=== PATIENT | female | born 1945 | race Caucasian/White ===

== ENCOUNTER 2019-11-12 13:28 | Inpatient (IN) | payer MEDICARE, SELFPAY ==
[2019-11-12] VITALS (9 sets, daily range): BP systolic 96–136; BP diastolic 58–82; PULSE 59–69; RESP 15–20; TEMP 35.9–36.9; O2SAT 98–100; BMI 34.9
--- NOTE | ~2019-11-12 | CT_ITS ---
EXAMINATION: CT brain wo con DATE: 11/12/2019 14:42 INDICATION: Dizziness. Syncope. Hypotension. TECHNIQUE: Computed tomography (CT) of the head was performed without intravenous contrast. The dose- length product was 605.33 mGy-cm. The mA was adjusted according to patient size. Iterative reconstruc tion technique was employed. COMPARISON: CT dated 01/31/2018 FINDINGS: There is a chronic left occipital craniotomy defect with underlying cerebellar encephalomal acia, likely postoperative. Correlate clinically. No acute intracranial hemorrhage, infarction, mass or mass effect. There are scattered mild periventricular and subcortical white matter changes, most l ikely related to small vessel ischemic disease (microangiopathy). Mild mucosal thickening left maxill kathie sinus. Mastoids are pneumatized. No depressed skull fractures. IMPRESSION: 1. No acute intracranial abnormality. No significant change. Reviewed, dictated and finalized at location A.
--- NOTE | ~2019-11-12 | XR_ITS ---
EXAMINATION: XR shoulder RT min 2V DATE: 11/13/2019 10:16 INDICATION: Right shoulder pain post fall TECHNIQUE: AP internally and externally rotated, AP oblique externally rotated and transscapular Y vi ews of the right shoulder were obtained. COMPARISON: None FINDINGS: Normal alignment. No fracture. Glenohumeral joint is normal. Negligible acromioclavicular osteoarthr itis. Soft tissues are unremarkable. A couple tiny calcified nodules at the right upper lung zone con sistent with old granulomatous disease. 3. Partially visualized cardiac pacemaker/defibrillator leads extending along the superior vena cava. At least moderate cervical thoracic spondylosis which is not diagnostically evaluated. IMPRESSION: Negligible right acromioclavicular osteoarthritis. Otherwise unremarkable right shoulder with no acut e osseous abnormality. Reviewed, dictated and finalized at location B. IMPRESSION: Negligible right acromioclavicular osteoarthritis. Otherwise unremarkable right shoulder with no acute osseous abnormality.
--- NOTE | ~2019-11-12 | CT_ITS ---
EXAMINATION: CTA chest PE protocol DATE: 11/12/2019 14:45 CDT INDICATION: Dizziness and weakness. Shortness of breath. TECHNIQUE: Computed tomographic angiography (CTA) of the chest was performed with 100 mL Omnipaque-35 0 intravenous contrast. The dose-length product was 958.38 mGy-cm. Maximum intensity projection 3D-re constructions of the aorta and other arteries were constructed by the technologist on a separate work station. Automated exposure control and iterative reconstruction technique were employed. COMPARISON: CT dated 05/03/2016 FINDINGS: Study is technically adequate without evidence for pulmonary embolism. Stable fusiform asce nding thoracic aortic aneurysm measuring 4.8 cm. There is atherosclerosis of the coronary arteries an d aorta. No significant pleural or pericardial effusion. No thoracic lymphadenopathy. Status post cho lecystectomy with pneumobilia. No endobronchial lesions. Mild emphysema. Dependent atelectasis. No ev idence for focal pneumonia, pneumothorax. No suspicious pulmonary nodules or masses. IMPRESSION: 1. No evidence for pulmonary embolism. No acute cardiopulmonary disease. 2: Stable fusiform ascending thoracic aortic aneurysm measuring 4.8 cm. Reviewed, dictated and finalized at location A.
--- NOTE | 2019-11-12 13:25 | ED.DIZZY ---
HPI - Dizziness General Chief Complaint: Dizziness Stated Complaint: fall/ dizzy Source: patient and EMS Mode of arrival: EMS Limitations: no limitations History of Present Illness HPI Narrative: Patient is a 74-year-old female with a history of hypertension, pacemaker/defibrillator who presents for evaluation of a syncopal event. Patient states that she was in her living room when she stood up to check on her , walked into the bedroom began to feel lightheaded and dizzy and then passed out. Patient is unsure if she hit her head. She is reporting chest pain that is worse with movement. She is denying any shortness of breath. Patient states she takes a daily aspirin, otherwise no other anticoagulation. Patient did not feel her defibrillator fire. Patient states that she has a history of low blood pressure secondary to some of the medications that she takes. She states this is her third syncope and fall this week. Patient reports chronic dehydration, states that she does not take in much food or water due to decreased appetite in general. Dr. Still is her loss control representative. Related Data Home Medications Medication Instructions Recorded Confirmed albuterol sulfate 2.5 mg INHALATION Q4-6H 01/20/19 08/09/19 aspirin 81 mg tablet,delayed 81 mg PO DAILY 02/01/19 08/09/19 release cholecalciferol (vitamin D3) 50 2,000 unit PO DAILY 02/01/19 08/09/19 mcg (2,000 unit) tablet sacubitril 24 mg-valsartan 26 mg 0.5 tablet PO BID tablet 08/09/19 08/09/19 tablet Allergies Allergy/AdvReac Type Severity Reaction Status Date / Time adhesive Allergy Mild Rash Verified 11/12/19 13:40 codeine Allergy Unknown HIVES AND Verified 11/12/19 13:40 ITCHING Sulfa (Sulfonamide Allergy Unknown HIVES Verified 11/12/19 13:40 Antibiotics) sulfanilamide Allergy Unknown Hives Verified 11/12/19 13:40 Review of Systems Review of Systems: Narrative: CONSTITUTIONAL: Denies fever, chills, or sweats. EYES: Denies visual changes ENT: Denies rhinorrhea, congestion, sore throat, or otalgia. CARDIOVASCULAR: Reports chest wall pain, denies palpitations or edema RESPIRATORY: Denies cough or dyspnea. GASTROINTESTINAL: Denies abdominal pain, nausea, vomiting, or diarrhea. GENITOURINARY: Denies dysuria or hematuria. SKIN: Denies rash or itching. MUSCULOSKELETAL: Denies back pain, reports right shoulder pain, or myalgia. NEUROLOGIC: Denies headache, numbness, or weakness. [facility] Past Medical History Medical History Anxiety Cardiac pacemaker Cardiac pacemaker in situ Cholecystectomy planned COPD (chronic obstructive pulmonary disease) Dilated cardiomyopathy Encounter for blood transfusion Essential hypertension GERD (gastroesophageal reflux disease) Hyperlipidemia Overactive bladder Vitamin D deficiency Surgical History Surgical History H/O colonoscopy History of appendectomy Hx of tonsillectomy Family History Family History Father Family history of lymphoma Sibling Family history of malignant neoplasm of breast in first degree relative Mother Family history of malignant neoplasm Other Family history of malignant neoplasm of thyroid Social History Social History (System 06/01/19 @ 15:55 by Yanely Sunshine) Smoking status: Never smoker Smoking end date: 03/15/10 Alcohol intake: never Substance use: never Gender identity (if verbalized by the patient): Female Exam Narrative: Exam Narrative: Nursing note and vitals reviewed. CONSTITUTIONAL: The patient appears well-developed and well-nourished. No distress. HEAD: Normocephalic and atraumatic. EYES: PERRL, EOMI, normal conjunctiva, anicteric EARS: External ears clear bilaterally, no hemotympanum MOUTH: OP clear, no erythema, exudates NECK: midline trachea, supple, FROM. No midline cervical spinal tender
[2019-11-12] MEDS: ACETAMINOPHEN 500 MG TABLET 1000 MG PO (13:53)
[2019-11-12] MEDS: SODIUM CHLORIDE 0.9% IV 500 ML 999 ML IV CONT (13:53)
[2019-11-12 13:55] LABS: Basophils Percent Auto 0.3 % (0.2-1.2); Eosinophils Absolute Auto 0.2 K/mm3 (0-0.3); Eosinophils Percent Auto 1.7 % (0-4.4); Hematocrit 39.4 % (37.0-47.0); Hemoglobin 12.8 g/dL (12.0-15.0); Immature Granulocyte Absolute 0.05 K/mm3 (0.00-0.031); Immature Granulocyte Percent A 0.5 % (0-0.5); Lymphocytes Absolute Auto 1.71 K/mm3 (0.9-3.2); Lymphocytes Percent Auto 17.9 % (18.3-44.2); Mean Corpuscular HGB Conc 32.5 g/dl (32-36); Mean Corpuscular Hemoglobin 28.1 pg (26-34); Mean Corpuscular Volume 86.4 fl (80-100); Mean Platelet Volume 10.2 fl (7.4-10.4); Monocytes Absolute Auto 0.7 K/mm3 (0.1-0.6); Monocytes Percent Auto 7.8 % (2.6-8.5); Neutrophils Absolute Auto 6.8 K/mm3 (1.3-6.7); Neutrophils Percent Auto 71.8 % (45.5-73.1); Platelet Count Result 217 k/mm3 (150-375); Red Blood Count 4.56 M/mm3 (4.2-5.4); Red Cell Distribution Width 13.6 % (11.5-14.5); White Blood Count 9.5 K/mm3 (4.5-10.0)
[2019-11-12 14:04] LABS: INR 1.1; Prothrombin Time 13.7 Seconds (11.1-14.7)
[2019-11-12 14:05] LABS: Partial Thromboplastin Time 27.1 SECONDS (22.3-36.8)
[2019-11-12 14:10] LABS: Anion Gap 9 mmol/L (8-16); Blood Urea Nitrogen 25 mg/dL (7-17); CRP < 0.5 mg/dL (<1.0); Calcium 8.9 mg/dL (8.4-10.2); Carbon Dioxide 22 mmol/L (22-30); Chloride 107 mmol/L (98-107); Estimated CRCL calculation 39 ml/min; Estimated Glomerular Filt Rate 31; Glucose 173 mg/dL (65-105); Potassium 4.1 mmol/L (3.4-5.0); Sodium 138 mmol/L (137-145)
[2019-11-12 14:16] LABS: NT Pro B Type Natriuretic Pept 118 PG/ML (5-100)
[2019-11-12 14:19] LABS: Troponin I < 0.012 ng/mL (0.000-0.034)
[2019-11-12 15:50] LABS: Add Urine Microscopic? YES; Appearance Urine Clear (Clear); Bilirubin Urine Negative (Negative); Blood Urine 1+ (Negative); Color Urine Yellow (Yellow); Glucose Urine UA Negative (Negative); Hyaline Casts Urine 15-19 /lpf; Ketones Urine Negative (Negative); Leukocyte Esterase Ur Negative LEU/UL (Negative); Mucus Urine Rare /lpf; Nitrate Urine Negative (Negative); Protein Urine Negative (Negative); Specific Grav Ur 1.025 (1.001-1.035); Squamous Epithelial Cell Urine Rare /hpf (Few); Urobilinogen Urine Negative mg/dL (<2.0); WBC Urine 0-3 /hpf
--- NOTE | 2019-11-12 17:20 | ADMGEN ---
This patient, Shahida Mitchell, was admitted to Medical Room 243-. Patient/family oriented to hospital policies and general routines including ID bracelet, bed and alarms, visiting hours, pain management, procedures, bathroom and other care routines, personal items, smoking policy, room service/diet, and visiting hours. Valuables list has been completed. Information on how to activate the Rapid Response Team has been discussed. Patient/Family are encouraged to report perceived risks to care and to ask questions if they do not understand what they are told or what they should do.
[2019-11-12] MEDS: SODIUM CHLORIDE 0.9% IV 1,000 ML 100 ML IV CONT (17:49)
[2019-11-12] MEDS: ALPRAZolam 0.5 MG TABLET PO (20:12)
[2019-11-12] MEDS: ALBUTEROL SULFATE NEB 2.5 MG/0.5 ML INH INHALATION (20:23)
--- NOTE | 2019-11-12 20:29 | PCRCNOTE ---
Patient requested not to be woken up for the 02:00 albuterol treatment overnight. Indicated that she will call if she feels she needs a treatment overnight.
[2019-11-13] VITALS (13 sets, daily range): BP systolic 103–139; BP diastolic 69–84; PULSE 60–77; RESP 16–21; TEMP 36–36.2; O2SAT 99–100
[2019-11-13] MEDS: SODIUM CHLORIDE 0.9% IV 1,000 ML 100 ML IV CONT (04:14)
--- NOTE | 2019-11-13 08:21 | PM.CNCAR ---
Assessment and Plan Additional Plan this is a 74-year-old woman who has a history of a nonischemic cardiomyopathy which according to the history in our office records resolved with medical therapy. Her ejection fraction has normalized. She has a dual-chamber pacemaker/ICD in place which has never delivered a shock and she is taking furosemide and Entresto as her only medical therapy. She now presents with problematic orthostasis. She has received about 3-4 L of crystalloid since admission and her blood pressure supine seems to be normal. At this point I would recommend discontinuing her furosemide and for the time being discontinuing her Entresto and observing her blood pressure. Since her ejection fraction has normalized she may not lay any longer require these medications. I would discontinue her IV fluid when she her current bag is completed since after 3-4 L of saline she should be well rehydrated. her other complaint which is chronic positional back pain is not cardiac and I do not believe has to be worked up any further while she is in the hospital Sam Painting MD [facility] History of Present Illness History of Present Illness Consult date/time: Date of service:11/13/19 08:21 Reason For Visit: Suncope, Orthostatic hypotension Narrative: This is a 74-year-old woman I am seeing at the request of the hospitalist because of symptomatic orthostatic hypotension. The patient is unknown to me prior to this encounter apparently she follows with my partner Dr. Still and has a established diagnosis of a nonischemic cardiomyopathy. According to the chart the patient was living in [place] several years ago and presented to the hospital with congestive heart failure and was found to have left ventricular systolic dysfunction and was treated medically. She had a prior to that and that device was subsequently upgraded to a Bi V ICD. At the time of this diagnosis apparently an angiogram was done that showed no evidence of significant coronary disease. She follows with Dr. Lafleur of our practice as I mentioned above and was last seen in the office for a telemedicine visit 3 months ago. In follow-up the patient's left ventricular systolic function has normalized according to the last office note. Regarding her heart failure she remains on a low-dose of Entresto and furosemide. The charts indicate she was clinically intolerant of beta-blockers although specifically what the problem was is not detailed. She states that she has been having problems for at least several weeks with lightheadedness upon arising. She also wanted to talk for a long time about some chronic thoracic back pain that she has upon arising as well but she states this is been going on for over a year. She checks her blood pressure at home and has been recording systolic blood pressures in the 60s when she feels poorly upon arising. Eventually her called an ambulance and she was taken to the emergency room last evening when this occurred at home and she apparently briefly lost consciousness and fell. In the emergency department according to their physical exam she was also found to be orthostatic and she was admitted to the hospital. At this time she is not receiving either her furosemide or her Entresto. She is laying in bed and appears to be relatively comfortable and offers no other complaints. She has received about 3-4 L of saline since admission last evening. Review of Systems Constitutional: Constitutional: Reports fatigue Eyes: Eyes: Reports no additional eye complaints ENT: Reports system reviewed and no additional complaints, except as documented Cardiovascular: Cardiovascular: Reports no additional cardiovascular complaints Respiratory: Respiratory: Reports no additional respiratory complaints Gastrointestinal: Gastrointestinal: Reports no additional gastrointestinal complaints Musculoskeletal: Musculoskeletal: Reports as per HPI Comments: Thoracic back pain
[2019-11-13] MEDS: ALBUTEROL SULFATE NEB 2.5 MG/0.5 ML INH INHALATION ×3 (08:54→19:16)
--- NOTE | 2019-11-13 08:57 | PM.IMHP ---
H&P: HPI History of Present Illness Date/Time: 11/13/19 08:57 Chief complaint: Suncope, Orthostatic hypotension Narrative: Shahida Mitchell is a 74 year old female with PMH significant for nonischemic cardiomyopathy, dual-chamber pacemaker/ICD, COPD, hypertension, and hyperlipidemia who presented to the emergency department for the evaluation of orthostatic hypotension with syncope. She reports that she stood up to check on her and felt very lightheaded. She notes that her systolic blood pressure has been in the 60s with standing and her symptoms were consistent with her prior episodes of hypotension. She had a brief loss of consciousness and fell backwards. She does not believe she hit her head. She reports that her right shoulder is very sore from the fall. She has chronic back pain which us unchanged. She denies chest pain, dyspnea, and palpitations prior to or after the episode. She denies headache, lateralizing weakness, speech change, and vision change. She has never had a shock from her defibrillator. Review of Systems Review of Systems: Narrative: Constitutional: Denies fever, chills, and fatigue. Denies appetite change. Denies weight change. Eyes: Denies vision change including no amaurosis fugax or blurred vision. No additional eye complaints. ENT: Denies change in hearing, nasal congestion, dysphagia, odynophagia, and sore throat. Cardiovascular: Denies palpitations and chest pain. Denies PND and orthopnea. Denies dyspnea on exertion. Denies lower extremity edema. Respiratory: Denies cough and shortness of breath. Gastrointestinal: Denies abdominal pain, nausea, and vomiting. Denies melena and hematochezia. Denies constipation and diarrhea. Genitourinary: Denies dysuria, frequency, urgency, and hesitancy. Musculoskeletal: Reports right shoulder pain after her fall. No other joint complaints. Skin: Denies lesions and wounds. Neurologic: Denies focal weakness, paresthesias, confusion, and speech change. Denies headaches. Psychiatric: Denies mood change. Hematologic: Denies easy bruising and bleeding. All systems reviewed & are unremarkable except as noted in HPI and below [facility] Past Medical History Medical History (Updated 11/13/19 @ 09:38 by Whitley Paez PA-C) Anxiety Cardiac pacemaker Cardiac pacemaker in situ Cholecystectomy planned COPD (chronic obstructive pulmonary disease) Dilated cardiomyopathy Encounter for blood transfusion Essential hypertension GERD (gastroesophageal reflux disease) Hyperlipidemia Overactive bladder Vitamin D deficiency Surgical History Surgical History H/O colonoscopy H/O hysterectomy with oophorectomy History of appendectomy Hx of brain surgery Meningioma removal in 2014 Hx of tonsillectomy S/P cholecystectomy Family History Family History (Updated 11/13/19 @ 09:16 by Whitley Paez PA-C) Father Family history of lymphoma Sibling Family history of malignant neoplasm of breast in first degree relative Carcinoma of colon Breast cancer Mother Aplastic anemia Son Thyroid cancer Other Family history of malignant neoplasm of thyroid Social History Social History Social History: Mrs. Mitchell lives at home with her in [place], [place]. She has 5 sons. 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 She is a former 1 PPD smoker for at least 50 years. She denies illicit substance and alcohol use. She wishes for her code status to be DNR and she has designated her son, Jan Moran, as her designated surrogate decision maker. Smoking packs per day: 1 Smoking cigarettes per day: 20.0 Years smoked: 50 Smoking pack-years: 50.00 Smoking status: Former smoker Smoking end date: 03/15/10 Alcohol intake: never Substance use: never Living arrangements: with family Occupation/Education: retired Gender identity (if verbalized by the patient):
[2019-11-13] MEDS: FAMOTIDINE 20 MG TABLET PO ×2 (09:24→17:56)
[2019-11-13] MEDS: CHOLECALCIFEROL 1,000 UNITS TABLET 2000 UNITS PO (09:25)
[2019-11-13] MEDS: ASPIRIN 81 MG ENTERIC TABLET PO (09:25)
[2019-11-13] MEDS: OXYBUTYNIN CHLORIDE 5 MG TABLET PO (09:36)
[2019-11-13] MEDS: ALPRAZolam 0.5 MG TABLET PO ×2 (09:36→19:43)
[2019-11-13] MEDS: ACETAMINOPHEN 325 MG TABLET 650 MG PO (09:36)
[2019-11-13 10:21] LABS: Anion Gap 7 mmol/L (8-16); Blood Urea Nitrogen 23 mg/dL (7-17); Calcium 8.6 mg/dL (8.4-10.2); Carbon Dioxide 25 mmol/L (22-30); Chloride 107 mmol/L (98-107); Estimated CRCL calculation 56 ml/min; Estimated Glomerular Filt Rate 48; Glucose 120 mg/dL (65-105); Magnesium 2.2 mg/dL (1.6-2.3); Sodium 139 mmol/L (137-145)
[2019-11-13 10:52] LABS: Thyroid Stimulating Hormone 0.841 uIU/mL (0.465-4.680)
[2019-11-13] MEDS: ATORVASTATIN 40 MG TABLET PO (19:43)
[2019-11-14] VITALS (17 sets, daily range): BP systolic 98–145; BP diastolic 57–85; PULSE 64–95; RESP 16–20; TEMP 36.1–36.3; O2SAT 95–97
[2019-11-14] MEDS: ALBUTEROL SULFATE NEB 2.5 MG/0.5 ML INH INHALATION ×4 (01:23→20:53)
[2019-11-14 06:21] LABS: Anion Gap 8 mmol/L (8-16); Blood Urea Nitrogen 21 mg/dL (7-17); Calcium 8.5 mg/dL (8.4-10.2); Carbon Dioxide 23 mmol/L (22-30); Chloride 107 mmol/L (98-107); Estimated CRCL calculation 56 ml/min; Estimated Glomerular Filt Rate 48; Glucose 102 mg/dL (65-105); Potassium 3.9 mmol/L (3.4-5.0); Sodium 138 mmol/L (137-145)
[2019-11-14] MEDS: CHOLECALCIFEROL 1,000 UNITS TABLET 2000 UNITS PO (08:26)
[2019-11-14] MEDS: FAMOTIDINE 20 MG TABLET PO ×2 (08:26→16:32)
[2019-11-14] MEDS: ALPRAZolam 0.5 MG TABLET PO ×2 (08:26→20:48)
[2019-11-14] MEDS: OXYBUTYNIN CHLORIDE 5 MG TABLET PO (08:26)
[2019-11-14] MEDS: ASPIRIN 81 MG ENTERIC TABLET PO (08:26)
--- NOTE | 2019-11-14 16:03 | PM.PNCARD ---
Progress Note: A&P Assessment and Plan (1) Syncope and collapse: Code(s): R55 - Syncope and collapse Status: Acute Assessment and Plan: Likely related to orthostatic hypotension. (2) Orthostatic hypotension: Code(s): I95.1 - Orthostatic hypotension Status: Acute Assessment and Plan: History of a nonischemic cardiomyopathy which according to the history in our office records resolved with medical therapy. Her ejection fraction has normalized. She has a dual-chamber pacemaker/ICD in place which has never delivered a shock and she is taking furosemide and Entresto as her only medical therapy. She presented with problematic orthostasis. She received about 3-4 L of crystalloid and her blood pressure supine is now normal. Her orthostatics blood pressure readings this morning improved. She did not feel as if she was going to faint. She did not have greater than 20 mm drop today. Continue to hold Entresto. Additional Plan Will have physical therapy evaluate her for safety for tomorrow. Plan is to have home health follow her at discharge. Plan discussed with Dr. Chandler [id number] 2019 Time Spent With Patient Time with patient: less than 15 minutes Subjective Date/time seen: 11/14/19 16:03 Interval history: Follow-up for: Syncope, orthostatic hypotension, history of cardiomyopathy with normalization of ejection fraction, ICD. Date of service: 11/14/2019 Subjective: Back pain with any movement. Denied chest discomfort, shortness of breath, lightheadedness or palpitations. Off balance when walking to the bathroom this afternoon. Review of Systems Constitutional: Constitutional: Denies fatigue Eyes: Eyes: Denies blurry vision ENT: Reports Normal hearing present Cardiovascular: Cardiovascular: Denies chest pain, Denies pedal edema, Denies lightheadedness and Denies dyspnea Respiratory: Respiratory: Denies cough, Denies dyspnea and Denies wheezing Gastrointestinal: Gastrointestinal: Denies abdominal pain, Denies nausea and Denies vomiting Genitourinary: Genitourinary: Denies hematuria Musculoskeletal: Musculoskeletal: Reports back pain Neurologic: Reports Normal hearing present, Denies vertigo, Denies dizziness and Reports frequent falls ( Three falls within the last few weeks.) Psychiatric: Psychiatric: Denies anxiety and Denies depression Endocrine: Endocrine: Reports fatigue Hematologic/Lymphatic: Hematologic/Lymphatic: Denies easy bleeding and Denies easy bruising Allergic/Immunologic: Allergic/Immunologic: Denies throat swelling and Denies wheezing Exam Const: General: comfortable and no acute distress Other: Pleasant, cooperative female with back pain with any movement. No distress. HENMT: Mouth: Yes moist mucous membranes Eyes: Sclera: sclerae normal Pupils: Equal, round and reactive pupils present Neck: Neck: supple and no JVD Chest: Chest palpation & inspection: other ( ICD left subclavian. Incision well-healed.) Breast/axilla palpation: other ( Bruise noted left breast) Resp: Effort & Inspection: normal respiratory effort Auscultation: clear to auscultation bilaterally Cardio: Rate: regular rate Rhythm: regular rhythm Other: paradoxically split S2, no murmur GI: GI Palp: Yes Soft to palpation Auscultation: normal bowel sounds Skin: General skin exam: normal color Neuro: Cranial nerves: Yes Equal, round and reactive pupils present Cognition (Neuro): normal cognition Extrem: General: normal to inspection Other: normal distal perfusion, no edema Psych: Appearance: grossly normal Mental Status: mental status grossly normal Speech and movement: Normal speech and movement present Affect: normal affect Attitude: cooperative Thought process: Normal thought process present Thought content: Yes Normal thought content present Insight: Good insight present (Psych) Judgement: Good judgement present (Psych)
--- NOTE | 2019-11-14 16:28 | PM.IMPN ---
Progress Note: A&P Assessment and Plan (1) Orthostatic hypotension: Code(s): I95.1 - Orthostatic hypotension Status: Acute Assessment and Plan: She received 3-4 L IV fluid rehydration. Entresto and lasix are on hold. BP has normalized supine and orthostatic readings have improved today. Appreciate cardiology input. Monitor orthostatics each shift (2) Syncope and collapse: Code(s): R55 - Syncope and collapse Status: Acute Assessment and Plan: Likely secondary to orthostasis as above. She had a carotid doppler US which revealed <50% stenosis bilaterally. She had an echo 02/01/18 which showed normal LV systolic function with mild concentric LV hypertrophy, EF 55-60% with grade I diastolic dysfunction, mild left atrial enlargement, mild mitral regurgitation, mild tricuspid regurgitation. Cardiology is on board and input is appreciated. Plan as above. Continue telemetry. TSH is within normal limits. Electrolytes are stable. (3) COTY (acute kidney injury): Code(s): N17.9 - Acute kidney failure, unspecified Status: Acute Assessment and Plan: Cr 1.6 and BUN 25 at presentation. Likely secondary to poor renal perfusion from hypotension/hypovolemia from diuretic therapy. Baseline Cr appears to be 1.2-1.3. Hold furosemide and entresto. Continue to monitor. Avoid nephrotoxins and renally dose medications. Renal function improved today with IV fluid rehydration. (4) Left shoulder pain: Qualifiers: Chronicity: acute Qualified Code(s): M25.512 - Pain in left shoulder Code(s): M25.512 - Pain in left shoulder Status: Acute Assessment and Plan: shoulder x-ray demonstrates negligible OA and no acute osseous abnormalities. Suspect muscle strain/sprain. Rest, ice/heat, and analgesics PRN. (5) Benign essential hypertension: Code(s): I10 - Essential (primary) hypertension Status: Chronic Assessment and Plan: Hold sacubitril-valsartan and furosemide given orthostatic hypotension as noted above. Continue to monitor BP. (6) COPD (chronic obstructive pulmonary disease): Qualifiers: COPD type: unspecified COPD Qualified Code(s): J44.9 - Chronic obstructive pulmonary disease, unspecified Code(s): J44.9 - Chronic obstructive pulmonary disease, unspecified Status: Chronic Assessment and Plan: Chronic. Continue scheduled and PRN albuterol. (7) Hyperlipidemia: Qualifiers: Hyperlipidemia type: unspecified Qualified Code(s): E78.5 - Hyperlipidemia, unspecified Code(s): E78.5 - Hyperlipidemia, unspecified Status: Chronic Assessment and Plan: Continue atorvastatin. Will check LFTs while continuing atorvastatin (8) Dilated cardiomyopathy: Code(s): I42.0 - Dilated cardiomyopathy Status: Chronic Assessment and Plan: Nonischemic cardiomyopathy. Clinically compensated and resolved with medical therapy per reports. Dual chamber pacemaker/ICD is in place with no shocks delivered. Echo performed 02/01/18 showed normal LV systolic function with mild concentric LV hypertrophy, EF 55-60% with grade I diastolic dysfunction, mild left atrial enlargement, mild mitral regurgitation, mild tricuspid regurgitation. She follows with Dr. Jack for primary cardiology. Appreciate cardiology input. Hold entresto and lasix due to hypotension. Monitor daily weights, strict I&O. (9) GERD (gastroesophageal reflux disease): Code(s): K21.9 - Gastro-esophageal reflux disease without esophagitis Status: Chronic Assessment and Plan: Continue famotidine. (10) Overactive bladder: Code(s): N32.81 - Overactive bladder Status: Chronic Assessment and Plan: Chronic with no acute issues. Continue oxybutynin. (11) Chronic back pain: Code(s): M54.9 - Dorsalgia, unspecified; G89.29 - Other chronic pain Status: Acute A
[2019-11-14] MEDS: ATORVASTATIN 40 MG TABLET PO (20:46)
[2019-11-15] VITALS (10 sets, daily range): BP systolic 89–126; BP diastolic 49–71; PULSE 72–88; RESP 14–21; TEMP 36.2–37.1; O2SAT 95–99
[2019-11-15] MEDS: ALBUTEROL SULFATE NEB 2.5 MG/0.5 ML INH INHALATION ×3 (02:20→13:51)
[2019-11-15 05:44] LABS: Hematocrit 34.3 % (37.0-47.0); Hemoglobin 11.1 g/dL (12.0-15.0); Mean Corpuscular HGB Conc 32.4 g/dl (32-36); Mean Corpuscular Volume 86.4 fl (80-100); Mean Platelet Volume 10.1 fl (7.4-10.4); Platelet Count Result 185 k/mm3 (150-375); Red Blood Count 3.97 M/mm3 (4.2-5.4); White Blood Count 7.5 K/mm3 (4.5-10.0)
[2019-11-15 06:05] LABS: Alanine Aminotransferase 29 U/L (4-35); Albumin Level 3.7 g/dL (3.5-5.1); Alkaline Phosphatase 120 U/L (38-126); Anion Gap 7 mmol/L (8-16); Aspartate Amino Transferase 34 U/L (14-36); Bilirubin,Total 0.5 mg/dL (0.2-1.3); Blood Urea Nitrogen 19 mg/dL (7-17); Calcium 8.7 mg/dL (8.4-10.2); Carbon Dioxide 24 mmol/L (22-30); Chloride 106 mmol/L (98-107); Estimated CRCL calculation 58 ml/min; Estimated Glomerular Filt Rate 48; Glucose 109 mg/dL (65-105); Potassium 3.9 mmol/L (3.4-5.0); Sodium 137 mmol/L (137-145)
[2019-11-15] MEDS: OXYBUTYNIN CHLORIDE 5 MG TABLET PO (09:43)
[2019-11-15] MEDS: FAMOTIDINE 20 MG TABLET PO (09:43)
[2019-11-15] MEDS: CHOLECALCIFEROL 1,000 UNITS TABLET 2000 UNITS PO (09:43)
[2019-11-15] MEDS: ASPIRIN 81 MG ENTERIC TABLET PO (09:44)
[2019-11-15] MEDS: ALPRAZolam 0.5 MG TABLET PO (14:58)
--- NOTE | 2019-11-15 15:09 | PM.PNCARD ---
Progress Note: A&P Assessment and Plan (1) Syncope and collapse: Code(s): R55 - Syncope and collapse Status: Acute Assessment and Plan: Likely related to orthostatic hypotension. (2) Orthostatic hypotension: Code(s): I95.1 - Orthostatic hypotension Status: Acute Assessment and Plan: She presented with problematic orthostasis. She received about 3-4 L of crystalloid . Readings yesterday morning had improved however the last 2 sets again with drop in systolic blood pressure of more than 20 mm Hg. She did feel weak but not faint this morning. TSH is within normal limits. Random cortisol all also within normal limits. Discussed with her corn picker Dr Still , will stop Entresto and furosemide for now. Additional Plan Was seen by physical therapy and occupational therapy this morning. They recommend some physical therapy for balance and strengthening. Plan is also to have home health follow her at discharge. No further cardiac recommendations. Will have her follow-up in the office with Dr Still on November 29, [address] Chandler 1525 11/15/2019 This document was completed by using M*Modal Fluency Direct speech recognition software, therefore, dress draper variances may occur. Subjective Date/time seen: 11/15/19 15:09 Interval history: Follow-up for: Syncope, orthostatic hypotension, history of cardiomyopathy with normalization of ejection fraction, ICD. Date of service: 11/15/2019 Subjective: Weakness last evening and today. Denied chest discomfort or shortness of breath. Pain in the right side. No faint feelings. Review of Systems Constitutional: Constitutional: Reports fatigue and Reports frequent falls ( Three falls within the last few weeks.) Eyes: Eyes: Denies blurry vision ENT: Reports Normal hearing present, Denies vertigo, Denies dizziness and Denies throat swelling Cardiovascular: Cardiovascular: Denies chest pain, Denies pedal edema, Denies lightheadedness and Denies dyspnea Respiratory: Respiratory: Denies cough, Denies dyspnea and Denies wheezing Gastrointestinal: Gastrointestinal: Denies abdominal pain, Denies nausea and Denies vomiting Genitourinary: Genitourinary: Denies hematuria Musculoskeletal: Musculoskeletal: Reports back pain Neurologic: Reports Normal hearing present, Denies vertigo, Denies dizziness and Reports frequent falls ( Three falls within the last few weeks.) Psychiatric: Psychiatric: Denies anxiety and Denies depression Endocrine: Endocrine: Reports fatigue Hematologic/Lymphatic: Hematologic/Lymphatic: Denies easy bleeding and Denies easy bruising Allergic/Immunologic: Allergic/Immunologic: Denies throat swelling and Denies wheezing Exam Const: General: comfortable and no acute distress Other: Pleasant, cooperative female with back pain with any movement. No distress. HENMT: Mouth: Yes moist mucous membranes Eyes: Sclera: sclerae normal Pupils: Equal, round and reactive pupils present Neck: Neck: supple and no JVD Chest: Chest palpation & inspection: other ( ICD left subclavian. Incision well-healed.) Breast/axilla palpation: other ( Bruise noted left breast) Resp: Effort & Inspection: normal respiratory effort Auscultation: clear to auscultation bilaterally Cardio: Rate: regular rate Rhythm: regular rhythm Other: paradoxically split S2, no murmur GI: Auscultation: normal bowel sounds Skin: General skin exam: normal color Neuro: Cranial nerves: Yes Equal, round and reactive pupils present and Yes Normal hearing present Cognition (Neuro): normal cognition Extrem: General: normal to inspection Other: normal distal perfusion, no edema Psych: Appearance: grossly normal Mental Status: mental status grossly normal Speech and movement: Normal speech and movement present Affect: normal affect Attitude:
--- NOTE | 2019-11-15 17:22 | PM.DS ---
DS: Admitting Diagnosis Admitting Diagnosis Admitting Diagnosis: Syncope, Orthostatic Hypotension DS: Discharge Diagnosis Discharge Diagnosis (1) Orthostatic hypotension: Code(s): I95.1 - Orthostatic hypotension Status: Acute Assessment and Plan: She received 3-4 L IV fluid rehydration. Entresto and lasix were discontinued. BP when supine was stable. Orthostatic readings improved upon adequate rehydration and discontinuation of medications. She was seen in consultation by cardiology and will follow-up with her primary general road supervisor in 2 weeks. She was instructed to monitor her blood pressure at home and bring a log to this appointment. I spent extensive time with her discussing the importance of fall precautions and adequate hydration. (2) Syncope and collapse: Code(s): R55 - Syncope and collapse Status: Acute Assessment and Plan: Likely secondary to orthostasis as above. Head CT showed no acute abnormalities. She had a carotid doppler US which revealed <50% stenosis bilaterally. She had an echo 02/01/18 which showed normal LV systolic function with mild concentric LV hypertrophy, EF 55-60% with grade I diastolic dysfunction, mild left atrial enlargement, mild mitral regurgitation, mild tricuspid regurgitation. TSH was within normal limits and electrolytes were stable. She was evaluated by Cardiology as above and will follow-up with her general road supervisor. (3) COTY (acute kidney injury): Code(s): N17.9 - Acute kidney failure, unspecified Status: Acute Assessment and Plan: Cr 1.6 and BUN 25 at presentation. Likely secondary to poor renal perfusion from hypotension/hypovolemia from diuretic therapy. Baseline Cr appears to be 1.2-1.3. Renal function improved with IV hydration and holding of furosemide. Cr was 1.1 at discharge. (4) Left shoulder pain: Qualifiers: Chronicity: acute Qualified Code(s): M25.512 - Pain in left shoulder Code(s): M25.512 - Pain in left shoulder Status: Acute Assessment and Plan: Patient is unclear on the mechanics of her follow-up believes she reached out her left arm to try to catch herself , and likely injured her shoulder at that time. Shoulder x-ray demonstrated negligible OA and no acute osseous abnormalities. Suspect muscle strain/sprain. We discussed rest, ice and heat. Acetaminophen as needed for pain. (5) Benign essential hypertension: Code(s): I10 - Essential (primary) hypertension Status: Chronic Assessment and Plan: Supine blood pressures were well controlled. Patient had orthostatic hypotension as noted above. Furosemide and Entresto have been discontinued. Patient is to monitor blood pressures at home. (6) COPD (chronic obstructive pulmonary disease): Qualifiers: COPD type: unspecified COPD Qualified Code(s): J44.9 - Chronic obstructive pulmonary disease, unspecified Code(s): J44.9 - Chronic obstructive pulmonary disease, unspecified Status: Chronic Assessment and Plan: Chronic. She maintained adequate oxygenation on room air. Continue scheduled and PRN albuterol (7) Hyperlipidemia: Qualifiers: Hyperlipidemia type: unspecified Qualified Code(s): E78.5 - Hyperlipidemia, unspecified Code(s): E78.5 - Hyperlipidemia, unspecified Status: Chronic Assessment and Plan: LFTs within normal limits. Continue atorvastatin. (8) Dilated cardiomyopathy: Code(s): I42.0 - Dilated cardiomyopathy Status: Chronic Assessment and Plan: Nonischemic cardiomyopathy. Clinically compensated and improved with medical therapy per reports. Dual chamber pacemaker/ICD is in place and no shocks have ever been delivered. Echo performed 02/01/18 showed normal LV systolic function with mild concentric LV hypertrophy, EF 55-60% with grade I diastolic dysfunction, mild left atrial enlargement, mild mitral regurgita
== END 2019-11-15 18:44 | disposition home health service (06) | DRG 312 ==
LOC: ANHED 14:04 → ANH2MED 16:11
PROVIDERS: Nurse Practitioner Adult Health; Physician Assistant; Admitting Provider Family Medicine; Emergency Provider Emergency Medicine; PCP Internal Medicine; Visit Provider Family Medicine
DX: I95.1 Orthostatic hypotension (principal); N17.9 Acute kidney failure, unspecified; I42.0 Dilated cardiomyopathy; I71.2 Thoracic aortic aneurysm, without rupture; M25.512 Pain in left shoulder; W18.30XA Fall on same level, unspecified, initial encounter; R29.6 Repeated falls; I10 Essential (primary) hypertension; J44.9 Chronic obstructive pulmonary disease, unspecified; E78.5 Hyperlipidemia, unspecified; K21.9 Gastro-esophageal reflux disease without esophagitis; N32.81 Overactive bladder; M54.9 Dorsalgia, unspecified; G89.29 Other chronic pain; Z66 Do not resuscitate; Z79.82 Long term (current) use of aspirin; Z79.899 Other long term (current) drug therapy; Z87.891 Personal history of nicotine dependence; Z95.810 Presence of automatic (implantable) cardiac defibrillator
CPT/HCPCS: 36415; 51701; 70450; 71275; 73030; 80048; 80053; 81001; 82533; 83735; 83880; 84443; 84484; 85025; 85027; 85610; 85730; 86140; 94640; 96360; 97161; 97165; 99285; A9270; J7030; J7040; Q9967

== ENCOUNTER 2019-11-29 10:49 | Outpatient (CLI) | payer MEDICARE, SELFPAY ==
--- NOTE | ~2019-11-29 | XR_ITS ---
EXAMINATION: XR chest 2V 11/29/2019 11:23 INDICATION: Biventricular automatic implant defibrillator placement PROCEDURE: PA and lateral views of the chest COMPARISON: Comparison to multiple prior studies sequentially, with oldest reviewed study dated 01/13. FINDINGS: The lungs are clear. The cardiomediastinal silhouette is enlarged. Pacemaker/defibrillator leads are stable. There are no pleural effusions. There is no pneumothorax suspected. The lungs ar e hyperinflated which is consistent with, but not diagnostic of chronic obstructive pulmonary disease . IMPRESSION: 1: NO ACUTE CARDIOPULMONARY DISEASE. Reviewed, dictated and finalized at location B.
== END 2019-11-29 10:50 | disposition home or self-care (01) ==
PROVIDERS: PCP Internal Medicine; Visit Provider Internal Medicine Cardiovascular Disease
DX: Z95.810 Presence of automatic (implantable) cardiac defibrillator (principal)
CPT/HCPCS: 71046

== ENCOUNTER 2020-02-21 08:46 | Outpatient (CLI) | payer MEDICARE, SELFPAY ==
[2020-02-21 09:27] LABS: Alanine Aminotransferase 26 U/L (4-35); Albumin Level 4.2 g/dL (3.5-5.1); Alkaline Phosphatase 164 U/L (38-126); Anion Gap 11 mmol/L (8-16); Aspartate Amino Transferase 37 U/L (14-36); Bilirubin,Total 0.7 mg/dL (0.2-1.3); Blood Urea Nitrogen 19 mg/dL (7-17); Calcium 9.5 mg/dL (8.4-10.2); Carbon Dioxide 26 mmol/L (22-30); Chloride 105 mmol/L (98-107); Cholesterol 116 mg/dL (0-200); Estimated Glomerular Filt Rate 37; Glucose 123 mg/dL (65-105); HDL Direct 35 mg/dL; Sodium 142 mmol/L (137-145); Triglycerides 102 mg/dL (<150)
[2020-02-21 09:38] LABS: LDL Cholesterol Direct 56 mg/dL
[2020-02-21 10:14] LABS: Vitamin D 25 Hydroxy 59.2 ng/mL
== END 2020-02-21 08:47 | disposition home or self-care (01) ==
PROVIDERS: PCP Internal Medicine; Visit Provider Nurse Practitioner
DX: E78.2 Mixed hyperlipidemia (principal); E55.9 Vitamin D deficiency, unspecified
CPT/HCPCS: 36415; 80053; 80061; 82306

== ENCOUNTER 2020-07-22 09:25 | Emergency (ER) | payer MEDICARE, SELFPAY ==
[2020-07-22 09:31] VITALS: BP 112/71; PULSE 84; RESP 20; TEMP 36.3; O2SAT 98
--- NOTE | 2020-07-22 10:35 | ED.SKABFB ---
HPI - Skin/Abscess/Foreign Bdy General Chief complaint: Skin/Abscess/Foreign Body Stated complaint: shingles Time Seen by Provider: 07/22/20 09:42 History of Present Illness HPI narrative: Patient is a 75-year-old female who presents ER with rash beneath her breast bilaterally. Ongoing for 2 weeks. Initially diagnosed with shingles and started on acyclovir. At her follow-up appointment she was diagnosed with a yeast infection. She was prescribed an antibiotic as well as topical nystatin. Patient has been unable to fill in the statin due to awaiting a prior authorization. She reports that she has been applying calamine lotion but she continues to have itching and burning. No fevers or chills or sweats. No pustules. Related Data Home Medications Medication Instructions Recorded Confirmed albuterol sulfate 2.5 mg INHALATION Q4-6H 01/20/19 07/18/20 aspirin 81 mg tablet,delayed 81 mg PO DAILY 02/01/19 07/18/20 release cholecalciferol (vitamin D3) 50 2,000 unit PO DAILY 02/01/19 07/18/20 mcg (2,000 unit) tablet famotidine 20 mg PO BID 11/12/19 07/18/20 sacubitril 24 mg-valsartan 26 mg 1 tablet PO BID 05/28/20 07/18/20 tablet Allergies Allergy/AdvReac Type Severity Reaction Status Date / Time adhesive Allergy Mild Rash Verified 07/18/20 13:31 codeine Allergy Mild HIVES AND Verified 07/18/20 13:31 ITCHING Sulfa (Sulfonamide Allergy Mild HIVES Verified 07/18/20 13:31 Antibiotics) sulfanilamide Allergy Mild Hives Verified 07/18/20 13:31 Review of Systems Review of Systems: All systems reviewed & are unremarkable except as noted in HPI and below Constitutional: Constitutional: Denies chills, Denies fever(s) and Denies weakness Respiratory: Respiratory: Denies cough and Denies dyspnea Integumentary/Breasts: Skin/Breast: Denies breast pain, Reports pruritus, Reports erythema and Reports rash PMFSH Past Medical History Medical History (Updated 07/22/20 @ 10:42 by Cipriano Haines MD) Anxiety Cardiac pacemaker Cardiac pacemaker in situ Cholecystectomy planned COPD (chronic obstructive pulmonary disease) Dilated cardiomyopathy Encounter for blood transfusion Essential hypertension GERD (gastroesophageal reflux disease) Hyperlipidemia Overactive bladder Vitamin D deficiency Surgical History Surgical History H/O colonoscopy H/O hysterectomy with oophorectomy History of appendectomy Hx of brain surgery Meningioma removal in 2015 Hx of tonsillectomy S/P cholecystectomy Family History Family History Father Family history of lymphoma Sibling Family history of malignant neoplasm of breast in first degree relative Carcinoma of colon Breast cancer Mother Aplastic anemia Son Thyroid cancer Other Family history of malignant neoplasm of thyroid Social History Social History Social History: Mrs. Mitchell lives at home with her in [place], [place]. She has 5 sons. 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 She is a former 1 PPD smoker for at least 50 years. She denies illicit substance and alcohol use. She wishes for her code status to be DNR and she has designated her son, Jan Moran, as her designated surrogate decision maker. Smoking packs per day: 1 Smoking cigarettes per day: 20.0 Years smoked: 50 Smoking pack-years: 50.00 Smoking status: Former smoker Smoking end date: 03/15/10 Alcohol intake: never Substance use: never Gender identity (if verbalized by the patient): Female Exam Narrative: Exam Narrative: GENERAL: Well-appearing, well-nourished, and in no acute distress. HEAD: Normocephalic, atraumatic. CHEST: Clear to auscultation. No respiratory distress. HEART: Regular rate and rhythm. Normal peripheral pulses. EXTREMITIES: Normal range of motion. No edema. SKIN: Warm, dry. Candidal rash beneath th
[2020-07-22 10:50] VITALS: BP 122/83; PULSE 62; RESP 16; O2SAT 98
== END 2020-07-22 10:51 | disposition home or self-care (01) ==
PROVIDERS: Emergency Provider Emergency Medicine; PCP Internal Medicine
DX: B37.2 Candidiasis of skin and nail (principal); J44.9 Chronic obstructive pulmonary disease, unspecified; I10 Essential (primary) hypertension; K21.9 Gastro-esophageal reflux disease without esophagitis; E78.5 Hyperlipidemia, unspecified; N32.81 Overactive bladder; E55.9 Vitamin D deficiency, unspecified; Z95.0 Presence of cardiac pacemaker; Z79.82 Long term (current) use of aspirin; Z87.891 Personal history of nicotine dependence; Z66 Do not resuscitate
CPT/HCPCS: 99281

== ENCOUNTER 2020-09-04 11:11 | Outpatient (CLI) | payer MEDICARE, SELFPAY ==
[2020-09-04 12:00] LABS: Hemoglobin A1C 5.7 % (<5.7)
[2020-09-04 12:04] LABS: Alanine Aminotransferase 24 U/L (4-35); Albumin Level 4.3 g/dL (3.5-5.1); Alkaline Phosphatase 141 U/L (38-126); Anion Gap 11 mmol/L (8-16); Aspartate Amino Transferase 37 U/L (14-36); Bilirubin,Total 0.6 mg/dL (0.2-1.3); Blood Urea Nitrogen 15 mg/dL (7-17); Calcium 9.7 mg/dL (8.4-10.2); Carbon Dioxide 25 mmol/L (22-30); Chloride 105 mmol/L (98-107); Cholesterol 99 mg/dL (0-200); Estimated Glomerular Filt Rate 40; Glucose 101 mg/dL (65-105); HDL Direct 39 mg/dL; Potassium 4.6 mmol/L (3.4-5.0); Sodium 141 mmol/L (137-145); Triglycerides 96 mg/dL (<150)
[2020-09-04 12:14] LABS: LDL Cholesterol Direct 38 mg/dL
[2020-09-04 12:32] LABS: Vitamin D 25 Hydroxy 58.2 ng/mL
== END 2020-09-04 11:12 | disposition home or self-care (01) ==
LOC: ANHLAB 11:15
PROVIDERS: PCP Internal Medicine; Visit Provider Internal Medicine
DX: E78.5 Hyperlipidemia, unspecified (principal); I10 Essential (primary) hypertension; Z79.899 Other long term (current) drug therapy; R73.01 Impaired fasting glucose; E55.9 Vitamin D deficiency, unspecified
CPT/HCPCS: 36415; 80053; 80061; 82306; 83036

== ENCOUNTER 2020-10-17 09:33 | Outpatient (CLI) | payer MEDICARE, SELFPAY ==
--- NOTE | ~2020-10-17 | US_ITS ---
EXAMINATION: US renal BI DATE: 10/17/2020 10:00 INDICATION: Unspecified abdominal pain TECHNIQUE: Multiple grayscale and Doppler ultrasound images of the kidneys were obtained. COMPARISON: CT, 07/19/2018 FINDINGS: The right kidney measures 7.1 x 3.9 x 4.1 cm. The left kidney measures 9.6 x 4.5 x 4.4 cm a nd contains an 8 mm cyst. The kidneys demonstrate normal parenchymal echogenicity. There is no hydron ephrosis. The bladder is normal. IMPRESSION: 1. Normal kidneys without hydronephrosis. Reviewed, dictated and finalized at location A.
== END 2020-10-17 09:34 | disposition home or self-care (01) ==
PROVIDERS: PCP Internal Medicine; Visit Provider Nurse Practitioner
DX: R10.9 Unspecified abdominal pain (principal)
CPT/HCPCS: 76775

== ENCOUNTER 2020-11-13 20:47 | Emergency (ER) | payer MEDICARE, SELFPAY ==
--- NOTE | 2020-11-13 20:49 | PC.NURSE ---
son to advertising intern i dont want her waiting out here for hours. guest service agent informed son that she would be pulled back to be triaged and vitals taken next (there was currently a pt getting v/s done), and that we have to prioritize based on that assessment. Pt ripped arm band off and stated I am just going to go to [place]. I cant wait hours. RN reiterated that she would be the next to be triaged, vital signs taken, and labs drawn, and son stated we are not waiting as he wheeled her in a wheel chair to the door.
== END 2020-11-13 21:00 | disposition left against medical advice (07) ==
LOC: ANHED 20:56
DX: Z53.21 Procedure and treatment not carried out due to patient leaving prior to being seen by health care provider (principal)
CPT/HCPCS: 99199

== ENCOUNTER → 2021-01-22 03:33 | Outpatient (CLI) | payer MEDICARE, SELFPAY ==
[2021-01-22 18:11] LABS: SARS-CoV-2 RNA PCR Negative
== END ==
PROVIDERS: PCP Internal Medicine; Visit Provider Nurse Practitioner
DX: R68.89 Other general symptoms and signs (principal); Z20.822 Contact with and (suspected) exposure to COVID-19
CPT/HCPCS: C9803; U0003; U0005

== ENCOUNTER 2021-02-11 13:48 | Outpatient (CLI) | payer MEDICARE, SELFPAY ==
--- NOTE | ~2021-02-11 | XR_ITS ---
EXAMINATION: XR abdomen obstructive series DATE: 02/11/2021 14:17 INDICATION: Unspecified abdominal pain. Constipation. TECHNIQUE: Upright and supine views of the abdomen were obtained. COMPARISON: CT abdomen and pelvis 07/19/2018 FINDINGS: There are no dilated loops of bowel. There is a small volume of stool in the colon. Surgica l clips in the right upper quadrant are likely from cholecystectomy. Again seen is pneumobilia, likel y secondary to sphincterotomy. No free intraperitoneal gas. Calcifications in the pelvis are likely p hleboliths. IMPRESSION: 1. Normal bowel gas pattern. Reviewed, dictated and finalized at location A. 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
== END 2021-02-11 13:49 | disposition home or self-care (01) ==
LOC: ANHIMG 13:53
PROVIDERS: PCP Internal Medicine; Visit Provider Nurse Practitioner
DX: R10.9 Unspecified abdominal pain (principal)
CPT/HCPCS: 74019

== ENCOUNTER 2021-07-05 08:02 | Outpatient (CLI) | payer MEDICARE, SELFPAY ==
--- NOTE | ~2021-07-05 | XR_ITS ---
EXAMINATION: XR chest 2V Exam Date/Time: 07/05/2021 8:11 CDT CLINICAL HISTORY: dilated cardiomyopathy, AAA without rupture, SOB Comparison: 11/29/2019. RESULT: Lines, tubes, and devices: Left chest pacer/fibrillator with intact leads. Cholecystectomy clips. Lungs and pleura: Clear. Cardiomediastinal silhouette: Stable cardiomediastinal silhouette. Other: No acute osseous or upper abdominal finding. IMPRESSION: No acute cardiopulmonary process Reviewed, dictated and finalized at location K.
== END 2021-07-05 08:03 | disposition home or self-care (01) ==
LOC: ANHIMG 08:04
PROVIDERS: PCP Internal Medicine; Visit Provider Internal Medicine Cardiovascular Disease
DX: I42.0 Dilated cardiomyopathy (principal); I71.4 Abdominal aortic aneurysm, without rupture
CPT/HCPCS: 71046

== ENCOUNTER 2021-07-09 13:58 | Outpatient (CLI) | payer MEDICARE, SELFPAY ==
--- NOTE | ~2021-07-09 | CT_ITS ---
EXAMINATION: CTA chest DATE: 07/09/2021 14:39 INDICATION: Thoracic aortic aneurysm TECHNIQUE: Computed tomography (CT) of the chest was performed with 100 CC Omnipaque 350 intravenous contrast. Automated exposure control and iterative reconstruction technique were employed. Exam dose: 1057.10 mGy-cm total exam DLP. COMPARISON: 07/05/2021 2 view chest 11/12/2019 CTA chest PE protocol FINDINGS: The ascending aorta measures up to 4.5 cm diameter. The mid aortic arch measures [address] The descending thoracic aorta measures approximately 3.2 cm diameter. No thoracic aortic dissection. Borderline diameter of the suprarenal abdominal aorta. There is aortic and great vessel and extensive coronary artery calcification. Cardiomegaly. Triple lead left-sided transvenous pacemaker device with leads in right atrium, right ventricle and c oronary sinus. No hilar or mediastinal mass lesion or lymphadenopathy. Mild discoid atelectasis or scarring in the posterior lung bases the left and right lower lobes. No p ulmonary consolidation or suspicious pulmonary mass lesion is detected. Pneumobilia, likely secondary to cholecystectomy. Diffuse hepatic steatosis. Approximately 1.4 cm hemangioma of the posterior aspect of the right hepatic lobe. Normal morphology of the adrenal glands. Small sliding hiatal hernia. Degenerative change of the thoracic spine. No suspicious osteolytic or osteoblastic lesions. IMPRESSION: Thoracic aortic aneurysm, ascending aorta measuring up to 4.5 cm diameter, not significa ntly changed since 11/12/2019 Cardiomegaly Triple lead left-sided pacemaker device Pneumobilia secondary to cholecystectomy Hepatic steatosis 1.4 cm right hepatic hemangioma Small sliding hiatal hernia . Reviewed, dictated and finalized at Location A. Reviewed, dictated and finalized at location A. IMPRESSION: Thoracic aortic aneurysm, ascending aorta measuring up to 4.5 cm d iameter, not significantly changed since 11/12/2019 Cardiomegaly Triple lead left-sided pacemaker device Pneumobilia secondary to cholecystectomy Hepatic steatosis 1.4 cm right hepatic hemangioma Small sliding hiatal hernia .
[2021-07-09 14:27] LABS: Estimated Glomerular Filt Rate 36
== END 2021-07-09 13:59 | disposition home or self-care (01) ==
LOC: ANHIMG 14:02
PROVIDERS: PCP Internal Medicine; Visit Provider Internal Medicine Cardiovascular Disease
DX: I71.4 Abdominal aortic aneurysm, without rupture (principal); K76.0 Fatty (change of) liver, not elsewhere classified; I51.7 Cardiomegaly; K44.9 Diaphragmatic hernia without obstruction or gangrene
CPT/HCPCS: 71275; Q9967

== ENCOUNTER 2021-07-14 16:12 | Outpatient (CLI) | payer MEDICARE, SELFPAY ==
[2021-07-14 16:56] LABS: Basophils Percent Auto 0.4 % (0.2-1.2); Eosinophils Absolute Auto 0.2 K/mm3 (0-0.3); Eosinophils Percent Auto 2.3 % (0-4.4); Hematocrit 41.5 % (37.0-47.0); Immature Granulocyte Absolute 0.03 K/mm3 (0.00-0.031); Immature Granulocyte Percent A 0.3 % (0-0.5); Lymphocytes Absolute Auto 1.82 K/mm3 (0.9-3.2); Mean Corpuscular HGB Conc 31.3 g/dl (32-36); Mean Corpuscular Volume 89.2 fl (80-100); Monocytes Absolute Auto 0.8 K/mm3 (0.1-0.6); Monocytes Percent Auto 8.6 % (2.6-8.5); Neutrophils Absolute Auto 6.2 K/mm3 (1.3-6.7); Neutrophils Percent Auto 68.4 % (45.5-73.1); Platelet Count Result 229 k/mm3 (150-375); Red Blood Count 4.65 M/mm3 (4.2-5.4); Red Cell Distribution Width 13.8 % (11.5-14.5); White Blood Count 9.1 K/mm3 (4.5-10.0)
[2021-07-14 17:05] LABS: Alanine Aminotransferase 26 U/L (4-35); Albumin Level 4.6 g/dL (3.5-5.1); Alkaline Phosphatase 118 U/L (38-126); Anion Gap 12 mmol/L (8-16); Aspartate Amino Transferase 39 U/L (14-36); Bilirubin,Total 0.6 mg/dL (0.2-1.3); Blood Urea Nitrogen 27 mg/dL (7-17); Calcium 9.4 mg/dL (8.4-10.2); Carbon Dioxide 23 mmol/L (22-30); Chloride 105 mmol/L (98-107); Estimated Glomerular Filt Rate 40; Glucose 90 mg/dL (65-110); Potassium 4.2 mmol/L (3.4-5.0); Sodium 140 mmol/L (137-145)
[2021-07-14 17:17] LABS: Iron 62 ug/dL (37-170)
[2021-07-14 17:26] LABS: Percent Iron Saturation 16 % (20-50)
== END 2021-07-14 16:13 | disposition home or self-care (01) ==
PROVIDERS: PCP Internal Medicine; Visit Provider Internal Medicine
DX: R53.83 Other fatigue (principal)
CPT/HCPCS: 36415; 80053; 83540; 83550; 84443; 85025

== ENCOUNTER 2021-07-17 10:59 | Inpatient (IN) | payer MEDICARE, SELFPAY ==
[2021-07-17] VITALS (35 sets, daily range): BP systolic 115–147; BP diastolic 66–133; PULSE 57–80; RESP 10–28; TEMP 35.5–36.8; O2SAT 93–100
--- NOTE | ~2021-07-17 | XR_ITS ---
EXAMINATION: XR chest 2V DATE: 07/17/2021 11:24 INDICATION: Shortness of breath and indigestion TECHNIQUE: PA and lateral views of the chest were obtained. COMPARISON: Chest radiograph dated 07/05/[address] dated 07/09/2021 and 05/03/2016 FINDINGS: Small calcified nodule at the right apex consistent with old granulomatous disease. Unchanged mild at electasis/scarring at the lingula. No other airspace opacities, pulmonary edema, pleural effusion or pneumothorax. Mild cardiomegaly. Three lead pacemaker/AICD seen with leads projecting over the expect ed locations of the right atrial appendage, apex of the right ventricle and overlying the left ventri shankar likely having traversed the coronary sinus. Cholecystectomy clips in the right upper quadrant. Mo derate thoracic spondylosis. IMPRESSION: 1. Chronic mild lingular atelectasis/scarring. No other acute cardiopulmonary disease. Reviewed, dictated and finalized at location A. IMPRESSION: 1. Chronic mild lingular atelectasis/scarring. No other acute cardiopulmonary d isease.
--- NOTE | ~2021-07-17 | CT_ITS ---
EXAMINATION: CT brain wo con INDICATION: Headache COMPARISON: 11/12/2019 TECHNIQUE: Standard unenhanced head CT. The dose-length product (DLP) was 605.33 mGy-cm. The mA was a djusted according to patient size. Iterative reconstruction technique was employed. FINDINGS: There is an old left occipital craniotomy defect with chronic encephalomalacia in the left cerebellum. There is no acute intraparenchymal hemorrhage. No evidence of mass lesion. No evidence of acute infarction. There is mild periventricular and subcortical hypodensity probably related to smal l vessel ischemic disease. There is mild prominence of the sulci and ventricles related to cerebral a trophy. Intracranial calcified cerebral atherosclerosis is noted. There are no extra-axial collection s. There is no mass effect or midline shift. Changes in the globes are likely from ocular lens surger y. The visualized sinuses and mastoid air cells are well aerated. IMPRESSION: 1. No acute intracranial abnormality. 2. Age related findings. 3. Left occipital craniotomy with chronic encephalomalacia in the left cerebellum. Reviewed, dictated and finalized at location B. IMPRESSION: 1. No acute intracranial abnormality. 2. Age related findings. 3. Left occipital craniotomy with chronic encephalomalacia in the left cerebell um.
--- NOTE | ~2021-07-17 | XR_ITS ---
EXAMINATION: XR chest 1V portable INDICATION: Shortness of breath TECHNIQUE: Portable AP chest at 1031 hours COMPARISON: 07/17/2021 FINDINGS: The lungs are free of acute opacities. There is no pleural effusion or pneumothorax. The he art size is normal for technique. A poorly cardiac pacemaker of the left chest wall ends with leads i n expected locations. IMPRESSION: 1. No acute cardiopulmonary abnormality. Reviewed, dictated and finalized at location A.
--- NOTE | 2021-07-17 11:01 | ECG_ITS ---
Measurements Intervals [place] Rate: 83 P: -58 HI: 87 QRS: 257 QRSD: 74 T: 5 QT: 346 QTc: 407 Interpretive Statements ELECTRONIC ATRIAL PACEMAKER ELECTRONIC VENTRICULAR PACEMAKER BASELINE ARTIFACT- I, II, III, AVR, AVL, AVF, V1 NO FURTHER INTERPRETATION IS POSSIBLE ATYPICAL ECG Electronically Signed On 07-17-2021 12:31:27 CDT by Austin Bronson D.O.
[2021-07-17 11:29] LABS: Basophils Percent Auto 0.2 % (0.2-1.2); Eosinophils Absolute Auto 0.1 K/mm3 (0-0.3); Hemoglobin 13.2 g/dL (12.0-15.0); Immature Granulocyte Absolute 0.03 K/mm3 (0.00-0.031); Immature Granulocyte Percent A 0.3 % (0-0.5); Lymphocytes Absolute Auto 1.57 K/mm3 (0.9-3.2); Lymphocytes Percent Auto 17.9 % (18.3-44.2); Mean Corpuscular Hemoglobin 28.2 pg (26-34); Mean Corpuscular Volume 85.5 fl (80-100); Mean Platelet Volume 9.7 fl (7.4-10.4); Monocytes Absolute Auto 0.6 K/mm3 (0.1-0.6); Monocytes Percent Auto 6.7 % (2.6-8.5); Neutrophils Absolute Auto 6.5 K/mm3 (1.3-6.7); Neutrophils Percent Auto 73.9 % (45.5-73.1); Platelet Count Result 221 k/mm3 (150-375); Red Blood Count 4.68 M/mm3 (4.2-5.4); Red Cell Distribution Width 13.4 % (11.5-14.5); White Blood Count 8.8 K/mm3 (4.5-10.0)
[2021-07-17 11:40] LABS: INR 1.1; Partial Thromboplastin Time 28.5 SECONDS (22.3-36.8); Prothrombin Time 14.1 Seconds (11.1-14.7)
[2021-07-17 11:45] LABS: Alanine Aminotransferase 26 U/L (4-35); Albumin Level 4.7 g/dL (3.5-5.1); Alkaline Phosphatase 129 U/L (38-126); Anion Gap 12 mmol/L (8-16); Aspartate Amino Transferase 36 U/L (14-36); Bilirubin,Total 0.7 mg/dL (0.2-1.3); Blood Urea Nitrogen 22 mg/dL (7-17); Calcium 9.3 mg/dL (8.4-10.2); Carbon Dioxide 19 mmol/L (22-30); Chloride 107 mmol/L (98-107); Estimated CRCL calculation 45 ml/min; Estimated Glomerular Filt Rate 40; Glucose 133 mg/dL (65-110); Lipase 120 U/L (23-300); Sodium 138 mmol/L (137-145)
[2021-07-17 11:54] LABS: Troponin I < 0.012 ng/mL (0.000-0.034)
--- NOTE | 2021-07-17 12:53 | ED.CHESTPAIN ---
HPI - Chest Pain General Chief Complaint: Chest Pain Stated Complaint: sob Time Seen by Provider: 07/17/21 11:52 Source: patient Limitations: no limitations History of Present Illness HPI narrative: Pt presents to the ED with numerous complaints. Pt has had chest heaviness for the last ten days that is constant but waxes and wanes in severity. Pt also has a headache behind her left eye and has a history of a meningioma which she had an operation but they didn't get it all . Pt aslo has been having numerous near syncopal episodes when walking. Pt has not completely passed out but feels like she is going to and feels unsteady. Pt is concerned that pacemaker isn't working. MD complaint: chest pain Pertinent past history: coronary artery disease Timing of current episode: constant Onset: during rest Pain location: substernal Pain radiation: none Severity: moderate Quality: heaviness Relieving factors: nothing Exacerbating factors: nothing Treatment prior to arrival: none Related Data Home Medications Medication Instructions Recorded Confirmed aspirin 81 mg tablet,delayed 81 mg PO DAILY 02/01/19 07/14/21 release cholecalciferol (vitamin D3) 50 2,000 unit PO DAILY 02/01/19 07/14/21 mcg (2,000 unit) tablet sacubitril 24 mg-valsartan 26 mg 0.5 tablet PO BID tablet 09/10/20 07/14/21 tablet ascorbic acid (vitamin C) 500 mg 500 mg PO DAILY 04/28/21 07/14/21 tablet Allergies Allergy/AdvReac Type Severity Reaction Status Date / Time adhesive Allergy Mild Rash Verified 07/14/21 15:24 codeine Allergy Mild HIVES AND Verified 07/14/21 15:24 ITCHING Sulfa (Sulfonamide Allergy Mild HIVES Verified 07/14/21 15:24 Antibiotics) sulfanilamide Allergy Mild Hives Verified 07/14/21 15:24 Review of Systems Review of Systems: All systems reviewed & are unremarkable except as noted in HPI and below PMFSH Past Medical History Medical History (Updated 07/17/21 @ 15:20 by Rebeca Dsouza III, DO) Anxiety Cardiac pacemaker Cardiac pacemaker in situ Cholecystectomy planned COPD (chronic obstructive pulmonary disease) Dilated cardiomyopathy Encounter for blood transfusion Essential hypertension GERD (gastroesophageal reflux disease) Hyperlipidemia Overactive bladder Vitamin D deficiency Surgical History Surgical History H/O colonoscopy H/O hysterectomy with oophorectomy History of appendectomy Hx of brain surgery Meningioma removal in 2015 Hx of tonsillectomy S/P cholecystectomy Family History Family History Father Family history of lymphoma Sibling Family history of malignant neoplasm of breast in first degree relative Carcinoma of colon Breast cancer Mother Aplastic anemia Son Thyroid cancer Other Family history of malignant neoplasm of thyroid Social History Social History Social History: Mrs. Mitchell lives at home with her in [place], [place]. She has 5 sons. 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 She is a former 1 PPD smoker for at least 50 years. She denies illicit substance and alcohol use. She wishes for her code status to be DNR and she has designated her son, Jan Moran, as her designated surrogate decision maker. Smoking packs per day: 1 Smoking cigarettes per day: 20.0 Years smoked: 50 Smoking pack-years: 50.00 Smoking status: Former smoker Tobacco type: cigarettes Second hand tobacco smoke exposure: Yes Smoking end date: 03/15/10 Alcohol intake: former Substance use: never Substance use type: does not use Gender identity (if verbalized by the patient): Female Exam Const: General: cooperative, comfortable, no acute distress and well developed HENMT: Head: normal to inspection and atraumatic Eyes: General: appearance normal, both eyes and all related structures Conjunctivae: conjun
[2021-07-17 14:04] LABS: SARS-CoV-2 RNA PCR Negative
[2021-07-17 14:41] LABS: Troponin I < 0.012 ng/mL (0.000-0.034)
--- NOTE | 2021-07-17 17:44 | ADMGEN ---
This patient, Shahida Mitchell, was admitted to [facility] Surg Room 325-01. Patient/family oriented to hospital policies and general routines including ID bracelet, bed and alarms, visiting hours, pain management, procedures, bathroom and other care routines, personal items, smoking policy, room service/diet, and visiting hours. Information on how to activate the Rapid Response Team has been discussed. Patient/Family are encouraged to report perceived risks to care and to ask questions if they do not understand what they are told or what they should do.
[2021-07-17 18:40] LABS: Troponin I < 0.012 ng/mL (0.000-0.034)
--- NOTE | 2021-07-17 20:26 | PM.IMHP ---
H&P: HPI History of Present Illness Date/Time: 07/17/21 20:26 Chief Complaint: Dizziness. Narrative: This 76-year-old female with past medical history significant for severe nonischemic cardiomyopathy with ejection fraction of 25% prior or pacemaker placement with upgrade to biventricular ICD device, nonobstructive coronary artery disease, sick sinus syndrome bradyarrhythmia, patient has had significant dizziness throughout her treatment for these conditions at various stages she has had medication changes to mitigate these. According to medical records patient has had improvement of her ejection fraction. Patient presents today to the emergency room due to dizziness, unsteady gait, shortness of breath. However patient denies any syncope, near syncope, shortness of breath, leg swelling, palpitations, nausea, vomiting, abdominal pain. Preliminary workup has been essentially nonrevealing patient was orthostatic according to emergency room blood pressure readings. Patient is been admitted for further evaluation management and treatment. Review of Systems Review of Systems: Dizziness come unsteady gait. Constitutional: Constitutional: Denies chills, Denies fatigue, Denies fever(s), Denies frequent falls, Denies malaise, Denies night sweats, Denies poor appetite and Denies weakness Eyes: Eyes: Denies change in vision ENT: Denies dysphagia, Denies vertigo, Reports dizziness, Denies nasal congestion, Denies nasal discharge, Denies nasal obstruction and Denies odynophagia Cardiovascular: Cardiovascular: Denies pedal edema, Denies edema, Denies claudication, Denies leg edema, Reports lightheadedness, Denies radiating jaw, neck or arm pain, Denies palpitations, Denies dyspnea on exertion and Denies orthopnea Respiratory: Respiratory: Denies cough Gastrointestinal: Gastrointestinal: Denies abdominal pain, Denies dyspepsia, Denies heartburn, Denies diarrhea, Denies nausea and Denies vomiting Genitourinary: Genitourinary: Denies dysuria Musculoskeletal: Musculoskeletal: Denies arthralgias, Denies joint swelling and Denies muscle weakness Integumentary/Breasts: Skin/Breast: Denies rash Neurologic: Denies focal weakness and Denies Sensory deficit (Neuro) Psychiatric: Psychiatric: Reports no additional psychiatric complaints and Reports as per HPI Endocrine: Endocrine: Denies cold intolerance, Denies fatigue, Denies flushing, Denies heat intolerance, Denies polyphagia, Denies polydipsia and Denies palpitations Hematologic/Lymphatic: Hematologic/Lymphatic: Reports no additional hematologic/lymphatic complaints and Reports as per HPI Allergic/Immunologic: Allergic/Immunologic: Reports no additional allergic/immunologic complaints and Reports as per HPI PMFSH Past Medical History Medical History (Updated 07/17/21 @ 15:20 by Rebeca Dsouza III, DO) Anxiety Cardiac pacemaker Cardiac pacemaker in situ Cholecystectomy planned COPD (chronic obstructive pulmonary disease) Dilated cardiomyopathy Encounter for blood transfusion Essential hypertension GERD (gastroesophageal reflux disease) Hyperlipidemia Overactive bladder Vitamin D deficiency Surgical History Surgical History (Updated 07/18/21 @ 03:21 by Eva Michel MD) H/O colonoscopy H/O hysterectomy with oophorectomy History of appendectomy Hx of brain surgery Meningioma removal in 2014 Hx of tonsillectomy S/P cholecystectomy Family History Family History Father Family history of lymphoma Sibling Family history of malignant neoplasm of breast in first degree relative Carcinoma of colon Breast cancer Mother Aplastic anemia Son Thyroid cancer Other Family history of malignant neoplasm of thyroid Social History Social History Social History: Mrs. Mitchell lives at home with her in [place], [place]. She has 5 sons. 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 She is a former
--- NOTE | 2021-07-17 21:47 | PC.NURSE ---
07/17/21 2147 conor on floor to see pt.
[2021-07-18] VITALS (16 sets, daily range): BP systolic 99–154; BP diastolic 66–84; PULSE 53–80; RESP 16–20; TEMP 35.8–36.6; O2SAT 96–100
--- NOTE | 2021-07-18 | ECHO_ITS ---
Patient Info Name: Shahida Mitchell Age: 76 years : 1945 Gender: Female Ht: 70 in Wt: 255 lbs BSA: 2.43 m2 HR: 72 bpm BP: 112 / 66 mmHg Heart Rhythm: Sinus Rhythm Technical Quality: Poor Exam Date: 07/18/2021 9:42 AM Exam Location: [facility] Pulmonary Patient Status: Outpatient Admit Date: 07/17/2021 Staff Ordering Physician: Eva Mcihel MD Track Laying Machine Operator: Barbara Pisano RDCS Attending Provider: Ronaldo Perez MD Referring Physician: Anand PATTERSON; Exam Type: CA echo dop color flow w con Study Info Indications - DECREASED STAMINA Complete two-dimensional, color flow and Doppler transthoracic echocardiogram is performed with contrast to opacify the left ventricle and to improve the deliniation of the left ventricle endocardial borders. Contrast/Agitated Saline Contrast/Ag. Saline: Definity Amount: 3.00 ml Administered By: Barbara Pisano RDCS Existing IV Access: Yes IV Access Condition: patent with no signs of infiltration Reason for Poor Study: poor echocardiographic windows Summary 1. Left ventricular chamber dimension is normal. 2. Left ventricular systolic function is mildly reduced, estimated at 45-50%. 3. There is moderately increased left ventricular wall thickness. 4. The left ventricular diastolic function is grade I diastolic dysfunction. 5. Left atrial chamber dimension is mildly enlarged. 6. There is mild aortic valve regurgitation. 7. There is mild mitral valve regurgitation. 8. There is mild tricuspid valve regurgitation. 9. There is small pericardial effusion. Left Ventricle Left ventricular chamber dimension is normal. Left ventricular systolic function is mildly reduced, estimated at 45-50%. There is moderately increased left ventricular wall thickness. The left ventricular diastolic function is grade I diastolic dysfunction. Right Ventricle Right ventricular chamber dimension is normal. Right ventricular systolic function is normal. Linear artifact in right ventricle suggestive of catheter(s), pacemaker lead(s), or ICD lead(s). Left Atria Left atrial chamber dimension is mildly enlarged. Right Atria Right atrial chamber dimension is normal. Atrial Septum Intact interatrial septum visualized by color flow imaging. Aortic Valve The aortic valve is trileaflet. There is mild aortic valve sclerosis. There is no aortic valve stenosis. There is mild aortic valve regurgitation. Pulmonic Valve The pulmonic valve is normal. There is no pulmonic valve stenosis. There is trace pulmonic regurgitation. Mitral Valve The mitral valve has normal leaflets. There is no mitral valve stenosis. There is mild mitral valve regurgitation. Tricuspid Valve The tricuspid valve leaflets are normal. There is no significant tricuspid valve stenosis. There is mild tricuspid valve regurgitation. No pulmonary hypertension, estimated pulmonary arterial systolic pressure is 32 mmHg. Pericardium/Pleural The pericardium appears normal. There is small pericardial effusion. Inferior Vena Cava Normal inferior vena cava with >50% collapse upon inspiration consistent with normal right atrial pressure, 10 mmHg. Aorta The aortic root size at the sinus of Valsalva is normal. The prox ascending aorta size is mildly dilated. Left Ventricular Outflow Tract Name
[2021-07-18 00:20] LABS: NT Pro B Type Natriuretic Pept 107 pg/mL (5-100)
[2021-07-18] MEDS: ACETAMINOPHEN 500 MG TABLET 1000 MG PO ×3 (00:21→20:44)
[2021-07-18] MEDS: ATORVASTATIN 40 MG TABLET PO ×2 (01:12→20:38)
[2021-07-18] MEDS: SODIUM CHLORIDE 0.9% IV 500 ML IV CONT (06:48)
[2021-07-18] MEDS: ALBUTEROL SULFATE NEB 2.5 MG/3 ML INH INHALATION ×3 (08:07→20:20)
[2021-07-18] MEDS: CHOLECALCIFEROL 1,000 UNITS TABLET 2000 UNITS PO (08:43)
[2021-07-18] MEDS: OXYBUTYNIN CHLORIDE 5 MG TABLET PO (08:43)
[2021-07-18] MEDS: SACUBITRIL/VALSARTAN 12-13 MG TABLET 1 TAB PO ×2 (08:43→20:38)
[2021-07-18] MEDS: ASPIRIN 81 MG ENTERIC TABLET PO (08:43)
[2021-07-18] MEDS: ASCORBIC ACID 500 MG TABLET PO (08:43)
[2021-07-18] MEDS: VITAMIN E 400 UNIT CAPSULE PO (08:43)
--- NOTE | 2021-07-18 09:11 | PM.IMPN ---
Progress Note: A&P Assessment and Plan (1) Orthostatic hypotension: Code(s): I95.1 - Orthostatic hypotension Status: Acute Assessment and Plan: Give IV fluid most likely multifactorial secondary to dehydration complicated by Entresto Continue to monitor Check orthostatic Discussed with the nurse Follow echo results (2) Generalized weakness: Code(s): R53.1 - Weakness Status: Acute Assessment and Plan: Likely secondary to chronic illness dehydration CHF PT OT consult (3) Atypical chest pain: Code(s): R07.89 - Other chest pain Status: Acute Assessment and Plan: Troponins x3 are negative EKG with no acute changes Cardiology consult (4) Dilated cardiomyopathy: Code(s): I42.0 - Dilated cardiomyopathy Status: Acute Assessment and Plan: Patient has had normalization of ejection fraction pending repeat echo Will repeat echocardiogram Continue Entresto (5) COPD (chronic obstructive pulmonary disease): Qualifiers: COPD type: unspecified COPD Qualified Code(s): J44.9 - Chronic obstructive pulmonary disease, unspecified Code(s): J44.9 - Chronic obstructive pulmonary disease, unspecified Status: Chronic Assessment and Plan: Stable Continue inhaler treatment Not actively wheezing Continue to monitor (6) CHRISTINE (obstructive sleep apnea): Code(s): G47.33 - Obstructive sleep apnea (adult) (pediatric) Status: Acute Assessment and Plan: CPAP at nighttime (7) CKD (chronic kidney disease), stage III: Code(s): N18.30 - Chronic kidney disease, stage 3 unspecified Status: Acute Assessment and Plan: BUN and creatinine at patient's baseline avoid nephrotoxic medication (8) GERD (gastroesophageal reflux disease): Code(s): K21.9 - Gastro-esophageal reflux disease without esophagitis Status: Chronic Assessment and Plan: PPI as needed (9) AICD (automatic cardioverter/defibrillator) present: Code(s): Z95.810 - Presence of automatic (implantable) cardiac defibrillator Status: Acute Assessment and Plan: Pending device interrogation Subjective Date/time seen: 07/18/21 09:11 Interval history: 6-year-old female with past medical history significant for severe nonischemic cardiomyopathy with ejection fraction of 25% prior or pacemaker placement with upgrade to biventricular ICD device, nonobstructive coronary artery disease, sick sinus syndrome bradyarrhythmia, patient has had significant dizziness throughout her treatment for these conditions at various stages she has had medication changes to mitigate these. Also patient was complaining of chest pressure for the past 10 days and she is concerned about her AICD/pacemaker is not working, at the ER patient was found to have orthostatic hypotension dehydration admitted to the hospital for further evaluation and treatment Patient feels dizziness has improved shortness of breath has improved denies chest pain Patient denies fever headache chest pain s I am seeing the patient for dizziness Exam Narrative: Alert Chest no wheeze crackles Abdomen nontender nondistended CVS S1 + S2 Negative Lower extremity edema Objective Data Vital Signs Vital Signs: Vital Signs - 24 hr 07/17/21 11:06 07/17/21 11:41 07/17/21 11:44 Temperature 95.9 F L 97.3 F L Pulse Rate 69 72 68 Respiratory Rate 20 18 Blood Pressure 115/71 132/83 Pulse Oximetry 97 100 07/17/21 11:45 07/17/21 11:46 07/17/21 12:00 Temperature Pulse Rate 72 72 64 Respiratory Rate 13 13 12 Blood Pressure 132/83 Pulse Oximetry 94 93 93 07/17/21 12:02 07/17/21 12:15 07/17/21 12:17 Temperature Pulse Rate 69 57 L Respiratory Rate 10 L 11 L Blood Pressure 139/98 H 143/109 H Pulse Oximetry 97 95 07/17/21 12:30 07/17/21 13:30 07/17/21 14:38 Temperature 97.6 F Pulse Rate 69 63 61 Respiratory Rate 15 18 13 Blood Pressure
--- NOTE | 2021-07-18 09:39 | PCPTNOTE ---
Attempted therapy, but receiving an US test.
[2021-07-18] MEDS: PERFLUTREN LIPID MICROSPHERES 1.5 ML VIAL DILUTED TO 10 ML TOTAL VOLUME IV PUSH (10:00)
--- NOTE | 2021-07-18 12:11 | PC.NURSE ---
[employer] called for pacemaker interrogation. they are sending a page to the food products sales representative and will have them call back.
--- NOTE | 2021-07-18 14:13 | PM.CNCAR ---
Assessment and Plan Assessment and plan (1) Orthostatic hypotension: Code(s): I95.1 - Orthostatic hypotension Status: Acute Assessment and Plan: Some of her orthostasis may be related to dehydration. She certainly has orthostatic hypotension though. Will give her a L of IV fluids. Consider midodrine depending how she response IV fluids. And (2) Dizziness: Code(s): R42 - Dizziness and giddiness Status: Acute Assessment and Plan: Related orthostasis (3) AICD (automatic cardioverter/defibrillator) present: Code(s): Z95.810 - Presence of automatic (implantable) cardiac defibrillator Status: Acute (4) Dilated cardiomyopathy: Code(s): I42.0 - Dilated cardiomyopathy Status: Chronic Assessment and Plan: Previous EF of 25%. (5) COTY (acute kidney injury): Code(s): N17.9 - Acute kidney failure, unspecified Status: Acute Assessment and Plan: Looks prerenal History of Present Illness History of Present Illness Consult date/time: 07/18/21 14:13 Requesting physician: Eva Michel MD Consult reason: Other (Dizziness) Reason For Visit: Generalized Weakness/Gait Instability/Atypical CP Narrative: Reason for consultation: Dizziness Date of service: 07/18/2021 Requesting provider: Dr. Michel History patient is a 76-year-old patient Dr. Still who has a history of nonischemic cardiomyopathy status post biventricular ICD, nonobstructive coronary disease sick sinus syndrome who has had worsening weakness and dizziness. She has passed out in the past. Last time she passed out was about a year ago. Over the past month or so she has had significant issues with dizziness and lightheadedness especially when standing up. She will then developed back pain shoulder pain and her ears will start her ring. Her symptoms worsened to the point that if she does not sit down she will pass out. She will become dizzy. She a denies any syncopal episodes recently though. She has no anterior chest pain. No edema, paroxysmal nocturnal dyspnea or orthopnea. She came to hospital for further evaluation. She admits that she does not eat or drink as much as what she should. Dr. Still added metoprolol recently which she states made things worse. She only took 1 dose of metoprolol Review of Systems Review of Systems: All systems reviewed & are unremarkable except as noted in HPI and below Constitutional: Constitutional: Reports fatigue and Reports weakness Eyes: Eyes: Denies blurry vision ENT: Denies Normal hearing present Cardiovascular: Cardiovascular: Denies chest pain Respiratory: Respiratory: Denies dyspnea Gastrointestinal: Gastrointestinal: Denies abdominal pain Genitourinary: Genitourinary: Denies hematuria and Denies flank pain Musculoskeletal: Musculoskeletal: Denies back pain and Denies neck pain Integumentary/Breasts: Skin/Breast: Denies dry skin Neurologic: Denies headache(s) Psychiatric: Psychiatric: Denies anxiety Endocrine: Endocrine: Denies fatigue and Denies flushing Hematologic/Lymphatic: Hematologic/Lymphatic: Denies easy bleeding and Denies easy bruising Allergic/Immunologic: Allergic/Immunologic: Denies GI upset with certain foods PMFSH Past Medical History Medical History (Updated 07/18/21 @ 14:19 by Randy Chandler MD) Anxiety Cardiac pacemaker Cardiac pacemaker in situ Cholecystectomy planned COPD (chronic obstructive pulmonary disease) Dilated cardiomyopathy Encounter for blood transfusion Essential hypertension GERD (gastroesophageal reflux disease) Hyperlipidemia Overactive bladder Vitamin D deficiency Surgical History Surgical History H/O colonoscopy H/O hysterectomy with oophorectomy History of appendectomy Hx of brain surgery Meningioma removal in 2014 Hx of tonsillectomy S/P cholecystectomy Family History Family History (Reviewed 07/18
--- NOTE | 2021-07-18 14:52 | PCCCNOTE ---
On 07/18/21, the student, [Charlotte León], provided care and completed [facility] documentation on this patient. I have reviewed the student's documentation and agree with the findings.
[2021-07-18] MEDS: SODIUM CHLORIDE 0.9% IV 1,000 ML 100 ML IV CONT (14:55)
[2021-07-18] MEDS: ALPRAZolam (*CRX) 0.5 MG TABLET PO (20:44)
[2021-07-19] VITALS (23 sets, daily range): BP systolic 91–181; BP diastolic 42–85; PULSE 59–79; RESP 16–18; TEMP 36.1–36.6; O2SAT 90–99; BMI 49.2
[2021-07-19] MEDS: SODIUM CHLORIDE 0.9% IV 1,000 ML 100 ML IV CONT ×2 (00:41→10:41)
[2021-07-19] MEDS: CHOLECALCIFEROL 1,000 UNITS TABLET 2000 UNITS PO (08:10)
[2021-07-19] MEDS: ASPIRIN 81 MG ENTERIC TABLET PO (08:10)
[2021-07-19] MEDS: VITAMIN E 400 UNIT CAPSULE PO (08:10)
[2021-07-19] MEDS: SACUBITRIL/VALSARTAN 12-13 MG TABLET 1 TAB PO ×2 (08:10→20:03)
[2021-07-19] MEDS: ASCORBIC ACID 500 MG TABLET PO (08:10)
[2021-07-19] MEDS: OXYBUTYNIN CHLORIDE 5 MG TABLET PO (08:10)
[2021-07-19] MEDS: ALBUTEROL SULFATE NEB 2.5 MG/3 ML INH INHALATION ×3 (08:52→20:33)
--- NOTE | 2021-07-19 09:40 | PM.IMPN ---
Progress Note: A&P Assessment and Plan (1) Orthostatic hypotension: Code(s): I95.1 - Orthostatic hypotension Status: Acute Assessment and Plan: Give IV fluid most likely multifactorial secondary to dehydration complicated by Entresto Continue to monitor Positive orthostatic Will start midodrine Follow echo results (2) Generalized weakness: Code(s): R53.1 - Weakness Status: Acute Assessment and Plan: Likely secondary to chronic illness dehydration CHF PT OT consult (3) Atypical chest pain: Code(s): R07.89 - Other chest pain Status: Acute Assessment and Plan: Troponins x3 are negative EKG with no acute changes Cardiology consult Will get repeat chest x-ray today probable atelectasis (4) Dilated cardiomyopathy: Code(s): I42.0 - Dilated cardiomyopathy Status: Acute Assessment and Plan: Patient has had normalization of ejection fraction pending repeat echo echocardiogram Continue Entresto (5) COPD (chronic obstructive pulmonary disease): Qualifiers: COPD type: unspecified COPD Qualified Code(s): J44.9 - Chronic obstructive pulmonary disease, unspecified Code(s): J44.9 - Chronic obstructive pulmonary disease, unspecified Status: Chronic Assessment and Plan: Stable Continue inhaler treatment Not actively wheezing Continue to monitor (6) CHRISTINE (obstructive sleep apnea): Code(s): G47.33 - Obstructive sleep apnea (adult) (pediatric) Status: Acute Assessment and Plan: CPAP at nighttime (7) CKD (chronic kidney disease), stage III: Code(s): N18.30 - Chronic kidney disease, stage 3 unspecified Status: Acute Assessment and Plan: BUN and creatinine at patient's baseline avoid nephrotoxic medication (8) GERD (gastroesophageal reflux disease): Code(s): K21.9 - Gastro-esophageal reflux disease without esophagitis Status: Chronic Assessment and Plan: PPI as needed (9) AICD (automatic cardioverter/defibrillator) present: Code(s): Z95.810 - Presence of automatic (implantable) cardiac defibrillator Status: Acute Assessment and Plan: Pending device interrogation Subjective Date/time seen: 07/19/21 09:40 Interval history: 6-year-old female with past medical history significant for severe nonischemic cardiomyopathy with ejection fraction of 25% prior or pacemaker placement with upgrade to biventricular ICD device, nonobstructive coronary artery disease, sick sinus syndrome bradyarrhythmia, patient has had significant dizziness throughout her treatment for these conditions at various stages she has had medication changes to mitigate these. Also patient was complaining of chest pressure for the past 10 days and she is concerned about her AICD/pacemaker is not working, at the ER patient was found to have orthostatic hypotension dehydration admitted to the hospital for further evaluation and treatment Patient feels dizziness has improved shortness of breath has improved Patient complain of back pain in the lower chest with breathing Patient denies fever headache chills I am seeing the patient for dizziness Exam Narrative: Alert Chest decreased air entry lower lobe on the right side Abdomen nontender nondistended CVS S1 + S2 Negative Lower extremity edema Objective Data Vital Signs Vital Signs: Vital Signs - 24 hr 07/18/21 11:09 07/18/21 11:10 07/18/21 12:00 Temperature 96.5 F L 96.5 F L Pulse Rate 53 L 67 60 Respiratory Rate 16 16 Blood Pressure 123/82 99/83 L Pulse Oximetry 99 100 07/18/21 13:30 07/18/21 13:37 07/18/21 14:00 Temperature 97.5 F L Pulse Rate 62 63 62 Respiratory Rate 18 18 18 Blood Pressure 116/68 Pulse Oximetry 97 07/18/21 16:00 07/18/21 20:20 07/18/21 20:27 Temperature Pulse Rate 70 67 68 Respiratory Rate 18 18 Blood Pressure Pulse Oximetry 07/18/21 20:35 07/18/21 22:00 05/0
[2021-07-19] MEDS: ACETAMINOPHEN 500 MG TABLET 1000 MG PO (10:14)
[2021-07-19 10:37] LABS: Basophils Percent Auto 0.5 % (0.2-1.2); Eosinophils Absolute Auto 0.1 K/mm3 (0-0.3); Eosinophils Percent Auto 1.3 % (0-4.4); Hematocrit 37.2 % (37.0-47.0); Immature Granulocyte Absolute 0.02 K/mm3 (0.00-0.031); Immature Granulocyte Percent A 0.3 % (0-0.5); Lymphocytes Absolute Auto 1.71 K/mm3 (0.9-3.2); Lymphocytes Percent Auto 21.9 % (18.3-44.2); Mean Corpuscular HGB Conc 32.3 g/dl (32-36); Mean Corpuscular Hemoglobin 28.2 pg (26-34); Mean Corpuscular Volume 87.5 fl (80-100); Monocytes Absolute Auto 0.5 K/mm3 (0.1-0.6); Monocytes Percent Auto 6.1 % (2.6-8.5); Neutrophils Absolute Auto 5.5 K/mm3 (1.3-6.7); Neutrophils Percent Auto 69.9 % (45.5-73.1); Platelet Count Result 196 k/mm3 (150-375); Red Blood Count 4.25 M/mm3 (4.2-5.4); Red Cell Distribution Width 13.6 % (11.5-14.5); White Blood Count 7.8 K/mm3 (4.5-10.0)
[2021-07-19 10:45] LABS: Alanine Aminotransferase 24 U/L (4-35); Albumin Level 4.3 g/dL (3.5-5.1); Alkaline Phosphatase 98 U/L (38-126); Anion Gap 9 mmol/L (8-16); Aspartate Amino Transferase 38 U/L (14-36); Bilirubin,Total 0.4 mg/dL (0.2-1.3); Blood Urea Nitrogen 24 mg/dL (7-17); Calcium 8.8 mg/dL (8.4-10.2); Carbon Dioxide 23 mmol/L (22-30); Chloride 108 mmol/L (98-107); Estimated CRCL calculation 48 ml/min; Estimated Glomerular Filt Rate 44; Glucose 147 mg/dL (65-110); Potassium 3.9 mmol/L (3.4-5.0); Sodium 140 mmol/L (137-145)
[2021-07-19] MEDS: ALPRAZolam (*CRX) 0.5 MG TABLET PO ×2 (11:32→22:33)
[2021-07-19] MEDS: MIDODRINE HCL 2.5 MG TABLET PO ×2 (12:47→16:13)
[2021-07-19] MEDS: ATORVASTATIN 40 MG TABLET PO (20:03)
[2021-07-20] VITALS (16 sets, daily range): BP systolic 116–186; BP diastolic 60–98; PULSE 59–80; RESP 14–18; TEMP 36.4–37.1; O2SAT 95–99
[2021-07-20] MEDS: ACETAMINOPHEN 500 MG TABLET 1000 MG PO ×3 (01:19→21:39)
[2021-07-20] MEDS: VITAMIN E 400 UNIT CAPSULE PO (08:09)
[2021-07-20] MEDS: SACUBITRIL/VALSARTAN 12-13 MG TABLET 1 TAB PO ×2 (08:09→21:35)
[2021-07-20] MEDS: OXYBUTYNIN CHLORIDE 5 MG TABLET PO (08:09)
[2021-07-20] MEDS: ASCORBIC ACID 500 MG TABLET PO (08:09)
[2021-07-20] MEDS: CHOLECALCIFEROL 1,000 UNITS TABLET 2000 UNITS PO (08:10)
[2021-07-20] MEDS: ASPIRIN 81 MG ENTERIC TABLET PO (08:10)
[2021-07-20] MEDS: ALBUTEROL SULFATE NEB 2.5 MG/3 ML INH INHALATION ×3 (08:19→21:19)
[2021-07-20 08:23] LABS: Alanine Aminotransferase 22 U/L (6-35); Albumin Level 4.3 g/dL (3.5-5.1); Alkaline Phosphatase 103 U/L (38-126); Anion Gap 6 mmol/L (8-16); Aspartate Amino Transferase 38 U/L (14-36); Basophils Percent Auto 0.6 % (0.2-1.2); Bilirubin,Total 0.5 mg/dL (0.2-1.3); Blood Urea Nitrogen 17 mg/dL (7-17); Calcium 9.2 mg/dL (8.4-10.2); Carbon Dioxide 26 mmol/L (22-30); Chloride 108 mmol/L (98-107); Eosinophils Absolute Auto 0.2 K/mm3 (0-0.3); Eosinophils Percent Auto 2.5 % (0-4.4); Estimated CRCL calculation 47 ml/min; Estimated Glomerular Filt Rate 48; Glucose 106 mg/dL (65-110); Hematocrit 38.3 % (37.0-47.0); Hemoglobin 12.1 g/dL (12.0-15.0); Immature Granulocyte Absolute 0.02 K/mm3 (0.00-0.031); Immature Granulocyte Percent A 0.3 % (0-0.5); Lymphocytes Absolute Auto 1.44 K/mm3 (0.9-3.2); Lymphocytes Percent Auto 21.3 % (18.3-44.2); Mean Corpuscular HGB Conc 31.6 g/dl (32-36); Mean Corpuscular Hemoglobin 27.8 pg (26-34); Mean Corpuscular Volume 87.8 fl (80-100); Mean Platelet Volume 9.7 fl (7.4-10.4); Monocytes Absolute Auto 0.6 K/mm3 (0.1-0.6); Monocytes Percent Auto 8.9 % (2.6-8.5); Neutrophils Absolute Auto 4.5 K/mm3 (1.3-6.7); Neutrophils Percent Auto 66.4 % (45.5-73.1); Platelet Count Result 197 k/mm3 (150-375); Potassium 4.2 mmol/L (3.4-5.0); Red Blood Count 4.36 M/mm3 (4.2-5.4); Red Cell Distribution Width 13.9 % (11.5-14.5); Sodium 140 mmol/L (137-145); White Blood Count 6.8 K/mm3 (4.5-10.0)
--- NOTE | 2021-07-20 09:59 | PM.IMPN ---
Progress Note: A&P Assessment and Plan (1) Orthostatic hypotension: Code(s): I95.1 - Orthostatic hypotension Status: Acute Assessment and Plan: most likely multifactorial secondary to dehydration complicated by Entresto Continue to monitor Positive orthostatic resolved DC midodrine DC IV (2) Generalized weakness: Code(s): R53.1 - Weakness Status: Acute Assessment and Plan: Likely secondary to chronic illness dehydration CHF PT OT consult (3) Atypical chest pain: Code(s): R07.89 - Other chest pain Status: Acute Assessment and Plan: Troponins x3 are negative EKG with no acute changes Cardiology consult Chest x-ray shows atelectasis Most likely chest pain related to atelectasis improved wound incentive inspirometric (4) Dilated cardiomyopathy: Code(s): I42.0 - Dilated cardiomyopathy Status: Acute Assessment and Plan: Patient has had normalization of ejection fraction echocardiogram Continue Entresto (5) COPD (chronic obstructive pulmonary disease): Qualifiers: COPD type: unspecified COPD Qualified Code(s): J44.9 - Chronic obstructive pulmonary disease, unspecified Code(s): J44.9 - Chronic obstructive pulmonary disease, unspecified Status: Chronic Assessment and Plan: Stable Continue inhaler treatment Not actively wheezing Continue to monitor Most likely shortness of breath related to advanced COPD patient need to follow-up with pulmonology as outpatient (6) CHRISTINE (obstructive sleep apnea): Code(s): G47.33 - Obstructive sleep apnea (adult) (pediatric) Status: Acute Assessment and Plan: CPAP at nighttime (7) CKD (chronic kidney disease), stage III: Code(s): N18.30 - Chronic kidney disease, stage 3 unspecified Status: Acute Assessment and Plan: BUN and creatinine at patient's baseline avoid nephrotoxic medication (8) GERD (gastroesophageal reflux disease): Code(s): K21.9 - Gastro-esophageal reflux disease without esophagitis Status: Chronic Assessment and Plan: PPI as needed (9) AICD (automatic cardioverter/defibrillator) present: Code(s): Z95.810 - Presence of automatic (implantable) cardiac defibrillator Status: Acute Assessment and Plan: device interrogation per Cardiology Subjective Date/time seen: 07/20/21 09:59 Interval history: 6-year-old female with past medical history significant for severe nonischemic cardiomyopathy with ejection fraction of 25% prior or pacemaker placement with upgrade to biventricular ICD device, nonobstructive coronary artery disease, sick sinus syndrome bradyarrhythmia, patient has had significant dizziness throughout her treatment for these conditions at various stages she has had medication changes to mitigate these. Also patient was complaining of chest pressure for the past 10 days and she is concerned about her AICD/pacemaker is not working, at the ER patient was found to have orthostatic hypotension dehydration admitted to the hospital for further evaluation and treatment Patient has uncontrolled hypertension Dizziness has significantly improved chest pain and shortness of breath has improved with incentive in spirometry Patient denies fever headache chills I am seeing the patient for dizziness Exam Narrative: Alert Chest decreased air entry lower lobe on the right side Abdomen nontender nondistended CVS S1 + S2 Negative Lower extremity edema Objective Data Vital Signs Vital Signs: Vital Signs - 24 hr 07/19/21 12:00 07/19/21 14:00 07/19/21 14:20 Temperature 97.8 F Pulse Rate 62 61 79 Respiratory Rate 16 16 Blood Pressure 118/77 Pulse Oximetry 99 07/19/21 14:30 07/19/21 14:45 07/19/21 14:50 Temperature Pulse Rate 73 Respiratory Rate 16 Blood Pressure 130/58 L 128/61 Pulse Oximetry 07/19/21 14:55 07/19/21 16:00 07/19/21 20:00 Temperature P
[2021-07-20] MEDS: ALPRAZolam (*CRX) 0.5 MG TABLET PO ×2 (11:37→21:40)
[2021-07-20] MEDS: ATORVASTATIN 40 MG TABLET PO (21:35)
[2021-07-21] VITALS (14 sets, daily range): BP systolic 107–147; BP diastolic 61–85; PULSE 60–80; RESP 14–18; TEMP 36.6–36.7; O2SAT 95–97
[2021-07-21 06:35] LABS: Basophils Percent Auto 0.4 % (0.2-1.2); Eosinophils Absolute Auto 0.2 K/mm3 (0-0.3); Eosinophils Percent Auto 3.4 % (0-4.4); Hematocrit 37.3 % (37.0-47.0); Hemoglobin 11.6 g/dL (12.0-15.0); Immature Granulocyte Absolute 0.02 K/mm3 (0.00-0.031); Immature Granulocyte Percent A 0.3 % (0-0.5); Lymphocytes Absolute Auto 1.64 K/mm3 (0.9-3.2); Lymphocytes Percent Auto 24.6 % (18.3-44.2); Mean Corpuscular HGB Conc 31.1 g/dl (32-36); Mean Corpuscular Hemoglobin 27.6 pg (26-34); Mean Corpuscular Volume 88.6 fl (80-100); Mean Platelet Volume 9.7 fl (7.4-10.4); Monocytes Absolute Auto 0.6 K/mm3 (0.1-0.6); Monocytes Percent Auto 9.3 % (2.6-8.5); Neutrophils Absolute Auto 4.1 K/mm3 (1.3-6.7); Platelet Count Result 180 k/mm3 (150-375); Red Blood Count 4.21 M/mm3 (4.2-5.4); Red Cell Distribution Width 13.9 % (11.5-14.5); White Blood Count 6.7 K/mm3 (4.5-10.0)
[2021-07-21 06:50] LABS: Alanine Aminotransferase 20 U/L (6-35); Albumin Level 3.8 g/dL (3.5-5.1); Alkaline Phosphatase 91 U/L (38-126); Anion Gap 9 mmol/L (8-16); Aspartate Amino Transferase 31 U/L (14-36); Bilirubin,Total 0.3 mg/dL (0.2-1.3); Blood Urea Nitrogen 16 mg/dL (7-17); Calcium 8.9 mg/dL (8.4-10.2); Carbon Dioxide 23 mmol/L (22-30); Chloride 109 mmol/L (98-107); Estimated CRCL calculation 47 ml/min; Estimated Glomerular Filt Rate 48; Glucose 103 mg/dL (65-110); Potassium 3.9 mmol/L (3.4-5.0); Sodium 141 mmol/L (137-145)
[2021-07-21] MEDS: ALBUTEROL SULFATE NEB 2.5 MG/3 ML INH INHALATION (08:39)
[2021-07-21] MEDS: SACUBITRIL/VALSARTAN 12-13 MG TABLET 1 TAB PO (09:13)
[2021-07-21] MEDS: OXYBUTYNIN CHLORIDE 5 MG TABLET PO (09:13)
[2021-07-21] MEDS: VITAMIN E 400 UNIT CAPSULE PO (09:13)
[2021-07-21] MEDS: ASCORBIC ACID 500 MG TABLET PO (09:13)
[2021-07-21] MEDS: CHOLECALCIFEROL 1,000 UNITS TABLET 2000 UNITS PO (09:13)
[2021-07-21] MEDS: ASPIRIN 81 MG ENTERIC TABLET PO (09:13)
[2021-07-21] MEDS: ACETAMINOPHEN 500 MG TABLET 1000 MG PO (09:15)
[2021-07-21] MEDS: ALPRAZolam (*CRX) 0.5 MG TABLET PO (09:15)
--- NOTE | 2021-07-21 09:49 | PM.DS ---
DS: Admitting Diagnosis Discharge Date 07/22/2019 Admitting Diagnosis Dizziness DS: Discharge Diagnosis Discharge Diagnosis (1) Orthostatic hypotension: Code(s): I95.1 - Orthostatic hypotension Status: Acute Assessment and Plan: most likely multifactorial secondary to dehydration complicated by Entresto Continue to monitor Positive orthostatic improved Started midodrine daily DC IV If no improvement consider DC Entresto as outpatient (2) Generalized weakness: Code(s): R53.1 - Weakness Status: Acute Assessment and Plan: Likely secondary to chronic illness dehydration CHF PT OT consult (3) Atypical chest pain: Code(s): R07.89 - Other chest pain Status: Acute Assessment and Plan: Troponins x3 are negative EKG with no acute changes Cardiology consult Chest x-ray shows atelectasis Most likely chest pain related to atelectasis resolved with incentive inspirometric (4) Dilated cardiomyopathy: Code(s): I42.0 - Dilated cardiomyopathy Status: Acute Assessment and Plan: Patient has had normalization of ejection fraction echocardiogram Continue Entresto (5) COPD (chronic obstructive pulmonary disease): Qualifiers: COPD type: unspecified COPD Qualified Code(s): J44.9 - Chronic obstructive pulmonary disease, unspecified Code(s): J44.9 - Chronic obstructive pulmonary disease, unspecified Status: Chronic Assessment and Plan: Stable Continue inhaler treatment Not actively wheezing Continue to monitor Most likely shortness of breath related to advanced COPD and probable pulmonary hypertension patient need to follow-up with pulmonology as outpatient (6) CHRISTINE (obstructive sleep apnea): Code(s): G47.33 - Obstructive sleep apnea (adult) (pediatric) Status: Acute Assessment and Plan: CPAP at nighttime (7) CKD (chronic kidney disease), stage III: Code(s): N18.30 - Chronic kidney disease, stage 3 unspecified Status: Acute Assessment and Plan: BUN and creatinine at patient's baseline avoid nephrotoxic medication (8) GERD (gastroesophageal reflux disease): Code(s): K21.9 - Gastro-esophageal reflux disease without esophagitis Status: Chronic Assessment and Plan: PPI as needed (9) AICD (automatic cardioverter/defibrillator) present: Code(s): Z95.810 - Presence of automatic (implantable) cardiac defibrillator Status: Acute Assessment and Plan: device interrogation per Cardiology follow-up with cardiology as outpatient DS: Summary Hospital Course Hospital Course: 76-year-old female with past medical history significant for severe nonischemic cardiomyopathy prior pacemaker placement with upgrade to biventricular ICD device, nonobstructive coronary artery disease, sick sinus syndrome bradyarrhythmia, Presented to the hospital with dizziness was found to have orthostatic hypotension secondary to dehydration and Entresto patient was treated with IV fluid and midodrine her condition improved patient to follow-up with PCP and Cardiology as outpatient Time Spent with Patient Time attestation: Total time spent providing and/or coordinating discharge services: Exam Narrative: Alert Chest decreased air entry lower lobe on the right side Abdomen nontender nondistended CVS S1 + S2 Negative Lower extremity edema DS: Data Data Completed and Pending Labs on day of discharge: Labs from last 24 hours 07/21/21 07/21/21 05:53 05:53 WBC 6.7 RBC 4.21 Hgb 11.6 L Hct 37.3 MCV 88.6 MCH 27.6 MCHC 31.1 L RDW 13.9 Plt Count 180 MPV 9.7 Immature Gran % (Auto) 0.3 Neut % (Auto) 62.0 Lymph % (Auto) 24.6 [place] % (Auto) 9.3 H Eos % (Auto) 3.4 Baso % (Auto) 0.4 Lymph # (Auto) 1.64 [place] # (Auto) 0.6 Eos # (Auto) 0.2 Baso # (Auto) 0.0 Abs Immat Gran (auto) 0.02 Absolute Neuts (auto) 4.1 Absolute Nucleated
--- NOTE | 2021-07-21 11:38 | HOMEO2EVAL ---
Evaluation was performed at [facility] Home Oxygen Evaluation RC: Home Oxygen (O2) Evaluation Start: 07/21/21 10:13 Freq: ONCE Status: Active Protocol: RPE Activity Type Activity Date Activity User E-Sign Co-Sign Detail Recorded Client Recorded Date Recorded By Document 07/21/21 11:30 KRM [id number] 07/21/21 11:38 KRM Document 07/21/21 11:38 KRM [id number] 07/21/21 11:38 KRM 07/21/21 07/21/21 11:30 11:38 Home O2 Evaluation Test Phase Resting Exercise Oxygen Delivery Room Air Room Air Pulse Oximetry (90-100 %) 97 96 Pulse Rate (60-100 beats/min) 69 80 Activity Tolerance Good Ambulation Distance (feet) 300 Ambulation Distance (meters) 91.43 Treatment Charges O2 Evaluation - Inpatient
== END 2021-07-21 14:08 | disposition home or self-care (01) | DRG 312 ==
LOC: ANHED 12:14 → ANH3MEDSUR 17:08
PROVIDERS: Internal Medicine; Admitting Provider Internal Medicine; Emergency Provider Emergency Medicine; PCP Internal Medicine; Visit Provider Internal Medicine
DX: I95.1 Orthostatic hypotension (principal); I42.0 Dilated cardiomyopathy; J98.11 Atelectasis; N17.9 Acute kidney failure, unspecified; E86.0 Dehydration; T46.5X5A Adverse effect of other antihypertensive drugs, initial encounter; R07.89 Other chest pain; Z20.822 Contact with and (suspected) exposure to COVID-19; J44.9 Chronic obstructive pulmonary disease, unspecified; G47.33 Obstructive sleep apnea (adult) (pediatric); I12.9 Hypertensive chronic kidney disease with stage 1 through stage 4 chronic kidney disease, or unspecified chronic kidney disease; N18.30 Chronic kidney disease, stage 3 unspecified; K21.9 Gastro-esophageal reflux disease without esophagitis; I25.10 Atherosclerotic heart disease of native coronary artery without angina pectoris; F41.9 Anxiety disorder, unspecified; E78.5 Hyperlipidemia, unspecified; E55.9 Vitamin D deficiency, unspecified; N32.81 Overactive bladder; Z66 Do not resuscitate; Z95.810 Presence of automatic (implantable) cardiac defibrillator; Z90.49 Acquired absence of other specified parts of digestive tract; Z90.710 Acquired absence of both cervix and uterus; Z90.722 Acquired absence of ovaries, bilateral; Z87.891 Personal history of nicotine dependence
CPT/HCPCS: 36415; 70450; 71045; 71046; 80053; 83690; 83880; 84484; 85025; 85610; 85730; 93005; 94618; 94640; 96361; 96374; 97110; 97112; 97116; 97161; 97165; 97535; 99285; A9270; C8929; C9803; G0378; J7030; J7040; Q9957; U0003; U0005

== ENCOUNTER 2021-10-08 09:29 | Outpatient (CLI) | payer MEDICARE, SELFPAY ==
[2021-10-09 07:25] LABS: Rapid Plasma Reagin Non-Reactive (NonReactive)
== END 2021-10-08 09:30 | disposition home or self-care (01) ==
LOC: ANHLAB 09:30
PROVIDERS: PCP Internal Medicine; Visit Provider Internal Medicine
DX: Z20.2 Contact with and (suspected) exposure to infections with a predominantly sexual mode of transmission (principal)
CPT/HCPCS: 36415; 86592

== ENCOUNTER 2021-11-05 10:32 | Outpatient (CLI) | payer MEDICARE, SELFPAY ==
--- NOTE | ~2021-11-05 | XR_ITS ---
EXAMINATION: XR thoracic spine 3V DATE: 11/05/2021 11:01 INDICATION: Chronic back pain TECHNIQUE: AP, lateral and lateral swimmer's views of the thoracic spine were obtained. COMPARISON: 10/01/2007 FINDINGS: Bone alignment is normal. There is no fracture. There is moderate loss of intervertebral di sc space height throughout the thoracic spine. The vertebral body heights are maintained. Small degen erative osteophytes project from the anterior endplates of multiple vertebral bodies. There has been interval insertion of a cardiac pacemaker. IMPRESSION: 1. Moderate thoracic spondylosis without acute findings. Reviewed, dictated and finalized at location B.
== END 2021-11-05 10:33 | disposition home or self-care (01) ==
LOC: ANHIMG 10:36
PROVIDERS: PCP Internal Medicine; Visit Provider Internal Medicine
DX: M47.894 Other spondylosis, thoracic region (principal)
CPT/HCPCS: 72072

== ENCOUNTER 2021-12-05 05:52 | Inpatient (IN) | payer MEDICARE, SELFPAY ==
[2021-12-05] VITALS (44 sets, daily range): BP systolic 108–198; BP diastolic 53–122; PULSE 58–81; RESP 10–22; TEMP 36.4–36.9; O2SAT 93–100; BMI 37.0
--- NOTE | ~2021-12-05 | CT_ITS ---
EXAMINATION: CTA chest abdomen pelvis DATE: 12/05/2021 09:02 INDICATION: Right arm weakness. TECHNIQUE: Computed tomographic angiography (CTA) of the chest, abdomen, and pelvis was performed wit h 150 mL Omnipaque-350 intravenous contrast. Automated exposure control and iterative reconstruction technique were employed. The dose-length product was 1763.67 mGy-cm. Maximum intensity projection 3D- reconstructions of the aorta and other arteries were constructed by the technologist on a separate wo rkstation. COMPARISON: Chest CTA 07/09/2021, CT abdomen and pelvis 07/19/2018 FINDINGS: CHEST CTA: There is mild emphysema. There is mild scarring in paraspinal right lower lobe. There is mild atelect asis bilaterally. Calcified right lung nodules and are consistent with old granulomatous disease. No pleural effusion. There are subcentimeter nodules in the thyroid, likely not clinically significant. Cardiomegaly is noted. There are coronary artery calcifications. No pericardial effusion. There is a left chest pacer with leads in right atrium, right ventricle, and coronary sinus. There is ectasia of ascending aorta measuring 4.8 cm. Aortic atherosclerosis is noted. There is no pulmonary embolus. Th ere is severe thoracic spondylosis. 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 Pneumobilia is noted, likely secondary to sphincterotomy. There are palomares ges of cholecystectomy. The spleen, pancreas, and adrenal glands are normal. There is cortical thinni ng of the kidneys. There is a 10 mm cyst in left kidney. There is diverticulosis of the colon without evidence of diverticulitis. There are changes of ventral hernia repair. There are no dilated loops o f bowel. The appendix is not visualized. There are no pathologically enlarged lymph nodes. There is n o free intraperitoneal fluid. Abdominal aorta is normal in caliber. Aortic atherosclerosis is noted. There is no significant stenosis of celiac axis, superior mesenteric artery, the renal arteries, or i nferior mesenteric artery. There is chronic sclerosis throughout left innominate bone, consistent wit h Paget disease. There is severe lumbar spondylosis. IMPRESSION: 1. Ectasia of ascending aorta measuring 4.8 cm. Reviewed, dictated and finalized at location A.
--- NOTE | ~2021-12-05 | US_ITS ---
EXAMINATION: US carotid duplex BI DATE: 12/05/2021 17:09 INDICATION: TIA TECHNIQUE: Grayscale, color Doppler, and pulsed Doppler images of the cervical carotid arteries were obtained. The degree of vessel stenosis is placed in one of the following categories: normal, <50%, 5 0-69%, >=70% but less than near-occlusion, near-occlusion, or total occlusion. Note that percent sten osis relative to normal distal artery lumen diameter is indirectly measured from velocity measurement s as described by He, et al. Radiology 2003; 229:340-346. Notes: Normal: Peak systolic velocity <125 centimeters/sec and no plaque <50%. Peak systolic velocity <125 ( EDV <40; ICA/CCA PSV ratio <2.0; used these factors only a tandem lesions or low cardiac output or co ntralateral disease) 50-69 %: PSV 125-230 (EDV 40-100; ratio 2-4) >= 70% but less than near occlusion: PSV greater than 230 (EDV > 100; ratio> 4.0) Near Occlusion: PSV that is variable; markedly narrowed lumen Occlusion: Absent flow on color/spectral Doppler and no lumen on wolff scale. COMPARISON: Ultrasound dated 02/01/2018. FINDINGS: RIGHT: The right common carotid artery (CCA) peak systolic velocity (PSV) is 44 cm/s. The right internal car otid artery (ICA) PSV is 54 cm/s. The right ICA end-diastolic velocity (EDV) is 16 cm/s. The right IC A/CCA PSV ratio is 1.2. The external carotid artery (ECA) PSV is 57 cm/s. There is antegrade flow in the right vertebral artery. LEFT: The left CCA PSV is 40 cm/s. The left ICA PSV is 44 cm/s. The left ICA EDV is 11 cm/s. The left ICA/C CA PSV ratio is 1.1. The ECA PSV is 58 cm/s. There is antegrade flow in the left vertebral artery. IMPRESSION: 1. Less than 50% stenosis in the right internal carotid artery by sonographic criteria. 2. Less than 50% stenosis in the left internal carotid artery by sonographic criteria. Reviewed, dictated and finalized at location A. IMPRESSION: 1. Less than 50% stenosis in the right internal carotid artery by sonographic c kyleeria. 2. Less than 50% stenosis in the left internal carotid artery by sonographic cr josué.
--- NOTE | ~2021-12-05 | XR_ITS ---
EXAMINATION: XR chest 1V portable DATE: 12/05/2021 06:25 INDICATION: Generalized weakness. TECHNIQUE: A single frontal view of the chest was obtained. COMPARISON: Chest single view 07/19/2021, chest CT 07/09/2021 FINDINGS: There is no pneumonia, pleural effusion, or pneumothorax. Cardiomegaly is noted. There is a left chest pacer/defibrillator with leads in right atrium, right ventricle, and coronary sinus. Surg ical clips in the right upper quadrant are likely from cholecystectomy. IMPRESSION: 1. Cardiomegaly. Reviewed, dictated and finalized at location A. IMPRESSION: 1. Cardiomegaly.
--- NOTE | ~2021-12-05 | CT_ITS ---
EXAMINATION: CTA brain carotid DATE: 12/05/2021 09:02 INDICATION: Right arm weakness. Ataxia. TECHNIQUE: Computed tomographic angiography (CTA) of the head was performed without and with 100 mL O mnipaque-350 intravenous contrast. CTA of the neck was performed with intravenous contrast. Automated exposure control and iterative reconstruction technique were employed. The dose-length product was 1 892.35 mGy-cm. Maximum intensity projection and volume rendered 3D-reconstructions were created by e technologist on a separate workstation. COMPARISON: Head CT 07/17/2021 FINDINGS: HEAD CTA: There are changes of left posterior craniotomy. There is chronic encephalomalacia in left c erebellum. There is chronic encephalomalacia in right frontal lobe deep to an old lawrence hole, likely f rom a ventriculostomy catheter. There are scattered areas of low attenuation in the cerebral white ma tter. There is no intracranial hemorrhage, acute infarction, or abnormal intracranial mass lesion. Th e ventricles are normal in size. The paranasal sinuses are clear. The mastoid air cells are normal. T here are likely changes of ocular lens replacement surgeries. Right vertebral artery is dominant. The re is no significant stenosis of basilar artery or the posterior cerebral arteries. The posterior com municating arteries are normal. There is no significant stenosis of the intracranial internal carotid arteries. Left A1 anterior cerebral artery segment is absent, a normal variant. There is no signific ant stenosis of the middle cerebral arteries. Anterior communicating artery is normal. There is no an eurysm. NECK CTA: There are nodules in the thyroid measuring up to 8 mm, likely not clinically significant. T here are no pathologically enlarged lymph nodes. There is no significant stenosis of the vertebral ar teries. There is plaque in the proximal internal carotid arteries. There is 0% stenosis of the proxim al right internal carotid artery relative to normal distal artery lumen diameter (NASCET criteria). T here is 0% stenosis of the proximal left internal carotid artery relative to normal distal artery lum en diameter. There is moderate cervical spondylosis. IMPRESSION: 1. 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 2. Moderate nonspecific cerebral white matter disease, which likely represents chronic small vessel i schemic disease. 3. No aneurysm or significant intracranial arterial stenosis. 4. 0% stenosis of the proximal internal carotid arteries relative to normal distal artery lumen diame ters (NASCET criteria). Reviewed, dictated and finalized at location A. IMPRESSION: 1. 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 2. Moderate nonspecific cerebral white matter disease, which likely represents chronic small vessel ischemic disease. 3. No aneurysm or significant intracranial arterial stenosis. 4. 0% stenosis of the proximal internal carotid arteries relative to normal dis rod artery lumen diameters (NASCET criteria).
--- NOTE | ~2021-12-05 | XR_ITS ---
XR abdomen/kub 1V 12/07/2021 09:39 Indication: Nausea and vomiting Procedure: KUB Comparison: Comparison to multiple prior studies sequentially, with oldest reviewed study dated 02/12. Findings: Nonobstructive bowel gas pattern. There are cholecystectomy clips. There is atherosclerosis . There are pelvic phleboliths. Elevated right diaphragm partially visualized. Left basilar infiltrat es, atelectasis versus pneumonia. Impression: 1: Nonobstructive bowel gas pattern. 2: Left basilar infiltrate, atelectasis versus pneumonia. Reviewed, dictated and finalized at location A. Impression: 1: Nonobstructive bowel gas pattern. 2: Left basilar infiltrate, atelectasis versus pneumonia.
--- NOTE | 2021-12-05 05:58 | ECG_ITS ---
Measurements Intervals [place] Rate: 61 P: -38 NH: 83 QRS: 195 QRSD: 82 T: -28 QT: 409 QTc: 412 Interpretive Statements ELECTRONIC ATRIAL PACEMAKER ELECTRONIC VENTRICULAR PACEMAKER BASELINE ARTIFACT- I, II, III, AVR, AVL, AVF, V1-V6 NO FURTHER INTERPRETATION IS POSSIBLE ATYPICAL ECG COMPARED TO ECG 07/17/2021 11:03:50 NO SIGNIFICANT CHANGES Electronically Signed On 12-05-2021 6:36:37 CDT by Austin Bronson D.O.
--- NOTE | 2021-12-05 06:08 | PC.NURSE ---
Notified Dr Santos of pt's continued c/o right arm weakness. Pt is able to move arm
[2021-12-05 06:12] LABS: Basophils Percent Auto 0.6 % (0.2-1.2); Eosinophils Absolute Auto 0.2 K/mm3 (0-0.3); Eosinophils Percent Auto 2.7 % (0-4.4); Hemoglobin 12.3 g/dL (12.0-15.0); Immature Granulocyte Absolute 0.02 K/mm3 (0.00-0.031); Immature Granulocyte Percent A 0.3 % (0-0.5); Lymphocytes Absolute Auto 1.61 K/mm3 (0.9-3.2); Lymphocytes Percent Auto 22.6 % (18.3-44.2); Mean Corpuscular HGB Conc 31.5 g/dl (32-36); Mean Corpuscular Hemoglobin 27.8 pg (26-34); Mean Corpuscular Volume 88.2 fl (80-100); Mean Platelet Volume 9.8 fl (7.4-10.4); Monocytes Absolute Auto 0.8 K/mm3 (0.1-0.6); Monocytes Percent Auto 10.7 % (2.6-8.5); Neutrophils Absolute Auto 4.5 K/mm3 (1.3-6.7); Neutrophils Percent Auto 63.1 % (45.5-73.1); Platelet Count Result 194 k/mm3 (150-375); Red Blood Count 4.42 M/mm3 (4.2-5.4); Red Cell Distribution Width 14.1 % (11.5-14.5); White Blood Count 7.1 K/mm3 (4.5-10.0)
--- NOTE | 2021-12-05 06:23 | ED.WEAKNESS ---
HPI - Weakness General Chief complaint: Weakness Stated complaint: GEN WEAKNESS Time Seen by Provider: 12/05/21 05:57 History of Present Illness HPI Narrative: 76-year-old female presenting with right arm weakness when she woke up, last known well was midnight when she went to sleep. She states it feels like her right arm is not really listening to her, she denies any new focal numbness or weakness, chest pain, headache. She does have a history of a brain tumor status post resection. Related Data Home Medications Medication Instructions Recorded Confirmed aspirin 81 mg tablet,delayed 81 mg PO DAILY 02/01/19 12/05/21 release (Aspir-Low) cholecalciferol (vitamin D3) 50 2,000 unit PO DAILY 02/01/19 12/05/21 mcg (2,000 unit) tablet sacubitril 24 mg-valsartan 26 mg 0.5 tablet PO BID 09/10/20 12/05/21 tablet (Entresto) ascorbic acid (vitamin C) 500 mg 500 mg PO DAILY 04/28/21 10/13/21 tablet acetaminophen 500 mg capsule 1,000 mg PO TID PRN pain 07/17/21 12/05/21 vitamin E 400 unit tablet 400 unit PO DAILY 07/17/21 10/13/21 Allergies Allergy/AdvReac Type Severity Reaction Status Date / Time adhesive Allergy Mild Rash Verified 10/13/21 11:41 cat dander Allergy Mild Sneezing Verified 10/13/21 11:41 codeine Allergy Mild HIVES AND Verified 10/13/21 11:41 ITCHING Sulfa (Sulfonamide Allergy Mild HIVES Verified 10/13/21 11:41 Antibiotics) sulfanilamide Allergy Mild Hives Verified 10/13/21 11:41 tramadol AdvReac Hallucinati Verified 10/13/21 11:41 ng Review of Systems Review of Systems: CONST: No fever. HEENT: No sore throat C/V: No chest pain RESP: Chronic dyspnea GI: No abdominal pain : No dysuria. M/S: Right arm weakness. SKIN: No rash. NEURO: Right arm weakness PSYCH: [No depression] [facility] Past Medical History Medical History (Updated 12/05/21 @ 20:52 by Jenae Santos MD) Anxiety Cardiac pacemaker Cardiac pacemaker in situ CHF (congestive heart failure), NYHA class II Cholecystectomy planned COPD (chronic obstructive pulmonary disease) COVID-19 Dilated cardiomyopathy Encounter for blood transfusion Essential hypertension GERD (gastroesophageal reflux disease) History of atrial fibrillation Hyperlipidemia Overactive bladder Syncope and collapse Vitamin D deficiency Surgical History Surgical History (Updated 12/05/21 @ 16:04 by Keara Cervantes NP) H/O cataract extraction H/O colonoscopy H/O dilation and curettage H/O hysterectomy with oophorectomy H/O rectal polypectomy History of appendectomy History of pancreatic surgery History of removal of pigmented skin lesion Hx of brain surgery Meningioma removal in 2014 Hx of cholecystectomy Hx of tonsillectomy Presence of biventricular AICD S/P cholecystectomy Family History Family History Father Family history of lymphoma Diabetes mellitus Sibling Family history of malignant neoplasm of breast in first degree relative Carcinoma of colon Breast cancer Mother Aplastic anemia Son Thyroid cancer Other Family history of malignant neoplasm of thyroid Social History Social History (Updated 12/05/21 @ 16:10 by Keara Cervantes NP) Social History: Mrs. Schmidt a few weeks ago she states (10/13/21). She has 5 sons. 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 She is a former 1 PPD smoker for at least 50 years. She denies illicit substance and alcohol use. She wishes for her code status to be DNR and she has designated her sons, Jan Moran and Handy schmidt, as her designated surrogate decision maker. Her son duct lives with her and helps to take care of her. Code status DNR Smoking packs per day: 1 Smoking cigarettes per day: 20.0 Years smoked: 60 Smoking pack-years: 60.00 Smoking status: Former smoker Second hand tobacco smoke exposure: Yes Alcohol intake: former Substance use: never Substance use type: does not use Gender identity (if brisa
[2021-12-05 06:26] LABS: Alanine Aminotransferase 29 U/L (6-35); Albumin Level 4.4 g/dL (3.5-5.1); Alkaline Phosphatase 126 U/L (38-126); Anion Gap 11 mmol/L (8-16); Aspartate Amino Transferase 37 U/L (14-36); Bilirubin,Total 0.6 mg/dL (0.2-1.3); Blood Urea Nitrogen 20 mg/dL (7-17); Calcium 9.4 mg/dL (8.4-10.2); Carbon Dioxide 24 mmol/L (22-30); Chloride 107 mmol/L (98-107); Estimated CRCL calculation 52 ml/min; Estimated Glomerular Filt Rate 48; Glucose 147 mg/dL (65-110); Potassium 3.6 mmol/L (3.4-5.0); Sodium 142 mmol/L (137-145)
[2021-12-05 06:29] LABS: INR 1.1; Partial Thromboplastin Time 27.8 SECONDS (22.3-36.8); Prothrombin Time 14.2 Seconds (11.1-14.7)
[2021-12-05 06:35] LABS: Troponin I < 0.012 ng/mL (0.000-0.034)
[2021-12-05] MEDS: MIDAZOLAM HCL (*CRX) 2 MG/2 ML VIAL IV PUSH (07:06)
--- NOTE | 2021-12-05 07:08 | PC.NURSE ---
Received a call from CT. Pt anxious and brought back to room unable to complete the exam. MD notified and meds administered per orders.
--- NOTE | 2021-12-05 07:14 | PC.NURSE ---
Report given to Chloé THORNTON
--- NOTE | 2021-12-05 11:14 | PC.NURSE ---
Patient report received from HILLARY Luevano. All questions answered and care of patient assumed.
--- NOTE | 2021-12-05 13:07 | PC.NURSE ---
Dr. Haines back at bedside to update patient and family on plan of care. Waiting available inpatient bed. Call-light within reach. VSS. Will continue to address needs as they arise.
--- NOTE | 2021-12-05 13:10 | PM.IMHP ---
H&P: HPI History of Present Illness Date/Time: 12/05/21 13:10 Chief Complaint: Right arm weakness Narrative: This is a 76-year-old female patient who has had a past history of craniotomy to remove a meningioma with some residual left cerebellar hemispheric encephalomalacia lump in the left occipital craniotomy. The patient came to the emergency room today complaining of right arm weakness when she woke up. Last known normal was midnight when she went to sleep. She is able to move the lower extremity without difficulty. No lower leg weakness. Her speech is clear. She is very hard of hearing in the left ear from her brain surgery. Chest abdominal pelvis CTA was read as ectasia of ascending aorta measuring 4.8 cm. The patient is aware of these findings and this is chronic. Head neck CTA read as the following 1. 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 2. Moderate nonspecific cerebral white matter disease, which likely represents chronic small vessel ischemic disease. 3. No aneurysm or significant intracranial arterial stenosis. 4. 0% stenosis of the proximal internal carotid arteries relative to normal distal artery lumen diameters (NASCET criteria). The patient stated that she is unable to have an MRI due to her brain surgery. Chest x-ray was read as cardiomegaly. The patient was given Versed in the emergency room. Perhaps it was for the CT scan. The patient is being admitted to observation status on the date of service of 12/05/2021. Review of Systems Review of Systems: See HPI All systems reviewed & are unremarkable except as noted in HPI and below Constitutional: Constitutional: Reports as per HPI and Reports no additional constitutional complaints Eyes: Eyes: Reports as per HPI and Reports no additional eye complaints ENT: Reports system reviewed and no additional complaints, except as documented and Reports Normal hearing present Cardiovascular: Cardiovascular: Reports no additional cardiovascular complaints Respiratory: Respiratory: Reports no additional respiratory complaints and Reports no additional respiratory complaints Gastrointestinal: Gastrointestinal: Reports as per HPI and Reports no additional gastrointestinal complaints Musculoskeletal: Musculoskeletal: Reports no additional musculoskeletal complaints Integumentary/Breasts: Skin/Breast: Reports system reviewed and no additional complaints, except as docu and Reports as per HPI Neurologic: Reports system reviewed and no additional complaints, except as documented, Reports as per HPI and Reports Normal hearing present Psychiatric: Psychiatric: Reports no additional psychiatric complaints and Reports as per HPI Endocrine: Endocrine: Reports no additional endocrine complaints Hematologic/Lymphatic: Hematologic/Lymphatic: Reports no additional hematologic/lymphatic complaints Allergic/Immunologic: Allergic/Immunologic: Reports no additional allergic/immunologic complaints [facility] Past Medical History Medical History (Updated 12/05/21 @ 16:16 by Keara Cervantes NP) Anxiety Cardiac pacemaker Cardiac pacemaker in situ CHF (congestive heart failure), NYHA class II Cholecystectomy planned COPD (chronic obstructive pulmonary disease) COVID-19 Dilated cardiomyopathy Encounter for blood transfusion Essential hypertension GERD (gastroesophageal reflux disease) History of atrial fibrillation Hyperlipidemia Overactive bladder Syncope and collapse Vitamin D deficiency Surgical History Surgical History (Updated 12/05/21 @ 16:04 by Keara Cervantes NP) H/O cataract extraction H/O colonoscopy H/O dilation and curettage H/O hysterectomy with oophorectomy H/O rectal polypectomy History of appendectomy History of pancreatic surgery History of removal of pigmented skin lesion Hx of brain surgery Meningioma removal in 2014 Hx of cholecystectomy Hx of tonsillectomy Presence of biventricular AICD S/P cholecystectomy Family Hist
[2021-12-05 13:38] LABS: SARS-CoV-2 RNA PCR Negative
--- NOTE | 2021-12-05 14:10 | ADMGEN ---
This patient, Shahida Mitchell, was admitted to Medical Room 253-01. Patient/family oriented to hospital policies and general routines including ID bracelet, bed and alarms, visiting hours, pain management, procedures, bathroom and other care routines, personal items, smoking policy, room service/diet, and visiting hours. Information on how to activate the Rapid Response Team has been discussed. Patient/Family are encouraged to report perceived risks to care and to ask questions if they do not understand what they are told or what they should do.
--- NOTE | 2021-12-05 15:47 | WPDNEURCNPN ---
Assessment and Plan Assessment and plan (1) Dilated cardiomyopathy: Code(s): I42.0 - Dilated cardiomyopathy Status: Acute (2) Cardiac pacemaker in situ: Code(s): Z95.0 - Presence of cardiac pacemaker Status: Acute (3) AICD (automatic cardioverter/defibrillator) present: Code(s): Z95.810 - Presence of automatic (implantable) cardiac defibrillator Status: Acute (4) Paresthesia of right upper extremity: Code(s): R20.2 - Paresthesia of skin Status: Acute Plan TIA Consult date: 12/05/21 Time Seen: 15:15 HPI: Shahida Mitchell is a 76 year old female Admitted to the hospital for the complaints of right upper extremity weakness ,reportedly she went to sleep and woke up in the morning with this particular complaints, she gave no history of any other associated neurological symptomatology ,she does have a history of brain tumor for which she has undergone resection. Her outpatient medications included aspirin 81 mg daily. Is allergic to codeine ,sulfa and tramadol,in addition she has ongoing history of cardiac pacemaker, dilated cardiomyopathy, hypertension, and has undergone surgery for the removal of the meningioma in 2014. 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 initial examination in the emergency room revealed the drift of the right upper extremity with vital signs being normal normal CBC normal cmp except blood sugar 147 Review of Systems Review of Systems: All systems reviewed & are unremarkable except as noted in HPI and below PMFSH Past Medical History Medical History (Updated 12/05/21 @ 15:57 by Bradley Meyers MD) Anxiety Cardiac pacemaker Cardiac pacemaker in situ Cholecystectomy planned COPD (chronic obstructive pulmonary disease) Dilated cardiomyopathy Encounter for blood transfusion Essential hypertension GERD (gastroesophageal reflux disease) Hyperlipidemia Overactive bladder Vitamin D deficiency Surgical History Surgical History H/O colonoscopy H/O hysterectomy with oophorectomy History of appendectomy Hx of brain surgery Meningioma removal in 2014 Hx of tonsillectomy S/P cholecystectomy Family History Family History (Updated 12/05/21 @ 13:12 by Keara Cervantes NP) Father Family history of lymphoma Diabetes mellitus Sibling Family history of malignant neoplasm of breast in first degree relative Carcinoma of colon Breast cancer Mother Aplastic anemia Son Thyroid cancer Other Family history of malignant neoplasm of thyroid Social History Social History Social History: Mrs. Mitchell a few weeks ago she states (10/13/21). She has 5 sons. 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 She is a former 1 PPD smoker for at least 50 years. She denies illicit substance and alcohol use. She wishes for her code status to be DNR and she has designated her son, Jan Moran, as her designated surrogate decision maker. Smoking packs per day: 1 Smoking cigarettes per day: 20.0 Years smoked: 60 Smoking pack-years: 60.00 Smoking status: Former smoker Second hand tobacco smoke exposure: Yes Alcohol intake: former Substance use: never Substance use type: does not use Gender identity (if verbalized by the patient): Female Spiritual care concerns: No Meds Home Medications and Allergies Home Medications Medication Instructions Recorded Confirmed Type aspirin 81 mg tablet,delayed 81 mg PO DAILY 02/01/19 10/13/21 History release (Aspir-Low) cholecalciferol (vitamin D3) 50 2,000 unit PO DAILY 02/01/19 10/13/21 History mcg (2,000 unit) tablet sacubitril 24 mg-valsartan 26 mg 0.5 tablet PO BID 09/10/20 10/13/21 History tablet (Entresto) ascorbic acid (vitamin C) 500 mg 500 mg PO DAILY 04/28/21 10/13/21 History tablet acetaminophen 500 mg capsule 1,000 mg PO TID PRN pain
--- NOTE | 2021-12-05 16:26 | PC.NURSE ---
Patient to US per stretcher at 1626 12/05/21.
--- NOTE | 2021-12-05 17:32 | PCRCNOTE ---
Rt spoke with patient regarding CPAP order, patient states they do not have a CPAP at home and does not want one here. CPAP not in room
[2021-12-05] MEDS: PANTOPRAZOLE 40 MG TABLET PO (21:49)
[2021-12-05] MEDS: SACUBITRIL/VALSARTAN 12-13 MG TABLET 1 TAB PO (21:50)
[2021-12-05] MEDS: ATORVASTATIN 40 MG TABLET PO (21:51)
[2021-12-06] VITALS (10 sets, daily range): BP systolic 100–162; BP diastolic 58–88; PULSE 60–77; RESP 12–18; TEMP 36.2–37.1; O2SAT 94–97
[2021-12-06 06:16] LABS: Basophils Percent Auto 0.5 % (0.2-1.2); Eosinophils Absolute Auto 0.2 K/mm3 (0-0.3); Eosinophils Percent Auto 3.1 % (0-4.4); Hematocrit 37.4 % (37.0-47.0); Immature Granulocyte Absolute 0.02 K/mm3 (0.00-0.031); Immature Granulocyte Percent A 0.3 % (0-0.5); Lymphocytes Absolute Auto 1.51 K/mm3 (0.9-3.2); Lymphocytes Percent Auto 23.1 % (18.3-44.2); Mean Corpuscular HGB Conc 32.1 g/dl (32-36); Mean Corpuscular Hemoglobin 27.8 pg (26-34); Mean Corpuscular Volume 86.8 fl (80-100); Mean Platelet Volume 9.6 fl (7.4-10.4); Monocytes Absolute Auto 0.7 K/mm3 (0.1-0.6); Monocytes Percent Auto 9.9 % (2.6-8.5); Neutrophils Absolute Auto 4.1 K/mm3 (1.3-6.7); Neutrophils Percent Auto 63.1 % (45.5-73.1); Platelet Count Result 196 k/mm3 (150-375); Red Blood Count 4.31 M/mm3 (4.2-5.4); Red Cell Distribution Width 13.8 % (11.5-14.5); White Blood Count 6.6 K/mm3 (4.5-10.0)
[2021-12-06 06:20] LABS: Lactic Acid Reflex 0.9 mmol/L (0.7-2.0)
[2021-12-06 06:21] LABS: Alanine Aminotransferase 27 U/L (6-35); Albumin Level 4.1 g/dL (3.5-5.1); Alkaline Phosphatase 118 U/L (38-126); Anion Gap 10 mmol/L (8-16); Aspartate Amino Transferase 39 U/L (14-36); Bilirubin,Total 0.9 mg/dL (0.2-1.3); Blood Urea Nitrogen 18 mg/dL (7-17); Carbon Dioxide 24 mmol/L (22-30); Chloride 105 mmol/L (98-107); Estimated CRCL calculation 58 ml/min; Estimated Glomerular Filt Rate 54; Glucose 120 mg/dL (65-110); Lactate Dehydrogenase 192 U/L (120-246); Lipase 83 U/L (23-300); Phosphorus 3.9 mg/dL (2.5-4.5); Potassium 3.8 mmol/L (3.4-5.0); Sodium 139 mmol/L (137-145)
[2021-12-06] MEDS: OXYBUTYNIN CHLORIDE 5 MG TABLET PO (09:34)
[2021-12-06] MEDS: ASPIRIN 81 MG ENTERIC TABLET PO (09:34)
[2021-12-06] MEDS: PANTOPRAZOLE 40 MG TABLET PO ×2 (09:34→20:49)
[2021-12-06] MEDS: CHOLECALCIFEROL 1,000 UNITS TABLET 2000 UNITS PO (09:34)
[2021-12-06] MEDS: SACUBITRIL/VALSARTAN 12-13 MG TABLET 1 TAB PO ×2 (09:35→20:49)
--- NOTE | 2021-12-06 10:32 | PCPTNOTE ---
Attempted PT evaluation this date however pt's BP was low and she reported that she felt like she was going to faint while she was on the toilet earlier, RN notified. Will attempt at a later date/time.
[2021-12-06] MEDS: ACETAMINOPHEN 325 MG TABLET 650 MG PO (12:48)
--- NOTE | 2021-12-06 14:25 | PCPTNOTE ---
Attempted PT evaluation this date however pt declined due to being tired. Will attempt at a later date/time.
--- NOTE | 2021-12-06 14:41 | PM.DS ---
DS: Admitting Diagnosis Discharge Date 12/06/21 DS: Summary Time Spent with Patient Time attestation: Total time spent providing and/or coordinating discharge services: DS: Data Data Completed and Pending Labs on day of discharge: Labs from last 24 hours 12/06/21 12/06/21 12/06/21 05:54 05:54 05:54 WBC RBC Hgb Hct MCV MCH MCHC RDW Plt Count MPV Immature Gran % (Auto) Neut % (Auto) Lymph % (Auto) [place] % (Auto) Eos % (Auto) Baso % (Auto) Lymph # (Auto) [place] # (Auto) Eos # (Auto) Baso # (Auto) Abs Immat Gran (auto) Absolute Neuts (auto) Absolute Nucleated RBC Nucleated RBC % Sodium 139 Potassium 3.8 Chloride 105 Carbon Dioxide 24 Anion Gap 10 BUN 18 H Creatinine 1.00 Estim Creat Clear Calc 58 Estimated GFR 54 L Glucose 120 H Lactic Acid 0.9 Calcium 9.0 Phosphorus 3.9 Magnesium 2.0 Ferritin 67.60 Total Bilirubin 0.9 AST 39 H ALT 27 Alkaline Phosphatase 118 Lactate Dehydrogenase 192 Total Protein 7.0 Albumin 4.1 Lipase 83 TSH (Reflex) 1.040 12/06/21 05:54 WBC 6.6 RBC 4.31 Hgb 12.0 Hct 37.4 MCV 86.8 MCH 27.8 MCHC 32.1 RDW 13.8 Plt Count 196 MPV 9.6 Immature Gran % (Auto) 0.3 Neut % (Auto) 63.1 Lymph % (Auto) 23.1 [place] % (Auto) 9.9 H Eos % (Auto) 3.1 Baso % (Auto) 0.5 Lymph # (Auto) 1.51 [place] # (Auto) 0.7 H Eos # (Auto) 0.2 Baso # (Auto) 0.0 Abs Immat Gran (auto) 0.02 Absolute Neuts (auto) 4.1 Absolute Nucleated RBC 0.0 Nucleated RBC % 0.0 Sodium Potassium Chloride Carbon Dioxide Anion Gap BUN Creatinine Estim Creat Clear Calc Estimated GFR Glucose Lactic Acid Calcium Phosphorus Magnesium Ferritin Total Bilirubin AST ALT Alkaline Phosphatase Lactate Dehydrogenase Total Protein Albumin Lipase TSH (Reflex) Discharge Plan Discharge Consulting providers: Bradley Meyers Patient Instructions: Heart Failure (DC), Ischemic Stroke (DC) Follow-up/Referrals: Salome,Sherif L., DO [Primary Care Provider] - Discharge Medications: No Action aspirin [Aspir-Low] 81 mg tablet,delayed release (DR/EC) 81 mg PO DAILY cholecalciferol (vitamin D3) 2,000 unit tablet 2,000 unit PO DAILY Entresto 24-26 mg tablet 0.5 tablet PO BID ascorbic acid (vitamin C) 500 mg tablet 500 mg PO DAILY tiotropium bromide 2.5 mcg/actuation mist 1 inh inhalation .twice a day Qty: 4 3RF vitamin E 400 unit Tablet 400 unit PO DAILY acetaminophen 500 mg capsule 1,000 mg PO TID PRN (Reason: pain) atorvastatin 40 mg tablet 40 mg PO HS Qty: 90 1RF oxybutynin chloride 5 mg tablet 5 mg PO DAILY Qty: 90 1RF albuterol sulfate 2.5 mg /3 mL (0.083 %) solution for nebulization See Rx Instructions .ROUTE .COMPLEX Qty: 180 0RF Dose Instruction: USE PER NEBULIZER ONE VIAL EVERY 4 TO 6 HOURS Rx Instructions: USE PER NEBULIZER ONE VIAL EVERY 4 TO 6 HOURS alprazolam 0.5 mg tablet 0.5 mg PO TID PRN (Reason: Anxiety) Qty: 90 1RF Date of admission: 12/05/21 12:28 Primary Care Provider: Sherif Mcmahon Admitting Provider: Selwyn Greco Attending physician on admission: Selwyn Greco Condition: Serious
--- NOTE | 2021-12-06 15:30 | PM.IMPN ---
Progress Note: A&P Assessment and Plan (1) TIA (transient ischemic attack): Code(s): G45.9 - Transient cerebral ischemic attack, unspecified Status: Acute Assessment and Plan: -continue with aspirin -PT OT -patient has gotten most of her movement back. She only has mild weakness to the right upper extremity. -neurology has been consulted. -the patient is on able to have an MRI. She does have a history of a pacemaker. Check carotids CT of the brain shows 0% stenosis bilaterally in the carotid bulbs -the patient had an echo on 07/18/2021. It was read as the following1. Left ventricular chamber dimension is normal. ? 2. Left ventricular systolic function is mildly reduced, estimated at 45-50%. ? 3. There is moderately increased left ventricular wall thickness. ? 4. The left ventricular diastolic function is grade I diastolic dysfunction. ? 5. Left atrial chamber dimension is mildly enlarged. ? 6. There is mild aortic valve regurgitation. ? 7. There is mild mitral valve regurgitation. ? 8. There is mild tricuspid valve regurgitation. ? 9. There is small pericardial effusion. (2) CHF (congestive heart failure), NYHA class II: Code(s): I50.9 - Heart failure, unspecified Status: Acute Assessment and Plan: Last echo as mentioned above 1. Left ventricular chamber dimension is normal. ? 2. Left ventricular systolic function is mildly reduced, estimated at 45-50%. ? 3. There is moderately increased left ventricular wall thickness. ? 4. The left ventricular diastolic function is grade I diastolic dysfunction. ? 5. Left atrial chamber dimension is mildly enlarged. ? 6. There is mild aortic valve regurgitation. ? 7. There is mild mitral valve regurgitation. ? 8. There is mild tricuspid valve regurgitation. ? 9. There is small pericardial effusion. -continue with Entresto but monitor renal function as she has chronic renal failure stage 3. Renal function is at her baseline. (3) CKD (chronic kidney disease), stage III: Code(s): N18.30 - Chronic kidney disease, stage 3 unspecified Status: Acute Assessment and Plan: -renal functioning is at baseline. Continue to monitor. (4) CHRISTINE (obstructive sleep apnea): Code(s): G47.33 - Obstructive sleep apnea (adult) (pediatric) Status: Acute Assessment and Plan: -home setting for CPAP (5) Mixed hyperlipidemia: Code(s): E78.2 - Mixed hyperlipidemia Status: Acute Assessment and Plan: -continue with atorvastatin -monitor liver enzymes (6) Chronic obstructive pulmonary disease, unspecified: Code(s): J44.9 - Chronic obstructive pulmonary disease, unspecified Status: Acute Assessment and Plan: -continue with nebulizer treatments and Spiriva (7) Anxiety: Code(s): F41.9 - Anxiety disorder, unspecified Status: Acute Assessment and Plan: -continue with alprazolam (8) Benign essential hypertension: Code(s): I10 - Essential (primary) hypertension Status: Chronic Assessment and Plan: -the patient is currently on Entresto (9) GERD (gastroesophageal reflux disease): Code(s): K21.9 - Gastro-esophageal reflux disease without esophagitis Status: Chronic Assessment and Plan: -continue Protonix Time Spent With Patient Time with patient: Greater than 35 minutes Subjective Date/time seen: 12/06/21 15:30 Interval history: 12/06/21 1530 Patient stated that she is very tired today. She was also very concerned about some of her findings on her CT scans. I went over those findings with her with a fine tooth comb. Patient's symptoms have resolved at this time she is feeling pretty good. She denies any chest pain, shortness of breath, nausea, vomiting, diarrhea, constipation, weakness or fatigue. spent about 30 minutes with the patient and her CT results. 12/05/21? 13:10 This is a 76-year-old female patient who has had a past history of
[2021-12-06] MEDS: ATORVASTATIN 40 MG TABLET PO (20:49)
[2021-12-06] MEDS: ALPRAZolam (*CRX) 0.5 MG TABLET PO (23:44)
[2021-12-07] VITALS (17 sets, daily range): BP systolic 100–151; BP diastolic 40–85; PULSE 60–73; RESP 16–18; TEMP 36.1–37.1; O2SAT 91–98
[2021-12-07 06:12] LABS: Basophils Percent Auto 0.5 % (0.2-1.2); Eosinophils Absolute Auto 0.2 K/mm3 (0-0.3); Eosinophils Percent Auto 2.2 % (0-4.4); Hematocrit 38.4 % (37.0-47.0); Hemoglobin 12.3 g/dL (12.0-15.0); Immature Granulocyte Absolute 0.02 K/mm3 (0.00-0.031); Immature Granulocyte Percent A 0.2 % (0-0.5); Lymphocytes Absolute Auto 1.61 K/mm3 (0.9-3.2); Lymphocytes Percent Auto 18.9 % (18.3-44.2); Mean Corpuscular Hemoglobin 27.5 pg (26-34); Mean Corpuscular Volume 85.9 fl (80-100); Mean Platelet Volume 9.9 fl (7.4-10.4); Monocytes Absolute Auto 0.8 K/mm3 (0.1-0.6); Monocytes Percent Auto 8.9 % (2.6-8.5); Neutrophils Absolute Auto 5.9 K/mm3 (1.3-6.7); Neutrophils Percent Auto 69.3 % (45.5-73.1); Platelet Count Result 199 k/mm3 (150-375); Red Blood Count 4.47 M/mm3 (4.2-5.4); Red Cell Distribution Width 13.8 % (11.5-14.5); White Blood Count 8.5 K/mm3 (4.5-10.0)
[2021-12-07 06:44] LABS: Alanine Aminotransferase 27 U/L (6-35); Albumin Level 4.3 g/dL (3.5-5.1); Alkaline Phosphatase 125 U/L (38-126); Anion Gap 13 mmol/L (8-16); Aspartate Amino Transferase 37 U/L (14-36); Bilirubin,Total 0.7 mg/dL (0.2-1.3); Blood Urea Nitrogen 18 mg/dL (7-17); Calcium 8.9 mg/dL (8.4-10.2); Carbon Dioxide 22 mmol/L (22-30); Chloride 105 mmol/L (98-107); Estimated CRCL calculation 53 ml/min; Estimated Glomerular Filt Rate 48; Glucose 138 mg/dL (65-110); Magnesium 2.1 mg/dL (1.6-2.3); Potassium 3.8 mmol/L (3.4-5.0); Sodium 140 mmol/L (137-145)
--- NOTE | 2021-12-07 08:00 | PM.IMPN ---
Progress Note: A&P Assessment and Plan (1) TIA (transient ischemic attack): Code(s): G45.9 - Transient cerebral ischemic attack, unspecified Status: Acute Assessment and Plan: -continue with aspirin -PT OT -No functional deficits noted -neurology has been consulted. -Not able to get MRI with history of a pacemaker. -Check carotids <50% stenosis -CT of the brain shows 0% stenosis bilaterally in the carotid bulbs -Echo on 07/18/21, EF of 45-50%, grade 1 DD -Start Plavix (for 4 weeks) continue aspirin and statin (2) CHF (congestive heart failure), NYHA class II: Code(s): I50.9 - Heart failure, unspecified Status: Acute Assessment and Plan: Echo from July shows 45-50% EF with grade 1 DD Currently on Entresto Appear Euvolemic at this time Trend urine out put Not in acute exacerbation Appears to be a Chronic diastolic heart failure Daily weights (3) CKD (chronic kidney disease), stage III: Code(s): N18.30 - Chronic kidney disease, stage 3 unspecified Status: Acute Assessment and Plan: Current BUN/Cr 18/1.10 Baseline Cr appears to be around 1.0 Continue to trend labs Stable at this time Avoid nephrotoxic medications (4) CHRISTINE (obstructive sleep apnea): Code(s): G47.33 - Obstructive sleep apnea (adult) (pediatric) Status: Acute Assessment and Plan: Continue home Cpap with home settings (5) Mixed hyperlipidemia: Code(s): E78.2 - Mixed hyperlipidemia Status: Acute Assessment and Plan: Continue home statin LFTs ok (6) Chronic obstructive pulmonary disease, unspecified: Code(s): J44.9 - Chronic obstructive pulmonary disease, unspecified Status: Acute Assessment and Plan: Continue neb treatments Continue home Spiriva Trend respiratory status Does not appear to be in acute exacerbation, could be forming though Currently on room air (7) Anxiety: Code(s): F41.9 - Anxiety disorder, unspecified Status: Acute Assessment and Plan: Continue home alprazolam (8) Benign essential hypertension: Code(s): I10 - Essential (primary) hypertension Status: Chronic Assessment and Plan: Current BP is 145/68 Continue home medications, Entresto Trend blood pressure Not interested in medicine changes at this time Adjust therapy as indicated (9) GERD (gastroesophageal reflux disease): Code(s): K21.9 - Gastro-esophageal reflux disease without esophagitis Status: Chronic Assessment and Plan: Continue PPI (10) Nausea and vomiting: Code(s): R11.2 - Nausea with vomiting, unspecified Status: Acute Assessment and Plan: Not sure why she is having nausea and vomiting This is also accompanied by diarrhea Zofran ordered Abd xray ordered (11) Cardiac arrhythmia: Code(s): I49.9 - Cardiac arrhythmia, unspecified Status: Acute Assessment and Plan: Pacemaker in place Did have a few 5-6 beat runs of Vtach unsustained Asymptomatic Continue Telemonitor for now Get a troponin since she is having some nausea Time Spent With Patient Time with patient: Greater than 35 minutes Subjective Date/time seen: 12/07/21 08:00 Interval history: 12/07/21 0800 Patient stated that she is feeling really bad. She has been up all night with vomiting, and stated that at 0200 she started to have some severe diarrhea. She stated he stomach has a nagging ache. She does not currently have an appetite. CT of the abdomen does show some pneumobilia which could be contributing to the nausea and vomiting. Will get xray of the abdomen. She is also stating that she also has moments of shortness of breath that come on fast and resolve very quickly. Getting a troponin. 12/06/21 1530 Patient stated that she is very tired
--- NOTE | 2021-12-07 09:17 | PCPTNOTE ---
Attempted PT evaluation this date, pt declined due to feeling yucky. Will attempt at a later date/time.
[2021-12-07] MEDS: CHOLECALCIFEROL 1,000 UNITS TABLET 2000 UNITS PO (09:21)
[2021-12-07] MEDS: CLOPIDOGREL BISULFATE 75 MG TABLET PO (09:21)
[2021-12-07] MEDS: OXYBUTYNIN CHLORIDE 5 MG TABLET PO (09:21)
[2021-12-07] MEDS: ASPIRIN 81 MG ENTERIC TABLET PO (09:21)
[2021-12-07] MEDS: ONDANSETRON INJ 4 MG/2 ML VIAL IV PUSH (09:22)
[2021-12-07] MEDS: SACUBITRIL/VALSARTAN 12-13 MG TABLET 1 TAB PO ×2 (09:22→20:59)
[2021-12-07] MEDS: PANTOPRAZOLE 40 MG TABLET PO ×2 (09:22→20:59)
[2021-12-07 09:41] LABS: Troponin I < 0.012 ng/mL (0.000-0.034)
[2021-12-07] MEDS: UMECLIDINIUM BROMIDE 62.5 MCG ELLIPTA 1 PUFF INHALATION (11:30)
[2021-12-07] MEDS: ALBUTEROL SULFATE NEB 2.5 MG/3 ML INH INHALATION ×3 (11:59→20:06)
--- NOTE | 2021-12-07 13:29 | PCPTNOTE ---
Attempted PT evaluation this date, however pt was sleeping. Will attempt at a later date/time.
[2021-12-07] MEDS: ATORVASTATIN 40 MG TABLET PO (20:59)
[2021-12-07] MEDS: HYDROcodone/acetaminophen (*CRX) 5-325 MG TABLET 1 TAB PO (21:04)
[2021-12-08] VITALS (16 sets, daily range): BP systolic 104–106; BP diastolic 45–52; PULSE 60–76; RESP 16–20; TEMP 36.5–36.7; O2SAT 93–95
[2021-12-08] MEDS: ALBUTEROL SULFATE NEB 2.5 MG/3 ML INH INHALATION ×5 (04:20→15:39)
[2021-12-08 05:29] LABS: Basophils Percent Auto 0.4 % (0.2-1.2); Eosinophils Absolute Auto 0.2 K/mm3 (0-0.3); Eosinophils Percent Auto 1.7 % (0-4.4); Hematocrit 38.5 % (37.0-47.0); Hemoglobin 11.9 g/dL (12.0-15.0); Immature Granulocyte Absolute 0.03 K/mm3 (0.00-0.031); Immature Granulocyte Percent A 0.3 % (0-0.5); Lymphocytes Absolute Auto 2.59 K/mm3 (0.9-3.2); Lymphocytes Percent Auto 27.9 % (18.3-44.2); Mean Corpuscular HGB Conc 30.9 g/dl (32-36); Mean Corpuscular Hemoglobin 27.6 pg (26-34); Mean Corpuscular Volume 89.3 fl (80-100); Mean Platelet Volume 9.9 fl (7.4-10.4); Monocytes Absolute Auto 0.8 K/mm3 (0.1-0.6); Neutrophils Absolute Auto 5.6 K/mm3 (1.3-6.7); Neutrophils Percent Auto 60.7 % (45.5-73.1); Platelet Count Result 192 k/mm3 (150-375); Red Blood Count 4.31 M/mm3 (4.2-5.4); Red Cell Distribution Width 13.9 % (11.5-14.5); White Blood Count 9.3 K/mm3 (4.5-10.0)
[2021-12-08 05:40] LABS: Alanine Aminotransferase 25 U/L (6-35); Albumin Level 4.1 g/dL (3.5-5.1); Alkaline Phosphatase 104 U/L (38-126); Anion Gap 14 mmol/L (8-16); Aspartate Amino Transferase 33 U/L (14-36); Bilirubin,Total 0.6 mg/dL (0.2-1.3); Blood Urea Nitrogen 22 mg/dL (7-17); Calcium 8.7 mg/dL (8.4-10.2); Carbon Dioxide 24 mmol/L (22-30); Chloride 103 mmol/L (98-107); Estimated CRCL calculation 45 ml/min; Estimated Glomerular Filt Rate 40; Glucose 128 mg/dL (65-110); Magnesium 2.2 mg/dL (1.6-2.3); Potassium 3.7 mmol/L (3.4-5.0); Sodium 141 mmol/L (137-145)
[2021-12-08] MEDS: SODIUM CHLORIDE 0.9% IV 250 ML 100 ML IV CONT (08:33)
[2021-12-08] MEDS: PANTOPRAZOLE 40 MG TABLET PO (08:34)
[2021-12-08] MEDS: CHOLECALCIFEROL 1,000 UNITS TABLET 2000 UNITS PO (08:34)
[2021-12-08] MEDS: CLOPIDOGREL BISULFATE 75 MG TABLET PO (08:34)
[2021-12-08] MEDS: OXYBUTYNIN CHLORIDE 5 MG TABLET PO (08:34)
[2021-12-08] MEDS: ASPIRIN 81 MG ENTERIC TABLET PO (08:34)
[2021-12-08] MEDS: SACUBITRIL/VALSARTAN 12-13 MG TABLET 1 TAB PO (08:34)
[2021-12-08] MEDS: UMECLIDINIUM BROMIDE 62.5 MCG ELLIPTA 1 PUFF INHALATION (08:37)
--- NOTE | 2021-12-08 11:15 | P.DS_ITS ---
DS: Admitting Diagnosis Discharge Date 12/08/21 1115 Admitting Diagnosis TIA/PNA DS: Discharge Diagnosis Discharge Diagnosis (1) TIA (transient ischemic attack): Code(s): G45.9 - Transient cerebral ischemic attack, unspecified Status: Acute Assessment and Plan: -continue with aspirin -PT OT -No functional deficits noted -neurology has been consulted. -Not able to get MRI with history of a pacemaker. -Check carotids <50% stenosis -CT of the brain shows 0% stenosis bilaterally in the carotid bulbs -Echo on 07/18/21, EF of 45-50%, grade 1 DD -Start Plavix (for 4 weeks) continue aspirin and statin (2) CHF (congestive heart failure), NYHA class II: Code(s): I50.9 - Heart failure, unspecified Status: Acute Assessment and Plan: * Echo from July shows 45-50% EF with grade 1 DD * Currently on Entresto * Appear Euvolemic at this time * Trend urine out put * Not in acute exacerbation * Appears to be a Chronic diastolic heart failure * Daily weights (3) CKD (chronic kidney disease), stage III: Code(s): N18.30 - Chronic kidney disease, stage 3 unspecified Status: Acute Assessment and Plan: * Current BUN/Cr 18/1.10 * Baseline Cr appears to be around 1.0 * Continue to trend labs * Stable at this time * Avoid nephrotoxic medications (4) CHRISTINE (obstructive sleep apnea): Code(s): G47.33 - Obstructive sleep apnea (adult) (pediatric) Status: Acute Assessment and Plan: * Continue home Cpap with home settings (5) Mixed hyperlipidemia: Code(s): E78.2 - Mixed hyperlipidemia Status: Acute Assessment and Plan: * Continue home statin * LFTs ok (6) Chronic obstructive pulmonary disease, unspecified: Code(s): J44.9 - Chronic obstructive pulmonary disease, unspecified Status: Acute Assessment and Plan: * Continue neb treatments * Continue home Spiriva * Trend respiratory status * Does not appear to be in acute exacerbation, could be forming though * Currently on room air (7) Anxiety: Code(s): F41.9 - Anxiety disorder, unspecified Status: Acute Assessment and Plan: * Continue home alprazolam (8) Benign essential hypertension: Code(s): I10 - Essential (primary) hypertension Status: Chronic Assessment and Plan: * Current BP is 145/68 * Continue home medications, Entresto * Trend blood pressure * Not interested in medicine changes at this time * Adjust therapy as indicated (9) GERD (gastroesophageal reflux disease): Code(s): K21.9 - Gastro-esophageal reflux disease without esophagitis Status: Chronic Assessment and Plan: * Continue PPI (10) Nausea and vomiting: Code(s): R11.2 - Nausea with vomiting, unspecified Status: Acute Assessment and Plan: * Not sure why she is having nausea and vomiting * This is also accompanied by diarrhea * Zofran ordered * Abd xray ordered (11) Cardiac arrhythmia: Code(s): I49.9 - Cardiac arrhythmia, unspecified Status: Acute Assessment and Plan: * Pacemaker in place * Did have a few 5-6 beat runs of Vtach unsustained * Asymptomatic * Continue Telemonitor for now * Get a troponin since she is hav
--- NOTE | 2021-12-08 11:15 | PM.DS ---
DS: Admitting Diagnosis Discharge Date 12/08/21 1115 Admitting Diagnosis TIA/PNA DS: Discharge Diagnosis Discharge Diagnosis (1) TIA (transient ischemic attack): Code(s): G45.9 - Transient cerebral ischemic attack, unspecified Status: Acute Assessment and Plan: -continue with aspirin -PT OT -No functional deficits noted -neurology has been consulted. -Not able to get MRI with history of a pacemaker. -Check carotids <50% stenosis -CT of the brain shows 0% stenosis bilaterally in the carotid bulbs -Echo on 07/18/21, EF of 45-50%, grade 1 DD -Start Plavix (for 4 weeks) continue aspirin and statin (2) CHF (congestive heart failure), NYHA class II: Code(s): I50.9 - Heart failure, unspecified Status: Acute Assessment and Plan: Echo from July shows 45-50% EF with grade 1 DD Currently on Entresto Appear Euvolemic at this time Trend urine out put Not in acute exacerbation Appears to be a Chronic diastolic heart failure Daily weights (3) CKD (chronic kidney disease), stage III: Code(s): N18.30 - Chronic kidney disease, stage 3 unspecified Status: Acute Assessment and Plan: Current BUN/Cr 18/1.10 Baseline Cr appears to be around 1.0 Continue to trend labs Stable at this time Avoid nephrotoxic medications (4) CHRISTINE (obstructive sleep apnea): Code(s): G47.33 - Obstructive sleep apnea (adult) (pediatric) Status: Acute Assessment and Plan: Continue home Cpap with home settings (5) Mixed hyperlipidemia: Code(s): E78.2 - Mixed hyperlipidemia Status: Acute Assessment and Plan: Continue home statin LFTs ok (6) Chronic obstructive pulmonary disease, unspecified: Code(s): J44.9 - Chronic obstructive pulmonary disease, unspecified Status: Acute Assessment and Plan: Continue neb treatments Continue home Spiriva Trend respiratory status Does not appear to be in acute exacerbation, could be forming though Currently on room air (7) Anxiety: Code(s): F41.9 - Anxiety disorder, unspecified Status: Acute Assessment and Plan: Continue home alprazolam (8) Benign essential hypertension: Code(s): I10 - Essential (primary) hypertension Status: Chronic Assessment and Plan: Current BP is 145/68 Continue home medications, Entresto Trend blood pressure Not interested in medicine changes at this time Adjust therapy as indicated (9) GERD (gastroesophageal reflux disease): Code(s): K21.9 - Gastro-esophageal reflux disease without esophagitis Status: Chronic Assessment and Plan: Continue PPI (10) Nausea and vomiting: Code(s): R11.2 - Nausea with vomiting, unspecified Status: Acute Assessment and Plan: Not sure why she is having nausea and vomiting This is also accompanied by diarrhea Zofran ordered Abd xray ordered (11) Cardiac arrhythmia: Code(s): I49.9 - Cardiac arrhythmia, unspecified Status: Acute Assessment and Plan: Pacemaker in place Did have a few 5-6 beat runs of Vtach unsustained Asymptomatic Continue Telemonitor for now Get a troponin since she is having some nausea (12) Pneumonia: Code(s): J18.9 - Pneumonia, unspecified organism Status: Acute Assessment and Plan: Xray shows left basilar infiltrate atelectasis vs PNA Azithromycin and ceftriaxone started WBC 9.3 Neb treatments Trend labs DS: Summary Hospital Course Hospital Course: Patient is a 76-year-old female who had a past medical history of craniotomy for meningioma, hypertension, CHF who presented to the ED with complaints right arm weakness. Upon arrival patient was able to move her arm and her legs with no problems. CT of the head did show no carotid stenosis bilaterally w
[2021-12-08 14:34] LABS: Alanine Aminotransferase 23 U/L (6-35); Albumin Level 4.2 g/dL (3.5-5.1); Alkaline Phosphatase 91 U/L (38-126); Anion Gap 15 mmol/L (8-16); Aspartate Amino Transferase 40 U/L (14-36); Bilirubin,Total 0.4 mg/dL (0.2-1.3); Blood Urea Nitrogen 20 mg/dL (7-17); Calcium 8.6 mg/dL (8.4-10.2); Carbon Dioxide 26 mmol/L (22-30); Chloride 100 mmol/L (98-107); Estimated CRCL calculation 45 ml/min; Estimated Glomerular Filt Rate 40; Glucose 108 mg/dL (65-110); Potassium 3.4 mmol/L (3.4-5.0); Sodium 141 mmol/L (137-145)
== END 2021-12-08 17:35 | disposition home or self-care (01) | DRG 69 ==
LOC: ANHED 06:33 → ANH2MED 13:50
PROVIDERS: Emergency Medicine; Nurse Practitioner; Admitting Provider Internal Medicine; Emergency Provider Emergency Medicine; PCP Internal Medicine; Visit Provider Nurse Practitioner
DX: G45.9 Transient cerebral ischemic attack, unspecified (principal); J18.9 Pneumonia, unspecified organism; J44.0 Chronic obstructive pulmonary disease with (acute) lower respiratory infection; I42.0 Dilated cardiomyopathy; I48.20 Chronic atrial fibrillation, unspecified; I13.0 Hypertensive heart and chronic kidney disease with heart failure and stage 1 through stage 4 chronic kidney disease, or unspecified chronic kidney disease; I50.32 Chronic diastolic (congestive) heart failure; I47.2 Ventricular tachycardia; N18.30 Chronic kidney disease, stage 3 unspecified; E55.9 Vitamin D deficiency, unspecified; E78.2 Mixed hyperlipidemia; K21.9 Gastro-esophageal reflux disease without esophagitis; N32.81 Overactive bladder; R11.2 Nausea with vomiting, unspecified; R19.7 Diarrhea, unspecified; G47.33 Obstructive sleep apnea (adult) (pediatric); G93.89 Other specified disorders of brain; F41.9 Anxiety disorder, unspecified; Z66 Do not resuscitate; Z20.822 Contact with and (suspected) exposure to COVID-19; Z90.49 Acquired absence of other specified parts of digestive tract; Z90.710 Acquired absence of both cervix and uterus; Z86.011 Personal history of benign neoplasm of the brain; Z87.891 Personal history of nicotine dependence; Z79.82 Long term (current) use of aspirin; Z95.810 Presence of automatic (implantable) cardiac defibrillator
CPT/HCPCS: 36415; 70496; 70498; 71045; 71275; 74018; 74174; 80053; 82728; 83605; 83615; 83690; 83735; 84100; 84443; 84484; 85025; 85610; 85730; 93005; 93880; 94640; 96374; 97161; 97165; 99285; A9270; C9803; G0378; J0456; J0696; J2250; J2405; J7050; Q9967; U0003; U0005

== ENCOUNTER 2022-02-21 07:54 | Emergency (ER) | payer MEDICARE, SELFPAY ==
[2022-02-21] VITALS (22 sets, daily range): BP systolic 93–138; BP diastolic 76–100; PULSE 56–81; RESP 13–22; TEMP 36.3; O2SAT 95
--- NOTE | ~2022-02-21 | CT_ITS ---
EXAMINATION: CT abdomen pelvis w con DATE: 02/21/2022 10:17 INDICATION: Left lower quadrant abdominal pain and diarrhea TECHNIQUE: Computed tomography (CT) of the abdomen and pelvis was performed with 100 mL Omnipaque-350 intravenous contrast. Automated exposure control and iterative reconstruction technique were employe d. The dose-length product was 1483.37 mGy-cm. COMPARISON: 12/05/2021 FINDINGS: Mild left lower lobar atelectasis along side the tortuous descending thoracic aorta. Cardiomegaly. Sm all pericardial effusion. Three lead pacemaker/AICD seen with leads and tips at the right atrial appe ndage, apex of the right ventricle and in a coronary vein overlying the lateral left ventricle having traversed the coronary sinus. Small sliding-type hiatal hernia. Small amount of pneumobilia likely related to prior cholecystectomy and centrally with surgical clips the gallbladder fossa. 1.5 cm peripherally enhancing hemangioma at segment 6 of the liver. Spleen, p ancreas and bilateral adrenal glands are normal . No significant change in small cysts at the upper p ole of the right kidney and slightly larger measuring 1 cm at the lower pole of the left kidney. The appendix is again not visualized. No pericecal inflammatory change to suggest acute appendicitis. There is moderate colonic diverticulosis with a sigmoid predominance. There is no adjacent inflammat ory change to suggest diverticulitis. No bowel obstruction. Postoperative change of prior supraumbili lucina ventral hernia mesh repair underlying a midline surgical scar. Bladder is normal. The uterus is n ot identified and has likely been surgically resected. No free intraperitoneal gas or fluid. No patho logically enlarged abdominal or pelvic lymphadenopathy. There is calcified atherosclerosis of the aor ta and many of the other arteries. Severe lumbar spondylosis. IMPRESSION: 1. No acute intra-abdominal/pelvic process. 2. Diverticulosis without adjacent inflammatory stranding to suggest diverticulitis. 3. Small sliding-type hiatal hernia. 4. Postoperative change of prior cholecystectomy, hysterectomy, likely appendectomy and ventral herni a mesh repair. Reviewed, dictated and finalized at location A. 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 No acute intra-abdominal/pelvic process. 2. Diverticulosis without adjacent inflammatory stranding to suggest diverticul itis. 3. Small sliding-type hiatal hernia. 4. Postoperative change of prior cholecystectomy, hysterectomy, likely appendec abdias and ventral hernia mesh repair.
--- NOTE | 2022-02-21 08:33 | ED.GIBLEED ---
HPI - GI Bleed General Chief complaint: GI Bleed Stated complaint: GI bleed Time Seen by Provider: 02/21/22 07:56 Source: patient, family and RN notes reviewed Mode of arrival: ambulatory Limitations: no limitations History of Present Illness HPI Narrative: This is a 76 year old female who presents for evaluation of rectal bleeding. She states on she had a bowel movement and she saw small amount of blood in toilet. She reports passing formed stool at that time and they it was loose later. She had another episode this morning that she notice small amount of mucous with blood on the toilet. She reports the blood was bright red. She states she had form stool again. She denies any additional episodes of rectal bleeding. She has been having some rectal discomfort that she has been treating with heating pad. She has history of hemorrhoids. She also reports intermittent left left abdominal pain that is described as cramping with nausea. She does not have have pain currently. She does not take anticoagulation. Related Data Home Medications Medication Instructions Recorded Confirmed cholecalciferol (vitamin D3) 50 2,000 unit PO DAILY 02/01/19 01/27/22 mcg (2,000 unit) tablet sacubitril 24 mg-valsartan 26 mg 0.5 tablet PO BID 09/10/20 01/27/22 tablet (Entresto) acetaminophen 500 mg capsule 650 mg PO TID PRN pain 12/12/21 01/27/22 Allergies Allergy/AdvReac Type Severity Reaction Status Date / Time adhesive Allergy Mild Rash Verified 02/21/22 08:04 cat dander Allergy Mild Sneezing Verified 02/21/22 08:04 codeine Allergy Mild HIVES AND Verified 02/21/22 08:04 ITCHING Sulfa (Sulfonamide Allergy Mild HIVES Verified 02/21/22 08:04 Antibiotics) sulfanilamide Allergy Mild Hives Verified 02/21/22 08:04 tramadol AdvReac Hallucinati Verified 02/21/22 08:04 ng Review of Systems Review of Systems: All systems reviewed & are unremarkable except as noted in HPI and below Constitutional: Constitutional: Denies chills, Denies fatigue and Denies fever(s) Gastrointestinal: Gastrointestinal: Reports abdominal pain, Reports diarrhea, Reports nausea and Denies vomiting PMFSH Past Medical History Medical History Anxiety Cardiac pacemaker Cardiac pacemaker in situ CHF (congestive heart failure), NYHA class II Cholecystectomy planned COPD (chronic obstructive pulmonary disease) COVID-19 Dilated cardiomyopathy Encounter for blood transfusion Essential hypertension GERD (gastroesophageal reflux disease) History of atrial fibrillation Hyperlipidemia Overactive bladder Syncope and collapse Vitamin D deficiency Surgical History Surgical History H/O cataract extraction H/O colonoscopy H/O dilation and curettage H/O hysterectomy with oophorectomy H/O rectal polypectomy History of appendectomy History of pancreatic surgery History of removal of pigmented skin lesion Hx of brain surgery Meningioma removal in 2014 Hx of cholecystectomy Hx of tonsillectomy Presence of biventricular AICD S/P cholecystectomy Family History Family History Father Family history of lymphoma Diabetes mellitus Sibling Family history of malignant neoplasm of breast in first degree relative Carcinoma of colon Breast cancer Mother Aplastic anemia Son Thyroid cancer Other Family history of malignant neoplasm of thyroid Social History Social History Social History: Mrs. Schmidt a few weeks ago she states (10/13/21). She has 5 sons. 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 She is a former 1 PPD smoker for at least 50 years. She denies illicit substance and alcohol use. She wishes for her code status to be DNR and she has designated her sons, Jan Moran and Handy schmidt, as her designated surrogate decision make
[2022-02-21 08:43] LABS: Basophils Absolute Auto 0.1 K/mm3 (0.0-0.1); Basophils Percent Auto 0.6 % (0.2-1.2); Eosinophils Absolute Auto 0.2 K/mm3 (0-0.3); Eosinophils Percent Auto 2.3 % (0-4.4); Hematocrit 41.3 % (37.0-47.0); Hemoglobin 13.1 g/dL (12.0-15.0); Immature Granulocyte Absolute 0.03 K/mm3 (0.00-0.031); Immature Granulocyte Percent A 0.4 % (0-0.5); Lymphocytes Absolute Auto 1.98 K/mm3 (0.9-3.2); Lymphocytes Percent Auto 25.3 % (18.3-44.2); Mean Corpuscular HGB Conc 31.7 g/dl (32-36); Mean Corpuscular Hemoglobin 27.3 pg (26-34); Mean Platelet Volume 10.2 fl (7.4-10.4); Monocytes Absolute Auto 0.7 K/mm3 (0.1-0.6); Monocytes Percent Auto 9.2 % (2.6-8.5); Neutrophils Absolute Auto 4.9 K/mm3 (1.3-6.7); Neutrophils Percent Auto 62.2 % (45.5-73.1); Platelet Count Result 237 k/mm3 (150-375); Red Cell Distribution Width 13.4 % (11.5-14.5); White Blood Count 7.8 K/mm3 (4.5-10.0)
[2022-02-21 08:54] LABS: Lactic Acid Reflex 1.7 mmol/L (0.7-2.0)
[2022-02-21 08:58] LABS: Prothrombin Time 13.2 Seconds (11.1-14.7)
[2022-02-21 08:59] LABS: Partial Thromboplastin Time 26.1 SECONDS (22.3-36.8)
[2022-02-21 09:22] LABS: Alanine Aminotransferase 25 U/L (6-35); Albumin Level 4.3 g/dL (3.5-5.1); Alkaline Phosphatase 130 U/L (38-126); Anion Gap 9 mmol/L (8-16); Aspartate Amino Transferase 34 U/L (14-36); Bilirubin,Total 0.5 mg/dL (0.2-1.3); Blood Urea Nitrogen 18 mg/dL (7-17); Calcium 9.2 mg/dL (8.4-10.2); Carbon Dioxide 22 mmol/L (22-30); Chloride 105 mmol/L (98-107); Estimated CRCL calculation 42 ml/min; Estimated Glomerular Filt Rate 36; Glucose 126 mg/dL (65-110); Lipase 124 U/L (23-300); Potassium 4.1 mmol/L (3.4-5.0); Sodium 136 mmol/L (137-145)
[2022-02-21] MEDS: SODIUM CHLORIDE 0.9% IV 500 ML 999 ML IV CONT (09:49)
[2022-02-21] MEDS: ALPRAZolam (*CRX) 0.5 MG TABLET PO (09:49)
== END 2022-02-21 12:00 | disposition home or self-care (01) ==
PROVIDERS: Emergency Provider General Practice; PCP Internal Medicine
DX: K64.9 Unspecified hemorrhoids (principal); I11.0 Hypertensive heart disease with heart failure; I50.9 Heart failure, unspecified; I48.91 Unspecified atrial fibrillation; E78.5 Hyperlipidemia, unspecified; Z95.0 Presence of cardiac pacemaker; Z87.891 Personal history of nicotine dependence
CPT/HCPCS: 36415; 74177; 80053; 83605; 83690; 85025; 85610; 85730; 86850; 86870; 86880; 86900; 86901; 86902; 86905; 86922; 96360; 99284; A9270; J7040; Q9967

== ENCOUNTER 2022-03-21 09:55 | Outpatient (CLI) | payer MEDICARE, SELFPAY ==
[2022-03-21 10:26] LABS: Hematocrit 39.7 % (37.0-47.0); Hemoglobin 12.3 g/dL (12.0-15.0)
[2022-03-21 10:43] LABS: Alanine Aminotransferase 30 U/L (6-35); Albumin Level 4.5 g/dL (3.5-5.1); Alkaline Phosphatase 144 U/L (38-126); Anion Gap 7 mmol/L (8-16); Aspartate Amino Transferase 36 U/L (14-36); Bilirubin,Total 0.5 mg/dL (0.2-1.3); Blood Urea Nitrogen 15 mg/dL (7-17); Calcium 8.9 mg/dL (8.4-10.2); Carbon Dioxide 27 mmol/L (22-30); Chloride 104 mmol/L (98-107); Estimated Glomerular Filt Rate 48; Glucose 106 mg/dL (65-110); Potassium 4.1 mmol/L (3.4-5.0); Sodium 138 mmol/L (137-145)
== END 2022-03-21 09:56 | disposition home or self-care (01) ==
PROVIDERS: PCP Internal Medicine; Visit Provider Internal Medicine
DX: R53.1 Weakness (principal); N18.30 Chronic kidney disease, stage 3 unspecified
CPT/HCPCS: 36415; 80053; 85014; 85018

== ENCOUNTER 2022-05-25 17:28 | Emergency (ER) | payer MEDICARE, SELFPAY ==
--- NOTE | ~2022-05-25 | CT_ITS ---
Clinical Indication: Abdominal pain, dyspnea, aneurysm CT Scan of the Chest, Abdomen, and Pelvis with Contrast: Technique: Contiguous sections were acquired throughout the chest, abdomen, and pelvis prior to and f ollowing intravenous administration of 100 cc of Omnipaque 350. Dose reduction technique was used on this scan by utilizing automated exposure control and iterative reconstruction technique. The dose-l ength product (DLP) was 3718.01 mGy-cm. COMPARISON: 02/21/2022 and 12/05/2021 Findings: There is no evidence of any significant mediastinal, hilar or axillary lymphadenopathy. No aortic ane urysm or dissection evident. There are atherosclerotic calcifications of the aorta. Extensive coronar y artery calcifications are present. Pacemaker device in place. There is no evidence of pleural or pericardial effusion. Stable probable subtle groundglass opacity in the left upper lobe (series 4 image 31). No other signi ficant pulmonary abnormality seen. There is a stable 13 mm enhancing lesion in the posterior right hepatic lobe, possibly atypical heman gioma. Cholecystectomy clips and pneumobilia are present. The spleen, pancreas, adrenals and kidneys are within normal limits. No evidence of aortic aneurysm. There are atherosclerotic calcifications o f the aorta. No lymphadenopathy. No bowel obstruction or bowel wall thickening. There is no evidence to suggest acute appendicitis. Urinary bladder is unremarkable. Patient is post hysterectomy. No adnexal mass seen. No ascites. Impression: No acute abnormality seen. No aortic aneurysm identified. Stable subtle small groundglass nodule in the left upper lobe. Annual follow-up advised. Stable 13 mm enhancing hepatic lesion, possibly atypical hemangioma. Status post cholecystectomy with pneumobilia. Reviewed, dictated and finalized at location . Impression: No acute abnormality seen. No aortic aneurysm identified. Stable subtle small groundglass nodule in the left upper lobe. Annual follow-up advised. Stable 13 mm enhancing hepatic lesion, possibly atypical hemangioma. Status post cholecystectomy with pneumobilia.
--- NOTE | ~2022-05-25 | XR_ITS ---
EXAM: XR abdomen/kub 1V DATE: 05/25/2022 21:06 HISTORY: Constipation x 3 weeks . COMPARISON: CT abdomen and pelvis 02/21/2022, x-ray abdomen 12/07/2021, CTA CAP 12/05/2021. FINDINGS: Clear lung bases. Cholecystectomy clips. Normal bowel gas pattern. No organomegaly. Athero sclerotic calcifications. Pelvic phleboliths. Degenerative disc disease in the lumbar spine. Bilatera l hip osteoarthritis, worse on the left. Stable sclerosis of the left pelvis, possibly representing P aget's disease. IMPRESSION: No radiographic evidence of obstruction or ileus. Reviewed, dictated and finalized at location K.
[2022-05-25 17:40] VITALS: BP 112/58; PULSE 53; RESP 18; TEMP 36.4; O2SAT 98
--- NOTE | 2022-05-25 21:54 | PC.NURSE ---
pt states she hasn't had a good bowel movement in 3 weeks. states taken several stool softeners and laxatives without any relief. also states she used a suppository today and it helped with bloating. denies any blood in stool. also c/o nausea.
--- NOTE | 2022-05-25 22:35 | ECG_ITS ---
Measurements Intervals [place] Rate: 95 P: 41 SD: 178 QRS: 19 QRSD: 182 T: 125 QT: 437 QTc: 551 Interpretive Statements ATRIAL SENSE- ELECTRONIC VENTRICULAR PACEMAKER WITH INHIBITION VENTRICULAR TRIGEMINY LEFT BUNDLE BRANCH BLOCK BASELINE ARTIFACT- I, II, III, AVR, AVL, AVF ABNORMAL ECG COMPARED TO ECG 12/05/2021 06:06:08 VENTRICULAR TRIGEMINY NOW PRESENT Electronically Signed On 05-26-2022 0:48:37 CDT by Austin Bronson D.O.
--- NOTE | 2022-05-25 22:38 | ED.ABDPAIN ---
HPI - Abdominal Pain General Chief Complaint: Abdominal Pain Stated Complaint: abdominal pain Time Seen by Provider: 05/25/22 22:16 History of Present Illness HPI narrative: 77 y/o F with history of TIA, CHF, cholecystectomy, AICD in place, chronic constipation, CKD stage III, hyperlipidemia, dilated cardiomyopathy, COPD, GERD, TAA reports for upper abdominal pain and constipation x3 weeks. Patient reports she has not had a full bowel movement in 3 weeks, but has had 3-4 episodes of small volume stools within that time. Patient states she had a small volume stool yesterday the size of a pencil eraser with mucus. Reports taking multiple stool softeners, probiotic and suppository without relief. She is complaining of right upper quadrant and left upper quadrant abdominal pain. She has a history of multiple abdominal surgeries including cholecystectomy, hysterectomy, oophorectomy, exploratory laparotomy. She is denying obstipation, chest pain, dysuria, melena, hematochezia, vomiting, cough, headache, dizziness, vision changes. Reports nausea today. Denies fever, body aches, chills. She does report baseline dyspnea secondary to COPD which is unchanged today. She is also complaining of generalized back pain which she is reporting is her baseline and unchanged. Pt is reporting urinary frequency. Related Data Home Medications Medication Instructions Recorded Confirmed cholecalciferol (vitamin D3) 50 2,000 unit PO DAILY 02/01/19 01/27/22 mcg (2,000 unit) tablet sacubitril 24 mg-valsartan 26 mg 0.5 tablet PO BID 09/10/20 01/27/22 tablet (Entresto) acetaminophen 500 mg capsule 650 mg PO TID PRN pain 12/12/21 01/27/22 Allergies Allergy/AdvReac Type Severity Reaction Status Date / Time adhesive Allergy Mild Rash Verified 05/25/22 21:56 cat dander Allergy Mild Sneezing Verified 05/25/22 21:56 codeine Allergy Mild HIVES AND Verified 05/25/22 21:56 ITCHING Sulfa (Sulfonamide Allergy Mild HIVES Verified 05/25/22 21:56 Antibiotics) sulfanilamide Allergy Mild Hives Verified 05/25/22 21:56 tramadol AdvReac Hallucinati Verified 05/25/22 21:56 ng Review of Systems Review of Systems: CONSTITUTIONAL: Denies fever, chills EYES: Denies visual changes, redness, or discharge. ENT: Denies rhinorrhea, congestion, sore throat, or otalgia. CARDIOVASCULAR: Denies chest pain, palpitations, or edema. RESPIRATORY: Denies cough or dyspnea. GASTROINTESTINAL: See HPI GENITOURINARY: Denies dysuria or hematuria. SKIN: Denies rash or itching. MUSCULOSKELETAL: Denies joint pain, or myalgia. NEUROLOGIC: Denies headache, numbness, dizziness, or weakness. PSYCHIATRIC: Denies anxiety or depression. [facility] Past Medical History Medical History Anxiety Cardiac pacemaker Cardiac pacemaker in situ CHF (congestive heart failure), NYHA class II Cholecystectomy planned COPD (chronic obstructive pulmonary disease) COVID-19 Dilated cardiomyopathy Encounter for blood transfusion Essential hypertension GERD (gastroesophageal reflux disease) History of atrial fibrillation Hyperlipidemia Overactive bladder Syncope and collapse Vitamin D deficiency Surgical History Surgical History H/O cataract extraction H/O colonoscopy H/O dilation and curettage H/O hysterectomy with oophorectomy H/O rectal polypectomy History of appendectomy History of pancreatic surgery History of removal of pigmented skin lesion Hx of brain surgery Meningioma removal in 2014 Hx of cholecystectomy Hx of tonsillectomy Presence of biventricular AICD S/P cholecystectomy Family History Family History Father Family history of lymphoma Diabetes mellitus Sibling Family history of malignant neoplasm of breast in first degree relative Carcinoma of colon Breast cancer Mother Aplastic anemia Son T
[2022-05-25] MEDS: FAMOTIDINE 20 MG/2 ML VIAL IV PUSH (23:29)
[2022-05-25] MEDS: ONDANSETRON INJ 4 MG/2 ML VIAL IV PUSH (23:29)
[2022-05-25 23:33] LABS: Basophils Percent Auto 0.4 % (0.2-1.2); Eosinophils Absolute Auto 0.2 K/mm3 (0-0.3); Eosinophils Percent Auto 1.8 % (0-4.4); Hematocrit 40.5 % (37.0-47.0); Hemoglobin 12.9 g/dL (12.0-15.0); Immature Granulocyte Absolute 0.03 K/mm3 (0.00-0.031); Immature Granulocyte Percent A 0.3 % (0-0.5); Lymphocytes Absolute Auto 1.92 K/mm3 (0.9-3.2); Lymphocytes Percent Auto 19.6 % (18.3-44.2); Mean Corpuscular HGB Conc 31.9 g/dl (32-36); Mean Corpuscular Hemoglobin 27.9 pg (26-34); Mean Corpuscular Volume 87.5 fl (80-100); Mean Platelet Volume 10.2 fl (7.4-10.4); Monocytes Absolute Auto 0.8 K/mm3 (0.1-0.6); Monocytes Percent Auto 8.5 % (2.6-8.5); Neutrophils Absolute Auto 6.8 K/mm3 (1.3-6.7); Neutrophils Percent Auto 69.4 % (45.5-73.1); Platelet Count Result 196 k/mm3 (150-375); Red Blood Count 4.63 M/mm3 (4.2-5.4); Red Cell Distribution Width 13.4 % (11.5-14.5); White Blood Count 9.8 K/mm3 (4.5-10.0)
[2022-05-25 23:36] VITALS: BP 121/72; PULSE 50; RESP 16; O2SAT 96
[2022-05-25 23:48] LABS: Alanine Aminotransferase 25 U/L (6-35); Albumin Level 4.5 g/dL (3.5-5.1); Alkaline Phosphatase 152 U/L (38-126); Anion Gap 6 mmol/L (8-16); Aspartate Amino Transferase 33 U/L (14-36); Bilirubin,Total 0.7 mg/dL (0.2-1.3); Blood Urea Nitrogen 20 mg/dL (7-17); Calcium 9.6 mg/dL (8.4-10.2); Carbon Dioxide 26 mmol/L (22-30); Chloride 102 mmol/L (98-107); Estimated CRCL calculation 48 ml/min; Estimated Glomerular Filt Rate 43; Glucose 107 mg/dL (65-110); Lipase 96 U/L (23-300); Potassium 4.1 mmol/L (3.4-5.0); Sodium 134 mmol/L (137-145)
[2022-05-26 00:05] LABS: Appearance Urine Clear (Clear); Bacteria Urine 1+ /hpf; Bilirubin Urine Negative (Negative); Blood Urine Negative (Negative); Color Urine Yellow (Yellow); Glucose Urine UA Negative (Negative); Ketones Urine Negative (Negative); Leukocyte Esterase Ur Trace LEU/UL (Negative); Need Manual Microscopic Reviewed; Nitrate Urine Negative (Negative); Protein Urine Negative (Negative); Specific Grav Ur 1.018 (1.001-1.035); Squamous Epithelial Cell Urine Few /hpf (Few); Urobilinogen Urine 0.2 mg/dL (<2.0); pH Urine 5.5 (5.0-9.0)
[2022-05-26 00:07] LABS: Add Urine Microscopic? YES
[2022-05-26 00:59] LABS: Magnesium 1.9 mg/dL (1.6-2.3); Phosphorus 3.3 mg/dL (2.5-4.5)
[2022-05-26] MEDS: SODIUM CHLORIDE 0.9% IV 1,000 ML 500 ML IV CONT (02:09)
[2022-05-26 02:46] VITALS: BP 158/85; PULSE 65; RESP 16; O2SAT 100
[2022-05-26 03:08] VITALS: BP 150/74; PULSE 66; RESP 16; O2SAT 98
== END 2022-05-26 03:08 | disposition home or self-care (01) ==
PROVIDERS: Emergency Provider Physician Assistant; PCP Internal Medicine
DX: K59.09 Other constipation (principal); N39.0 Urinary tract infection, site not specified; I49.3 Ventricular premature depolarization; I13.0 Hypertensive heart and chronic kidney disease with heart failure and stage 1 through stage 4 chronic kidney disease, or unspecified chronic kidney disease; N18.30 Chronic kidney disease, stage 3 unspecified; I50.9 Heart failure, unspecified; E78.5 Hyperlipidemia, unspecified; I42.0 Dilated cardiomyopathy; I48.91 Unspecified atrial fibrillation; J44.9 Chronic obstructive pulmonary disease, unspecified; E55.9 Vitamin D deficiency, unspecified; N32.81 Overactive bladder; K21.9 Gastro-esophageal reflux disease without esophagitis; Z95.810 Presence of automatic (implantable) cardiac defibrillator; Z86.73 Personal history of transient ischemic attack (TIA), and cerebral infarction without residual deficits; Z86.16 Personal history of COVID-19; Z87.891 Personal history of nicotine dependence; Z98.49 Cataract extraction status, unspecified eye; Z90.710 Acquired absence of both cervix and uterus; Z66 Do not resuscitate; Z79.82 Long term (current) use of aspirin; I44.7 Left bundle-branch block, unspecified; R91.1 Solitary pulmonary nodule; K76.9 Liver disease, unspecified
CPT/HCPCS: 36415; 71275; 74018; 74174; 80048; 80076; 81001; 83605; 83690; 83735; 84100; 85025; 87086; 93005; 96374; 96375; 99284; J2405; J7030; Q9967

== ENCOUNTER 2022-05-28 00:42 | Emergency (ER) | payer MEDICARE, SELFPAY ==
[2022-05-28] VITALS (14 sets, daily range): BP systolic 98–127; BP diastolic 40–75; PULSE 61–89; RESP 8–22; TEMP 36.7; O2SAT 98–99
--- NOTE | ~2022-05-28 | XR_ITS ---
Portable chest x-ray Comparison: 12/05/2021 Clinical History: Weakness Findings: Lungs are clear, without focal consolidation or pleural effusion. Cardiomediastinal silho uette is stable, with pacemaker device. Bones and soft tissues are unremarkable. Impression: Clear lungs. Pacemaker is. Reviewed, dictated and finalized at location M. Impression: Clear lungs. Pacemaker is.
--- NOTE | ~2022-05-28 | CT_ITS ---
CT of the Abdomen and Pelvis: Indication: Abdominal pain Technique: 2.5 mm axial scans were obtained through the abdomen and pelvis following intravenous adm inistration of 100 cc of Omnipaque 350. Dose reduction technique was used on this scan by utilizing a utomated exposure control and iterative reconstruction technique. The dose-length product (DLP) was 1 294.11 mGy-cm. COMPARISON: 05/26/2022 Findings: Scans through the lung bases are unremarkable. Cholecystectomy clips and pneumobilia are present. There is a 1 cm partially enhancing mass at the in ferior, posterior right hepatic lobe, possibly small hemangioma. The spleen, pancreas, adrenals and k idneys are within normal limits. There are atherosclerotic calcifications of the aorta. No evidence o f aortic aneurysm. No lymphadenopathy. There is wall thickening and pericolonic inflammatory stranding at the proximal sigmoid colon, consis tent with acute, mild diverticulitis. No abscess or free air. No bowel obstruction. Images through the pelvis were performed. Urinary bladder unremarkable. No adnexal mass seen. No asci librado. There is a 2.5 cm cystic mass just left of midline in the perineum, unchanged (axial image 177). Impression: Mild acute diverticulitis of the proximal sigmoid colon. No abscess or free air. 2.5 cm cystic mass just right of midline in the perineum, as noted above. Bartholin's duct cyst is a likely consideration. 1 cm partially enhancing lesion in the liver, possibly small hemangioma. This is stable at least dati ng back to 12/05/2021. Reviewed, dictated and finalized at location . Impression: Mild acute diverticulitis of the proximal sigmoid colon. No abscess or free air . 2.5 cm cystic mass just right of midline in the perineum, as noted above. Clarence sara's duct cyst is a likely consideration. 1 cm partially enhancing lesion in the liver, possibly small hemangioma. This i s stable at least dating back to 12/05/2021.
--- NOTE | 2022-05-28 01:58 | ECG_ITS ---
Measurements Intervals [place] Rate: 60 P: 61 MD: 156 QRS: 164 QRSD: 187 T: 33 QT: 514 QTc: 514 Interpretive Statements ELECTRONIC ATRIAL PACEMAKER ELECTRONIC VENTRICULAR PACEMAKER VENTRICULAR PREMATURE COMPLEX BASELINE ARTIFACT- I, II, III, AVR, AVL, AVF NO FURTHER INTERPRETATION IS POSSIBLE ATYPICAL ECG COMPARED TO ECG 05/25/2022 23:21:05 VENTRICULAR TRIGEMINY RESOLVED Electronically Signed On 05-28-2022 6:34:20 CDT by Austin Bronson D.O.
--- NOTE | 2022-05-28 02:02 | ED.GENADULT ---
HPI - General Adult General Chief complaint: GI Bleed Stated complaint: gi bleed Time Seen by Provider: 05/28/22 01:48 History of Present Illness HPI narrative: this is a 77-year-old female presenting ED with chief complaint of a GI bleed. The patient was seen here several days ago when she thought she was obstructed. That time she got an extensive workup which was unremarkable. She was placed on MiraLax and Keflex for a UTI. Patient said that she finally had a bowel movement earlier today that was very watery. After that she started to pass bright red blood with passage of clots. She is also describing a crampy abdominal pain in the suprapubic and umbilical area that is 8 out 10 intensity and constant. She has never experienced pain like this before there are no exacerbating or alleviating factors. She does say that she feels very fatigued that she cannot lift up her arms. She denies nausea vomiting, chest pain, shortness of breath. Patient says she has needed transfusions in the past but she cannot tell me why. She denies use of blood thinners. Related Data Home Medications Medication Instructions Recorded Confirmed cholecalciferol (vitamin D3) 50 2,000 unit PO DAILY 02/01/19 01/27/22 mcg (2,000 unit) tablet sacubitril 24 mg-valsartan 26 mg 0.5 tablet PO BID 09/10/20 01/27/22 tablet (Entresto) acetaminophen 500 mg capsule 650 mg PO TID PRN pain 12/12/21 01/27/22 Allergies Allergy/AdvReac Type Severity Reaction Status Date / Time adhesive Allergy Mild Rash Verified 05/28/22 01:03 cat dander Allergy Mild Sneezing Verified 05/28/22 01:03 codeine Allergy Mild HIVES AND Verified 05/28/22 01:03 ITCHING Sulfa (Sulfonamide Allergy Mild HIVES Verified 05/28/22 01:03 Antibiotics) sulfanilamide Allergy Mild Hives Verified 05/28/22 01:03 tramadol AdvReac Hallucinati Verified 05/28/22 01:03 ng PMF Past Medical History Medical History Anxiety Cardiac pacemaker Cardiac pacemaker in situ CHF (congestive heart failure), NYHA class II Cholecystectomy planned COPD (chronic obstructive pulmonary disease) COVID-19 Dilated cardiomyopathy Encounter for blood transfusion Essential hypertension GERD (gastroesophageal reflux disease) History of atrial fibrillation Hyperlipidemia Overactive bladder Syncope and collapse Vitamin D deficiency Surgical History Surgical History H/O cataract extraction H/O colonoscopy H/O dilation and curettage H/O hysterectomy with oophorectomy H/O rectal polypectomy History of appendectomy History of pancreatic surgery History of removal of pigmented skin lesion Hx of brain surgery Meningioma removal in 2015 Hx of cholecystectomy Hx of tonsillectomy Presence of biventricular AICD S/P cholecystectomy Family History Family History Father Family history of lymphoma Diabetes mellitus Sibling Family history of malignant neoplasm of breast in first degree relative Carcinoma of colon Breast cancer Mother Aplastic anemia Son Thyroid cancer Other Family history of malignant neoplasm of thyroid Social History Social History Social History: Mrs. Schmidt a few weeks ago she states (10/13/21). She has 5 sons. 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 She denies illicit substance and alcohol use. She wishes for her code status to be DNR and she has designated her sons, Jan Moran and Handy schmidt, as her designated surrogate decision maker. Her son darian lives with her and helps to take care of her. Code status DNR Smoking packs per day: 1 Smoking cigarettes per day: 20.0 Years smoked: 60 Smoking pack-years: 60.00 Smoking status: Former smoker Second hand tobacco smoke exposure:
[2022-05-28] MEDS: FAMOTIDINE 20 MG/2 ML VIAL IV PUSH (02:06)
[2022-05-28] MEDS: PANTOPRAZOLE SODIUM IV 40 MG VIAL 80 MG IV PUSH (02:06)
[2022-05-28] MEDS: SODIUM CHLORIDE 0.9% IV 1,000 ML 999 ML IV CONT (02:07)
[2022-05-28 02:17] LABS: Basophils Absolute Auto 0.1 K/mm3 (0.0-0.1); Basophils Percent Auto 0.4 % (0.2-1.2); Eosinophils Absolute Auto 0.1 K/mm3 (0-0.3); Eosinophils Percent Auto 0.6 % (0-4.4); Hematocrit 41.3 % (37.0-47.0); Immature Granulocyte Absolute 0.04 K/mm3 (0.00-0.031); Immature Granulocyte Percent A 0.3 % (0-0.5); Lymphocytes Percent Auto 16.1 % (18.3-44.2); Mean Corpuscular HGB Conc 31.5 g/dl (32-36); Mean Corpuscular Volume 88.8 fl (80-100); Mean Platelet Volume 10.6 fl (7.4-10.4); Monocytes Percent Auto 6.9 % (2.6-8.5); Neutrophils Absolute Auto 10.8 K/mm3 (1.3-6.7); Neutrophils Percent Auto 75.7 % (45.5-73.1); Platelet Count Result 229 k/mm3 (150-375); Red Blood Count 4.65 M/mm3 (4.2-5.4); Red Cell Distribution Width 13.2 % (11.5-14.5); White Blood Count 14.3 K/mm3 (4.5-10.0)
[2022-05-28 02:27] LABS: INR 1.1; Prothrombin Time 14.1 Seconds (11.1-14.7)
[2022-05-28 02:28] LABS: Partial Thromboplastin Time 27.7 SECONDS (22.3-36.8)
[2022-05-28 02:30] LABS: Alanine Aminotransferase 27 U/L (6-35); Albumin Level 4.6 g/dL (3.5-5.1); Alkaline Phosphatase 149 U/L (38-126); Anion Gap 13 mmol/L (8-16); Aspartate Amino Transferase 37 U/L (14-36); Bilirubin,Total 0.8 mg/dL (0.2-1.3); Blood Urea Nitrogen 27 mg/dL (7-17); Calcium 9.1 mg/dL (8.4-10.2); Carbon Dioxide 23 mmol/L (22-30); Chloride 101 mmol/L (98-107); Estimated CRCL calculation 36 ml/min; Estimated Glomerular Filt Rate 31; Glucose 114 mg/dL (65-110); Lipase 122 U/L (23-300); Magnesium 2.3 mg/dL (1.6-2.3); Potassium 3.8 mmol/L (3.4-5.0); Sodium 137 mmol/L (137-145)
[2022-05-28 02:41] LABS: Lactic Acid Reflex 1.1 mmol/L (0.7-2.0)
[2022-05-28 02:44] LABS: Influenza A QL RT-PCR Negative (Negative); Influenza B QL RT-PCR Negative (Negative); RSV RNA, RT-PCR Negative (Negative); SARS-CoV-2 RNA PCR Negative
[2022-05-28 03:20] LABS: Appearance Urine Clear (Clear); Bilirubin Urine Negative (Negative); Blood Urine Negative (Negative); Color Urine Yellow (Yellow); Glucose Urine UA Negative (Negative); Ketones Urine Negative (Negative); Leukocyte Esterase Ur Negative LEU/UL (Negative); Nitrate Urine Negative (Negative); Protein Urine Negative (Negative)
[2022-05-28 03:28] LABS: Add Urine Microscopic? NO; Specific Grav Ur 1.036 (1.001-1.035)
== END 2022-05-28 04:16 | disposition home or self-care (01) ==
PROVIDERS: Emergency Provider Emergency Medicine; PCP Internal Medicine
DX: K57.32 Diverticulitis of large intestine without perforation or abscess without bleeding (principal); Z20.822 Contact with and (suspected) exposure to COVID-19; I50.9 Heart failure, unspecified; J44.9 Chronic obstructive pulmonary disease, unspecified; I42.0 Dilated cardiomyopathy; I11.0 Hypertensive heart disease with heart failure; I48.91 Unspecified atrial fibrillation; E55.9 Vitamin D deficiency, unspecified; N32.81 Overactive bladder; K21.9 Gastro-esophageal reflux disease without esophagitis; F41.9 Anxiety disorder, unspecified; Z66 Do not resuscitate; Z95.0 Presence of cardiac pacemaker; Z86.16 Personal history of COVID-19; Z87.891 Personal history of nicotine dependence; Z90.710 Acquired absence of both cervix and uterus; Z98.49 Cataract extraction status, unspecified eye; I49.3 Ventricular premature depolarization; K76.9 Liver disease, unspecified; K66.9 Disorder of peritoneum, unspecified
CPT/HCPCS: 36415; 71045; 74177; 80053; 81003; 83605; 83690; 83735; 85025; 85610; 85730; 86850; 86880; 86900; 86901; 86902; 87040; 87637; 93005; 96361; 96365; 96375; 99284; C9113; J0131; J7030; Q9967

== ENCOUNTER 2022-07-20 01:40 | Day surgery (SDC) | payer MEDICARE, SELFPAY ==
[2022-07-07 15:11] VITALS: BMI 35.9
[2022-07-20 08:25] VITALS: BP 144/84; PULSE 78; RESP 20; TEMP 36.7; O2SAT 99; BMI 35.9
[2022-07-20] MEDS: LACTATED RINGERS 1,000 ML 150 ML IV CONT (08:42)
--- NOTE | 2022-07-20 09:01 | PM.HPGS ---
History of Present Illness History of Present Illness Consent: Risks, benefits, and alternatives have been discussed and questions answered. Patient agrees to proceed with procedure. Chief complaint: change in bowel habits, diverticulitis Narrative: Shahida Schmidt is a 77 year old female Presents for colonoscopy. Patient has had recent difficulties with constipation. She only recently started MiraLax. She takes this intermittently and has been advised to take it as often as once daily if needed. She denies any blood in her stools. Family history is significant her brother had colon cancer. Additionally patient recently had CT scan which suggests she may have had diverticulitis. Currently improved she denies any abdominal. Patient presents today for colonoscopy. Review of Systems Review of Systems: Review of systems noncontributory. [facility] Past Medical History Medical History (Updated 06/10/22 @ 13:54 by Sophie Cardoso, OTILIO) Anxiety Cardiac pacemaker Cardiac pacemaker in situ Change in bowel habits CHF (congestive heart failure), NYHA class II Cholecystectomy planned COPD (chronic obstructive pulmonary disease) COVID-19 Dilated cardiomyopathy Diverticulitis of sigmoid colon Encounter for blood transfusion Essential hypertension Family hx of colon cancer GERD (gastroesophageal reflux disease) History of atrial fibrillation History of ischemic colitis Hyperlipidemia Overactive bladder Rectal bleeding Syncope and collapse Vitamin D deficiency Surgical History Surgical History H/O cataract extraction H/O colonoscopy H/O dilation and curettage H/O hysterectomy with oophorectomy H/O rectal polypectomy History of appendectomy History of pancreatic surgery History of removal of pigmented skin lesion Hx of brain surgery Meningioma removal in 2014 Hx of cholecystectomy Hx of tonsillectomy Presence of biventricular AICD S/P cholecystectomy Family History Family History Father Family history of lymphoma Diabetes mellitus Sibling Family history of malignant neoplasm of breast in first degree relative Carcinoma of colon Breast cancer Mother Aplastic anemia Son Thyroid cancer Other Family history of malignant neoplasm of thyroid Social History Social History Social History: Mrs. Schmidt a few weeks ago she states (10/13/21). She has 5 sons. 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 She is a former 1 PPD smoker for at least 50 years. She denies illicit substance and alcohol use. She wishes for her code status to be DNR and she has designated her sons, Jan Moran and Handy schmidt, as her designated surrogate decision maker. Her son duct lives with her and helps to take care of her. Code status DNR Smoking packs per day: 1 Smoking cigarettes per day: 20.0 Years smoked: 60 Smoking pack-years: 60.00 Smoking status: Former smoker Tobacco type: cigarettes Second hand tobacco smoke exposure: Yes Alcohol intake: former Substance use: never Substance use type: does not use Lack of Transportation: No Lack of Food: Sometimes True Current Housing: I Have Housing Concerned About Future Housing: No Difficulty Paying Gas/Electric Bills: No Difficulty Paying for Meds: YES Currently Unemployed: No Education: Associate Degree Difficulty w/ Childcare or Family Care: No Living arrangements: with family Occupation/Education: retired Gender identity (if verbalized by the patient): Female Spiritual care concerns: No Meds Home Medications and Allergies Home Medications Medication Instructions Recorded Confirmed Type cholecalciferol (vitamin D3) 50 2,000 unit PO DAILY 02/01/19 07/20/22 History mcg (2,000 unit) tablet sacubitril 24 mg-valsartan 26 mg 0.5 tablet PO BID 09/10/20
--- NOTE | 2022-07-20 09:03 | WPDANESEPPF ---
Anes - Initial Pre Proc Eval Procedure: Operation Date: 07/20/22 09:45 Proposed Procedures p Colonoscopy - Flaco Mathew MD Date/Time: 07/20/22 09:03 Surgeon: Flaco Mathew MD Pre Op Diagnosis: change in bowel habits, diverticulitis Patient Data Age: 77 Gender: F Height: 1.78 m Weight: 113.4 kg Last Vital Signs Temp 98.0 F 07/20/22 08:25 Pulse 78 07/20/22 08:25 Resp 20 07/20/22 08:25 BP 144/84 H 07/20/22 08:25 Pulse Ox 99 07/20/22 08:25 O2 Del Method Room Air 07/20/22 08:25 Allergies Allergy/AdvReac Type Severity Reaction Status Date / Time adhesive Allergy Mild Rash Verified 07/20/22 08:23 cat dander Allergy Mild Sneezing Verified 07/20/22 08:23 codeine Allergy Mild HIVES AND Verified 07/20/22 08:23 ITCHING Sulfa (Sulfonamide Allergy Mild HIVES Verified 07/20/22 08:23 Antibiotics) sulfanilamide Allergy Mild Hives Verified 07/20/22 08:23 tramadol AdvReac Hallucinati Verified 07/20/22 08:23 ng Home Medications Medication Instructions Recorded Confirmed Type cholecalciferol (vitamin D3) 50 2,000 unit PO DAILY 02/01/19 07/20/22 History mcg (2,000 unit) tablet sacubitril 24 mg-valsartan 26 mg 0.5 tablet PO BID 09/10/20 07/20/22 History tablet (Entresto) aspirin 81 mg tablet,delayed 81 mg PO QAM #30 tabs 12/08/21 07/20/22 Rx release albuterol sulfate 2.5 mg/3 mL See Rx Instructions .Route 01/23/22 07/20/22 Rx (0.083 %) solution for nebulization .COMPLEX #180 mL oxybutynin chloride 5 mg tablet 5 mg PO DAILY #90 tabs 02/23/22 07/20/22 Rx atorvastatin 40 mg tablet 40 mg PO HS #90 tabs 03/18/22 07/20/22 Rx alprazolam 0.5 mg tablet 0.5 mg PO TID PRN Anxiety #90 tabs 04/24/22 07/20/22 Rx albuterol sulfate 90 mcg/actuation 2 inh inhalation Q4H PRN Shortness 07/07/22 07/20/22 History aerosol inhaler Of Breath Patient hx anesthesia problems: none Family hx anesthesia problems: none Results Review: All pre-operative results and documents have been reviewed as part of the pre-operative evaluation. [facility] Past Medical History Medical History (Updated 06/10/22 @ 13:54 by Sophie Cardoso, OTILIO) Anxiety Cardiac pacemaker Cardiac pacemaker in situ Change in bowel habits CHF (congestive heart failure), NYHA class II Cholecystectomy planned COPD (chronic obstructive pulmonary disease) COVID-19 Dilated cardiomyopathy Diverticulitis of sigmoid colon Encounter for blood transfusion Essential hypertension Family hx of colon cancer GERD (gastroesophageal reflux disease) History of atrial fibrillation History of ischemic colitis Hyperlipidemia Overactive bladder Rectal bleeding Syncope and collapse Vitamin D deficiency Surgical History Surgical History H/O cataract extraction H/O colonoscopy H/O dilation and curettage H/O hysterectomy with oophorectomy H/O rectal polypectomy History of appendectomy History of pancreatic surgery History of removal of pigmented skin lesion Hx of brain surgery Meningioma removal in 2014 Hx of cholecystectomy Hx of tonsillectomy Presence of biventricular AICD S/P cholecystectomy Family History Family History Father Family history of lymphoma Diabetes mellitus Sibling Family history of malignant neoplasm of breast in first degree relative Carcinoma of colon Breast cancer Mother Aplastic anemia Son Thyroid cancer Other Family history of malignant neoplasm of thyroid Social History Social History Social History: Mrs. Schmidt a few weeks ago she states (10/13/21). She has 5 sons. 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 She is a former 1 PPD smoker for at least 50 years. She denies illicit substance and alcohol use. She wishes for her code status to be DNR and she has designated her sons, Jan Moran and Handy schmidt, as her designated
[2022-07-20 09:28] VITALS: BP 141/67; PULSE 68; RESP 20; O2SAT 98
[2022-07-20 09:38] VITALS: BP 137/67; PULSE 59; RESP 18; O2SAT 100
[2022-07-20 09:48] VITALS: BP 148/75; PULSE 59; RESP 18; O2SAT 100
== END 2022-07-20 10:00 | disposition home or self-care (01) ==
PROVIDERS: PCP Internal Medicine; Visit Provider Internal Medicine Gastroenterology
PROC: 0DJD8ZZ Inspection of Lower Intestinal Tract, Via Natural or Artificial Opening Endoscopic (ICD-10-PCS; CPT 45378; principal; 2022-07-20 09:45)
DX: K62.5 Hemorrhage of anus and rectum (principal); D12.2 Benign neoplasm of ascending colon; D12.3 Benign neoplasm of transverse colon; K57.30 Diverticulosis of large intestine without perforation or abscess without bleeding; K64.8 Other hemorrhoids; K59.00 Constipation, unspecified; Z80.0 Family history of malignant neoplasm of digestive organs; Z87.19 Personal history of other diseases of the digestive system; Z79.82 Long term (current) use of aspirin; Z79.51 Long term (current) use of inhaled steroids; I11.0 Hypertensive heart disease with heart failure; I50.9 Heart failure, unspecified; I42.0 Dilated cardiomyopathy; E78.5 Hyperlipidemia, unspecified; F41.9 Anxiety disorder, unspecified; J44.9 Chronic obstructive pulmonary disease, unspecified; K21.9 Gastro-esophageal reflux disease without esophagitis; E55.9 Vitamin D deficiency, unspecified; Z95.810 Presence of automatic (implantable) cardiac defibrillator; Z87.891 Personal history of nicotine dependence; E66.9 Obesity, unspecified; Z68.35 Body mass index [BMI] 35.0-35.9, adult
CPT/HCPCS: 45385; 88305; J2704; J7120

== ENCOUNTER 2022-08-15 09:10 | Outpatient (CLI) | payer MEDICARE, SELFPAY ==
[2022-08-15 10:07] LABS: Cholesterol 103 mg/dL (0-200); HDL Direct 37 mg/dL; Triglycerides 82 mg/dL (<150)
[2022-08-15 10:20] LABS: LDL Cholesterol Direct 50 mg/dL
[2022-08-15 10:42] LABS: Vitamin D 25 Hydroxy 49.7 ng/mL
== END 2022-08-15 09:11 | disposition home or self-care (01) ==
PROVIDERS: Internal Medicine; PCP Family Medicine; Visit Provider Family Medicine
DX: E78.5 Hyperlipidemia, unspecified (principal); E55.9 Vitamin D deficiency, unspecified
CPT/HCPCS: 36415; 80061; 82306

== ENCOUNTER 2022-08-26 16:00 | Outpatient (CLI) | payer MEDICARE, SELFPAY ==
[2022-08-27 11:31] LABS: Alanine Aminotransferase 23 U/L (6-35); Albumin Level 4.3 g/dL (3.5-5.1); Alkaline Phosphatase 140 U/L (38-126); Anion Gap 5 mmol/L (8-16); Aspartate Amino Transferase 35 U/L (14-36); Bilirubin,Total 0.7 mg/dL (0.2-1.3); Blood Urea Nitrogen 20 mg/dL (7-17); Calcium 9.3 mg/dL (8.4-10.2); Carbon Dioxide 29 mmol/L (22-30); Chloride 105 mmol/L (98-107); Estimated Glomerular Filt Rate 36; Glucose 83 mg/dL (65-110); NT Pro B Type Natriuretic Pept 427 pg/mL (19.9-100); Sodium 139 mmol/L (137-145)
[2022-08-27 11:32] LABS: Basophils Percent Auto 0.6 % (0.2-1.2); Eosinophils Absolute Auto 0.2 K/mm3 (0-0.3); Eosinophils Percent Auto 3.1 % (0-4.4); Hematocrit 38.8 % (37.0-47.0); Hemoglobin 12.4 g/dL (12.0-15.0); Immature Granulocyte Absolute 0.01 K/mm3 (0.00-0.031); Immature Granulocyte Percent A 0.2 % (0-0.5); Lymphocytes Absolute Auto 1.82 K/mm3 (0.9-3.2); Lymphocytes Percent Auto 29.4 % (18.3-44.2); Mean Corpuscular Hemoglobin 27.9 pg (26-34); Mean Corpuscular Volume 87.2 fl (80-100); Mean Platelet Volume 10.3 fl (7.4-10.4); Monocytes Absolute Auto 0.6 K/mm3 (0.1-0.6); Neutrophils Absolute Auto 3.6 K/mm3 (1.3-6.7); Neutrophils Percent Auto 57.7 % (45.5-73.1); Platelet Count Result 203 k/mm3 (150-375); Red Blood Count 4.45 M/mm3 (4.2-5.4); White Blood Count 6.2 K/mm3 (4.5-10.0)
== END 2022-08-26 16:01 | disposition home or self-care (01) ==
PROVIDERS: PCP Family Medicine; Visit Provider Surgery
DX: I50.43 Acute on chronic combined systolic (congestive) and diastolic (congestive) heart failure (principal)
CPT/HCPCS: 36415; 80053; 83880; 85025

== ENCOUNTER 2022-09-08 20:49 | Emergency (ER) | payer MEDICARE, SELFPAY ==
[2022-09-08 20:57] VITALS: BP 110/62; PULSE 78; RESP 18; TEMP 36.6; O2SAT 97
[2022-09-08 21:16] LABS: Basophils Percent Auto 0.3 % (0.2-1.2); Eosinophils Absolute Auto 0.1 K/mm3 (0-0.3); Eosinophils Percent Auto 0.8 % (0-4.4); Hematocrit 41.3 % (37.0-47.0); Hemoglobin 13.1 g/dL (12.0-15.0); Immature Granulocyte Absolute 0.03 K/mm3 (0.00-0.031); Immature Granulocyte Percent A 0.2 % (0-0.5); Lymphocytes Absolute Auto 1.92 K/mm3 (0.9-3.2); Lymphocytes Percent Auto 14.3 % (18.3-44.2); Mean Corpuscular HGB Conc 31.7 g/dl (32-36); Mean Corpuscular Hemoglobin 27.5 pg (26-34); Mean Corpuscular Volume 86.8 fl (80-100); Mean Platelet Volume 10.1 fl (7.4-10.4); Monocytes Absolute Auto 0.9 K/mm3 (0.1-0.6); Monocytes Percent Auto 6.4 % (2.6-8.5); Neutrophils Absolute Auto 10.4 K/mm3 (1.3-6.7); Platelet Count Result 202 k/mm3 (150-375); Red Blood Count 4.76 M/mm3 (4.2-5.4); Red Cell Distribution Width 14.1 % (11.5-14.5); White Blood Count 13.4 K/mm3 (4.5-10.0)
[2022-09-08 21:29] LABS: Alanine Aminotransferase 21 U/L (6-35); Albumin Level 4.4 g/dL (3.5-5.1); Alkaline Phosphatase 147 U/L (38-126); Anion Gap 10 mmol/L (8-16); Aspartate Amino Transferase 31 U/L (14-36); Bilirubin,Total 0.5 mg/dL (0.2-1.3); Blood Urea Nitrogen 27 mg/dL (7-17); Calcium 9.3 mg/dL (8.4-10.2); Carbon Dioxide 22 mmol/L (22-30); Chloride 106 mmol/L (98-107); Estimated CRCL calculation 44 ml/min; Estimated Glomerular Filt Rate 40; Glucose 115 mg/dL (65-110); Lipase 415 U/L (23-300); Potassium 4.2 mmol/L (3.4-5.0); Sodium 138 mmol/L (137-145)
--- NOTE | 2022-09-08 23:12 | PC.NURSE ---
Patient yells I am tired of waiting all night; Im going to see my doctor as she is wheeled out of the doors by her son. Not evaluated by a provider.
== END 2022-09-08 23:12 | disposition left against medical advice (07) ==
PROVIDERS: Emergency Provider Emergency Medicine; PCP Family Medicine
DX: R10.9 Unspecified abdominal pain (principal)
CPT/HCPCS: 36415; 80053; 83690; 85025; 99199

== ENCOUNTER 2023-02-14 10:47 | Outpatient (CLI) | payer MEDICARE, SELFPAY ==
--- NOTE | ~2023-02-14 | XR_ITS ---
XR knee LT 3V 02/14/2023 11:12 Indication: Left knee pain after fall Procedure: 3 views left knee Comparison: No prior studies for comparison. Findings: Mild osteoarthritis. Small joint effusion. There is atherosclerosis. Normal mineralization. No fracture or traumatic malalignment. Impression: 1: Mild osteoarthritis of the left knee. 2: Small joint effusion. Reviewed, dictated and finalized at location A. BUSTER HELPER Impression: 1: Mild osteoarthritis of the left knee. 2: Small joint effusion.
== END 2023-02-14 10:48 | disposition home or self-care (01) ==
PROVIDERS: PCP Nurse Practitioner; Visit Provider Nurse Practitioner
DX: M25.462 Effusion, left knee (principal); M17.12 Unilateral primary osteoarthritis, left knee
CPT/HCPCS: 73562

== ENCOUNTER 2023-06-03 09:09 | Outpatient (CLI) | payer MEDICARE, SELFPAY ==
--- NOTE | ~2023-06-03 | MMUS_ITS ---
EXAMINATION: MM diagnostic alcides BI w michele, US breast BI limited HISTORY: Bilateral breast pain TECHNIQUE: Additional 3-D tomosynthesis images of the breasts were performed and synthetic 2-D images were generated. CAD analysis was submitted and interpreted. High resolution limited bilateral breast ultrasound was performed. COMPARISON: None BREAST PARENCHYMAL COMPOSITION: Not dense: There are scattered areas of fibroglandular density. FINDINGS: MAMMOGRAPHIC FINDINGS: There is asymmetry of the subareolar location of the left breast compared to the right. No discrete m ass, suspicious calcifications or architectural distortion. ULTRASOUND: Limited bilateral periareolar breast ultrasound: Normal right periareolar ultrasound with mildly prom inent ducts. In the left periareolar location there is a serpiginous hypoechoic tubular structure wit hout internal vascularity or posterior features, likely a debris-filled duct. IMPRESSION: 1. Probable benign debris-filled left periareolar duct. No evidence for malignancy in the right breas t. 2. Recommend 6 month follow-up Limited left breast ultrasound. BI-RADS category 3, probably benign findings. Reviewed, dictated and finalized at location A. IMPRESSION: 1. Probable benign debris-filled left periareolar duct. No evidence for maligna ncy in the right breast. 2. Recommend 6 month follow-up Limited left breast ultrasound. BI-RADS category 3, probably benign findings.
== END 2023-06-03 09:10 ==
PROVIDERS: PCP Obstetrics & Gynecology; Visit Provider Obstetrics & Gynecology
DX: N64.4 Mastodynia (principal); R92.8 Other abnormal and inconclusive findings on diagnostic imaging of breast
CPT/HCPCS: 76642; 77062; 77066; G0279

== ENCOUNTER 2023-08-10 12:29 | Outpatient (CLI) | payer MEDICARE, SELFPAY ==
--- NOTE | 2023-08-10 12:30 | ECG_ITS ---
[facility] [address] Test Date: 2023-08-10 Pat Name: Shahida Mitchell Department: Room: Gender: F Java Lead Developer: : 1945 Requested By: Wilfrid Carpenter Order Number: [id number] Kalie MD: Austin Bronson D.O. Measurements Intervals [place] Rate: 61 P: 53 MO: 263 QRS: 263 QRSD: 66 T: 0 QT: 358 QTc: 361 Interpretive Statements ELECTRONIC ATRIAL PACEMAKER ELECTRONIC VENTRICULAR PACEMAKER BASELINE ARTIFACT- I, II, III, AVR, AVL, AVF, V1-V6 NO FURTHER INTERPRETATION IS POSSIBLE ATYPICAL ECG No previous ECG available for comparison Electronically Signed On 08-12-2023 08:49:03 CDT by Austin Bronson D.O.
[2023-08-10 13:40] LABS: Anion Gap 6 mmol/L (4-12); Blood Urea Nitrogen 27 mg/dL (7-17); Calcium 9.4 mg/dL (8.4-10.2); Carbon Dioxide 28 mmol/L (22-30); Chloride 104 mmol/L (98-107); Estimated Glomerular Filt Rate 36; Glucose 83 mg/dL (65-110); Potassium 4.3 mmol/L (3.4-5.0); Sodium 138 mmol/L (137-145)
[2023-08-10 13:45] LABS: INR 1.1; Prothrombin Time 14.3 Seconds (11.1-14.7)
[2023-08-10 13:46] LABS: Partial Thromboplastin Time 27.3 Seconds (22.3-36.8)
== END 2023-08-10 12:30 | disposition home or self-care (01) ==
LOC: ANHSURGERY 12:37
PROVIDERS: Anesthesiology; PCP Nurse Practitioner; Visit Provider Plastic Surgery
DX: Z01.818 Encounter for other preprocedural examination (principal); E78.2 Mixed hyperlipidemia; N18.30 Chronic kidney disease, stage 3 unspecified
CPT/HCPCS: 36415; 80048; 85610; 85730; 93005

== ENCOUNTER 2023-08-18 01:26 | Day surgery (SDC) | payer MEDICARE, SELFPAY ==
--- NOTE | 2023-08-05 13:03 | PC.NURSE ---
Report to the Outpatient Waiting Room, entrance under the green pavilion located off [facility], at time ___7:00 AM____ on date _08/18/23 . Planned Procedure Time: _9:00AM . Time changes happen often and if your time is changed the preop area will call you the afternoon before. - You and your visitor will be asked to self-screen and do not enter if you have any COVID symptoms. - A mask is optional within the hospital at this time. NOTHING TO EAT OR DRINK 8 HOURS PRIOR TO SURGERY PER DR BLAIR (1:00 AM) Take the following medications with a SIP of water the morning of surgery: __INHALER IF NEEDED,ALPRAZOLAM IF NEEDED DO NOT STOP ANY OF YOUR OTHER PRESCRIPTION MEDICATIONS PRIOR TO SURGERY ?EXCEPT THE FOLLOWING Medications to discontinue per physician HOLD ASPIRIN 5 DAYS PRE OP PER DR CHAPARRO LAST DOSE 08/12/23 Please no make-up, nail maori, hairspray, perfume, deodorant, or body powder the day of surgery. No jewelry (including any body piercings) or valuables the day of surgery, leave them at home. Please take a shower or bath the night before, or the morning of, surgery with an antibacterial soap. Wear comfortable, loose fitting clothing. Children are encouraged to wear pajamas. - Jewelry must be removed prior to entering the operating room. Rings and piercings that are not removed may be cut off. - The hospital will not accept responsibility for valuables. - Please leave all valuables, including medications, at home the day of surgery. If you are going home after surgery, a licensed explosives truck driver must drive you home. - NO public transportation without another adult if you receive anesthesia. - We recommend that an adult stay with you for 24 hours following discharge. - We also recommend that you do not drive, make important decision, drink alcoholic beverages, or take any drugs that were not prescribed by your health care provider for at least 24 hours after your discharge time. Follow any additional instructions given to you from your surgeon. If you or anyone in your household have experienced Covid symptoms in the past week, please notify your surgeon or the nurse liaison at the phone number below for possible testing. Telephone instructions given to ___PATIENT and asked if any additional questions and then verbalized understanding. Patient advised to call surgeon office or pre surgery nurse liaison [phone] if any additional questions.
[2023-08-05 13:23] VITALS: BMI 34.4
--- NOTE | 2023-08-18 07:09 | P.HPUP_ITS ---
History and Physical Update Update Date/Time: 08/18/23 07:09 Patient seen and examined in pre-operative holding area. No interval change in medical history or symptoms. Patient remembers previous discussion of benefits and alternatives to procedure. Continues to desire to proceed with bilateral breast reduction . I reviewed the risks including but not limited to bleeding ,infection, asymmetry, undesireable cosmetic appearance, partial/total skin/nipple loss, no change or worsening of symptoms, change in sensation. I discussed the possible use of assistants and their level of participation in the case. Patient stated understanding and signed the consent form wishing to pr oceed I and anesthesiologist had joint discussion with patient giving her medical cardiac and pulmonary issues and risks of surgery and anesthesia. We discussed her DNR status and patient agreed that everything can and should be done at this time while in surgery to sustain life. Patient stated she understands that any prolonged recovery or events after surgery would then be addressed by her or her family if, for some reason, she remained incapacaictated, intubated or unable to make decisions. patient stated understanding and also signed additional code status form noting full resuscitation.
--- NOTE | 2023-08-18 07:10 | P.OP_ITS ---
Procedure Note - Detailed Date of Procedure 08/18/23 Pre-op Diagnosis Hypertrophy of Breast Post-op Diagnosis Same Procedure Performed b/l breast reduction Surgeon Radha Gray MD Medical Art Therapist amandeep puga pa-c Anesthesia General Description of Procedure INFORMED CONSENT: The patient was seen and examined and marked in the pre-op area.? The patient signed the consent form. PROCEDURE IN DETAIL:The patient taken back to OR on the stretcher in supine position. Time out performed with anesthesia, surgeon and staff agreeing on patient's name site and surgery to be performed SCDs were placed on the lower extremities and inflated. Complications - none EBL- 0cc Disposition - home in stable conditions amandeep puga pa-c was essential for positioning, retraction, closure and dressing placement [facility] Billing Surgery - Charge Forward: Surgery Billing ([id number] same for amandeep adding modifier )
[2023-08-18 08:09] VITALS: BP 121/67; PULSE 82; RESP 16; TEMP 37.1; O2SAT 98; BMI 32.5
--- NOTE | 2023-08-18 08:30 | WPDANESEPPF ---
Anes - Initial Pre Proc Eval Procedure: Operation Date: 08/18/23 09:00 Proposed Procedures p Bilateral Breast Reduction - Radha Gray MD Date/Time: 08/18/23 08:30 Surgeon: Radha Gray MD Pre Op Diagnosis: Hypertrophy of Breast Patient Data Age: 78 Gender: F Height: 1.78 m Weight: 102.9 kg Last Vital Signs Temp 37.1 C 08/18/23 08:09 Pulse 82 08/18/23 08:09 Resp 16 08/18/23 08:09 BP 121/67 08/18/23 08:09 Pulse Ox 98 08/18/23 08:09 Allergies Allergy/AdvReac Type Severity Reaction Status Date / Time adhesive Allergy Mild Rash Verified 08/18/23 07:58 cat dander Allergy Mild Sneezing Verified 08/18/23 07:58 codeine Allergy Mild HIVES AND Verified 08/18/23 07:58 ITCHING Sulfa (Sulfonamide Allergy Mild HIVES Verified 08/18/23 07:58 Antibiotics) sulfanilamide Allergy Mild Hives Verified 08/18/23 07:58 tramadol AdvReac Hallucinati Verified 08/18/23 07:58 ng Home Medications Medication Instructions Recorded Confirmed Type sacubitril 24 mg-valsartan 26 mg 0.5 tablet PO BID 09/10/20 08/05/23 History tablet (Entresto) aspirin 81 mg tablet,delayed 81 mg PO QAM #30 tabs 12/08/21 08/18/23 Rx release albuterol sulfate 90 mcg/actuation 2 inh inhalation Q4H PRN Shortness 07/07/22 08/18/23 History aerosol inhaler Of Breath acetaminophen 500 mg tablet 500 mg PO Q6H PRN Pain 12/15/22 08/05/23 History (Tylenol Extra Strength) oxybutynin chloride 5 mg tablet 5 mg PO DAILY #90 tabs 03/01/23 08/05/23 Rx atorvastatin 40 mg tablet 40 mg PO HS #90 tabs 04/30/23 08/05/23 Rx albuterol sulfate 2.5 mg/3 mL See Rx Instructions .Route 06/01/23 08/05/23 Rx (0.083 %) solution for nebulization .COMPLEX #180 mL alprazolam 0.5 mg tablet 0.5 mg PO TID PRN Anxiety #90 tabs 08/17/23 08/18/23 Rx cephalexin 500 mg capsule 500 mg PO Q8H #21 caps 08/18/23 Rx hydrocodone 5 mg-acetaminophen 325 1 tablet PO Q6H PRN pain #12 tabs 08/18/23 Rx mg tablet Patient hx anesthesia problems: none Family hx anesthesia problems: none Results Review: All pre-operative results and documents have been reviewed as part of the pre-operative evaluation. [facility] Past Medical History Medical History Anxiety Cardiac pacemaker Cardiac pacemaker in situ Change in bowel habits CHF (congestive heart failure), NYHA class II Cholecystectomy planned COPD (chronic obstructive pulmonary disease) COVID-19 Dilated cardiomyopathy Diverticulitis of sigmoid colon Encounter for blood transfusion Essential hypertension Family hx of colon cancer GERD (gastroesophageal reflux disease) History of atrial fibrillation History of ischemic colitis Hyperlipidemia Overactive bladder Rectal bleeding Syncope and collapse Vitamin D deficiency Surgical History Surgical History H/O cataract extraction H/O colonoscopy H/O dilation and curettage H/O hysterectomy with oophorectomy H/O rectal polypectomy History of appendectomy History of pancreatic surgery History of removal of pigmented skin lesion Hx of brain surgery Meningioma removal in 2014 Hx of cholecystectomy Hx of tonsillectomy Presence of biventricular AICD S/P cholecystectomy Family History Family History Father Family history of lymphoma Diabetes mellitus Sibling Family history of malignant neoplasm of breast in first degree relative Carcinoma of colon Breast cancer Mother Aplastic anemia Son Thyroid cancer Other Family history of malignant neoplasm of thyroid Social History Social History Social History: Mrs. Mitchell's on 10/13/21. She has 5 sons. 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 She is a former 1 PPD smoker for at least 50 years. She denies illicit substance and alcohol use. She wishes for her code st
[2023-08-18] MEDS: LACTATED RINGERS 1,000 ML 30 ML IV CONT (08:32)
--- NOTE | 2023-08-18 09:44 | WPDPN ---
Subjective Date/time seen: 08/18/23 09:44 [employer] did not show for this case as scheduled and would not be able to arrive for over an hour which was unable to be accomodated due to staff and scheduling constraints. patient stated understanding and will be contacted for rescheduling in the future Objective Data Vital Signs Vital Signs: Vital Signs - 24 hr 08/18/23 08:09 Temperature 37.1 C Pulse Rate 82 Respiratory Rate 16 Blood Pressure 121/67 Pulse Oximetry 98 Meds/Results Medications: Active Medications Generic Name Dose Route Start Last Admin Trade Name Freq PRN Reason Stop Dose Admin Lactated Ringer's 1,000 mls @ 30 mls/hr 08/18/23 08:05 08/18/23 08:32 Lr - Lactated Ringers Iv IV CONT 30 mls/hr .Q24H VITALIY Administration
--- NOTE | 2023-08-18 10:00 | SUR.PREOP ---
The patient was scheduled to have a procedure at 0900, patient was delayed due to the [employer] company not being available to adjust her pacemanker settings. The company was aware of the patients time of procedure and it was confirmed on 08/11/23 at 1450 that time that someone would be available. Due to the large delays in time the provider talked with the patient and they decided to cancel the procedure.
== END 2023-08-18 09:59 | disposition home or self-care (01) ==
PROVIDERS: PCP Nurse Practitioner; Visit Provider Plastic Surgery
DX: N62 Hypertrophy of breast (principal); Z53.8 Procedure and treatment not carried out for other reasons
CPT/HCPCS: 36415; 80048; 85610; 85730; 93005; 99213; G0463; J0690; J3010; J7120

== ENCOUNTER 2023-09-17 13:45 | Emergency (ER) | payer MEDICARE, SELFPAY ==
[2023-09-17 14:10] VITALS: BP 125/81; PULSE 72; RESP 16; TEMP 36.4; O2SAT 98
--- NOTE | 2023-09-17 15:02 | ED.SKABFB ---
HPI - Skin/Abscess/Foreign Bdy General Chief complaint: Skin/Abscess/Foreign Body <Marcellus Linn APRN - Last Filed: 09/17/23 15:07> Stated complaint: bilateral leg redness <Marcellus Linn APRN - Last Filed: 09/17/23 15:07> Time Seen by Provider: 09/17/23 15:05 <Marcellus Linn APRN - Last Filed: 09/17/23 15:07> Focused HPI: Shahida is a 78-year-old female patient presenting to the emergency room today with complaints of a rash to bilateral anterior tibias. She denies any fever, chills, or body aches. She denies any chest pain or increased shortness of breath. Takes a baby aspirin daily. Denies taking any blood thinners other than the baby aspirin. Denies any known autoimmune disorders. General: Well-developed, well nourished, in no apparent distress Head: Normocephalic, atraumatic. Cardio: Regular rate and rhythm, s1 and s2 normal, no murmur appreciated. Resp: Clear to auscultation bilaterally, no rhonchi, rales, wheezing or rubs. Integumentary: [place], warm, and dry, petechial rash to the bilateral anterior tibia with no surrounding redness/swelling, no erythema or tenderness to palpation Patient screened in triage and initial orders placed. Additional care and disposition to be based upon diagnostic testing and treatment. <Marcellus Linn APRN - Last Filed: 09/17/23 15:07> Source: patient <Marcellus Linn APRN - Last Filed: 09/17/23 15:07> Mode of arrival: ambulatory <Marcellus Linn APRN - Last Filed: 09/17/23 15:07> Limitations: no limitations <Marcellus Linn APRN - Last Filed: 09/17/23 15:07> History of Present Illness HPI narrative: 78-year-old female with a history of TA, CHF, AICD in place, CKD stage 3, CHRISTINE, hyperlipidemia, dilated cardiomyopathy, hypertension, COPD and GERD presents to the emergency department for a rash that she noticed today. Patient states she took a shower this morning and did not know any rashes throughout her body, however later in the day her family member asked her what was on her legs. She noticed a patchy red rash to her lower shins and right ankle. She states that is not itchy, there is no pain. She denies changes in soap, detergent, lotions or creams, medications. Denies fever, cough or congestion, abdominal pain, nausea vomiting, diarrhea, dysuria or hematuria. She denies recent known tick or bug bites. she is not anticoagulated but does take a daily aspirin. <Christelle Arroyo PA-C - Last Filed: 09/17/23 19:04> Related Data Home medications: Home Medications Medication Instructions Recorded Confirmed sacubitril 24 mg-valsartan 26 mg 0.5 tablet PO BID 09/10/20 08/27/23 tablet (Entresto) acetaminophen 500 mg tablet 500 mg PO Q6H PRN Pain 12/15/22 08/27/23 (Tylenol Extra Strength) <Marcellus Linn APRN - Last Filed: 09/17/23 15:07> Allergies/Adverse reactions: Allergies Allergy/AdvReac Type Severity Reaction Status Date / Time adhesive Allergy Mild Rash Verified 09/17/23 15:22 cat dander Allergy Mild Sneezing Verified 09/17/23 15:22 codeine Allergy Mild HIVES AND Verified 09/17/23 15:22 ITCHING Sulfa (Sulfonamide Allergy Mild HIVES Verified 09/17/23 15:22 Antibiotics) sulfanilamide Allergy Mild Hives Verified 09/17/23 15:22 tramadol AdvReac Hallucinati Verified 09/17/23 15:22 ng <Marcellus Linn APRN - Last Filed: 09/17/23 15:07> Review of Systems Review of Systems: CONSTITUTIONAL: Denies fever, chills, or sweats. EYES: Denies visual changes, redness, or discharge. ENT: Denies rhinorrhea, congestion, sore throat, or otalgia. CARDIOVASCULAR: Denies chest pain, palpitations, or edema. RESPIRATORY: Denies cough or dyspnea. GASTROINTESTINAL: Denies abdominal pain, nausea, vomiting, or diarrhea. GENITOURINARY: Denies dysuria or hematuria. SKIN: See HPI MUSCULOSKELETAL: Denies back pain, joint pain, or myalgia. NEUROLOGIC: Denies headache, numbness, or w
[2023-09-17 15:28] LABS: Basophils Percent Auto 0.4 % (0.2-1.2); Eosinophils Absolute Auto 0.1 K/mm3 (0-0.3); Eosinophils Percent Auto 1.2 % (0-4.4); Hematocrit 37.3 % (37.0-47.0); Hemoglobin 12.2 g/dL (12.0-15.0); Immature Granulocyte Absolute 0.04 K/mm3 (0.00-0.031); Immature Granulocyte Percent A 0.5 % (0-0.5); Lymphocytes Absolute Auto 1.55 K/mm3 (0.9-3.2); Mean Corpuscular HGB Conc 32.7 g/dl (32-36); Mean Corpuscular Hemoglobin 28.3 pg (26-34); Mean Corpuscular Volume 86.5 fl (80-100); Mean Platelet Volume 9.9 fl (7.4-10.4); Monocytes Absolute Auto 0.7 K/mm3 (0.1-0.6); Monocytes Percent Auto 8.6 % (2.6-8.5); Neutrophils Absolute Auto 5.4 K/mm3 (1.3-6.7); Neutrophils Percent Auto 69.3 % (45.5-73.1); Platelet Count Result 181 k/mm3 (150-375); Red Blood Count 4.31 M/mm3 (4.2-5.4); Red Cell Distribution Width 13.7 % (11.5-14.5); White Blood Count 7.8 K/mm3 (4.5-10.0)
[2023-09-17 15:36] LABS: INR 1.1; Prothrombin Time 14.4 Seconds (11.1-14.7)
[2023-09-17 15:37] LABS: Partial Thromboplastin Time 27.4 Seconds (22.3-36.8)
[2023-09-17 15:53] LABS: Alanine Aminotransferase 37 U/L (6-35); Albumin Level 4.3 g/dL (3.5-5.1); Alkaline Phosphatase 147 U/L (38-126); Anion Gap 9 mmol/L (4-12); Aspartate Amino Transferase 46 U/L (14-36); Bilirubin,Total 0.6 mg/dL (0.2-1.3); Blood Urea Nitrogen 22 mg/dL (7-17); Calcium 9.4 mg/dL (8.4-10.2); Carbon Dioxide 22 mmol/L (22-30); Chloride 111 mmol/L (98-107); Estimated CRCL calculation 33 ml/min; Estimated Glomerular Filt Rate 29; Glucose 110 mg/dL (65-110); Sodium 142 mmol/L (137-145)
[2023-09-17 16:01] LABS: Influenza A QL RT-PCR Negative (Negative); Influenza B QL RT-PCR Negative (Negative); RSV RNA, RT-PCR Negative (Negative); SARS-CoV-2 RNA PCR Negative (Negative)
[2023-09-17] MEDS: SODIUM CHLORIDE 0.9% IV 1,000 ML 999 ML IV CONT (17:50)
[2023-09-17 18:22] LABS: Appearance Urine Cloudy (Clear); Bacteria Urine Rare /hpf; Bilirubin Urine Negative (Negative); Blood Urine Trace (Negative); Color Urine Yellow (Yellow); Glucose Urine UA Negative (Negative); Ketones Urine Trace mg/dL (Negative); Leukocyte Esterase Ur Trace LEU/UL (Negative); Nitrate Urine Negative (Negative); Non Pathogenic Casts 0-2; Protein Urine Negative (Negative); Specific Grav Ur 1.022 (1.001-1.035); Squamous Epithelial Cell Urine Few /hpf (Few); pH Urine 5.5 (5.0-9.0)
[2023-09-17 18:34] LABS: Add Urine Microscopic? YES
[2023-09-17] MEDS: predniSONE 20 MG TABLET 40 MG PO (19:13)
[2023-09-17] MEDS: DOXYCYCLINE HYCLATE 100 MG TABLET PO (19:14)
[2023-09-17 19:23] VITALS: BP 140/68; PULSE 63; RESP 20; O2SAT 99
== END 2023-09-17 19:24 | disposition home or self-care (01) ==
PROVIDERS: Nurse Practitioner Family; Emergency Provider Physician Assistant; PCP Nurse Practitioner
DX: R23.3 Spontaneous ecchymoses (principal); Z20.822 Contact with and (suspected) exposure to COVID-19; I13.0 Hypertensive heart and chronic kidney disease with heart failure and stage 1 through stage 4 chronic kidney disease, or unspecified chronic kidney disease; N18.30 Chronic kidney disease, stage 3 unspecified; I50.9 Heart failure, unspecified; I42.0 Dilated cardiomyopathy; E78.5 Hyperlipidemia, unspecified; E55.9 Vitamin D deficiency, unspecified; J44.9 Chronic obstructive pulmonary disease, unspecified; K21.9 Gastro-esophageal reflux disease without esophagitis; G47.33 Obstructive sleep apnea (adult) (pediatric); N32.81 Overactive bladder; K55.9 Vascular disorder of intestine, unspecified; Z66 Do not resuscitate; Z95.810 Presence of automatic (implantable) cardiac defibrillator; Z98.49 Cataract extraction status, unspecified eye; Z86.16 Personal history of COVID-19; Z87.19 Personal history of other diseases of the digestive system; Z87.891 Personal history of nicotine dependence; Z90.710 Acquired absence of both cervix and uterus; Z90.49 Acquired absence of other specified parts of digestive tract; Z79.82 Long term (current) use of aspirin; Z79.899 Other long term (current) drug therapy
CPT/HCPCS: 36415; 80053; 81001; 85025; 85610; 85730; 87086; 87637; 96360; 99283; A9270; J7030; J7512

== ENCOUNTER 2024-01-14 02:05 | Observation (INO) | payer MEDICARE, SELFPAY ==
[2024-01-14] VITALS (9 sets, daily range): BP systolic 103–145; BP diastolic 49–94; PULSE 60–74; RESP 15–18; TEMP 36–36.3; O2SAT 94–99; BMI 32.1; BMI 31.5
--- NOTE | ~2024-01-14 | CT_ITS ---
CT of the Abdomen and Pelvis: Indication: Lower GI bleed Technique: 2.5 mm axial scans were obtained through the abdomen and pelvis following intravenous adm inistration of 100 cc of Omnipaque 350. Dose reduction technique was used on this scan by utilizing a utomated exposure control and iterative reconstruction technique. The dose-length product (DLP) was 1 557.21 mGy-cm. COMPARISON: 05/28/2022 Findings: Scans through the lung bases demonstrate cardiomegaly, probable minimal pericardial fluid. Cholecystectomy clips and pneumobilia are present. There is probable diffuse hepatic steatosis. Stabl e focal enhancing lesion at the inferior right hepatic lobe, possibly focal hemangioma. The spleen, p ancreas, adrenals and kidneys are within normal limits. There are atherosclerotic calcifications of t he aorta. No lymphadenopathy. There is minimal pericolonic inflammatory change at the mid descending colon, with possible mild wall thickening. Images through the pelvis were performed. Urinary bladder unremarkable. No pelvic mass seen. No ascit es. Impression: Probable mild colitis at the mid descending colon. No CT angiographic evidence of active GI bleeding. Diffuse hepatic steatosis. Minimal pericardial fluid. Reviewed, dictated and finalized at location . Impression: Probable mild colitis at the mid descending colon. No CT angiographic evidence of active GI bleeding. Diffuse hepatic steatosis. Minimal pericardial fluid.
--- NOTE | 2024-01-14 02:10 | ECG_ITS ---
Test Date: 2024-01-14 02:16:32 Measurements Intervals [place] Rate: 44 P: 0 RI: 0 QRS: 28 QRSD: 74 T: 46 QT: 339 QTc: 290 Interpretive Statements SINUS RHYTHM WITH OCCASIONAL SUPRAVENTRICULAR PREMATURE COMPLEXES BASELINE ARTIFACT- I, II, III, AVR, AVL, AVF, V1-V6 BORDERLINE ECG Compared to ECG 08/10/2023 12:58:26 Atrial-paced complex(es) or rhythm no longer present Ventricular-paced complex(es) or rhythm no longer present Electronically Signed On 01-14-2024 06:49:58 CDT by Austin Bronson D.O.
[2024-01-14 02:21] LABS: Basophils Percent Auto 0.4 % (0.2-1.2); Eosinophils Absolute Auto 0.1 K/mm3 (0-0.3); Eosinophils Percent Auto 1.2 % (0-4.4); Hematocrit 38.3 % (37.0-47.0); Hemoglobin 12.7 g/dL (12.0-15.0); Immature Granulocyte Absolute 0.02 K/mm3 (0.00-0.031); Immature Granulocyte Percent A 0.2 % (0-0.5); Lymphocytes Absolute Auto 1.54 K/mm3 (0.9-3.2); Lymphocytes Percent Auto 14.7 % (18.3-44.2); Mean Corpuscular HGB Conc 33.2 g/dl (32-36); Mean Corpuscular Hemoglobin 28.9 pg (26-34); Mean Corpuscular Volume 87.2 fl (80-100); Mean Platelet Volume 9.7 fl (7.4-10.4); Monocytes Absolute Auto 0.9 K/mm3 (0.1-0.6); Monocytes Percent Auto 8.8 % (2.6-8.5); Neutrophils Absolute Auto 7.9 K/mm3 (1.3-6.7); Neutrophils Percent Auto 74.7 % (45.5-73.1); Platelet Count Result 177 k/mm3 (150-375); Red Blood Count 4.39 M/mm3 (4.2-5.4); Red Cell Distribution Width 13.8 % (11.5-14.5); White Blood Count 10.5 K/mm3 (4.5-10.0)
[2024-01-14 02:31] LABS: INR 1.1; Prothrombin Time 14.2 Seconds (11.1-14.7)
[2024-01-14 02:32] LABS: Partial Thromboplastin Time 24.5 Seconds (22.3-36.8)
[2024-01-14 02:42] LABS: Alanine Aminotransferase 30 U/L (6-35); Albumin Level 4.2 g/dL (3.5-5.1); Alkaline Phosphatase 148 U/L (38-126); Anion Gap 11 mmol/L (4-12); Aspartate Amino Transferase 44 U/L (14-36); Bilirubin,Total 0.9 mg/dL (0.2-1.3); Blood Urea Nitrogen 26 mg/dL (7-17); Calcium 9.3 mg/dL (8.4-10.2); Carbon Dioxide 22 mmol/L (22-30); Chloride 107 mmol/L (98-107); Estimated CRCL calculation 34 ml/min; Estimated Glomerular Filt Rate 29; Glucose 135 mg/dL (65-110); Sodium 140 mmol/L (137-145)
[2024-01-14] MEDS: ONDANSETRON INJ 4 MG/2 ML VIAL IV PUSH (03:42)
[2024-01-14] MEDS: LORazepam INJ (*CRX) 2 MG/ML VIAL 0.5 MG IV PUSH (03:42)
--- NOTE | 2024-01-14 03:50 | ED.GIBLEED ---
HPI - GI Bleed General Chief complaint: Weakness Stated complaint: Weakness and blood in stool since yesterday Time Seen by Provider: 01/14/24 02:42 History of Present Illness HPI Narrative: Patient started noticing blood in her stool yesterday, bright red blood in the toilet, with nausea, and abdominal discomfort. Has never had symptoms like this before. Does have history of an aneurysm which is being monitored. Related Data Home Medications Medication Instructions Recorded Confirmed sacubitril 24 mg-valsartan 26 mg 0.5 tablet PO BID 09/10/20 08/27/23 tablet (Entresto) acetaminophen 500 mg tablet 500 mg PO Q6H PRN Pain 12/15/22 08/27/23 (Tylenol Extra Strength) Allergies Allergy/AdvReac Type Severity Reaction Status Date / Time adhesive Allergy Mild Rash Verified 09/17/23 15:22 cat dander Allergy Mild Sneezing Verified 09/17/23 15:22 codeine Allergy Mild HIVES AND Verified 09/17/23 15:22 ITCHING Sulfa (Sulfonamide Allergy Mild HIVES Verified 09/17/23 15:22 Antibiotics) sulfanilamide Allergy Mild Hives Verified 09/17/23 15:22 tramadol AdvReac Hallucinati Verified 09/17/23 15:22 ng Review of Systems Review of Systems: All systems reviewed & are unremarkable except as noted in HPI and below PMFSH Past Medical History Medical History Anxiety Cardiac pacemaker Cardiac pacemaker in situ Change in bowel habits CHF (congestive heart failure), NYHA class II Cholecystectomy planned COPD (chronic obstructive pulmonary disease) COVID-19 Dilated cardiomyopathy Diverticulitis of sigmoid colon Encounter for blood transfusion Essential hypertension Family hx of colon cancer GERD (gastroesophageal reflux disease) History of atrial fibrillation History of ischemic colitis Hyperlipidemia Overactive bladder Rectal bleeding Syncope and collapse Vitamin D deficiency Surgical History Surgical History H/O cataract extraction H/O colonoscopy H/O dilation and curettage H/O hysterectomy with oophorectomy H/O rectal polypectomy History of appendectomy History of pancreatic surgery History of removal of pigmented skin lesion Hx of brain surgery Meningioma removal in 2014 Hx of cholecystectomy Hx of tonsillectomy Presence of biventricular AICD S/P cholecystectomy Family History Family History Father Family history of lymphoma Diabetes mellitus Sibling Family history of malignant neoplasm of breast in first degree relative Carcinoma of colon Breast cancer Mother Aplastic anemia Son Thyroid cancer Other Family history of malignant neoplasm of thyroid Social History Social History Social History: Mrs. Mitchell's on 10/13/21. She has 5 sons. 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 She is a former 1 PPD smoker for at least 50 years. She denies illicit substance and alcohol use. She wishes for her code status to be DNR and she has designated her sons, Jan Moran and Handy Mitchell, as her designated surrogate decision maker. Her son Handy lives with her and helps to take care of her. Code status DNR Smoking packs per day: 2 Smoking cigarettes per day: 40.0 Years smoked: 60 Smoking pack-years: 120.00 Smoking status: Former smoker Tobacco type: cigarettes Second hand tobacco smoke exposure: Yes Smoking end date: 03/15/14 Alcohol intake: former Substance use: never Substance use type: does not use Do You Feel Safe in your Home?: Yes Lack of Transportation: YES Lack of Food: Never True Current Housing: I Have Housing Concerned About Future Housing: No Difficulty Paying Gas/Electric Bills: YES Difficulty Paying for Meds: YES Currently Unemployed: No Education: Associate Degree Difficulty w/ Childcare or Family Care: No Living arrangements: with family Occupation/Education: retired Gender identity (if verbalized by the patient): Female Spiritual care concerns: No Exam Narrative: EXAMINATION OF ORGAN SYSTEMS/BODY AREAS: Constitutional: Vital signs per nursing GENERAL: Appears slightly uncomfortable HEAD: Normal with no signs of head trauma. EYES: EOMI, conjunctiva normal ENT: Hearing grossly intact LUNGS: Nonlabored breathing. HEART: [Regular rate and rhythm] ABD: [Soft], [nontender to palpation] RECTAL: Grossly brown stool which is hemoccult+ EXT: Normal range of motion SKIN: [No rashes or lesions.] NEURO: [Alert and oriented x 3. No gross focal sensory or strength deficits.] PSYCH: Normal affect Course Vital Signs Vital signs: Vital Signs Temperature 97.1 F L 11/01/24 02:05 Pulse Rate 74 01/14/24 02:05 Respiratory Rate 15 01/14/24 02:05 Blood Pressure 105/65 01/14/24 02:05 Pulse Oximetry 97 01/14/24 02:05 Oxygen Delivery Room Air 01/14/24 02:05 Temperature 97.1 F L 01/14/24 02:05 Pulse Rate 60 01/14/24 04:43 Respiratory Rate 15 01/14/24 04:43 Blood Pressure 140/94 H 01/14/24 04:43 Pulse Oximetry 97 01/14/24 04:44 Oxygen Delivery Nasal Cannula 01/14/24 04:44 Oxygen Flow Rate 2 01/14/24 04:44 MDM - GI Bleed MDM Narrative Medical decision making narrative: Patient presents with nausea, vomiting, abdominal pain, and blood in her stools, starting 2 days ago. She is overall well-appearing here, abdomen is soft without significant tenderness, on rectal exam there is brown stool with Hemoccult positive. She does also have in history of aneurysms I did obtain CT. Hemoglobin thankfully is stable. CT showing colitis. I discussed with patient and offered admission given her age internalize weakness, she would really like to be admitted, I feel this is quite reasonable, discussed with GI for agreeable to consulting on patient, and hospitalist agreeable to admission. Lab Data 01/14/24 02:16 01/14/24 02:16 Labs: Lab Results 01/14/24 01/14/24 Range/Units 02:16 07:13 WBC 10.5 H (4.5-10.0) K/mm3 RBC 4.39 (4.2-5.4) M/mm3 Hgb 12.7 (12.0-15.0) g/dL Hct 38.3 (37.0-47.0) % MCV 87.2 (80-100) fl MCH 28.9 (26-34) pg MCHC 33.2 (32-36) g/dl RDW 13.8 (11.5-14.5) % Plt Count 177 (150-375) k/mm3 MPV 9.7 (7.4-10.4) fl Immature Gran % (Auto) 0.2 (0-0.5) % Neut % (Auto) 74.7 H (45.5-73.1) % Lymph % (Auto) 14.7 L (18.3-44.2) % [place] % (Auto) 8.8 H (2.6-8.5) % Eos % (Auto) 1.2 (0-4.4) % Baso % (Auto) 0.4 (0.2-1.2) % Lymph # (Auto) 1.54 (0.9-3.2) K/mm3 [place] # (Auto) 0.9 H (0.1-0.6) K/mm3 Eos # (Auto) 0.1 (0-0.3) K/mm3 Baso # (Auto) 0.0 (0.0-0.1) K/mm3 Abs Immat Gran (auto) 0.02 (0.00-0.031) K/mm3 Absolute Neuts (auto) 7.9 H (1.3-6.7) K/mm3 Absolute Nucleated RBC 0.000 (0.0-0.012) K/mm3 Nucleated RBC % 0.0 (0.0-0.2) % PT 14.2 (11.1-14.7) Seconds INR 1.1 APTT 24.5 (22.3-36.8) Seconds Sodium 140 (137-145) mmol/L Potassium 4.0 (3.4-5.0) mmol/L Chloride 107 (98-107) mmol/L Carbon Dioxide 22 (22-30) mmol/L Anion Gap 11 (4-12) mmol/L BUN 26 H (7-17) mg/dL Creatinine 1.70 H (0.7-1.0) mg/dL Estim Creat Clear Calc 34 ml/min Estimated GFR 29 L (59 - ) Glucose 135 H (65-110) mg/dL Calcium 9.3 (8.4-10.2) mg/dL Total Bilirubin 0.9 (0.2-1.3) mg/dL AST 44 H (14-36) U/L ALT 30 (6-35) U/L Alkaline Phosphatase 148 H (38-126) U/L Total Protein 8.0 (6.3-8.2) g/dL Albumin 4.2 (3.5-5.1) g/dL Urine Color Pending Urine Appearance Pending Urine pH Pending Ur Specific [place] Pending Urine Protein Pending Urine Glucose (UA) Pending Urine Ketones Pending Ur Blood (Man) Pending Urine Nitrate Pending Urine Bilirubin Pending Urine Urobilinogen Pending Leukocyte Esterase Rfl Pending Blood Type A Positive Antibody Screen Positive Antibody Identification Anti-Mckeon A Antigen Identification Mckeon A Antigen - NEGATIVE BALTAZAR, IgG Interpret Neg BALTAZAR, Poly Interpret Not Performed BALTAZAR, Complement Interp Pending Discharge Plan Discharge Clinical Impression: Bright red rectal bleeding, Colitis, Generalized weakness Patient Disposition: Still a Patient Condition: Stable Prescriptions: No Action Entresto 24-26 mg tablet 0.5 tablet PO BID acetaminophen [Tylenol Extra Strength] 500 mg tablet 500 mg PO Q6H PRN (Reason: Pain) albuterol sulfate 90 mcg/actuation HFA aerosol inhaler 2 inh INHALATION Q4H PRN (Reason: Shortness Of Breath) Qty: 8.5 5RF oxybutynin chloride 5 mg tablet 5 mg PO DAILY Qty: 90 1RF atorvastatin 40 mg tablet 40 mg PO HS Qty: 90 1RF aspirin 81 mg Tablet,Delayed Release (Dr/Ec) 81 mg PO QAM Qty: 30 0RF doxycycline monohydrate 100 mg capsule 100 mg PO BID Qty: 14 0RF prednisone 10 mg tablet See Taper PO DAILY 15 Days Qty: 45 0RF Taper: Prednisone Taper from 50 mg;15 days 50 mg DAILY for 3 Days and 0 Hour 40 mg DAILY for 3 Days and 0 Hour 30 mg DAILY for 3 Days and 0 Hour 20 mg DAILY for 3 Days and 0 Hour 10 mg DAILY for 3 Days and 0 Hour albuterol sulfate 2.5 mg /3 mL (0.083 %) solution for nebulization See Rx Instructions .ROUTE .COMPLEX Qty: 180 3RF Dose Instruction: USE PER NEBULIZER ONE VIAL EVERY 4 TO 6 HOURS Rx Instructions: USE PER NEBULIZER ONE VIAL EVERY 4 TO 6 HOURS alprazolam 0.5 mg tablet 0.5 mg PO TID PRN (Reason: Anxiety) Qty: 90 1RF Follow-up/Referrals: Srinivas Chery APRN [Primary Care Provider] -
[2024-01-14 07:36] LABS: Add Urine Microscopic? YES; Appearance Urine Cloudy (Clear); Bacteria Urine 4+ /hpf; Bilirubin Urine Negative (Negative); Blood Urine Trace (Negative); Color Urine Yellow (Yellow); Glucose Urine UA Negative (Negative); Hyaline Casts Urine Present /lpf; Ketones Urine Trace mg/dL (Negative); Leukocyte Esterase Ur 2+ LEU/UL (Negative); Need Manual Microscopic Reviewed; Nitrate Urine Positive (Negative); Protein Urine 2+ mg/dL (Negative); Specific Grav Ur 1.014 (1.001-1.035); Squamous Epithelial Cell Urine Few /hpf (Few); Urobilinogen Urine 0.2 mg/dL (<2.0); WBC Clumps Urine Present /HPF; WBC Urine 51-100 /hpf (0-3); pH Urine 5.5 (5.0-9.0)
[2024-01-14] MEDS: PIPERACILLN/TAZ 3.375GM/NS50ML 3.375 GM/50 ML BAG IVPB (07:50)
--- NOTE | 2024-01-14 09:09 | PM.IMHP ---
H&P: HPI History of Present Illness Date/Time: 01/14/24 09:09 Chief Complaint: bright red blood in stool Narrative: Patient presented to the ER with blood in her stool since yesterday evening. She states that she has been nauseous for past few days and has not been eating well. She also reports some abdominal discomfort in periUmbilical area. She denies any fever chills. Review of Systems Review of Systems: - CONSTITUTIONAL: Denies weight loss, fever and chills. - HEENT: Denies changes in vision and hearing - RESPIRATORY: Denies SOB and cough. - CV: Denies palpitations and CP. - GI: Reports abdominal pain, nausea, vomiting and denies diarrhea. Reports blood in stool - : Denies dysuria and urinary frequency. - MSK: Denies myalgia and joint pain. - SKIN: Denies rash and pruritus. - NEUROLOGICAL: Denies headache and syncope. - PSYCHIATRIC: Denies recent changes in mood. Denies anxiety and depression. [facility] Past Medical History Medical History Anxiety Cardiac pacemaker Cardiac pacemaker in situ Change in bowel habits CHF (congestive heart failure), NYHA class II Cholecystectomy planned COPD (chronic obstructive pulmonary disease) COVID-19 Dilated cardiomyopathy Diverticulitis of sigmoid colon Encounter for blood transfusion Essential hypertension Family hx of colon cancer GERD (gastroesophageal reflux disease) History of atrial fibrillation History of ischemic colitis Hyperlipidemia Overactive bladder Rectal bleeding Syncope and collapse Vitamin D deficiency Surgical History Surgical History H/O cataract extraction H/O colonoscopy H/O dilation and curettage H/O hysterectomy with oophorectomy H/O rectal polypectomy History of appendectomy History of pancreatic surgery History of removal of pigmented skin lesion Hx of brain surgery Meningioma removal in 2014 Hx of cholecystectomy Hx of tonsillectomy Presence of biventricular AICD S/P cholecystectomy Family History Family History (Updated 01/14/24 @ 09:16 by Verena Umana RN) Father Diabetes mellitus Family history of lymphoma Sibling Breast cancer Family history of malignant neoplasm of breast in first degree relative Carcinoma of colon Diabetes mellitus Mother Aplastic anemia Son Thyroid cancer Other Family history of malignant neoplasm of thyroid Social History Social History Social History: Mrs. Mitchell's on 10/13/21. She has 5 sons. 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 She is a former 1 PPD smoker for at least 50 years. She denies illicit substance and alcohol use. She wishes for her code status to be DNR and she has designated her sons, Jan Moran and Handy Mitchell, as her designated surrogate decision maker. Her son Handy lives with her and helps to take care of her. Code status DNR Smoking packs per day: 2 Smoking cigarettes per day: 40.0 Years smoked: 60 Smoking pack-years: 120.00 Smoking status: Never smoker Tobacco type: cigarettes Second hand tobacco smoke exposure: No Smoking end date: 03/15/14 Alcohol intake: never Substance use: never Substance use type: does not use Do You Feel Safe in your Home?: Yes Lack of Transportation: No Lack of Food: Never True Current Housing: I Have Housing Concerned About Future Housing: No Difficulty Paying Gas/Electric Bills: No Difficulty Paying for Meds: No Currently Unemployed: No Education: Associate Degree Difficulty w/ Childcare or Family Care: No Living arrangements: with family Occupation/Education: retired Gender identity (if verbalized by the patient): Female Spiritual care concerns: No Meds Home Medications and Allergies Home Medications Medication Instructions Recorded Confirmed Type sacubitril 24 mg-valsartan 26 mg 0.5 tablet PO BID 09/10/20 01/14/24 History tablet (Entresto) aspirin 81 mg tablet,delayed 81 mg PO QAM #30 tabs 12/08/21 01/14/24 Rx release acetaminophen 500 mg tablet 500 mg PO Q6H PRN Pain 12/15/22 01/14/24 History (Tylenol Extra Strength) albuterol sulfate 2.5 mg/3 mL See Rx Instructions .Route 06/01/23 01/14/24 Rx (0.083 %) solution for nebulization .COMPLEX #180 mL alprazolam 0.5 mg tablet 0.5 mg PO TID PRN Anxiety #90 tabs 08/17/23 01/14/24 Rx albuterol sulfate 90 mcg/actuation 2 inh inhalation Q4H PRN Shortness 08/27/23 01/14/24 Rx aerosol inhaler Of Breath #8.5 grams atorvastatin 40 mg tablet 40 mg PO HS #90 tabs 08/27/23 01/14/24 Rx oxybutynin chloride 5 mg tablet 5 mg PO DAILY #90 tabs 08/27/23 01/14/24 Rx Allergies Allergy/AdvReac Type Severity Reaction Status Date / Time adhesive Allergy Mild Rash Verified 09/17/23 15:22 cat dander Allergy Mild Sneezing Verified 09/17/23 15:22 codeine Allergy Mild HIVES AND Verified 09/17/23 15:22 ITCHING Sulfa (Sulfonamide Allergy Mild HIVES Verified 09/17/23 15:22 Antibiotics) sulfanilamide Allergy Mild Hives Verified 09/17/23 15:22 tramadol AdvReac Hallucinati Verified 09/17/23 15:22 ng Vital Signs Vital Signs - 24 hr 01/14/24 02:05 01/14/24 04:43 01/14/24 04:44 Temperature 97.1 F L Pulse Rate 74 60 Respiratory Rate 15 15 Blood Pressure 105/65 140/94 H Pulse Oximetry 97 97 97 Oxygen Delivery Room Air Nasal Cannula Oxygen Flow Rate 2 01/14/24 08:25 01/14/24 07:00 01/14/24 07:45 Temperature Pulse Rate 60 60 60 Respiratory Rate 16 16 16 Blood Pressure 130/87 129/68 145/75 H Pulse Oximetry 99 97 99 Oxygen Delivery Oxygen Flow Rate Exam Narrative: GENERAL: The patient is well developed, not in acute distress HEENT: Nonicteric sclerae, PERRLA, EOMI. Oropharynx clear. Moist mucous membranes. Conjunctivae appear well perfused. CHEST: Chest wall is nontender. HEART: Regular rate and rhythm without murmur, rubs, or gallops LUNGS: Clear to auscultation bilaterally. no respiratory distress ABDOMEN: Soft, positive bowel sounds, mild tenderness in periumbilical area, no organomegaly. SKIN: No rash, no excessive bruising, petechiae, or purpura. NEUROLOGIC: Cranial nerves II-XII intact, alert and oriented x 3, no gross motor deficits EXTREMITIES: no edema, cyanosis or clubbing H&P: Results Labs Labs: Short CBC 01/14/24 Range/Units 02:16 WBC 10.5 H (4.5-10.0) K/mm3 Hgb 12.7 (12.0-15.0) g/dL Hct 38.3 (37.0-47.0) % Plt Count 177 (150-375) k/mm3 BMP 01/14/24 02:16 Sodium 140 Potassium 4.0 Chloride 107 Carbon Dioxide 22 BUN 26 H Creatinine 1.70 H Glucose 135 H Calcium 9.3 Liver Function 01/14/24 Range/Units 02:16 Total Bilirubin 0.9 (0.2-1.3) mg/dL AST 44 H (14-36) U/L ALT 30 (6-35) U/L Alkaline Phosphatase 148 H (38-126) U/L Albumin 4.2 (3.5-5.1) g/dL Urine 01/14/24 Range/Units 07:13 Urine Color Yellow (Yellow) Urine Appearance Cloudy H (Clear) Urine pH 5.5 (5.0-9.0) Ur Specific [place] 1.014 (1.001-1.035) Urine Protein 2+ H (Negative) mg/dL Urine Glucose (UA) Negative (Negative) mg/dL Assessment and Plan Assessment and plan (1) Bright red rectal bleeding: Code(s): K62.5 - Hemorrhage of anus and rectum Status: Acute (2) Colitis: Code(s): K52.9 - Noninfective gastroenteritis and colitis, unspecified Status: Acute (3) CHF (congestive heart failure), NYHA class II: Code(s): I50.9 - Heart failure, unspecified Status: Acute (4) Presence of biventricular AICD: Code(s): Z95.810 - Presence of automatic (implantable) cardiac defibrillator Status: Acute (5) CKD (chronic kidney disease), stage III: Code(s): N18.30 - Chronic kidney disease, stage 3 unspecified Status: Acute (6) Chronic back pain: Code(s): M54.9 - Dorsalgia, unspecified; G89.29 - Other chronic pain Status: Acute (7) CHRISTINE (obstructive sleep apnea): Code(s): G47.33 - Obstructive sleep apnea (adult) (pediatric) Status: Acute (8) Meningioma: Code(s): D32.9 - Benign neoplasm of meninges, unspecified Status: Acute (9) Dilated cardiomyopathy: Code(s): I42.0 - Dilated cardiomyopathy Status: Acute (10) Chronic obstructive pulmonary disease, unspecified: Code(s): J44.9 - Chronic obstructive pulmonary disease, unspecified Status: Acute (11) Benign essential hypertension: Code(s): I10 - Essential (primary) hypertension Status: Chronic (12) GERD (gastroesophageal reflux disease): Code(s): K21.9 - Gastro-esophageal reflux disease without esophagitis Status: Chronic (13) Hyperlipidemia: Qualifiers: Hyperlipidemia type: unspecified Qualified Code(s): E78.5 - Hyperlipidemia, unspecified Code(s): E78.5 - Hyperlipidemia, unspecified Status: Chronic (14) Anxiety: Code(s): F41.9 - Anxiety disorder, unspecified Status: Acute Plan This is a 78-year-old female who presented with nausea vomiting abdominal pain and blood in her stool started 2 days ago. On ED arrival her vitals were stable. Laboratory evaluation showed WBC 10.5 hemoglobin 12.7 came panel unremarkable except creatinine 1.7.Urinalysis suggestive of UTI. CTA abdomen pelvis was performed which showed probable mild colitis at the mid descending colon no CT angiographic evidence of active GI bleed. Diffuse hepatic steatosis and minimal pericardial fluid. Colitis: Zosyn started. GI has been consulted infectious versus ischemic. Patient received some IV fluid looks hydrated currently. Will continue to monitor. Does have history of congestive heart failure so will avoid further fluid resuscitation UTI: On IV Zosyn follow urine culture Lower GI bleed diverticular versus hemorrhoidal versus colitis related ischemic versus infectious. H&H stable monitor H&H. AICD in situ For significant bradyarrhythmia in 2014 Coronary artery disease mild nonobstructive Congestive heart failure chronic diastolic /systolic history of severe LV systolic dysfunction EF 25% 2017. Status post biventricular ICD placement in 2017 follow-up echo with normalization of LV systolic function. due to DNR status her tachycardia has been started off. Ascending aortic aneurysm 4.8 cm 2017 Hypertension Hyperlipidemia History of ischemic colitis GERD Overactive bladder Chronic kidney disease stage 3 At baseline creatinine hypertension DVT prophylaxis: SCD Code status Do not resuscitate Hospitalist MIPS Advance Care Plan I have confirmed that the patient's Advanced Care Plan is present, code status is documented, or surrogate decision maker is listed in patient medical record.: Yes Medication Reconciliation I have utilized all available resources to obtain, update and review the patients current medications (includes all prescriptions, OTC, herbals, cannabis, and nutritional supplements).: Yes
--- NOTE | 2024-01-14 10:27 | P.CONGI_ITS ---
I, Nathaniel Marques MD, have provided a substantive portion of the care of this patient and discussed the patient with my Nurse Practitioner. I have reviewed any new relevant radiographic and laboratory results including medications. I agree with her documentation as noted below.?I personally performed the medical decision making and much of the history and exam for this encounter. briefly, here with new onset of bloody loose stools x5 yesterday, llq pain with nausea. She came here, CT scan showed mild descending colitis. She had colonoscopy last year with polyp and diverticulosis. Possible infectious or even ischemic but normal BP and feeling better, will check lactic acid, wbc 10k, creat 1.7 but baseline. Iv abx, tolerating diet. will monitor. No need of c olonoscopy Assessment and Plan Assessment and plan (1) Bright red rectal bleeding: Code(s): K62.5 - Hemorrhage of anus and rectum Status: Acute (2) Colitis: Code(s): K52.9 - Noninfective gastroenteritis and colitis, unspecified Status: Acute (3) History of ischemic colitis: Code(s): Z87.19 - Personal history of other diseases of the digestive system Status: Acute (4) Change in bowel habits: Code(s): R19.4 - Change in bowel habit Status: Acute (5) Chronic constipation: Code(s): K59.09 - Other constipation Status: Acute (6) Lower abdominal pain: Code(s): R10.30 - Lower abdominal pain, unspecified Status: Acute Plan 1. Rectal bleeding/bilateral lower abdominal pain/colitis/chronic constipation: Last colonoscopy on 07/20/2022 showed diverticulosis, internal hemorrhoids with stigmata of recent bleeding, and tubular adenoma on pathology. Recent CTA showed probable mild colitis in the descending colon. She has a history of diverticulitis and ischemic colitis. She reports chronic constipation. Admits to crampy lower abdominal pain that is worse before bowel movements and improves afterwards, which has been occurring for a few months. Yesterday around 3:00 p.m. she started to experience a moderate amount of bright red blood per rectum and per patient she had 5-6 episodes of this prior to admission. Patient states that the stools were loose but not liquid She denies any bowel movement or rectal bleeding since admission. No signs of active GI bleeding. Patient was last seen in the GI office 06/10/2022 and was noted to have weak anal sphincter tone. Patient has tried Miralax and and stool softeners but nothing on a consistent basis and has never tried any prescription medications. DDX: Diverticular bleed vs hemorrhoidal bleed vs ischemic colitis vs acute infectious/inflammatory colitis. * Will check stool studies. If diarrhea increases will check C-diff but she is currently now having liquid stools * continue antibiotics * monitor for further rectal bleeding * continue to monitor H&H Thank you very much for allowing me to share in the care of this very nice patient. This report may have been done utilizing a voice recognition system. Attempts have been made to correct errors. However, there may be uncorrected grammatical, spelling, and recognition errors present. GI Consult Note Consult date/time: 01/14/24 10:27 Reason for consult: Lower GI bleed HPI: This is a pleasant 78 year old female with a past medical surgical history of a nxiety, pacemaker, CHF, COPD, dilated cardiomyopathy, history of diverticulitis, HTN, family history of colon cancer, GERD, AFib, history of ischemic colitis, HLD, hysterectomy, appendectomy, Hx of brain surgery, history of pancreatic surgery, and cholecystectomy she presented to the ER room 01/14/2024 with complaints of rectal bleeding, nausea, and abdominal discomfort. GI consulted for rectal bleeding, nausea, and abdominal discomfort. She reports having 5-6 loose bowel movements yesterday starting around 3 PM with a moderate amount of blood noted on wiping. She has been having crampy lower abdominal pain that comes and goes, worse before bowel movements and improved afterwards. This pain has been ongoing for a couple months and she describes a burning sensation in her abdomen that radiates to her back at times. She has had some nausea, worse yesterday to the point that she was unable to eat anything all day, but denies any vomiting. Her appetite has been poor lately. Admits to recent diet changes as she has been trying to lose weight. She reports chronic constipation, going up to 2 weeks without a bowel movement at times. She has tried Metamucil and stool softeners in the past without much relief. She has to strain significantly with bowel movements and feels incomplete evacuation. She denies any abdominal bloating, odynophagia, dysphagia, reflux, regurgitation, early satiety, or melena. She takes a daily baby aspirin but denies any other NSAIDs or blood thinners. She does not drink alcohol or smoke currently but has a history of smoking. She denies any family history of GI cancers. ENDOSCOPY HISTORY: EGD: More than 10 years ago COLONOSCOPY: 07/20/2022 (Dr. Mathew) rectal bleeding, family history of colon cancer, diverticulitis, and constipation Findings: There were two 2 mm sessile polyps observed in the ascending colon. There was no bleeding. The appearance seemed benign in nature. Multiple hot snare polypectomies were performed. The polyps were completely excised and retrieved. There was a single medium sessile polyp observed in the transverse colon. There was no bleeding. The appearance seemed benign in nature. A hot snare polypectomy was performed. The polyp was completely excised and retrieved. Multiple medium diverticula were present in the sigmoid colon. The diverticula were not actively bleeding. Multiple medium-sized uncomplicated internal hemorrhoids were seen in the rectum. There was stigmata of bleeding from the hemorrhoids 5 year repeat colonoscopy recommended a general health allows Bx results: Large intestine, ascending colon polyps, polypectomy (A): - Tubular adenoma Large intestine, transverse colon polyp, polypectomy (B): - Tubular adenoma COLONOSCOPY: 10/05/2016 (Dr. Mathew) Findings: Colitis Diverticulosis without perforation or abscess without bleeding Internal hemorrhoids Bx results: Descending colon, endoscopic biopsy: Acute colitis with benign acute ulcer consistent with ischemic colitis LABS AND STOOL STUDIES: Labs 01/14/2024 showed sodium 140, potassium 4.0, BUN 26, creatinine 1.70, GFR 29. WBCs 11, HGB 13, HCT 38, MCV 87, platelets 177, INR 1.1. Total bilirubin 0.9, AST 44, ALT 30, alkaline phosphatase 148, albumin 4.2, calcium 9.3 IMAGING: CTA abd/pelvis w/contrast 01/14/2024 Impression: Probable mild colitis at the mid descending colon. No CT angiographic evidence of active GI bleeding. Diffuse hepatic steatosis. Minimal pericardial fluid CT abd/pelvis 05/28/2022 Impression: Mild acute diverticulitis of the proximal sigmoid colon. No abscess or free air. 2.5 cm cystic mass just right of midline in the perineum, as noted above. Bartholin's duct cyst is a likely consideration. 1 cm partially enhancing lesion in the liver, possibly small hemangioma. This is stable at least dating back to 12/05/2021. Review of Systems Constitutional: Constitutional: Reports as per HPI and Reports weakness ENT: Reports as per HPI Cardiovascular: Cardiovascular: Reports as per HPI, Denies chest pain, Denies leg edema, Denies palpitations and Denies dyspnea Respiratory: Respiratory: Denies cough, Denies hemoptysis and Denies dyspnea Gastrointestinal: Gastrointestinal: Reports as per HPI Genitourinary: Genitourinary: Reports no additional female genitourinary complaints Musculoskeletal: Musculoskeletal: Reports as per HPI Integumentary/Breasts: Skin/Breast: Reports as per HPI Psychiatric: Psychiatric: Reports as per HPI Endocrine: Endocrine: Reports no additional endocrine complaints Hematologic/Lymphatic: Hematologic/Lymphatic: Reports no additional hematologic/lymphatic complaints [facility] Past Medical History Medical History Anxiety Cardiac pacemaker Cardiac pacemaker in situ Change in bowel habits CHF (congestive heart failure), NYHA class II Cholecystectomy planned COPD (chronic obstructive pulmonary disease) COVID-19 Dilated cardiomyopathy Diverticulitis of sigmoid colon Encounter for blood transfusion Essential hypertension Family hx of colon cancer GERD (gastroesophageal reflux disease) History of atrial fibrillation History of ischemic colitis Hyperlipidemia Overactive bladder Rectal bleeding Syncope and collapse Vitamin D deficiency Surgical History Surgical History H/O cataract extraction H/O colonoscopy H/O dilation and curettage H/O hysterectomy with oophorectomy H/O rectal polypectomy History of appendectomy History of pancreatic surgery History of removal of pigmented skin lesion Hx of brain surgery Meningioma removal in 2014 Hx of cholecystectomy Hx of tonsillectomy Presence of biventricular AICD S/P cholecystectomy Family History Family History (Updated 01/14/24 @ 09:16 by Verena Umana RN) Father Diabetes mellitus Family history of lymphoma Sibling Breast cancer Family history of malignant neoplasm of breast in first degree relative Carcinoma of colon Diabetes mellitus Mother Aplastic anemia Son Thyroid cancer Other Family history of malignant neoplasm of thyroid Social History Social History (Reviewed 09/17/23 @ 17:25 by GERRI Hernandez Social History: Mrs. Mitchell's on 10/13/21. She has 5 sons. 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 She is a former 1 PPD smoker for at least 50 years. She denies illicit substance and alcohol use. She wishes for her code status to be DNR and she has designated her sons, Jan Moran and Handy Mitchell, as her designated surrogate decision maker. Her son Handy lives with her and helps to take care of her. Code status DNR Smoking packs per day: 2 Smoking cigarettes per day: 40.0 Years smoked: 60 Smoking pack-years: 120.00 Smoking status: Never smoker Tobacco type: cigarettes Second hand tobacco smoke exposure: No Smoking end date: 03/15/14 Alcohol intake: never Substance use: never Substance use type: does not use Do You Feel Safe in your Home?: Yes Lack of Transportation: No Lack of Food: Never True Current Housing: I Have Housing Concerned About Future Housing: No Difficulty Paying Gas/Electric Bills: No Difficulty Paying for Meds: No Currently Unemployed: No Education: Associate Degree Difficulty w/ Childcare or Family Care: No Living arrangements: with family Occupation/Education: retired Gender identity (if verbalized by the patient): Female Spiritual care concerns: No Meds Home Medications and Allergies Home Medications Medication Instructions Recorded Confirmed Type sacubitril 24 mg-valsartan 26 mg 0.5 tablet PO BID 09/10/20 01/14/24 History tablet (Entresto) aspirin 81 mg tablet,delayed 81 mg PO QAM #30 tabs 12/08/21 01/14/24 Rx release acetaminophen 500 mg tablet 500 mg PO Q6H PRN Pain 12/15/22 01/14/24 History (Tylenol Extra Strength) albuterol sulfate 2.5 mg/3 mL See Rx Instructions .Route 06/01/23 01/14/24 Rx (0.083 %) solution for nebulization .COMPLEX #180 mL alprazolam 0.5 mg tablet 0.5 mg PO TID PRN Anxiety #90 tabs 08/17/23 01/14/24 Rx albuterol sulfate 90 mcg/actuation 2 inh inhalation Q4H PRN Shortness 08/27/23 01/14/24 Rx aerosol inhaler Of Breath #8.5 grams atorvastatin 40 mg tablet 40 mg PO HS #90 tabs 08/27/23 01/14/24 Rx oxybutynin chloride 5 mg tablet 5 mg PO DAILY #90 tabs 08/27/23 01/14/24 Rx Allergies Allergy/AdvReac Type Severity Reaction Status Date / Time adhesive Allergy Mild Rash Verified 09/17/23 15:22 cat dander Allergy Mild Sneezing Verified 09/17/23 15:22 codeine Allergy Mild HIVES AND Verified 09/17/23 15:22 ITCHING Sulfa (Sulfonamide Allergy Mild HIVES Verified 09/17/23 15:22 Antibiotics) sulfanilamide Allergy Mild Hives Verified 09/17/23 15:22 tramadol AdvReac Hallucinati Verified 09/17/23 15:22 ng Vital Signs Vital Signs - 24 hr 01/14/24 02:05 01/14/24 04:43 01/14/24 04:44 Temperature 97.1 F L Pulse Rate 74 60 Respiratory Rate 15 15 Blood Pressure 105/65 140/94 H Pulse Oximetry 97 97 97 Oxygen Delivery Room Air Nasal Cannula Oxygen Flow Rate 2 01/14/24 08:25 01/14/24 07:00 01/14/24 07:45 Temperature Pulse Rate 60 60 60 Respiratory Rate 16 16 16 Blood Pressure 130/87 129/68 145/75 H Pulse Oximetry 99 97 99 Oxygen Delivery Oxygen Flow Rate Exam Const: General: cooperative, healthy appearing, comfortable, no acute distress and well developed Orientation/consciousness: oriented to person, oriented to place, oriented to time and patient oriented x3 HENMT: Head: normal to inspection, normocephalic and atraumatic Mouth: Yes Normal oral and palatal mucosa present and Yes moist mucous membranes Eyes: General: appearance normal, both eyes and all related structures Conjunctivae: conjunctivae normal Sclera: sclerae normal Pupils: Equal, round and reactive pupils present Neck: Neck: normal visual inspection Chest: Chest palpation & inspection: normal inspection of the chest Resp: Effort & Inspection: normal respiratory effort and able to speak in com plete sentences Auscultation: clear to auscultation bilaterally Cardio: Jugular venous distension: no JVD Rate: regular rate Rhythm: regular rhythm Heart sounds: S1 normal heart sound present and S2 normal heart sound present GI: Inspection: normal to inspection GI Palp: Yes Soft to palpation, No Tenderness to palpation present (GI), No Guarding due to palpation present (GI) and Yes No hepatosplenomegaly present Auscultation: normal bowel sounds Rectal Exam: deferred Skin: General skin exam: normal color and no rashes or lesions noted Neuro: General: oriented to person, oriented to place, oriented to time and patient oriented x3 Cranial nerves: Yes Equal, round and reactive pupils present Speech: normal speech Extrem: General: normal to inspection and no clubbing, cyanosis or edema Psych: Appearance: grossly normal and well kempt Affect: normal affect Results Labs 01/14/24 02:16 01/14/24 02:16 Labs: Short CBC 01/14/24 Range/Units 02:16 WBC 10.5 H (4.5-10.0) K/mm3 Hgb 12.7 (12.0-15.0) g/dL Hct 38.3 (37.0-47.0) % Plt Count 177 (150-375) k/mm3 BMP 01/14/24 02:16 Sodium 140 Potassium 4.0 Chloride 107 Carbon Dioxide 22 BUN 26 H Creatinine 1.70 H Glucose 135 H Calcium 9.3 Liver Function 01/14/24 Range/Units 02:16 Total Bilirubin 0.9 (0.2-1.3) mg/dL AST 44 H (14-36) U/L ALT 30 (6-35) U/L Alkaline Phosphatase 148 H (38-126) U/L Albumin 4.2 (3.5-5.1) g/dL Urine 01/14/24 Range/Units 07:13 Urine Color Yellow (Yellow) Urine Appearance Cloudy H (Clear) Urine pH 5.5 (5.0-9.0) Ur Specific [place] 1.014 (1.001-1.035) Urine Protein 2+ H (Negative) mg/dL Urine Glucose (UA) Negative (Negative) mg/dL
[2024-01-14] MEDS: PIPERACILLIN/TAZ 2.25G/NS 50ML 2.25 GM/50 ML BAG IVPB ×3 (13:00→23:09)
--- NOTE | 2024-01-14 19:49 | ADMGEN ---
This patient, Shahida Mitchell, was admitted to [facility] S[facility] Room 331-01. Patient/family oriented to hospital policies and general routines including ID bracelet, bed and alarms, visiting hours, pain management, procedures, bathroom and other care routines, personal items, smoking policy, room service/diet, and visiting hours. Information on how to activate the Rapid Response Team has been discussed. Patient/Family are encouraged to report perceived risks to care and to ask questions if they do not understand what they are told or what they should do.
[2024-01-14] MEDS: ATORVASTATIN 40 MG TABLET PO (20:29)
[2024-01-14] MEDS: SACUBITRIL/VALSARTAN 12-13 MG TABLET 1 TAB PO (20:29)
[2024-01-14] MEDS: ALPRAZolam (*CRX) 0.5 MG TABLET PO (20:31)
[2024-01-15] MEDS: PIPERACILLIN/TAZ 2.25G/NS 50ML 2.25 GM/50 ML BAG IVPB ×3 (05:56→18:40)
[2024-01-15 06:00] VITALS: BP 148/82; PULSE 63; RESP 18; TEMP 36.2; O2SAT 95
[2024-01-15 07:34] LABS: Basophils Percent Auto 0.5 % (0.2-1.2); Eosinophils Absolute Auto 0.2 K/mm3 (0-0.3); Eosinophils Percent Auto 2.1 % (0-4.4); Hematocrit 36.9 % (37.0-47.0); Hemoglobin 11.5 g/dL (12.0-15.0); Immature Granulocyte Absolute 0.04 K/mm3 (0.00-0.031); Immature Granulocyte Percent A 0.5 % (0-0.5); Lymphocytes Absolute Auto 1.59 K/mm3 (0.9-3.2); Lymphocytes Percent Auto 21.1 % (18.3-44.2); Mean Corpuscular HGB Conc 31.2 g/dl (32-36); Mean Corpuscular Hemoglobin 28.3 pg (26-34); Mean Corpuscular Volume 90.7 fl (80-100); Mean Platelet Volume 9.7 fl (7.4-10.4); Monocytes Absolute Auto 0.7 K/mm3 (0.1-0.6); Monocytes Percent Auto 8.9 % (2.6-8.5); Neutrophils Percent Auto 66.9 % (45.5-73.1); Platelet Count Result 156 k/mm3 (150-375); Red Blood Count 4.07 M/mm3 (4.2-5.4); Red Cell Distribution Width 13.9 % (11.5-14.5); White Blood Count 7.5 K/mm3 (4.5-10.0)
[2024-01-15 07:41] LABS: Lactic Acid Reflex 0.8 mmol/L (0.7-2.0)
[2024-01-15 07:54] LABS: Alanine Aminotransferase 26 U/L (6-35); Alkaline Phosphatase 122 U/L (38-126); Anion Gap 9 mmol/L (4-12); Aspartate Amino Transferase 37 U/L (14-36); Bilirubin,Total 0.7 mg/dL (0.2-1.3); Blood Urea Nitrogen 24 mg/dL (7-17); Carbon Dioxide 26 mmol/L (22-30); Chloride 106 mmol/L (98-107); Estimated CRCL calculation 39 ml/min; Estimated Glomerular Filt Rate 36; Glucose 107 mg/dL (65-110); Magnesium 2.3 mg/dL (1.6-2.3); Potassium 4.7 mmol/L (3.4-5.0); Sodium 141 mmol/L (137-145)
[2024-01-15 07:56] VITALS: O2SAT 95
--- NOTE | 2024-01-15 09:45 | WPDGIPROGNO ---
Progress Note: A&P Assessment and Plan (1) Colitis: Code(s): K52.9 - Noninfective gastroenteritis and colitis, unspecified Status: Acute Assessment and Plan: clinically much better home soon with oral abx no need to repeat colonoscopy (2) Bright red rectal bleeding: Code(s): K62.5 - Hemorrhage of anus and rectum Status: Acute Assessment and Plan: almost resolved (3) Lower abdominal pain: Code(s): R10.30 - Lower abdominal pain, unspecified Status: Acute Assessment and Plan: better (4) CKD (chronic kidney disease), stage III: Code(s): N18.30 - Chronic kidney disease, stage 3 unspecified Status: Acute (5) Nausea and vomiting: Code(s): R11.2 - Nausea with vomiting, unspecified Status: Acute Subjective Date/time seen: 01/15/24 09:45 Interval history: pain has improved, tolerating diet, no more blood in stools Review of Systems Review of Systems: All systems reviewed & are unremarkable except as noted in HPI and below Exam Const: General: cooperative, healthy appearing, comfortable, no acute distress and well developed Orientation/consciousness: patient oriented x3 HENMT: Head: normal to inspection, normocephalic and atraumatic Eyes: General: appearance normal, both eyes and all related structures Neck: Neck: normal visual inspection Chest: Chest palpation & inspection: normal inspection of the chest Resp: Effort & Inspection: normal respiratory effort and able to speak in complete sentences Auscultation: clear to auscultation bilaterally Cardio: Rate: regular rate Rhythm: regular rhythm GI: Inspection: normal to inspection GI Palp: Yes Soft to palpation, No Tenderness to palpation present (GI) and No Guarding due to palpation present (GI) Auscultation: normal bowel sounds Skin: General skin exam: normal color and no rashes or lesions noted Neuro: General: patient oriented x3 Cranial nerves: Yes Equal, round and reactive pupils present Speech: normal speech Extrem: General: normal to inspection Psych: Appearance: grossly normal and well kempt Affect: normal affect Objective Data Vital Signs Vital Signs: Vital Signs - 24 hr 01/14/24 14:00 01/14/24 14:13 01/14/24 20:27 Temperature 96.8 F L 97.3 F L Pulse Rate 60 64 Respiratory Rate 18 16 Blood Pressure 104/49 L 103/54 L Pulse Oximetry 94 94 97 Oxygen Delivery Nasal Cannula Oxygen Flow Rate 2 Fraction of Inspired Oxygen 01/14/24 20:00 01/15/24 06:00 01/15/24 07:56 Temperature 97.1 F L Pulse Rate 63 Respiratory Rate 18 Blood Pressure 148/82 H Pulse Oximetry 95 95 Oxygen Delivery Room Air Room Air Oxygen Flow Rate Fraction of Inspired Oxygen 21 Intake/Output Intake/Output: Intake & Output 01/12/24 01/13/24 01/14/24 01/15/24 23:59 23:59 23:59 23:59 Intake Total 1480 550 Balance 1480 550 Meds/Results Medications: Active Medications Generic Name Dose Route Start Last Admin Trade Name Freq PRN Reason Stop Dose Admin Acetaminophen 500 mg 01/14/24 12:25 Acetaminophen 500 Mg Tablet PO Q6H PRN Pain Rated 1-3 Albuterol 2.5 mg 01/14/24 12:25 Albuterol Sulfate Neb 2.5 Mg/3 Ml Inh NEBULIZE Q4-6H PRN Shortness Of Breath Albuterol 2 puff 01/14/24 12:25 Albuterol Sulfate (*Sp) Aerosol 1 Puff INHALATION Q4H PRN Shortness Of Breath Alprazolam 0.5 mg 01/14/24 12:25 01/14/24 20:31 Alprazolam (*Crx) 0.5 Mg Tablet PO 0.5 mg TID PRN Administration Anxiety Aspirin 81 mg 01/15/24 09:00 Aspirin 81 Mg Enteric Tablet PO QAM VITALIY Atorvastatin Calcium 40 mg 01/14/24 21:00 01/14/24 20:29 Atorvastatin 40 Mg Tablet PO 40 mg HS VITALIY Administration Piperacillin Sod/Tazobactam Sod 2.25 gm in 50 mls @ 100 mls/hr 01/14/24 13:00 01/15/24 05:56 Zosyn 2.25 Gm/Ns 50 Ml IVPB 100 mls/hr Q6HR VITALIY Administration Miscellaneous Information 0 each 01/14/24 00:01 01/14/24 23:10 Albuterol - Nebs And Inhaler Ordered Prn For Shortness Of Breath - Are The Nebs Supposed T XX 02/13/24 00:00 Not Given CLARIFY VITALIY Oxybutynin Chloride 5 mg 01/15/24 09:00 Oxybutynin Chloride 5 Mg Tablet PO DAILY VITALIY Sacubitril/Valsartan 1 tab 01/14/24 21:00 01/14/24 20:29 Sacubitril/Valsartan 12-13 Mg Tablet PO 1 tab Q12HR VITALIY Administration Radiology Results: ITS Impressions Abdomen/Pelvis CTA 01/14/24 06:29 Impression: Probable mild colitis at the mid descending colon. No CT angiographic evidence of active GI bleeding. Diffuse hepatic steatosis. Minimal pericardial fluid. Labs Labs: Laboratory Results - last 24 hr 01/14/24 01/15/24 02:16 07:22 WBC 7.5 RBC 4.07 L Hgb 11.5 L Hct 36.9 L MCV 90.7 MCH 28.3 MCHC 31.2 L RDW 13.9 Plt Count 156 MPV 9.7 Immature Gran % (Auto) 0.5 Neut % (Auto) 66.9 Lymph % (Auto) 21.1 Gilliam % (Auto) 8.9 H Eos % (Auto) 2.1 Baso % (Auto) 0.5 Lymph # (Auto) 1.59 Gilliam # (Auto) 0.7 H Eos # (Auto) 0.2 Baso # (Auto) 0.0 Abs Immat Gran (auto) 0.04 H Absolute Neuts (auto) 5.0 Absolute Nucleated RBC 0.000 Nucleated RBC % 0.0 Sodium 141 Potassium 4.7 Chloride 106 Carbon Dioxide 26 Anion Gap 9 BUN 24 H Creatinine 1.40 H Estim Creat Clear Calc 39 Estimated GFR 36 L Glucose 107 Lactic Acid 0.8 Calcium 9.0 Magnesium 2.3 Total Bilirubin 0.7 AST 37 H ALT 26 Alkaline Phosphatase 122 Total Protein 7.0 Albumin 4.0 Blood Type A Positive Antibody Screen Positive Antibody Identification Anti-Mckeon A Antigen Identification Mckeon A Antigen - NEGATIVE BALTAZAR, IgG Interpret Neg BALTAZAR, Complement Interp Negative Enhanced Crossmatch See Detail
[2024-01-15] MEDS: SACUBITRIL/VALSARTAN 12-13 MG TABLET 1 TAB PO ×2 (09:59→20:27)
[2024-01-15] MEDS: oxyBUTYnin CHLORIDE 5 MG TABLET PO (09:59)
[2024-01-15] MEDS: ASPIRIN 81 MG ENTERIC TABLET PO (10:00)
--- NOTE | 2024-01-15 12:11 | PM.IMPN ---
Progress Note: A&P Assessment and Plan (1) Bright red rectal bleeding: Code(s): K62.5 - Hemorrhage of anus and rectum Status: Acute (2) Colitis: Code(s): K52.9 - Noninfective gastroenteritis and colitis, unspecified Status: Acute (3) CHF (congestive heart failure), NYHA class II: Code(s): I50.9 - Heart failure, unspecified Status: Acute (4) Presence of biventricular AICD: Code(s): Z95.810 - Presence of automatic (implantable) cardiac defibrillator Status: Acute (5) CKD (chronic kidney disease), stage III: Code(s): N18.30 - Chronic kidney disease, stage 3 unspecified Status: Acute (6) Chronic back pain: Code(s): M54.9 - Dorsalgia, unspecified; G89.29 - Other chronic pain Status: Acute (7) CHRISTINE (obstructive sleep apnea): Code(s): G47.33 - Obstructive sleep apnea (adult) (pediatric) Status: Acute (8) Meningioma: Code(s): D32.9 - Benign neoplasm of meninges, unspecified Status: Acute (9) Dilated cardiomyopathy: Code(s): I42.0 - Dilated cardiomyopathy Status: Acute (10) Chronic obstructive pulmonary disease, unspecified: Code(s): J44.9 - Chronic obstructive pulmonary disease, unspecified Status: Acute (11) Benign essential hypertension: Code(s): I10 - Essential (primary) hypertension Status: Chronic (12) GERD (gastroesophageal reflux disease): Code(s): K21.9 - Gastro-esophageal reflux disease without esophagitis Status: Chronic (13) Hyperlipidemia: Qualifiers: Hyperlipidemia type: unspecified Qualified Code(s): E78.5 - Hyperlipidemia, unspecified Code(s): E78.5 - Hyperlipidemia, unspecified Status: Chronic (14) Anxiety: Code(s): F41.9 - Anxiety disorder, unspecified Status: Acute Plan This is a 78-year-old female who presented with nausea vomiting abdominal pain and blood in her stool started 2 days ago. On ED arrival her vitals were stable. Laboratory evaluation showed WBC 10.5 hemoglobin 12.7 came panel unremarkable except creatinine 1.7.Urinalysis suggestive of UTI. CTA abdomen pelvis was performed which showed probable mild colitis at the mid descending colon no CT angiographic evidence of active GI bleed. Diffuse hepatic steatosis and minimal pericardial fluid. Colitis: Zosyn started. GI has been consulted infectious versus ischemic. Patient received some IV fluid looks hydrated currently. Will continue to monitor. Does have history of congestive heart failure so will avoid further fluid resuscitation UTI: On IV Zosyn follow urine culture which is pending Lower GI bleed diverticular versus hemorrhoidal versus colitis related ischemic versus infectious. H&H stable monitor H&H. Which remains stable AICD in situ For significant bradyarrhythmia in 2014 Coronary artery disease mild nonobstructive Congestive heart failure chronic diastolic /systolic history of severe LV systolic dysfunction EF 25% 2017. Status post biventricular ICD placement in 2017 follow-up echo with normalization of LV systolic function. due to DNR status her tachycardia has been started off. Ascending aortic aneurysm 4.8 cm 2017 Hypertension Hyperlipidemia History of ischemic colitis GERD Overactive bladder Chronic kidney disease stage 3 At baseline creatinine hypertension DVT prophylaxis: SCD Code status Do not resuscitate Subjective Date/time seen: 01/15/24 12:11 Interval history: No further stools since admission. Abdomen is slightly sore no nausea vomiting Review of Systems Review of Systems: All systems reviewed & are unremarkable except as noted in HPI and below Exam Narrative: GENERAL: The patient is well developed, not in acute distress HEENT: Nonicteric sclerae, PERRLA, EOMI. Oropharynx clear. Moist mucous membranes. Conjunctivae appear well perfused. CHEST: Chest wall is nontender. HEART: Regular rate and rhythm without murmur, rubs, or gallops LUNGS: Clear to auscultation bilaterally. no respiratory distress ABDOMEN: Soft, positive bowel sounds, mild tenderness in periumbilical area, no organomegaly. SKIN: No rash, no excessive bruising, petechiae, or purpura. NEUROLOGIC: Cranial nerves II-XII intact, alert and oriented x 3, no gross motor deficits EXTREMITIES: no edema, cyanosis or clubbing Objective Data Vital Signs Vital Signs: Vital Signs - 24 hr 01/14/24 14:00 01/14/24 14:13 01/14/24 20:27 Temperature 96.8 F L 97.3 F L Pulse Rate 60 64 Respiratory Rate 18 16 Blood Pressure 104/49 L 103/54 L Pulse Oximetry 94 94 97 Oxygen Delivery Nasal Cannula Oxygen Flow Rate 2 Fraction of Inspired Oxygen 01/14/24 20:00 01/15/24 06:00 01/15/24 07:56 Temperature 97.1 F L Pulse Rate 63 Respiratory Rate 18 Blood Pressure 148/82 H Pulse Oximetry 95 95 Oxygen Delivery Room Air Room Air Oxygen Flow Rate Fraction of Inspired Oxygen 21 01/15/24 11:14 01/15/24 10:00 Temperature Pulse Rate Respiratory Rate Blood Pressure Pulse Oximetry Oxygen Delivery Room Air Room Air Oxygen Flow Rate Fraction of Inspired Oxygen Intake/Output Intake/Output: Intake & Output 01/12/24 01/13/24 01/14/24 01/15/24 23:59 23:59 23:59 23:59 Intake Total 1480 790 Balance 1480 790 Meds/Results Medications: Active Medications Generic Name Dose Route Start Last Admin Trade Name Freq PRN Reason Stop Dose Admin Acetaminophen 500 mg 01/14/24 12:25 Acetaminophen 500 Mg Tablet PO Q6H PRN Pain Rated 1-3 Albuterol 2.5 mg 01/14/24 12:25 Albuterol Sulfate Neb 2.5 Mg/3 Ml Inh NEBULIZE Q4-6H PRN Shortness Of Breath Albuterol 2 puff 01/14/24 12:25 Albuterol Sulfate (*Sp) Aerosol 1 Puff INHALATION Q4H PRN Shortness Of Breath Alprazolam 0.5 mg 01/14/24 12:25 01/14/24 20:31 Alprazolam (*Crx) 0.5 Mg Tablet PO 0.5 mg TID PRN Administration Anxiety Aspirin 81 mg 01/15/24 09:00 01/15/24 10:00 Aspirin 81 Mg Enteric Tablet PO 81 mg QAM VITALIY Administration Atorvastatin Calcium 40 mg 01/14/24 21:00 01/14/24 20:29 Atorvastatin 40 Mg Tablet PO 40 mg HS VITALIY Administration Piperacillin Sod/Tazobactam Sod 2.25 gm in 50 mls @ 100 mls/hr 01/14/24 13:00 01/15/24 05:56 Zosyn 2.25 Gm/Ns 50 Ml IVPB 100 mls/hr Q6HR VITALIY Administration Miscellaneous Information 0 each 01/14/24 00:01 01/14/24 23:10 Albuterol - Nebs And Inhaler Ordered Prn For Shortness Of Breath - Are The Nebs Supposed T XX 02/13/24 00:00 Not Given CLARIFY VITALIY Oxybutynin Chloride 5 mg 01/15/24 09:00 01/15/24 09:59 Oxybutynin Chloride 5 Mg Tablet PO 5 mg DAILY VITALIY Administration Sacubitril/Valsartan 1 tab 01/14/24 21:00 01/15/24 09:59 Sacubitril/Valsartan 12-13 Mg Tablet PO 1 tab Q12HR VITALIY Administration Radiology Results: ITS Impressions Abdomen/Pelvis CTA 01/14/24 06:29 Impression: Probable mild colitis at the mid descending colon. No CT angiographic evidence of active GI bleeding. Diffuse hepatic steatosis. Minimal pericardial fluid. Labs Labs: Laboratory Results - last 24 hr 01/14/24 01/15/24 02:16 07:22 WBC 7.5 RBC 4.07 L Hgb 11.5 L Hct 36.9 L MCV 90.7 MCH 28.3 MCHC 31.2 L RDW 13.9 Plt Count 156 MPV 9.7 Immature Gran % (Auto) 0.5 Neut % (Auto) 66.9 Lymph % (Auto) 21.1 [place] % (Auto) 8.9 H Eos % (Auto) 2.1 Baso % (Auto) 0.5 Lymph # (Auto) 1.59 [place] # (Auto) 0.7 H Eos # (Auto) 0.2 Baso # (Auto) 0.0 Abs Immat Gran (auto) 0.04 H Absolute Neuts (auto) 5.0 Absolute Nucleated RBC 0.000 Nucleated RBC % 0.0 Sodium 141 Potassium 4.7 Chloride 106 Carbon Dioxide 26 Anion Gap 9 BUN 24 H Creatinine 1.40 H Estim Creat Clear Calc 39 Estimated GFR 36 L Glucose 107 Lactic Acid 0.8 Calcium 9.0 Magnesium 2.3 Total Bilirubin 0.7 AST 37 H ALT 26 Alkaline Phosphatase 122 Total Protein 7.0 Albumin 4.0 Blood Type A Positive Antibody Screen Positive Antibody Identification Anti-Mckeon A Antigen Identification Mckeon A Antigen - NEGATIVE BALTAZAR, IgG Interpret Neg BALTAZAR, Complement Interp Negative Enhanced Crossmatch See Detail
[2024-01-15 16:14] VITALS: BP 140/68; PULSE 62; RESP 12; TEMP 36.4; O2SAT 97
[2024-01-15] MEDS: ATORVASTATIN 40 MG TABLET PO (20:27)
[2024-01-15 21:33] VITALS: BP 171/88; PULSE 72; RESP 18; TEMP 36.1; O2SAT 95
[2024-01-16] MEDS: PIPERACILLIN/TAZ 2.25G/NS 50ML 2.25 GM/50 ML BAG IVPB ×2 (00:30→06:12)
--- NOTE | 2024-01-16 01:40 | PC.NURSE ---
Daylight Savings Time For Daylight Savings Time Ending in the Fall - Clocks are moved back. For Daylight Savings Time Beginning in the Spring - Clocks are moved ahead. For [facility], the time of change occurs at 0200 hrs. Time is taken from the machine slat basket maker. This entry on the patient's chart recognizes the change in time reflected during documentation. Example: 2 entries for vital signs may be charted for 0200 hrs.
[2024-01-16 05:17] VITALS: BP 132/60; PULSE 61; RESP 16; TEMP 36.1; O2SAT 98
[2024-01-16 08:10] LABS: Basophils Percent Auto 0.5 % (0.2-1.2); Eosinophils Absolute Auto 0.2 K/mm3 (0-0.3); Hematocrit 39.3 % (37.0-47.0); Hemoglobin 12.7 g/dL (12.0-15.0); Immature Granulocyte Absolute 0.02 K/mm3 (0.00-0.031); Immature Granulocyte Percent A 0.3 % (0-0.5); Lymphocytes Absolute Auto 1.48 K/mm3 (0.9-3.2); Lymphocytes Percent Auto 24.7 % (18.3-44.2); Mean Corpuscular HGB Conc 32.3 g/dl (32-36); Mean Corpuscular Hemoglobin 28.5 pg (26-34); Mean Corpuscular Volume 88.3 fl (80-100); Mean Platelet Volume 9.9 fl (7.4-10.4); Monocytes Absolute Auto 0.5 K/mm3 (0.1-0.6); Monocytes Percent Auto 8.3 % (2.6-8.5); Neutrophils Absolute Auto 3.8 K/mm3 (1.3-6.7); Neutrophils Percent Auto 63.2 % (45.5-73.1); Platelet Count Result 175 k/mm3 (150-375); Red Blood Count 4.45 M/mm3 (4.2-5.4); Red Cell Distribution Width 13.6 % (11.5-14.5)
[2024-01-16] MEDS: SACUBITRIL/VALSARTAN 12-13 MG TABLET 1 TAB PO ×2 (08:27→21:02)
[2024-01-16] MEDS: ASPIRIN 81 MG ENTERIC TABLET PO (08:27)
[2024-01-16] MEDS: oxyBUTYnin CHLORIDE 5 MG TABLET PO (08:27)
[2024-01-16 08:48] LABS: Alanine Aminotransferase 29 U/L (6-35); Albumin Level 4.3 g/dL (3.5-5.1); Alkaline Phosphatase 141 U/L (38-126); Anion Gap 11 mmol/L (4-12); Aspartate Amino Transferase 46 U/L (14-36); Bilirubin,Total 0.9 mg/dL (0.2-1.3); Blood Urea Nitrogen 21 mg/dL (7-17); Calcium 9.3 mg/dL (8.4-10.2); Carbon Dioxide 23 mmol/L (22-30); Chloride 106 mmol/L (98-107); Estimated CRCL calculation 39 ml/min; Estimated Glomerular Filt Rate 36; Glucose 102 mg/dL (65-110); Magnesium 2.3 mg/dL (1.6-2.3); Potassium 4.4 mmol/L (3.4-5.0); Sodium 140 mmol/L (137-145)
--- NOTE | 2024-01-16 11:20 | P.PNIM_ITS ---
Progress Note: A&P Assessment and Plan (1) Bright red rectal bleeding: Code(s): K62.5 - Hemorrhage of anus and rectum Status: Acute (2) Colitis: Code(s): K52.9 - Noninfective gastroenteritis and colitis, unspecified Status: Acute (3) CHF (congestive heart failure), NYHA class II: Code(s): I50.9 - Heart failure, unspecified Status: Acute (4) Presence of biventricular AICD: Code(s): Z95.810 - Presence of automatic (implantable) cardiac defibrillator Status: Acute (5) CKD (chronic kidney disease), stage III: Code(s): N18.30 - Chronic kidney disease, stage 3 unspecified Status: Acute (6) Chronic back pain: Code(s): M54.9 - Dorsalgia, unspecified; G89.29 - Other chronic pain Status: Acute (7) CHRISTINE (obstructive sleep apnea): Code(s): G47.33 - Obstructive sleep apnea (adult) (pediatric) Status: Acute (8) Meningioma: Code(s): D32.9 - Benign neoplasm of meninges, unspecified Status: Acute (9) Dilated cardiomyopathy: Code(s): I42.0 - Dilated cardiomyopathy Status: Acute (10) Chronic obstructive pulmonary disease, unspecified: Code(s): J44.9 - Chronic obstructive pulmonary disease, unspecified Status: Acute (11) Benign essential hypertension: Code(s): I10 - Essential (primary) hypertension Status: Chronic (12) GERD (gastroesophageal reflux disease): Code(s): K21.9 - Gastro-esophageal reflux disease without esophagitis Status: Chronic (13) Hyperlipidemia: Qualifiers: Hyperlipidemia type: unspecified Qualified Code(s): E78.5 - Hyperlipidemia, unspecified Code(s): E78.5 - Hyperlipidemia, unspecified Status: Chronic (14) Anxiety: Code(s): F41.9 - Anxiety disorder, unspecified Status: Acute Plan This is a 78-year-old female who presented with nausea vomiting abdominal pain and blood in her stool started 2 days ago. On ED arrival her vitals were stable. Laboratory evaluation showed WBC 10.5 hemoglobin 12.7 came panel unremarkable except creatinine 1.7.Urinalysis suggestive of UTI. CTA abdomen pelvis was performed which showed probable mild colitis at the mid descending colon no CT angiographic evidence of active GI bleed. Diffuse hepatic steatosis and minimal pericardial fluid. Colitis: Zosyn started. GI has been consulted infectious versus ischemic. Patient received some IV fluid looks hydrated currently. Will continue to monitor. Does have history of congestive heart failure so will avoid further fluid resuscitation UTI: On IV Zosyn follow urine culture With E coli. Sensitive to Augmentin was switched to that Lower GI bleed diverticular versus hemorrhoidal versus colitis related ischemic versus infectious. H&H stable monitor H&H. Which remains stable AICD in situ For significant bradyarrhythmia in 2014 Coronary artery disease mild nonobstructive Congestive heart failure chronic diastolic /systolic history of severe LV systolic dysfunction EF 25% 2017. Status post biventricular ICD placement in 2017 follow-up echo with normalization of LV systolic function. due to DNR status her tachycardia has been started off. Ascending aortic aneurysm 4.8 cm 2017 Hypertension Hyperlipidemia History of ischemic colitis GERD Overactive bladder Chronic kidney disease stage 3 At baseline creatinine hypertension DVT prophylaxis: SCD Code status Do not resuscitate Subjective Date/time seen: 01/16/24 11:20 Interval history: No further bowel movement. Feels a little bit dizzy. Abdominal soreness still persist. Urine is not burning anymore. Review of Systems Review of Systems: All systems reviewed & are unremarkable except as noted in HPI and below Exam Narrative: GENERAL: The patient is well developed, not in acute distress HEENT: Nonicteric sclerae, PERRLA, EOMI. Oropharynx clear. Moist mucous membranes. Conjunctivae appear well perfused. CHEST: Chest wall is nontender. HEART: Regular rate and rhythm without murmur, rubs, or gallops LUNGS: Clear to auscultation bilaterally. no respiratory distress ABDOMEN: Soft, positive bowel sounds, mild tenderness in periumbilical area, no organomegaly. SKIN: No rash, no excessive bruising, petechiae, or purpura. NEUROLOGIC: Cranial nerves II-XII intact, alert and oriented x 3, no gross motor deficits EXTREMITIES: no edema, cyanosis or clubbing Objective Data Vital Signs Vital Signs: Vital Signs - 24 hr 01/15/24 16:14 01/15/24 21:33 01/15/24 20:00 Temperature 97.5 F L 96.9 F L Pulse Rate 62 72 Respiratory Rate 12 18 Blood Pressure 140/68 171/88 H Pulse Oximetry 97 95 Oxygen Delivery Room Air 11/03/24 05:17 Temperature 96.9 F L Pulse Rate 61 Respiratory Rate 16 Blood Pressure 132/60 Pulse Oximetry 98 Oxygen Delivery Intake/Output Intake/Output: Intake & Output 01/13/24 01/14/24 01/15/24 01/16/24 23:59 23:59 23:59 22:59 Intake Total 1480 1420 600 Balance 1480 1420 600 Meds/Results Medications: Active Medications Generic Name Dose Route Start Last Admin Trade Name Freq PRN Reason Stop Dose Admin Acetaminophen 500 mg 01/14/24 12:25 Acetaminophen 500 Mg Tablet PO Q6H PRN Pain Rated 1-3 Albuterol 2.5 mg 01/14/24 12:25 Albuterol Sulfate Neb 2.5 Mg/3 Ml Inh NEBULIZE Q4-6H PRN Shortness Of Breath Albuterol 2 puff 01/14/24 12:25 Albuterol Sulfate (*Sp) Aerosol 1 Puff INHALATION Q4H PRN Shortness Of Breath Alprazolam 0.5 mg 01/14/24 12:25 01/14/24 20:31 Alprazolam (*Crx) 0.5 Mg Tablet PO 0.5 mg TID PRN Administration Anxiety Aspirin 81 mg 01/15/24 09:00 01/16/24 08:27 Aspirin 81 Mg Enteric Tablet PO 81 mg QAM VITALIY Administration Atorvastatin Calcium 40 mg 01/14/24 21:00 01/15/24 20:27 Atorvastatin 40 Mg Tablet PO 40 mg HS VITALIY Administration Piperacillin Sod/Tazobactam Sod 2.25 gm in 50 mls @ 100 mls/hr 01/14/24 13:00 01/16/24 06:12 Zosyn 2.25 Gm/Ns 50 Ml IVPB 100 mls/hr Q6HR VITALIY Administration Melatonin 5 mg 01/15/24 23:53 Melatonin 5 Mg Tablet PO HS PRN Sleep Miscellaneous Information 0 each 01/14/24 00:01 01/15/24 21:54 Albuterol - Nebs And Inhaler Ordered Prn For Shortness Of Breath - Are The Nebs Supposed T XX 02/13/24 00:00 Not Given CLARIFY VITALIY Oxybutynin Chloride 5 mg 01/15/24 09:00 01/16/24 08:27 Oxybutynin Chloride 5 Mg Tablet PO 5 mg DAILY VITALIY Administration Sacubitril/Valsartan 1 tab 01/14/24 21:00 01/16/24 08:27 Sacubitril/Valsartan 12-13 Mg Tablet PO 1 tab Q12HR VITALIY Administration Radiology Results: ITS Impressions Abdomen/Pelvis CTA 01/14/24 06:29 Impression: Probable mild colitis at the mid descending colon. No CT angiographic evidence of active GI bleeding. Diffuse hepatic steatosis. Minimal pericardial fluid. Labs Labs: Laboratory Results - last 24 hr 01/16/24 07:37 WBC 6.0 RBC 4.45 Hgb 12.7 Hct 39.3 MCV 88.3 MCH 28.5 MCHC 32.3 RDW 13.6 Plt Count 175 MPV 9.9 Immature Gran % (Auto) 0.3 Neut % (Auto) 63.2 Lymph % (Auto) 24.7 [place] % (Auto) 8.3 Eos % (Auto) 3.0 Baso % (Auto) 0.5 Lymph # (Auto) 1.48 [place] # (Auto) 0.5 Eos # (Auto) 0.2 Baso # (Auto) 0.0 Abs Immat Gran (auto) 0.02 Absolute Neuts (auto) 3.8 Absolute Nucleated RBC 0.000 Nucleated RBC % 0.0 Sodium 140 Potassium 4.4 Chloride 106 Carbon Dioxide 23 Anion Gap 11 BUN 21 H Creatinine 1.40 H Estim Creat Clear Calc 39 Estimated GFR 36 L Glucose 102 Calcium 9.3 Magnesium 2.3 Total Bilirubin 0.9 AST 46 H ALT 29 Alkaline Phosphatase 141 H Total Protein 8.0 Albumin 4.3
[2024-01-16 14:00] VITALS: BP 134/60; PULSE 58; RESP 20; TEMP 35.9; O2SAT 98
--- NOTE | 2024-01-16 14:35 | WPDGIPROGNO ---
Progress Note: A&P Assessment and Plan (1) Colitis: Code(s): K52.9 - Noninfective gastroenteritis and colitis, unspecified Status: Acute Assessment and Plan: clinically much better no more BM or blood in stools probably had mild ischemic colitis, normal lactic no need to repeat colonoscopy probably home tomorrow (2) Bright red rectal bleeding: Code(s): K62.5 - Hemorrhage of anus and rectum Status: Acute Assessment and Plan: resolved (3) Lower abdominal pain: Code(s): R10.30 - Lower abdominal pain, unspecified Status: Acute Assessment and Plan: better (4) Nausea and vomiting: Code(s): R11.2 - Nausea with vomiting, unspecified Status: Acute Subjective Date/time seen: 01/16/24 14:35 Interval history: no more BM, still some abdominal pain Review of Systems Review of Systems: All systems reviewed & are unremarkable except as noted in HPI and below Exam Const: General: cooperative, healthy appearing, comfortable, no acute distress and well developed Orientation/consciousness: patient oriented x3 HENMT: Head: normal to inspection and normocephalic Eyes: General: appearance normal, both eyes and all related structures Neck: Neck: normal visual inspection Chest: Chest palpation & inspection: normal inspection of the chest Resp: Effort & Inspection: normal respiratory effort and able to speak in complete sentences Auscultation: clear to auscultation bilaterally Cardio: Rate: regular rate Rhythm: regular rhythm GI: Inspection: normal to inspection GI Palp: Yes Soft to palpation, Yes Tenderness to palpation present (GI) (mild ttp in llq, no rebound) and No Guarding due to palpation present (GI) Auscultation: normal bowel sounds Skin: General skin exam: normal color and no rashes or lesions noted Neuro: General: patient oriented x3 Cranial nerves: Yes Equal, round and reactive pupils present Speech: normal speech Extrem: General: normal to inspection Psych: Appearance: grossly normal and well kempt Affect: normal affect Objective Data Vital Signs Vital Signs: Vital Signs - 24 hr 01/15/24 16:14 01/15/24 21:33 01/15/24 20:00 Temperature 97.5 F L 96.9 F L Pulse Rate 62 72 Respiratory Rate 12 18 Blood Pressure 140/68 171/88 H Pulse Oximetry 97 95 Oxygen Delivery Room Air 01/16/24 05:17 Temperature 96.9 F L Pulse Rate 61 Respiratory Rate 16 Blood Pressure 132/60 Pulse Oximetry 98 Oxygen Delivery Intake/Output Intake/Output: Intake & Output 01/13/24 01/14/24 01/15/24 01/16/24 23:59 23:59 23:59 22:59 Intake Total 1480 1420 1080 Balance 1480 1420 1080 Meds/Results Medications: Active Medications Generic Name Dose Route Start Last Admin Trade Name Freq PRN Reason Stop Dose Admin Acetaminophen 500 mg 01/14/24 12:25 Acetaminophen 500 Mg Tablet PO Q6H PRN Pain Rated 1-3 Albuterol 2.5 mg 01/14/24 12:25 Albuterol Sulfate Neb 2.5 Mg/3 Ml Inh NEBULIZE Q4-6H PRN Shortness Of Breath Albuterol 2 puff 01/14/24 12:25 Albuterol Sulfate (*Sp) Aerosol 1 Puff INHALATION Q4H PRN Shortness Of Breath Alprazolam 0.5 mg 01/14/24 12:25 01/14/24 20:31 Alprazolam (*Crx) 0.5 Mg Tablet PO 0.5 mg TID PRN Administration Anxiety Amoxicillin/Clavulanate Potassium 1 tablet 01/16/24 21:00 Amoxicillin/Clavulanate K 875-125 Mg Tab PO 01/21/24 20:59 Q12HR VITALIY Aspirin 81 mg 01/15/24 09:00 01/16/24 08:27 Aspirin 81 Mg Enteric Tablet PO 81 mg QAM VITALIY Administration Atorvastatin Calcium 40 mg 01/14/24 21:00 01/15/24 20:27 Atorvastatin 40 Mg Tablet PO 40 mg HS VITALIY Administration Melatonin 5 mg 01/15/24 23:53 Melatonin 5 Mg Tablet PO HS PRN Sleep Miscellaneous Information 0 each 01/14/24 00:01 01/15/24 21:54 Albuterol - Nebs And Inhaler Ordered Prn For Shortness Of Breath - Are The Nebs Supposed T XX 02/13/24 00:00 Not Given CLARIFY VITALIY Oxybutynin Chloride 5 mg 01/15/24 09:00 01/16/24 08:27 Oxybutynin Chloride 5 Mg Tablet PO 5 mg DAILY VITALIY Administration Sacubitril/Valsartan 1 tab 01/14/24 21:00 01/16/24 08:27 Sacubitril/Valsartan 12-13 Mg Tablet PO 1 tab Q12HR VITALIY Administration Radiology Results: ITS Impressions Abdomen/Pelvis CTA 01/14/24 06:29 Impression: Probable mild colitis at the mid descending colon. No CT angiographic evidence of active GI bleeding. Diffuse hepatic steatosis. Minimal pericardial fluid. Labs Labs: Laboratory Results - last 24 hr 01/16/24 07:37 WBC 6.0 RBC 4.45 Hgb 12.7 Hct 39.3 MCV 88.3 MCH 28.5 MCHC 32.3 RDW 13.6 Plt Count 175 MPV 9.9 Immature Gran % (Auto) 0.3 Neut % (Auto) 63.2 Lymph % (Auto) 24.7 [place] % (Auto) 8.3 Eos % (Auto) 3.0 Baso % (Auto) 0.5 Lymph # (Auto) 1.48 [place] # (Auto) 0.5 Eos # (Auto) 0.2 Baso # (Auto) 0.0 Abs Immat Gran (auto) 0.02 Absolute Neuts (auto) 3.8 Absolute Nucleated RBC 0.000 Nucleated RBC % 0.0 Sodium 140 Potassium 4.4 Chloride 106 Carbon Dioxide 23 Anion Gap 11 BUN 21 H Creatinine 1.40 H Estim Creat Clear Calc 39 Estimated GFR 36 L Glucose 102 Calcium 9.3 Magnesium 2.3 Total Bilirubin 0.9 AST 46 H ALT 29 Alkaline Phosphatase 141 H Total Protein 8.0 Albumin 4.3
[2024-01-16] MEDS: ATORVASTATIN 40 MG TABLET PO (21:02)
[2024-01-16] MEDS: AMOXICILLIN/CLAVULANATE K 875-125 MG TAB 1 TABLET PO (21:02)
[2024-01-16 21:15] VITALS: BP 135/62; PULSE 64; RESP 20; TEMP 36.4; O2SAT 96
[2024-01-17 05:30] VITALS: BP 137/41; PULSE 66; RESP 16; TEMP 36.6; O2SAT 100
[2024-01-17 06:25] LABS: Basophils Percent Auto 0.6 % (0.2-1.2); Eosinophils Absolute Auto 0.2 K/mm3 (0-0.3); Eosinophils Percent Auto 2.3 % (0-4.4); Hematocrit 37.3 % (37.0-47.0); Immature Granulocyte Absolute 0.03 K/mm3 (0.00-0.031); Immature Granulocyte Percent A 0.4 % (0-0.5); Lymphocytes Absolute Auto 1.34 K/mm3 (0.9-3.2); Lymphocytes Percent Auto 19.5 % (18.3-44.2); Mean Corpuscular HGB Conc 32.2 g/dl (32-36); Mean Corpuscular Hemoglobin 28.6 pg (26-34); Mean Corpuscular Volume 88.8 fl (80-100); Monocytes Absolute Auto 0.7 K/mm3 (0.1-0.6); Monocytes Percent Auto 9.6 % (2.6-8.5); Neutrophils Absolute Auto 4.7 K/mm3 (1.3-6.7); Neutrophils Percent Auto 67.6 % (45.5-73.1); Platelet Count Result 175 k/mm3 (150-375); Red Cell Distribution Width 13.7 % (11.5-14.5); White Blood Count 6.9 K/mm3 (4.5-10.0)
[2024-01-17 06:34] LABS: Alanine Aminotransferase 27 U/L (6-35); Alkaline Phosphatase 126 U/L (38-126); Anion Gap 9 mmol/L (4-12); Aspartate Amino Transferase 41 U/L (14-36); Bilirubin,Total 0.7 mg/dL (0.2-1.3); Blood Urea Nitrogen 22 mg/dL (7-17); Carbon Dioxide 24 mmol/L (22-30); Chloride 106 mmol/L (98-107); Estimated CRCL calculation 39 ml/min; Estimated Glomerular Filt Rate 36; Glucose 107 mg/dL (65-110); Magnesium 2.2 mg/dL (1.6-2.3); Sodium 139 mmol/L (137-145)
[2024-01-17] MEDS: ASPIRIN 81 MG ENTERIC TABLET PO (08:39)
[2024-01-17] MEDS: SACUBITRIL/VALSARTAN 12-13 MG TABLET 1 TAB PO (08:39)
[2024-01-17] MEDS: oxyBUTYnin CHLORIDE 5 MG TABLET PO (08:39)
[2024-01-17] MEDS: AMOXICILLIN/CLAVULANATE K 875-125 MG TAB 1 TABLET PO (08:39)
--- NOTE | 2024-01-17 12:18 | P.DS_ITS ---
DS: Admitting Diagnosis Discharge Date 01/17/2024 Admitting Diagnosis Abdominal pain blood in stool DS: Discharge Diagnosis Discharge Diagnosis (1) Bright red rectal bleeding: Code(s): K62.5 - Hemorrhage of anus and rectum Status: Acute (2) Colitis: Code(s): K52.9 - Noninfective gastroenteritis and colitis, unspecified Status: Acute (3) CHF (congestive heart failure), NYHA class II: Code(s): I50.9 - Heart failure, unspecified Status: Acute (4) Presence of biventricular AICD: Code(s): Z95.810 - Presence of automatic (implantable) cardiac defibrillator Status: Acute (5) CKD (chronic kidney disease), stage III: Code(s): N18.30 - Chronic kidney disease, stage 3 unspecified Status: Acute (6) Chronic back pain: Code(s): M54.9 - Dorsalgia, unspecified; G89.29 - Other chronic pain Status: Acute (7) CHRISTINE (obstructive sleep apnea): Code(s): G47.33 - Obstructive sleep apnea (adult) (pediatric) Status: Acute (8) Meningioma: Code(s): D32.9 - Benign neoplasm of meninges, unspecified Status: Acute (9) Dilated cardiomyopathy: Code(s): I42.0 - Dilated cardiomyopathy Status: Acute (10) Chronic obstructive pulmonary disease, unspecified: Code(s): J44.9 - Chronic obstructive pulmonary disease, unspecified Status: Acute (11) Benign essential hypertension: Code(s): I10 - Essential (primary) hypertension Status: Chronic (12) GERD (gastroesophageal reflux disease): Code(s): K21.9 - Gastro-esophageal reflux disease without esophagitis Status: Chronic (13) Hyperlipidemia: Qualifiers: Hyperlipidemia type: unspecified Qualified Code(s): E78.5 - Hyperlipidemia, unspecified Code(s): E78.5 - Hyperlipidemia, unspecified Status: Chronic (14) Anxiety: Code(s): F41.9 - Anxiety disorder, unspecified Status: Acute DS: Summary Hospital Course Hospital Course: This is a 78-year-old female who presented with nausea vomiting abdominal pain and blood in her stool started 2 days ago. On ED arrival her vitals were stable. Laboratory evaluation showed WBC 10.5 hemoglobin 12.7 came panel unremarkable except creatinine 1.7.Urinalysis suggestive of UTI. CTA abdomen pelvis was performed which showed probable mild colitis at the mid descending colon no CT angiographic evidence of active GI bleed. Diffuse hepatic steatosis and minimal pericardial fluid. Colitis: Zosyn started. GI has been consulted infectious versus ischemic. Patient received some IV fluid looks hydrated currently. Will continue to monitor. Does have history of congestive heart failure so avoided further fluid resuscitation UTI: On IV Zosyn follow urine culture With E coli. Sensitive to Augmentin was switched to that and will finish the course as an outpatient basis Lower GI bleed diverticular versus hemorrhoidal versus colitis related ischemic versus infectious. H&H stable monitor H&H. Which remains stable AICD in situ For significant bradyarrhythmia in 2014 Coronary artery disease mild nonobstructive Congestive heart failure chronic diastolic /systolic history of severe LV systolic dysfunction EF 25% 2017. Status post biventricular ICD placement in 2017 follow-up echo with normalization of LV systolic function. due to DNR status her tachycardia has been started off. Ascending aortic aneurysm 4.8 cm 2017 Hypertension Hyperlipidemia History of ischemic colitis GERD Overactive bladder Chronic kidney disease stage 3 At baseline creatinine hypertension DVT prophylaxis: SCD Code status Do not resuscitate Time Spent with Patient Time attestation: Total time spent providing and/or coordinating discharge services: 35 Exam Narrative: GENERAL: The patient is well developed, not in acute distress HEENT: Nonicteric sclerae, PERRLA, EOMI. Oropharynx clear. Moist mucous membranes. Conjunctivae appear well perfused. CHEST: Chest wall is nontender. HEART: Regular rate and rhythm without murmur, rubs, or gallops LUNGS: Clear to auscultation bilaterally. no respiratory distress ABDOMEN: Soft, positive bowel sounds, mild tenderness in periumbilical area, no organomegaly. SKIN: No rash, no excessive bruising, petechiae, or purpura. NEUROLOGIC: Cranial nerves II-XII intact, alert and oriented x 3, no gross motor deficits EXTREMITIES: no edema, cyanosis or clubbing DS: Data Data Completed and Pending Labs on day of discharge: Labs from last 24 hours 01/17/24 05:57 WBC 6.9 RBC 4.20 Hgb 12.0 Hct 37.3 MCV 88.8 MCH 28.6 MCHC 32.2 RDW 13.7 Plt Count 175 MPV 10.0 Immature Gran % (Auto) 0.4 Neut % (Auto) 67.6 Lymph % (Auto) 19.5 [place] % (Auto) 9.6 H Eos % (Auto) 2.3 Baso % (Auto) 0.6 Lymph # (Auto) 1.34 [place] # (Auto) 0.7 H Eos # (Auto) 0.2 Baso # (Auto) 0.0 Abs Immat Gran (auto) 0.03 Absolute Neuts (auto) 4.7 Absolute Nucleated RBC 0.000 Nucleated RBC % 0.0 Sodium 139 Potassium 4.0 Chloride 106 Carbon Dioxide 24 Anion Gap 9 BUN 22 H Creatinine 1.40 H Estim Creat Clear Calc 39 Estimated GFR 36 L Glucose 107 Calcium 9.0 Magnesium 2.2 Total Bilirubin 0.7 AST 41 H ALT 27 Alkaline Phosphatase 126 Total Protein 8.0 Albumin 4.0 Imaging Radiologist's impression: ITS Impressions Abdomen/Pelvis CTA 01/14/24 06:29 Impression: Probable mild colitis at the mid descending colon. No CT angiographic evidence of active GI bleeding. Diffuse hepatic steatosis. Minimal pericardial fluid. Discharge Plan Discharge Attending physician on discharge: Selwyn Greco Consulting providers: Ntahaniel Marques Discharging Clinician: Selwyn Greco Anticipated Discharge Date/Time: 01/17/24 12:15 Patient Disposition: Home, Self-Care Activity: as tolerated Diet: regular Patient Instructions: Antibiotic Form, Probiotic (By mouth), Heart Failure (GEN), Urinary Tract Infection in Women (DC), Urinary Tract Infection in Women (GEN) Stand Alone Forms: General Discharge Information Follow-up/Referrals: Srinivas Chery APRN [Primary Care Provider] - 1 Week Nathaniel Marques MD [Physician] - 4 Weeks Discharge Medications: New amoxicillin-pot clavulanate 875-125 mg tablet 1 tablet PO Q12H Qty: 8 0RF Continued Entresto 24-26 mg tablet 0.5 tablet PO BID acetaminophen [Tylenol Extra Strength] 500 mg tablet 500 mg PO Q6H PRN (Reason: Pain) albuterol sulfate 90 mcg/actuation HFA aerosol inhaler 2 inh INHALATION Q4H PRN (Reason: Shortness Of Breath) Qty: 8.5 5RF oxybutynin chloride 5 mg tablet 5 mg PO DAILY Qty: 90 1RF atorvastatin 40 mg tablet 40 mg PO HS Qty: 90 1RF aspirin 81 mg Tablet,Delayed Release (Dr/Ec) 81 mg PO QAM Qty: 30 0RF albuterol sulfate 2.5 mg /3 mL (0.083 %) solution for nebulization See Rx Instructions .ROUTE .COMPLEX Qty: 180 3RF Dose Instruction: USE PER NEBULIZER ONE VIAL EVERY 4 TO 6 HOURS Rx Instructions: USE PER NEBULIZER ONE VIAL EVERY 4 TO 6 HOURS alprazolam 0.5 mg tablet 0.5 mg PO TID PRN (Reason: Anxiety) Qty: 90 1RF Date of admission: 01/14/24 07:27 Primary Care Provider: Srinivas Chery Admitting Provider: Selwyn Greco Attending physician on admission: Selwyn Greco Condition: Stable Hospitalist MIPS Heart Failure (Exclusion) Patient has history of Heart Transplant or Left Ventricular Assistive Device?: No IF YES, STOP HERE Heart Failure (Qualifier) Patient has current or prior documentation of LVEF less than or equal to 40%, or mod/servere depressed LVSF?: No IF NO, STOP HERE
== END 2024-01-17 13:10 | disposition home or self-care (01) ==
LOC: ANHED 07:26 → ANH3MEDSUR 08:08
PROVIDERS: Internal Medicine Gastroenterology; Admitting Provider Internal Medicine; Emergency Provider Emergency Medicine; PCP Nurse Practitioner; Visit Provider Internal Medicine
DX: K62.5 Hemorrhage of anus and rectum (principal); K52.9 Noninfective gastroenteritis and colitis, unspecified; K21.9 Gastro-esophageal reflux disease without esophagitis; N39.0 Urinary tract infection, site not specified; B96.20 Unspecified Escherichia coli [E. coli] as the cause of diseases classified elsewhere; R53.1 Weakness; I13.0 Hypertensive heart and chronic kidney disease with heart failure and stage 1 through stage 4 chronic kidney disease, or unspecified chronic kidney disease; N18.30 Chronic kidney disease, stage 3 unspecified; I50.42 Chronic combined systolic (congestive) and diastolic (congestive) heart failure; I42.0 Dilated cardiomyopathy; E78.5 Hyperlipidemia, unspecified; J44.9 Chronic obstructive pulmonary disease, unspecified; M54.9 Dorsalgia, unspecified; G89.29 Other chronic pain; I25.10 Atherosclerotic heart disease of native coronary artery without angina pectoris; I71.21 Aneurysm of the ascending aorta, without rupture; G47.33 Obstructive sleep apnea (adult) (pediatric); D32.9 Benign neoplasm of meninges, unspecified; F41.9 Anxiety disorder, unspecified; N32.81 Overactive bladder; Z66 Do not resuscitate; Z79.82 Long term (current) use of aspirin; Z86.16 Personal history of COVID-19; Z79.51 Long term (current) use of inhaled steroids; Z79.899 Other long term (current) drug therapy; Z86.0100 Personal history of colon polyps, unspecified; Z80.0 Family history of malignant neoplasm of digestive organs; Z87.891 Personal history of nicotine dependence; Z90.710 Acquired absence of both cervix and uterus; Z98.49 Cataract extraction status, unspecified eye; Z95.810 Presence of automatic (implantable) cardiac defibrillator; Z90.49 Acquired absence of other specified parts of digestive tract
CPT/HCPCS: 36415; 74174; 80053; 81001; 83605; 83735; 85025; 85610; 85730; 86850; 86880; 86900; 86901; 86902; 86922; 87077; 87086; 87186; 93005; 96365; 96366; 96375; 97161; 97165; 99285; A9270; G0378; J2060; J2405; J2543; Q9967

== ENCOUNTER 2024-01-25 11:49 | Observation (INO) | payer MEDICARE, SELFPAY ==
[2024-01-25] VITALS (8 sets, daily range): BP systolic 95–183; BP diastolic 60–83; PULSE 60–71; RESP 16–18; TEMP 36.2; O2SAT 97–100; BMI 31.6
[2024-01-25] MEDS: SODIUM CHLORIDE 0.9% IV 1,000 ML 999 ML IV CONT (12:48)
[2024-01-25 12:52] LABS: Basophils Absolute Auto 0.1 K/mm3 (0.0-0.1); Basophils Percent Auto 0.6 % (0.2-1.2); Eosinophils Absolute Auto 0.3 K/mm3 (0-0.3); Eosinophils Percent Auto 3.5 % (0-4.4); Hematocrit 41.9 % (37.0-47.0); Hemoglobin 13.3 g/dL (12.0-15.0); Immature Granulocyte Absolute 0.03 K/mm3 (0.00-0.031); Immature Granulocyte Percent A 0.3 % (0-0.5); Lymphocytes Absolute Auto 2.32 K/mm3 (0.9-3.2); Lymphocytes Percent Auto 24.9 % (18.3-44.2); Mean Corpuscular HGB Conc 31.7 g/dl (32-36); Mean Corpuscular Hemoglobin 28.4 pg (26-34); Mean Corpuscular Volume 89.5 fl (80-100); Mean Platelet Volume 10.1 fl (7.4-10.4); Monocytes Absolute Auto 0.8 K/mm3 (0.1-0.6); Monocytes Percent Auto 8.9 % (2.6-8.5); Neutrophils Absolute Auto 5.8 K/mm3 (1.3-6.7); Neutrophils Percent Auto 61.8 % (45.5-73.1); Platelet Count Result 224 k/mm3 (150-375); Red Blood Count 4.68 M/mm3 (4.2-5.4); Red Cell Distribution Width 13.9 % (11.5-14.5); White Blood Count 9.3 K/mm3 (4.5-10.0)
[2024-01-25 12:58] LABS: Alanine Aminotransferase 23 U/L (6-35); Albumin Level 4.7 g/dL (3.5-5.1); Alkaline Phosphatase 141 U/L (38-126); Anion Gap 12 mmol/L (4-12); Aspartate Amino Transferase 43 U/L (14-36); Bilirubin,Total 0.9 mg/dL (0.2-1.3); Blood Urea Nitrogen 22 mg/dL (7-17); Calcium 9.8 mg/dL (8.4-10.2); Carbon Dioxide 24 mmol/L (22-30); Chloride 104 mmol/L (98-107); Estimated CRCL calculation 27 ml/min; Estimated Glomerular Filt Rate 24; Glucose 117 mg/dL (65-110); Lactic Acid Reflex 2.6 mmol/L (0.7-2.0); Potassium 3.7 mmol/L (3.4-5.0); Sodium 140 mmol/L (137-145)
--- NOTE | 2024-01-25 13:53 | ED_ITS ---
HPI - General Adult General Chief complaint: Recheck/Abnormal Lab/Rx Stated complaint: low blood pressure Time Seen by Provider: 01/25/24 12:24 History of Present Illness HPI narrative: patient is a 78-year-old female who presents ER with low blood pressure. She was at her PCPs office for follow-up appointment from a recent hospitalization for colitis. Patient reports no diarrhea at home. Mild abdominal fullness. Poor energy and poor oral intake. She gets lightheaded when she goes from sitting to standing. No recent falls. Related Data Home Medications Medication Instructions Recorded Confirmed sacubitril 24 mg-valsartan 26 mg 0.5 tablet PO BID 09/10/20 01/25/24 tablet (Entresto) acetaminophen 500 mg tablet 500 mg PO Q6H PRN Pain 12/15/22 01/25/24 (Tylenol Extra Strength) Allergies Allergy/AdvReac Type Severity Reaction Status Date / Time adhesive Allergy Mild Rash Verified 01/25/24 11:50 cat dander Allergy Mild Sneezing Verified 01/25/24 11:50 codeine Allergy Mild HIVES AND Verified 01/25/24 11:50 ITCHING Sulfa (Sulfonamide Allergy Mild HIVES Verified 01/25/24 11:50 Antibiotics) sulfanilamide Allergy Mild Hives Verified 01/25/24 11:50 tramadol AdvReac Hallucinati Verified 01/25/24 11:50 ng Review of Systems Review of Systems: All systems reviewed & are unremarkable except as noted in HPI and below Constitutional: Constitutional: Denies chills, Reports fatigue and Denies fever(s) ENT: Reports system reviewed and no additional complaints, except as document ed Cardiovascular: Cardiovascular: Reports no additional cardiovascular complaints Respiratory: Respiratory: Reports no additional respiratory complaints Gastrointestinal: Gastrointestinal: Reports no additional gastrointestinal complaints Neurologic: Reports system reviewed and no additional complaints, except as documented [facility] Past Medical History Medical History (Updated 01/25/24 @ 22:15 by Cipriano Haines MD) Anxiety BMI 33.0-33.9,adult Cardiac pacemaker Cardiac pacemaker in situ Change in bowel habits CHF (congestive heart failure), NYHA class II Cholecystectomy planned COPD (chronic obstructive pulmonary disease) COVID-19 Dilated cardiomyopathy Diverticulitis of sigmoid colon Encounter for blood transfusion Essential hypertension Family hx of colon cancer GERD (gastroesophageal reflux disease) History of atrial fibrillation History of ischemic colitis Hyperlipidemia Overactive bladder Rectal bleeding Syncope and collapse Vitamin D deficiency Surgical History Surgical History H/O cataract extraction H/O colonoscopy H/O dilation and curettage H/O hysterectomy with oophorectomy H/O rectal polypectomy History of appendectomy History of pancreatic surgery History of removal of pigmented skin lesion Hx of brain surgery Meningioma removal in 2015 Hx of cholecystectomy Hx of tonsillectomy Presence of biventricular AICD S/P cholecystectomy Family History Family History Father Diabetes mellitus Family history of lymphoma Sibling Breast cancer Family history of malignant neoplasm of breast in first degree relative Carcinoma of colon Diabetes mellitus Mother Aplastic anemia Son Thyroid cancer Sibling Carcinoma of colon Other Family history of malignant neoplasm of thyroid Social History Social History (Updated 01/25/24 @ 11:06 by TATIANA Sharpe) Social History: Mrs. Mitchell's on 10/13/21. She has 5 sons. 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 She is a former 1 PPD smoker for at least 50 years. She denies illicit substance and alcohol use. She wishes for her code status to be DNR and she has designated her sons, Jan Moran and Handy Mitchell, as her designated surrogate decision maker. Her son Handy lives with her and helps to take care of her. Code status DNR Smoking packs per day: 2 Smoking cigarettes per day: 40.0 Years smoked: 60 Smoking pack-years: 120.00 Smoking status: Former smoker Tobacco type: cigarettes Second hand tobacco smoke exposure: No Smoking end date: 03/15/14 Alcohol intake: never Substance use: never Substance use type: does not use Do You Feel Safe in your Home?: Yes Lack of Transportation: No Lack of Food: Never True Current Housing: I Have Housing Concerned About Future Housing: No Difficulty Paying Gas/Electric Bills: No Difficulty Paying for Meds: No Currently Unemployed: No Education: High School Diploma/GED Difficulty w/ Childcare or Family Care: No Living arrangements: with family Occupation/Education: retired 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 HEAD: Normocephalic, atraumatic. ENT: Mucous membranes moist. NECK: Supple. CHEST: Clear to auscultation. No respiratory distress. HEART: Regular rate and rhythm. Normal peripheral pulses. ABDOMEN: Soft, nontender, nondistended. EXTREMITIES: Normal range of motion. No edema. SKIN: Warm, dry, no rash. NEURO: Alert and oriented x3. PSYCH: Normal mood and affect. Course Course Emergency Course: patient resting comfortably. She is quite orthostatic. She has received IV fluid. She has an COTY. Admit for observation. Vital Signs Vital signs: Vital Signs Temperature 97.1 F L 01/25/24 12:09 Pulse Rate 71 01/25/24 12:09 Respiratory Rate 16 01/25/24 12:09 Blood Pressure 96/60 L 01/25/24 12:09 Pulse Oximetry 99 01/25/24 12:09 Oxygen Delivery Room Air 01/25/24 12:09 Temperature 97.2 F L 01/25/24 19:37 Pulse Rate 63 01/25/24 19:37 Respiratory Rate 16 01/25/24 19:37 Blood Pressure 162/82 H 01/25/24 19:37 Pulse Oximetry 99 01/25/24 19:37 Oxygen Delivery Room Air 01/25/24 16:26 Medical Decision Making Vital Signs Vital Signs: Vital Signs Temperature 97.1 F L 01/25/24 12:09 Pulse Rate 71 01/25/24 12:09 Respiratory Rate 16 01/25/24 12:09 Blood Pressure 96/60 L 01/25/24 12:09 Pulse Oximetry 99 01/25/24 12:09 Oxygen Delivery Room Air 01/25/24 12:09 Temperature 97.2 F L 01/25/24 19:37 Pulse Rate 63 01/25/24 19:37 Respiratory Rate 16 01/25/24 19:37 Blood Pressure 162/82 H 01/25/24 19:37 Pulse Oximetry 99 01/25/24 19:37 Oxygen Delivery Room Air 01/25/24 16:26 Lab Data 01/25/24 12:29 01/25/24 12:29 Labs: Lab Results 01/25/24 Range/Units 12:29 WBC 9.3 (4.5-10.0) K/mm3 RBC 4.68 (4.2-5.4) M/mm3 Hgb 13.3 (12.0-15.0) g/dL Hct 41.9 (37.0-47.0) % MCV 89.5 (80-100) fl MCH 28.4 (26-34) pg MCHC 31.7 L (32-36) g/dl RDW 13.9 (11.5-14.5) % Plt Count 224 (150-375) k/mm3 MPV 10.1 (7.4-10.4) fl Immature Gran % (Auto) 0.3 (0-0.5) % Neut % (Auto) 61.8 (45.5-73.1) % Lymph % (Auto) 24.9 (18.3-44.2) % [place] % (Auto) 8.9 H (2.6-8.5) % Eos % (Auto) 3.5 (0-4.4) % Baso % (Auto) 0.6 (0.2-1.2) % Lymph # (Auto) 2.32 (0.9-3.2) K/mm3 [place] # (Auto) 0.8 H (0.1-0.6) K/mm3 Eos # (Auto) 0.3 (0-0.3) K/mm3 Baso # (Auto) 0.1 (0.0-0.1) K/mm3 Abs Immat Gran (auto) 0.03 (0.00-0.031) K/mm3 Absolute Neuts (auto) 5.8 (1.3-6.7) K/mm3 Absolute Nucleated RBC 0.000 (0.0-0.012) K/mm3 Nucleated RBC % 0.0 (0.0-0.2) % Sodium 140 (137-145) mmol/L Potassium 3.7 (3.4-5.0) mmol/L Chloride 104 (98-107) mmol/L Carbon Dioxide 24 (22-30) mmol/L Anion Gap 12 (4-12) mmol/L BUN 22 H (7-17) mg/dL Creatinine 2.00 H (0.7-1.0) mg/dL Estim Creat Clear Calc 27 ml/min Estimated GFR 24 L (59 - ) Glucose 117 H (65-110) mg/dL Lactic Acid 2.6 H (0.7-2.0) mmol/L Calcium 9.8 (8.4-10.2) mg/dL Total Bilirubin 0.9 (0.2-1.3) mg/dL AST 43 H (14-36) U/L ALT 23 (6-35) U/L Alkaline Phosphatase 141 H (38-126) U/L Total Protein 9.0 H (6.3-8.2) g/dL Albumin 4.7 (3.5-5.1) g/dL Discharge Plan Discharge Clinical Impression: COTY (acute kidney injury) Patient Disposition: Still a Patient Condition: Stable
[2024-01-25 14:22] LABS: Add Urine Microscopic? NO; Appearance Urine Clear (Clear); Bilirubin Urine Negative (Negative); Blood Urine Negative (Negative); Color Urine Yellow (Yellow); Glucose Urine UA Negative (Negative); Ketones Urine Negative (Negative); Leukocyte Esterase Ur Negative LEU/UL (Negative); Nitrate Urine Negative (Negative); Protein Urine Negative (Negative); Specific Grav Ur 1.006 (1.001-1.035); Urobilinogen Urine 0.2 mg/dL (<2.0)
--- NOTE | 2024-01-25 14:52 | P.HP_ITS ---
H&P: HPI History of Present Illness Date/Time: 01/25/24 14:52 Chief Complaint: Hypotension Narrative: 78-year-old female history of colitis, CHF, COPD, and atrial fibrillation presents to the hospital with hypotension. Patient was at her primary care provider and was found to be hypotensive 90s/50s and was directed to go to the emergency room for her doctor. Patient went to her doctor today for a follow-up from a hospitalization for colitis with rectal bleeding she was discharged on 01/17/2024. Per the primary is notes the patient has stated the bloody stools had stopped however she did has some abdominal cramping. Patient states only after she has been taking her blood pressure medication the morning she has been feeling weak. She states that she took her Entresto this morning and then went to her doctor's office. She states that she thought about stopping by her search advertising strategist his office but she decided to come to the emergency room instead. Patient denies nausea vomiting or diarrhea. WBCs at 9.3, hemoglobin at 13.3, creatinine at 2.0 baseline appears to be about 1.4, lactic acid 2.6, AST ALT and alkaline phos appear to be around baseline, UA negative. Patient's echocardiogram was an 2021 with EF of 45-50%. In the emergency room the patient was given a 1L bolus for dehydration started on fluids at 125. Per the records the patient was taken off her Lasix and valsartan in October of 2019 due to orthostatic hypotension and syncope. Review of Systems Review of Systems: 12 systems were reviewed and are negativ e except for as per HPI. [facility] Past Medical History Medical History (Updated 01/25/24 @ 15:16 by Jennifer Ferreira, OTILIO) Anxiety BMI 33.0-33.9,adult Cardiac pacemaker Cardiac pacemaker in situ Change in bowel habits CHF (congestive heart failure), NYHA class II Cholecystectomy planned COPD (chronic obstructive pulmonary disease) COVID-19 Dilated cardiomyopathy Diverticulitis of sigmoid colon Encounter for blood transfusion Essential hypertension Family hx of colon cancer GERD (gastroesophageal reflux disease) History of atrial fibrillation History of ischemic colitis Hyperlipidemia Overactive bladder Rectal bleeding Syncope and collapse Vitamin D deficiency Surgical History Surgical History H/O cataract extraction H/O colonoscopy H/O dilation and curettage H/O hysterectomy with oophorectomy H/O rectal polypectomy History of appendectomy History of pancreatic surgery History of removal of pigmented skin lesion Hx of brain surgery Meningioma removal in 2015 Hx of cholecystectomy Hx of tonsillectomy Presence of biventricular AICD S/P cholecystectomy Family History Family History Father Diabetes mellitus Family history of lymphoma Sibling Breast cancer Family history of malignant neoplasm of breast in first degree relative Carcinoma of colon Diabetes mellitus Mother Aplastic anemia Son Thyroid cancer Sibling Carcinoma of colon Other Family history of malignant neoplasm of thyroid Social History Social History (Updated 01/25/24 @ 11:06 by TATIANA Sharpe) Social History: Mrs. Mitchell's on 10/13/21. She has 5 sons. 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 She is a former 1 PPD smoker for at least 50 years. She denies illicit substance and alcohol use. She wishes for her code status to be DNR and she has designated her sons, Jan Moran and Handy Mitchell, as her designated surrogate decision maker. Her son Handy lives with her and helps to take care of her. Code status DNR Smoking packs per day: 2 Smoking cigarettes per day: 40.0 Years smoked: 60 Smoking pack-years: 120.00 Smoking status: Former smoker Tobacco type: cigarettes Second hand tobacco smoke exposure: No Smoking end date: 03/15/14 Alcohol intake: never Substance use: never Substance use type: does not use Do You Feel Safe in your Home?: Yes Lack of Transportation: No Lack of Food: Never True Current Housing: I Have Housing Concerned About Future Housing: No Difficulty Paying Gas/Electric Bills: No Difficulty Paying for Meds: No Currently Unemployed: No Education: High School Diploma/GED Difficulty w/ Childcare or Family Care: No Living arrangements: with family Occupation/Education: retired 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 Gender identity (if verbalized by the patient): Female Spiritual care concerns: No Meds Home Medications and Allergies Home Medications Medication Instructions Recorded Confirmed Type sacubitril 24 mg-valsartan 26 mg 0.5 tablet PO BID 09/10/20 01/25/24 History tablet (Entresto) aspirin 81 mg tablet,delayed 81 mg PO QAM #30 tabs 09/26/22 11/12/24 Rx release acetaminophen 500 mg tablet 500 mg PO Q6H PRN Pain 12/15/22 01/25/24 History (Tylenol Extra Strength) albuterol sulfate 2.5 mg/3 mL See Rx Instructions .Route 06/01/23 01/25/24 Rx (0.083 %) solution for nebulization .COMPLEX #180 mL alprazolam 0.5 mg tablet 0.5 mg PO TID PRN Anxiety #90 tabs 08/17/23 01/25/24 Rx albuterol sulfate 90 mcg/actuation 2 inh inhalation Q4H PRN Shortness 08/27/23 01/25/24 Rx aerosol inhaler Of Breath #8.5 grams atorvastatin 40 mg tablet 40 mg PO HS #90 tabs 08/27/23 01/25/24 Rx oxybutynin chloride 5 mg tablet 5 mg PO DAILY #90 tabs 08/27/23 01/25/24 Rx Allergies Allergy/AdvReac Type Severity Reaction Status Date / Time adhesive Allergy Mild Rash Verified 01/25/24 11:50 cat dander Allergy Mild Sneezing Verified 01/25/24 11:50 codeine Allergy Mild HIVES AND Verified 01/25/24 11:50 ITCHING Sulfa (Sulfonamide Allergy Mild HIVES Verified 01/25/24 11:50 Antibiotics) sulfanilamide Allergy Mild Hives Verified 01/25/24 11:50 tramadol AdvReac Hallucinati Verified 01/25/24 11:50 ng Vital Signs Vital Signs - 24 hr 01/25/24 12:09 01/25/24 12:25 01/25/24 13:57 Temperature 97.1 F L Pulse Rate 71 62 60 Respiratory Rate 16 16 Blood Pressure 96/60 L 102/62 176/83 H Pulse Oximetry 99 97 Oxygen Delivery Room Air 01/25/24 14:00 01/25/24 14:02 Temperature Pulse Rate 63 71 Respiratory Rate Blood Pressure 133/83 95/61 L Pulse Oximetry Oxygen Delivery Exam Narrative: General: well appearing, appears stated age. HEENT: normocephalic, atraumatic. Mucous membranes moist. EOMI, PERRLA, bilateral sclera anicteric, no conjunctival injection. Neck supple without JVD, lymphadenopathy, or bruit. Respiratory: clear to ascultation bilaterally. No rales/rhonic/wheezes. Cardiovascular: Regular rate and rhythm, normal S1-S2 upon ascultation. No murmurs, rubs, or clicks. PMI is nondisplaced, capillary refill less than 3 second. Abdomen: Soft, round, no pulsatile masses, nondistended and nontender. No rebound, no guarding. No CVA tenderness, no hepatosplenomegaly. Bowel sounds present to all four quadrants. No high pitch or tinkling sounds, resonant to percussion. Extremities: No cyanosis, clubbing, or edema present. Pulses are palpable 2/2. Active ROM to all four extremities. Neuro: Alert and orientated x 4. PERRLA. Cranial nerves 2-12 intact without focal deficit. Skin: Warm, dry, and intact, without rash, erythema, or lesion. Psych: pleasant, cooperative, normal speech, normal affect, no hallucinations, no dysarthia H&P: Results Labs Labs: Short CBC 01/25/24 Range/Units 12:29 WBC 9.3 (4.5-10.0) K/mm3 Hgb 13.3 (12.0-15.0) g/dL Hct 41.9 (37.0-47.0) % Plt Count 224 (150-375) k/mm3 BMP 01/25/24 12:29 Sodium 140 Potassium 3.7 Chloride 104 Carbon Dioxide 24 BUN 22 H Creatinine 2.00 H Glucose 117 H Calcium 9.8 Liver Function 01/25/24 Range/Units 12:29 Total Bilirubin 0.9 (0.2-1.3) mg/dL AST 43 H (14-36) U/L ALT 23 (6-35) U/L Alkaline Phosphatase 141 H (38-126) U/L Albumin 4.7 (3.5-5.1) g/dL Urine 01/25/24 Range/Units 14:13 Urine Color Yellow (Yellow) Urine Appearance Clear (Clear) Urine pH 7.0 (5.0-9.0) Ur Specific Dawn 1.006 (1.001-1.035) Urine Protein Negative (Negative) mg/dL Urine Glucose (UA) Negative (Negative) mg/dL Assessment and Plan Assessment and plan (1) Hypotension: Code(s): I95.9 - Hypotension, unspecified Status: Acute Assessment and Plan: 90/50, 1 L bolus given in ED blood pressure on admission to the floor was 183/73 IVF for hydration Hold Entresto until patient is evaluated by Cardiology Cardiology consult could due to could be related to Entresto Orthostatic vital signs daily Telemetry monitoring (2) Dehydration: Code(s): E86.0 - Dehydration Status: Acute Assessment and Plan: See above, hemoconcentrated Fluid bolus in the emergency room IVF overnight Lactic acidosis resolved with fluid boluses (3) Dizziness: Code(s): R42 - Dizziness and giddiness Status: Acute Assessment and Plan: 08/26/2022 the patient started search advertising strategist for dizziness and was found to improve after starting metoprolol and decreasing the dose of Entresto Patient has complained of dizziness for the last year year and half. At the beginning of this month her dizziness was found to be related to a acute GI bleed. Which has since then resolved. Meclizine ordered (4) COTY (acute kidney injury): Code(s): N17.9 - Acute kidney failure, unspecified Status: Acute Assessment and Plan: On CKD stage III, baseline around 1.4 on admission 2.0 BMP in the morning IV fluids for hydration Hold nephrotoxic medication (5) CHF (congestive heart failure), NYHA class II: Code(s): I50.9 - Heart failure, unspecified Status: Acute Assessment and Plan: Off of Lasix and metoprolol due to orthostatic hypotension medication tolerance No signs of fluid overload, continue to monitor due to fluid boluses given in the emergency room Quality VTE Prophylaxis VTE prophylaxis: mechanical ordered and pharmacologic ordered Hospitalist MIPS Advance Care Plan I have confirmed that the patient's Advanced Care Plan is present, code status is documented, or surrogate decision maker is listed in patient medical record.: Yes Medication Reconciliation I have utilized all available resources to obtain, update and review the patients current medications (includes all prescriptions, OTC, herbals, cannabis, and nutritional supplements).: Yes
[2024-01-25] MEDS: SODIUM CHLORIDE 0.9% IV 1,000 ML 125 ML IV CONT ×2 (15:26→23:30)
--- NOTE | 2024-01-25 15:30 | ADMGEN ---
This patient, Shahida Mitchell, was admitted to Medical Room 241-. Patient/family oriented to hospital policies and general routines including ID bracelet, bed and alarms, visiting hours, pain management, procedures, bathroom and other care routines, personal items, smoking policy, room service/diet, and visiting hours. Information on how to activate the Rapid Response Team has been discussed. Patient/Family are encouraged to report perceived risks to care and to ask questions if they do not understand what they are told or what they should do.
[2024-01-25 15:49] LABS: Reflex Lactic Acid Yes or No Add Lactic
[2024-01-25] MEDS: ATORVASTATIN 40 MG TABLET PO (22:08)
[2024-01-26] VITALS (14 sets, daily range): BP systolic 98–157; BP diastolic 52–80; PULSE 60–86; RESP 16–20; TEMP 35.9–36.4; O2SAT 95–100
--- NOTE | 2024-01-26 | ECHO_ITS ---
Patient Info Name: Shahida Mitchell Age: 78 years : 1945 Gender: Female Ht: 71 in Wt: 227 lbs BSA: 2.30 m2 HR: 64 bpm BP: 140 / 80 mmHg Heart Rhythm: Sinus Rhythm Technical Quality: Poor Exam Date: 01/26/2024 9:33 AM Exam Location: Echo Lab Patient Status: Outpatient Admit Date: 01/25/2024 Staff Ordering Physician: Jennifer Ferreira APRN [employer] Wafer Breaker: Kimberly Laguerre RDCS Attending Provider: Ann Guerra PA-C Referring Physician: Hanna JARRELL; Exam Type: CA echo dop color flow w con Study Info Indications - chf Complete two-dimensional, color flow and Doppler transthoracic echocardiogram is performed with contrast to opacify the left ventricle and to improve the deliniation of the left ventricle endocardial borders. Reason for Poor Study: poor echocardiographic windows Summary 1. Left ventricular chamber dimension is normal. 2. Left ventricular systolic function is normal, estimated at 60-65%. 3. There is moderately increased left ventricular wall thickness. 4. The left ventricular diastolic function is grade I diastolic dysfunction. 5. Left atrial chamber dimension is mildly enlarged. 6. There is mild aortic valve stenosis with a peak velocity of 174.47 cm/s, mean gradient of 7 mmHg, and aortic valve area of 1.79 cm2. 7. There is mild to moderate aortic valve regurgitation. 8. There is moderate aortic valve calcification. 9. There is mild mitral valve regurgitation. 10. The mitral valve annulus is mildly calcified. 11. There is mild tricuspid valve regurgitation. 12. Mild pulmonary hypertension, estimated pulmonary arterial systolic pressure is 37 mmHg. 13. There is mild pulmonic regurgitation. 14. There is small pericardial effusion. 15. The prox ascending aorta size is mildly dilated. 16. Right atrial free wall invagination consistent with elevated pericardial pressure. Left Ventricle Left ventricular chamber dimension is normal. Left ventricular systolic function is normal, estimated at 60-65%. There is moderately increased left ventricular wall thickness. The left ventricular diastolic function is grade I diastolic dysfunction. Right Ventricle Right ventricular chamber dimension is normal. Right ventricular systolic function is normal. Linear artifact in right ventricle suggestive of catheter(s), pacemaker lead(s), or ICD lead(s). Left Atria Left atrial chamber dimension is mildly enlarged. Right Atria Right atrial chamber dimension is normal. Atrial Septum Intact interatrial septum visualized by color flow imaging. Aortic Valve The aortic valve is probable trileaflet. There is mild aortic valve stenosis with a peak velocity of 174.47 cm/s, mean gradient of 7 mmHg, and aortic valve area of 1.79 cm2. There is mild to moderate aortic valve regurgitation. There is moderate aortic valve calcification. Pulmonic Valve The pulmonic valve is normal. There is no pulmonic valve stenosis. There is mild pulmonic regurgitation. Mitral Valve The mitral valve has thickened leaflets. There is no mitral valve stenosis. There is mild mitral valve regurgitation. The mitral valve annulus is mildly calcified. Tricuspid Valve The tricuspid valve leaflets are normal. There is no significant tricuspid valve stenosis. There is mild tricuspid valve regurgitation. Mild pulmonary hypertension, estimated pulmonary arterial systolic pressure is 37 mmHg. Other Findings Right atrial free wall invagination consistent with elevated pericardial pressure. Pericardium/Pleural There is small pericardial effusion. Inferior Vena Cava Normal inferior vena cava with >50% collapse upon inspiration consistent with normal right atrial pressure, 10 mmHg. Aorta The aortic root size at the sinus of Valsalva is normal. The prox ascending aorta size is mildly dilated. Left Ventricular Outflow Tract Name Value Normal LVOT 2D LVOT Diameter 1.89 cm LVOT Doppler LVOT Peak Gradient 5 mmHg LVOT Mean Gradient 2 mmHg LVOT VTI 20.81 cm LVOT VTI/AV VTI Ratio 0.64 LVOT Stroke Volume 58.28 ml LVOT CO 3.41 l/min LVOT CI 1.48 L/min/m2 Mitral Valve Name Value Normal MV Doppler MV Decel Mcminn 173.64 cm/s2 MV PHT 0 s MV Area (PHT) 2.51 cm2 4.00-5.00 MV Diastolic Function MV E Peak Velocity 52.47 cm/s MV A Peak Velocity 92.30 cm/s MV E/A 0.57 MV Decel Time 0 s MV Annular TDI MV E/e' (Septal) 14.50 <=8.00 MV E/e' (Lateral) 11.19 <=8.00 MV E/e' (Average) 12.84 Tricuspid Valve Name Value Normal TV Regurgitation Doppler TR Peak Velocity 260.88 cm/s TR Peak Gradient 25 mmHg Estimated PAP/RSVP RA Pressure 10 mmHg <=5 PA Systolic Pressure 37 mmHg <36 RV Systolic Pressure 37 mmHg <36 Aortic Valve Name Value Normal AV Doppler AV Peak Velocity 174.47 cm/s AV Peak Gradient 12 mmHg AV Mean Gradient 7 mmHg AV VTI 32.56 cm AV Area (Cont Eq VTI) 1.79 cm2 >=3.00 AV Area (Cont Eq Gomez) 1.83 cm2 AV Regurgitation 2D LVOT Area 2.80 cm2 AV Regurgitation Doppler AR Decel Time 15 s AR Decel Mcminn 16.66 cm/s2 AR PHT 4 s Ventricles Name Value Normal LV Dimensions 2D/MM IVS Diastolic Thickness (2D) 1.27 cm 0.60-1.00 LVID Diastole (2D) 5.48 cm 3.80-5.20 LVIW Diastolic Thickness (2D) 1.27 cm 0.60-0.90 LVID Systole (2D) 3.40 cm 2.20-3.50 LVOT Diameter 1.89 cm LV Mass (2D Cubed) 293.07 g 67.00-162.00 LV Mass Index (2D Cubed) 0.01 g/cm2 0.00-0.01 Relative Wall Thickness (2D) 0.46 LV Fractional Shortening/Ejection Fraction 2D/MM LV Fractional Shortening (2D) 38 % 27-45 LV EF (2D Teicholz) 67 % 54-74 LV Diastolic Volume (4C MOD) 101.47 ml LV EF (4C MOD) 71 % LV Diastolic Volume (2C MOD) 119.13 ml LV EF (2C MOD) 58 % LV Diastolic Volume (BP MOD) 113.88 ml 46.00-106.00 LV Diastolic Volume Index (BP MOD) 0.05 l/m2 0.03-0.06 LV Systolic Volume (BP MOD) 40.31 ml 14.00-42.00 LV Systolic Volume Index (BP MOD) 0.02 l/m2 0.01-0.02 LV EF (BP MOD) 65 % 54-74 LV Diastolic Length (4C) 8.18 cm LV Systolic Length (4C) 6.53 cm LV Stroke Volume (4C MOD) 72.49 ml Atria Name Value Normal LA Dimensions LA Volume (4C A-L) 29.88 ml LA Volume (BP A-L) 40.51 ml RA Dimensions RA Area (4C) 11.77 cm2 <=18.00 Report Signatures
[2024-01-26] MEDS: ALPRAZolam (*CRX) 0.5 MG TABLET PO ×2 (04:55→23:04)
[2024-01-26] MEDS: ALBUTEROL SULFATE NEB 2.5 MG/3 ML INH INHALATION ×3 (07:40→20:11)
[2024-01-26 07:53] LABS: Basophils Percent Auto 0.6 % (0.2-1.2); Eosinophils Absolute Auto 0.2 K/mm3 (0-0.3); Eosinophils Percent Auto 2.9 % (0-4.4); Hematocrit 36.1 % (37.0-47.0); Hemoglobin 11.6 g/dL (12.0-15.0); Immature Granulocyte Absolute 0.04 K/mm3 (0.00-0.031); Immature Granulocyte Percent A 0.6 % (0-0.5); Lymphocytes Absolute Auto 1.65 K/mm3 (0.9-3.2); Lymphocytes Percent Auto 24.2 % (18.3-44.2); Mean Corpuscular HGB Conc 32.1 g/dl (32-36); Mean Corpuscular Hemoglobin 28.8 pg (26-34); Mean Corpuscular Volume 89.6 fl (80-100); Monocytes Absolute Auto 0.5 K/mm3 (0.1-0.6); Monocytes Percent Auto 7.3 % (2.6-8.5); Neutrophils Absolute Auto 4.4 K/mm3 (1.3-6.7); Neutrophils Percent Auto 64.4 % (45.5-73.1); Platelet Count Result 155 k/mm3 (150-375); Red Blood Count 4.03 M/mm3 (4.2-5.4); Red Cell Distribution Width 13.8 % (11.5-14.5); White Blood Count 6.8 K/mm3 (4.5-10.0)
[2024-01-26 08:04] LABS: Alanine Aminotransferase 19 U/L (6-35); Albumin Level 3.9 g/dL (3.5-5.1); Alkaline Phosphatase 118 U/L (38-126); Anion Gap 8 mmol/L (4-12); Aspartate Amino Transferase 35 U/L (14-36); Bilirubin,Total 0.8 mg/dL (0.2-1.3); Blood Urea Nitrogen 20 mg/dL (7-17); Calcium 8.7 mg/dL (8.4-10.2); Carbon Dioxide 23 mmol/L (22-30); Chloride 108 mmol/L (98-107); Estimated CRCL calculation 42 ml/min; Estimated Glomerular Filt Rate 40; Glucose 100 mg/dL (65-110); Potassium 4.2 mmol/L (3.4-5.0); Sodium 139 mmol/L (137-145)
[2024-01-26] MEDS: SODIUM CHLORIDE 0.9% IV 1,000 ML 125 ML IV CONT (08:08)
[2024-01-26] MEDS: ASPIRIN 81 MG ENTERIC TABLET PO (08:09)
[2024-01-26] MEDS: ENOXAPARIN 40 MG/0.4 ML SYRINGE SUB-Q (08:09)
[2024-01-26] MEDS: PERFLUTREN LIPID MICROSPHERES 1.5 ML VIAL DILUTED TO 10 ML TOTAL VOLUME IV PUSH (09:40)
--- NOTE | 2024-01-26 10:22 | PM.IMPN ---
Progress Note: A&P Assessment and Plan (1) Hypotension: Code(s): I95.9 - Hypotension, unspecified Status: Acute Assessment and Plan: 90/50, 1 L bolus given in ED blood pressure on admission to the floor was 183/73 - IVF for hydration - Hold Entresto until patient is evaluated by Cardiology - Orthostatic vital signs daily - Telemetry monitoring - Cardiology consult could due to could be related to Entresto (2) Dehydration: Code(s): E86.0 - Dehydration Status: Acute Assessment and Plan: See above, hemoconcentrated Fluid bolus in the emergency room IVF 75 ml/hr (3) COTY (acute kidney injury): Code(s): N17.9 - Acute kidney failure, unspecified Status: Acute Assessment and Plan: On CKD stage III, baseline around 1.4 on admission 2.0 - BUN/Cr 20/1.3 on am labs - IV fluids for hydration - Hold nephrotoxic medication - Renally dose medications - Monitor I/O and electrolytes (4) CHF (congestive heart failure), NYHA class II: Code(s): I50.9 - Heart failure, unspecified Status: Acute Assessment and Plan: No signs of fluid overload, continue to monitor due to fluid boluses given in the emergency room - Off of Lasix and metoprolol due to orthostatic hypotension medication tolerance. - Echo ordered - Monitor vital signs, I&Os, BUN/creatinine, daily weights, neuro status and patient is a fall risk - Monitor serum electrolytes, Keep serum Potassium>4 and serum Magnesium>2 and CBC Time Spent With Patient Time with patient: 25 - 35 minutes Subjective Date/time seen: 01/26/24 10:22 Interval history: 78 year old female with past medical history of heart failure, COPD, he atrial fibrillation, hypertension, and hyperlipidemia presents to the hospital for hypotension. Patient is pleasant sitting comfortably in her chair. She states she is feeling much better today compared to yesterday. Denies chest pain, palpitations, shortness of breath, nausea/vomiting, and abdominal pain. She continues to be hypotensive despite not being on her Entresto. Cardiology has been consulted. Echo is pending. Review of Systems Review of Systems: All systems reviewed & are unremarkable except as noted in HPI and below Exam Narrative: AF HR 62 RR 18 SpO2 96% BP 129/73 General: female in no acute respiratory distress who is nontoxic appearing, sitting up in her chair HEENT: Normocephalic. Atraumatic. Extraocular movement intact. Sclera clear and anicteric. No facial asymmetry. Chest: Lungs are clear to auscultation bilaterally. No wheezes or crackles. CV: Heart was regular rate and rhythm. S1-S2. No murmurs, gallops, or rubs. Abd: Abdomen was soft. Nontender. Nondistended. Positive bowel sounds. No organomegaly or masses. Ext: No clubbing, cyanosis, or edema. 2+ DP pulses bilaterally. Neuro: Patient is alert. Cranial nerves 2-12 are intact. Speech is clear. Psych: Normal nood and affect. Patient is pleasant and cooperative. Skin: Warm and dry. No rashes noted. Objective Data Vital Signs Vital Signs: Vital Signs - 24 hr 01/25/24 12:09 01/25/24 12:25 01/25/24 13:57 Temperature 97.1 F L Pulse Rate 71 62 60 Respiratory Rate 16 16 Blood Pressure 96/60 L 102/62 176/83 H Pulse Oximetry 99 97 Oxygen Delivery Room Air 01/25/24 14:00 01/25/24 14:02 01/25/24 15:28 Temperature 97.2 F L Pulse Rate 63 71 60 Respiratory Rate 18 Blood Pressure 133/83 95/61 L 183/73 H Pulse Oximetry 100 Oxygen Delivery 01/25/24 16:26 01/25/24 19:37 01/25/24 20:00 Temperature 97.2 F L Pulse Rate 63 Respiratory Rate 16 Blood Pressure 162/82 H Pulse Oximetry 99 Oxygen Delivery Room Air Room Air 01/26/24 00:00 01/26/24 04:00 01/26/24 07:42 Temperature 97.1 F L 97.2 F L Pulse Rate 60 63 62 Respiratory Rate 20 20 16 Blood Pressure 151/58 H 140/80 Pulse Oximetry 96 95 Oxygen Delivery 01/26/24 07:40 01/26/24 07:57 01/26/24 08:22 Temperature Pulse Rate 67 Respiratory Rate 16 Blood Pressure Pulse Oximetry 99 Oxygen Delivery Room Air Room Air 01/26/24 08:00 01/26/24 08:26 01/25/24 15:30 Temperature 96.6 F L 96.8 F L 97.2 F L Pulse Rate 69 62 60 Respiratory Rate 18 18 18 Blood Pressure 157/74 H 129/73 183/73 H Pulse Oximetry 100 96 100 Oxygen Delivery Intake/Output Intake/Output: Intake & Output 01/23/24 01/24/24 01/25/24 01/26/24 23:59 23:59 23:59 23:59 Intake Total 2740 1750 Output Total 600 Balance 2740 1150 Meds/Results Medications: Active Medications Generic Name Dose Route Start Last Admin Trade Name Freq PRN Reason Stop Dose Admin Acetaminophen 650 mg 01/25/24 13:58 Acetaminophen 325 Mg Tablet PO Q4H PRN Mild Pain (1-3) or Fever Acetaminophen 650 mg 01/25/24 17:25 Acetaminophen 325 Mg Tablet PO Q4H PRN Mild Pain (1-3) or Fever Hydrocodone Bitart/Acetaminophen 1 tab 01/25/24 17:25 Hydrocodone/Acetaminophen (*Crx) 5-325 Mg Tablet PO Q4H PRN Moderate Pain (4-6) Albuterol 2.5 mg 01/25/24 20:00 01/26/24 07:40 Albuterol Sulfate Neb 2.5 Mg/3 Ml Inh INHALATION 2.5 mg Q6HRT VITALIY Administration Alprazolam 0.5 mg 01/25/24 17:23 01/26/24 04:55 Alprazolam (*Crx) 0.5 Mg Tablet PO 0.5 mg TID PRN Administration Anxiety Aspirin 81 mg 01/26/24 09:00 01/26/24 08:09 Aspirin 81 Mg Enteric Tablet PO 81 mg QAM VITALIY Administration Atorvastatin Calcium 40 mg 01/25/24 21:00 01/25/24 22:08 Atorvastatin 40 Mg Tablet PO 40 mg HS VITALIY Administration Docusate Sodium 100 mg 01/26/24 09:00 01/26/24 08:10 Docusate Sodium 100 Mg Capsule PO Not Given BID VITALIY Enoxaparin Sodium 40 mg 01/26/24 09:00 01/26/24 08:09 Enoxaparin 40 Mg/0.4 Ml Syringe SUB-Q 40 mg DAILY VITALIY Administration Sodium Chloride 1,000 mls @ 125 mls/hr 01/25/24 14:00 01/26/24 08:08 Normal Saline Iv IV CONT 125 mls/hr .Q8H VITALIY Administration Meclizine HCl 6.25 mg 01/25/24 20:18 Meclizine Hcl 6.25 Mg Tablet PO TID PRN Dizziness Ondansetron HCl 4 mg 01/25/24 13:58 Ondansetron Inj 4 Mg/2 Ml Vial IV PUSH Q4H PRN Nausea Perflutren Lipid Microsphere 0 ml 01/25/24 17:24 Perflutren Lipid Microspheres 1.5 Ml Vial Diluted To 10 Ml Total Volume IV PUSH 01/28/24 17:24 ONCE PRN adequate visualization Protocol Labs Labs: Laboratory Results - last 24 hr 01/25/24 01/25/24 01/25/24 12:29 14:13 16:58 WBC 9.3 RBC 4.68 Hgb 13.3 Hct 41.9 MCV 89.5 MCH 28.4 MCHC 31.7 L RDW 13.9 Plt Count 224 MPV 10.1 Immature Gran % (Auto) 0.3 Neut % (Auto) 61.8 Lymph % (Auto) 24.9 [place] % (Auto) 8.9 H Eos % (Auto) 3.5 Baso % (Auto) 0.6 Lymph # (Auto) 2.32 [place] # (Auto) 0.8 H Eos # (Auto) 0.3 Baso # (Auto) 0.1 Abs Immat Gran (auto) 0.03 Absolute Neuts (auto) 5.8 Absolute Nucleated RBC 0.000 Nucleated RBC % 0.0 Sodium 140 Potassium 3.7 Chloride 104 Carbon Dioxide 24 Anion Gap 12 BUN 22 H Creatinine 2.00 H Estim Creat Clear Calc 27 Estimated GFR 24 L Glucose 117 H Lactic Acid 2.6 H 1.0 Calcium 9.8 Total Bilirubin 0.9 AST 43 H ALT 23 Alkaline Phosphatase 141 H Total Protein 9.0 H Albumin 4.7 Urine Color Yellow Urine Appearance Clear Urine pH 7.0 Ur Specific [place] 1.006 Urine Protein Negative Urine Glucose (UA) Negative Urine Ketones Negative Ur Blood (Man) Negative Urine Nitrate Negative Urine Bilirubin Negative Urine Urobilinogen 0.2 Leukocyte Esterase Rfl Negative 01/26/24 07:34 WBC 6.8 RBC 4.03 L Hgb 11.6 L Hct 36.1 L MCV 89.6 MCH 28.8 MCHC 32.1 RDW 13.8 Plt Count 155 MPV 10.0 Immature Gran % (Auto) 0.6 H Neut % (Auto) 64.4 Lymph % (Auto) 24.2 [place] % (Auto) 7.3 Eos % (Auto) 2.9 Baso % (Auto) 0.6 Lymph # (Auto) 1.65 [place] # (Auto) 0.5 Eos # (Auto) 0.2 Baso # (Auto) 0.0 Abs Immat Gran (auto) 0.04 H Absolute Neuts (auto) 4.4 Absolute Nucleated RBC 0.000 Nucleated RBC % 0.0 Sodium 139 Potassium 4.2 Chloride 108 H Carbon Dioxide 23 Anion Gap 8 BUN 20 H Creatinine 1.30 H Estim Creat Clear Calc 42 Estimated GFR 40 L Glucose 100 Lactic Acid Calcium 8.7 Total Bilirubin 0.8 AST 35 ALT 19 Alkaline Phosphatase 118 Total Protein 7.0 Albumin 3.9 Urine Color Urine Appearance Urine pH Ur Specific [place] Urine Protein Urine Glucose (UA) Urine Ketones Ur Blood (Man) Urine Nitrate Urine Bilirubin Urine Urobilinogen Leukocyte Esterase Rfl Quality VTE Prophylaxis VTE prophylaxis: pharmacologic ordered
--- NOTE | 2024-01-26 11:18 | IVDEFINITY ---
Prior to administration of IV Definity the patient was educated on the risks and benefits of the imaging enhancing agent including potential adverse side effects. The patient verbalized understanding. Allergies were verified. No exclusion criteria were identified and at least one of the following inclusion criteria were met: 1) physician request, 2) patient technically difficult to image (per the [place] [employer]ocardi[employer] guidelines of two or more segments not discernable within the apical view), or 3) questionable left ventricular function. ?
--- NOTE | 2024-01-26 14:13 | PM.CNCAR ---
Assessment and Plan Assessment and plan (1) Hypotension: Code(s): I95.9 - Hypotension, unspecified Status: Acute Assessment and Plan: Improved now after IVFs. Agree with discontinuing Entresto, would not restart. (2) Heart failure with mildly reduced ejection fraction (HFmrEF, 41-49%): Code(s): I50.20 - Unspecified systolic (congestive) heart failure Status: Acute Assessment and Plan: Agree with discontinuing Entresto, would not restart. Has not been able to tolerate other heart failure GDMT. Echocardiogram already ordered and pending. (3) COTY (acute kidney injury): Code(s): N17.9 - Acute kidney failure, unspecified Status: Acute Assessment and Plan: Improved with IVFs. (4) Presence of biventricular AICD: Code(s): Z95.810 - Presence of automatic (implantable) cardiac defibrillator Status: Acute Assessment and Plan: Tachy therapies have been turned off due to DNR status (5) Mixed hyperlipidemia: Code(s): E78.2 - Mixed hyperlipidemia Status: Acute Assessment and Plan: Continue Atorvastatin. (6) Essential hypertension: Code(s): I10 - Essential (primary) hypertension Status: Acute Assessment and Plan: Agree with discontinuing Entresto, would not restart. Not on other antihypertensives at this time. History of Present Illness History of Present Illness Consult date/time: 01/26/24 14:13 Requesting physician: Jennifer Ferreira APRN Consult reason: Other (Hypotension, on Entresto ) Reason For Visit: COTY/Dehydration Narrative: Reason for consult: Hypotension related to Entresto. This is a 78 year old female heart failure with mildly reduced LVEF s/p biventricular ICD (tachy therapies have been turned off due to DNR status), hypertension, hyperlipidemia, ascending aortic aneurysm who presented with hypotension. Follows with Dr. Still. Was at her PCP's office yesterday and found to be hypotensive with BP in the 90s/50s. She was instructed to go to the ED. She did take her Entresto yesterday morning. Workup showed COTY on CKD with SCr of 2, which has now improved to 1.3 after receiving IVFs. Last echocardiogram 07/18/2021 shows LVEF 45-50%, moderately increased LV wall thickness, grade 1 diastolic dysfunction, mild enlargement of left atrium, mild AR, mild TR, small pericardial effusion. Her blood pressures have improved now. She is feeling better now too. Does not feel as weak. Review of Systems Review of Systems: All systems reviewed & are unremarkable except as noted in HPI and below (HPI) [facility] Past Medical History Medical History Anxiety BMI 33.0-33.9,adult Cardiac pacemaker Cardiac pacemaker in situ Change in bowel habits CHF (congestive heart failure), NYHA class II Cholecystectomy planned COPD (chronic obstructive pulmonary disease) COVID-19 Dilated cardiomyopathy Diverticulitis of sigmoid colon Encounter for blood transfusion Essential hypertension Family hx of colon cancer GERD (gastroesophageal reflux disease) History of atrial fibrillation History of ischemic colitis Hyperlipidemia Overactive bladder Rectal bleeding Syncope and collapse Vitamin D deficiency Surgical History Surgical History H/O cataract extraction H/O colonoscopy H/O dilation and curettage H/O hysterectomy with oophorectomy H/O rectal polypectomy History of appendectomy History of pancreatic surgery History of removal of pigmented skin lesion Hx of brain surgery Meningioma removal in 2014 Hx of cholecystectomy Hx of tonsillectomy Presence of biventricular AICD S/P cholecystectomy Family History Family History Father Diabetes mellitus Family history of lymphoma Sibling Breast cancer Family history of malignant neoplasm of breast in first degree relative Carcinoma of colon Diabetes mellitus Mother Aplastic anemia Son Thyroid cancer Sibling Carcinoma of colon Other Family history of malignant neoplasm of thyroid Social History Social History Social History: Mrs. Mitchell's on 10/13/21. She has 5 sons. 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 She is a former 1 PPD smoker for at least 50 years. She denies illicit substance and alcohol use. She wishes for her code status to be DNR and she has designated her sons, Jan Moran and Handy Mitchell, as her designated surrogate decision maker. Her son Handy lives with her and helps to take care of her. Code status DNR Smoking packs per day: 2 Smoking cigarettes per day: 40.0 Years smoked: 60 Smoking pack-years: 120.00 Smoking status: Former smoker Tobacco type: cigarettes Second hand tobacco smoke exposure: No Smoking end date: 03/15/14 Alcohol intake: never Substance use: never Substance use type: does not use Do You Feel Safe in your Home?: Yes Lack of Transportation: No Lack of Food: Never True Current Housing: I Have Housing Concerned About Future Housing: No Difficulty Paying Gas/Electric Bills: No Difficulty Paying for Meds: No Currently Unemployed: No Education: High School Diploma/GED Difficulty w/ Childcare or Family Care: No Living arrangements: with family Occupation/Education: retired 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 Gender identity (if verbalized by the patient): Female Spiritual care concerns: No Meds Home Medications and Allergies Home Medications Medication Instructions Recorded Confirmed Type sacubitril 24 mg-valsartan 26 mg 0.5 tablet PO BID 09/10/20 01/25/24 History tablet (Entresto) aspirin 81 mg tablet,delayed 81 mg PO QAM #30 tabs 12/08/21 01/25/24 Rx release acetaminophen 500 mg tablet 500 mg PO Q6H PRN Pain 12/15/22 01/25/24 History (Tylenol Extra Strength) albuterol sulfate 2.5 mg/3 mL See Rx Instructions .Route 06/01/23 01/25/24 Rx (0.083 %) solution for nebulization .COMPLEX #180 mL alprazolam 0.5 mg tablet 0.5 mg PO TID PRN Anxiety #90 tabs 08/17/23 01/25/24 Rx albuterol sulfate 90 mcg/actuation 2 inh inhalation Q4H PRN Shortness 08/27/23 01/25/24 Rx aerosol inhaler Of Breath #8.5 grams atorvastatin 40 mg tablet 40 mg PO HS #90 tabs 08/27/23 01/25/24 Rx oxybutynin chloride 5 mg tablet 5 mg PO DAILY #90 tabs 08/27/23 01/25/24 Rx Allergies Allergy/AdvReac Type Severity Reaction Status Date / Time adhesive Allergy Mild Rash Verified 01/25/24 11:50 cat dander Allergy Mild Sneezing Verified 01/25/24 11:50 codeine Allergy Mild HIVES AND Verified 01/25/24 11:50 ITCHING Sulfa (Sulfonamide Allergy Mild HIVES Verified 01/25/24 11:50 Antibiotics) sulfanilamide Allergy Mild Hives Verified 01/25/24 11:50 tramadol AdvReac Hallucinati Verified 01/25/24 11:50 ng Vital Signs Vital Signs - 24 hr 01/25/24 15:28 01/25/24 16:26 01/25/24 19:37 Temperature 36.2 C L 36.2 C L Pulse Rate 60 63 Respiratory Rate 18 16 Blood Pressure 183/73 H 162/82 H Pulse Oximetry 100 99 Oxygen Delivery Room Air 01/25/24 20:00 01/26/24 00:00 01/26/24 04:00 Temperature 36.2 C L 36.2 C L Pulse Rate 60 63 Respiratory Rate 20 20 Blood Pressure 151/58 H 140/80 Pulse Oximetry 96 95 Oxygen Delivery Room Air 01/26/24 07:42 01/26/24 07:40 01/26/24 07:57 Temperature Pulse Rate 62 67 Respiratory Rate 16 16 Blood Pressure Pulse Oximetry 99 Oxygen Delivery Room Air 01/26/24 08:22 01/26/24 08:00 01/26/24 08:26 Temperature 35.9 C L 36.0 C L Pulse Rate 69 62 Respiratory Rate 18 18 Blood Pressure 157/74 H 129/73 Pulse Oximetry 100 96 Oxygen Delivery Room Air 01/26/24 08:00 01/26/24 13:22 01/26/24 13:30 Temperature 36.2 C L Pulse Rate 78 68 68 Respiratory Rate 18 16 16 Blood Pressure 98/52 L Pulse Oximetry 100 Oxygen Delivery 01/25/24 15:30 Temperature 36.2 C L Pulse Rate 60 Respiratory Rate 18 Blood Pressure 183/73 H Pulse Oximetry 100 Oxygen Delivery Exam Const: General: comfortable and no acute distress HENMT: Mouth: Yes moist mucous membranes Eyes: General: appearance normal, both eyes and all related structures Sclera: sclerae normal Resp: Effort & Inspection: normal respiratory effort Cardio: Rate: regular rate Rhythm: regular rhythm Heart sounds: no murmurs Skin: General skin exam: normal color Neuro: Speech: normal speech Psych: Mental Status: mental status grossly normal Affect: normal affect Results Labs and Meds 01/26/24 07:34 01/26/24 07:34 Lab results: Cardiac Enzymes 01/26/24 Range/Units 07:34 AST 35 (14-36) U/L CBC 01/26/24 Range/Units 07:34 WBC 6.8 (4.5-10.0) K/mm3 RBC 4.03 L (4.2-5.4) M/mm3 Hgb 11.6 L (12.0-15.0) g/dL Hct 36.1 L (37.0-47.0) % Plt Count 155 (150-375) k/mm3 Lymph # (Auto) 1.65 (0.9-3.2) K/mm3 [place] # (Auto) 0.5 (0.1-0.6) K/mm3 Eos # (Auto) 0.2 (0-0.3) K/mm3 Baso # (Auto) 0.0 (0.0-0.1) K/mm3 Comprehensive Metabolic Panel 01/26/24 Range/Units 07:34 Sodium 139 (137-145) mmol/L Potassium 4.2 (3.4-5.0) mmol/L Chloride 108 H (98-107) mmol/L Carbon Dioxide 23 (22-30) mmol/L BUN 20 H (7-17) mg/dL Creatinine 1.30 H (0.7-1.0) mg/dL Glucose 100 (65-110) mg/dL Calcium 8.7 (8.4-10.2) mg/dL AST 35 (14-36) U/L ALT 19 (6-35) U/L Alkaline Phosphatase 118 (38-126) U/L Total Protein 7.0 (6.3-8.2) g/dL Albumin 3.9 (3.5-5.1) g/dL Intake and Output 01/25/24 01/26/24 01/26/24 23:59 07:59 15:59 Intake Total 1740 1750 240 Output Total 600 Balance 1740 1150 240 Intake: IV 1000 1000 Sodium Chloride 0.9% IV 1,000 1000 1000 ml @ 125 mls/hr IV CONT .Q8H VITALIY Rx#:[id number] Oral 740 750 240 Output: Urine 600 Other: # Unmeasured Voids 200 Number of Bowel Movements Today 1
[2024-01-26] MEDS: SODIUM CHLORIDE 0.9% IV 1,000 ML 75 ML IV CONT (17:23)
[2024-01-26] MEDS: ATORVASTATIN 40 MG TABLET PO (20:37)
[2024-01-27] VITALS (7 sets, daily range): BP systolic 142–147; BP diastolic 51–65; PULSE 60–75; RESP 16–18; TEMP 36.4–37.3; O2SAT 95–100
[2024-01-27] MEDS: ALBUTEROL SULFATE NEB 2.5 MG/3 ML INH INHALATION ×3 (05:13→13:11)
[2024-01-27 06:01] LABS: Basophils Percent Auto 0.7 % (0.2-1.2); Eosinophils Absolute Auto 0.2 K/mm3 (0-0.3); Eosinophils Percent Auto 4.1 % (0-4.4); Hemoglobin 11.4 g/dL (12.0-15.0); Immature Granulocyte Absolute 0.01 K/mm3 (0.00-0.031); Immature Granulocyte Percent A 0.2 % (0-0.5); Lymphocytes Absolute Auto 1.65 K/mm3 (0.9-3.2); Lymphocytes Percent Auto 29.3 % (18.3-44.2); Mean Corpuscular HGB Conc 32.6 g/dl (32-36); Mean Corpuscular Hemoglobin 29.1 pg (26-34); Mean Corpuscular Volume 89.3 fl (80-100); Mean Platelet Volume 10.3 fl (7.4-10.4); Monocytes Absolute Auto 0.5 K/mm3 (0.1-0.6); Monocytes Percent Auto 8.7 % (2.6-8.5); Neutrophils Absolute Auto 3.2 K/mm3 (1.3-6.7); Platelet Count Result 142 k/mm3 (150-375); Red Blood Count 3.92 M/mm3 (4.2-5.4); Red Cell Distribution Width 13.9 % (11.5-14.5); White Blood Count 5.6 K/mm3 (4.5-10.0)
[2024-01-27 06:14] LABS: Alanine Aminotransferase 17 U/L (6-35); Albumin Level 3.7 g/dL (3.5-5.1); Alkaline Phosphatase 108 U/L (38-126); Anion Gap 9 mmol/L (4-12); Aspartate Amino Transferase 31 U/L (14-36); Bilirubin,Total 0.4 mg/dL (0.2-1.3); Blood Urea Nitrogen 19 mg/dL (7-17); Calcium 9.1 mg/dL (8.4-10.2); Carbon Dioxide 20 mmol/L (22-30); Chloride 112 mmol/L (98-107); Estimated CRCL calculation 45 ml/min; Estimated Glomerular Filt Rate 43; Glucose 96 mg/dL (65-110); Sodium 141 mmol/L (137-145)
[2024-01-27] MEDS: ASPIRIN 81 MG ENTERIC TABLET PO (08:45)
[2024-01-27] MEDS: ENOXAPARIN 40 MG/0.4 ML SYRINGE SUB-Q (08:45)
[2024-01-27] MEDS: SODIUM CHLORIDE 0.9% IV 1,000 ML 75 ML IV CONT (08:45)
--- NOTE | 2024-01-27 09:32 | P.PNCA_ITS ---
Progress Note: A&P Assessment and Plan (1) Hypotension: Code(s): I95.9 - Hypotension, unspecified Status: Acute Assessment and Plan: Improved now after IVFs. Agree with discontinuing Entresto, would not restart. (2) Heart failure with mildly reduced ejection fraction (HFmrEF, 41-49%): Code(s): I50.20 - Unspecified systolic (congestive) heart failure Status: Acute Assessment and Plan: Agree with discontinuing Entresto, would not restart. Has not been able to tolerate other heart failure GDMT. Echocardiogram showed normal LV function (3) COTY (acute kidney injury): Code(s): N17.9 - Acute kidney failure, unspecified Status: Acute Assessment and Plan: Improved with IVFs. (4) Presence of biventricular AICD: Code(s): Z95.810 - Presence of automatic (implantable) cardiac defibrillator Status: Acute Assessment and Plan: Tachy therapies have been turned off due to DNR status (5) Mixed hyperlipidemia: Code(s): E78.2 - Mixed hyperlipidemia Status: Acute Assessment and Plan: Continue Atorvastatin. (6) Essential hypertension: Code(s): I10 - Essential (primary) hypertension Status: Acute Assessment and Plan: Agree with discontinuing Entresto, would not restart. Not on other antihypertensives at this time. Subjective Date/time seen: 01/27/24 09:32 Interval history: Cardiology follow up for CHF, hypotension Date of service 01/27/2024: Review of Systems Review of Systems: All systems reviewed & are unremarkable except as noted in HPI and below (HPI) Exam Const: General: comfortable and no acute distress HENMT: Mouth: Yes moist mucous membranes Eyes: General: appearance normal, both eyes and all related structures Sclera: sclerae normal Resp: Effort & Inspection: normal respiratory effort Cardio: Rate: regular rate Rhythm: regular rhythm Heart sounds: no murmurs Skin: General skin exam: normal color Neuro: Speech: normal speech Psych: Mental Status: mental status grossly normal Affect: normal affect Objective Data Vital Signs Vital Signs: Vital Signs - 24 hr 01/26/24 13:22 01/26/24 13:30 01/26/24 12:00 Temperature 35.9 C L Pulse Rate 68 68 77 Respiratory Rate 16 16 18 Blood Pressure 140/67 Pulse Oximetry 100 Oxygen Delivery 01/26/24 16:00 01/26/24 19:58 01/26/24 20:13 Temperature 35.9 C L 36.4 C Pulse Rate 86 60 66 Respiratory Rate 18 18 16 Blood Pressure 140/67 141/57 H Pulse Oximetry 99 96 Oxygen Delivery 01/26/24 20:20 01/26/24 20:00 01/27/24 00:00 Temperature 37.3 C Pulse Rate 68 75 Respiratory Rate 16 18 Blood Pressure 142/60 H Pulse Oximetry 95 Oxygen Delivery Room Air 01/27/24 04:00 01/27/24 07:28 01/27/24 07:28 Temperature 36.4 C Pulse Rate 60 66 Respiratory Rate 18 16 Blood Pressure 147/65 H Pulse Oximetry 98 99 Oxygen Delivery Room Air 01/27/24 07:38 Temperature Pulse Rate 62 Respiratory Rate 16 Blood Pressure Pulse Oximetry Oxygen Delivery Intake/Output Intake/Output: Intake & Output 01/24/24 01/25/24 01/26/24 01/27/24 23:59 23:59 23:59 23:59 Intake Total 2740 3970.0 1000 Output Total 1600 500 Balance 2740 2370.0 500 Meds/Results Medications: Active Medications Generic Name Dose Route Start Last Admin Trade Name Freq PRN Reason Stop Dose Admin Acetaminophen 650 mg 01/25/24 13:58 Acetaminophen 325 Mg Tablet PO Q4H PRN Mild Pain (1-3) or Fever Acetaminophen 650 mg 01/25/24 17:25 Acetaminophen 325 Mg Tablet PO Q4H PRN Mild Pain (1-3) or Fever Hydrocodone Bitart/Acetaminophen 1 tab 01/25/24 17:25 Hydrocodone/Acetaminophen (*Crx) 5-325 Mg Tablet PO Q4H PRN Moderate Pain (4-6) Albuterol 2.5 mg 01/25/24 20:00 01/27/24 07:28 Albuterol Sulfate Neb 2.5 Mg/3 Ml Inh INHALATION 2.5 mg Q6HRT VITALIY Administration Alprazolam 0.5 mg 01/25/24 17:23 01/26/24 23:04 Alprazolam (*Crx) 0.5 Mg Tablet PO 0.5 mg TID PRN Administration Anxiety Aspirin 81 mg 01/26/24 09:00 01/27/24 08:45 Aspirin 81 Mg Enteric Tablet PO 81 mg QAM VITALIY Administration Atorvastatin Calcium 40 mg 01/25/24 21:00 01/26/24 20:37 Atorvastatin 40 Mg Tablet PO 40 mg HS VITALIY Administration Docusate Sodium 100 mg 01/26/24 09:00 01/27/24 08:45 Docusate Sodium 100 Mg Capsule PO Not Given BID VITALIY Enoxaparin Sodium 40 mg 01/26/24 09:00 01/27/24 08:45 Enoxaparin 40 Mg/0.4 Ml Syringe SUB-Q 40 mg DAILY VITALIY Administration Sodium Chloride 1,000 mls @ 75 mls/hr 01/25/24 14:00 01/27/24 08:45 Normal Saline Iv IV CONT 75 mls/hr .[id number] VITALIY Administration Meclizine HCl 6.25 mg 01/25/24 20:18 Meclizine Hcl 6.25 Mg Tablet PO TID PRN Dizziness Ondansetron HCl 4 mg 01/25/24 13:58 Ondansetron Inj 4 Mg/2 Ml Vial IV PUSH Q4H PRN Nausea Labs Labs: Laboratory Results - last 24 hr 01/27/24 04:49 WBC 5.6 RBC 3.92 L Hgb 11.4 L Hct 35.0 L MCV 89.3 MCH 29.1 MCHC 32.6 RDW 13.9 Plt Count 142 L MPV 10.3 Immature Gran % (Auto) 0.2 Neut % (Auto) 57.0 Lymph % (Auto) 29.3 [place] % (Auto) 8.7 H Eos % (Auto) 4.1 Baso % (Auto) 0.7 Lymph # (Auto) 1.65 [place] # (Auto) 0.5 Eos # (Auto) 0.2 Baso # (Auto) 0.0 Abs Immat Gran (auto) 0.01 Absolute Neuts (auto) 3.2 Absolute Nucleated RBC 0.000 Nucleated RBC % 0.0 Sodium 141 Potassium 4.0 Chloride 112 H Carbon Dioxide 20 L Anion Gap 9 BUN 19 H Creatinine 1.20 H Estim Creat Clear Calc 45 Estimated GFR 43 L Glucose 96 Calcium 9.1 Total Bilirubin 0.4 AST 31 ALT 17 Alkaline Phosphatase 108 Total Protein 7.0 Albumin 3.7 Quality VTE Prophylaxis VTE prophylaxis: pharmacologic ordered
--- NOTE | 2024-01-27 14:27 | P.DS_ITS ---
DS: Admitting Diagnosis Discharge Date 01/27/24 Admitting Diagnosis hypotension dehydration COTY CHF DS: Discharge Diagnosis Discharge Diagnosis (1) Hypotension: Code(s): I95.9 - Hypotension, unspecified Status: Acute (2) Dehydration: Code(s): E86.0 - Dehydration Status: Acute (3) COTY (acute kidney injury): Code(s): N17.9 - Acute kidney failure, unspecified Status: Acute (4) CHF (congestive heart failure), NYHA class II: Code(s): I50.9 - Heart failure, unspecified Status: Acute DS: Summary Hospital Course Reason for hospitalization: hypotension dehydration COTY CHF Hospital Course: 78 year old female with past medical history of heart failure, COPD, atrial fibrillation, hypertension, and hyperlipidemia presents to the hospital for hypotension. Per chart review patient was at her primary care provider and was found to be hypotensive 90s/50s and was directed to go to the emergency room. On admission patient was found to have a blood pressure in the 90s systolic. She received a 1 L bolus of fluids in the ED and was started on maintenance fluids. Her Entresto was placed on hold and Cardiology was consulted. An echo was ordered which showed an ejection fraction of 60-65% with grade 1 diastolic dysfunction and mild pulmonary hypertension. Per cardiology patient is to remain Entresto and no other medications will be started at this time as patient has been unable to tolerate other heart failure GDMT. patient was noted to have a slight COTY on admission likely due to decreased perfusion secondary to hypotension. The COTY resolved with IV fluids. The patient was endorsing slight weakness throughout her admission. She was evaluated by Physical therapy who had no further recommendations. At time of discharge patient had no complaints denying chest pain, shortness a breath, palpitations, lightheadedness/dizziness, nausea / vomiting, abdominal pain. Patient discharged home in stable condition. She is to follow up with her PCP in 1 week. Status at Discharge Functional status at discharge: independent ambulation Time Spent with Patient Time attestation: Total time spent providing and/or coordinating discharge services: Time spent: Greater than 30 minutes Exam Narrative: AF HR 68 RR 16 SpO2 100 BP 143/51 General: female in no acute respiratory distress who is nontoxic appearing, l nathaniel in bed HEENT: Extraocular movement intact. Sclera clear and anicteric. No facial asymmetry. Chest: Lungs are clear to auscultation bilaterally. No wheezes or crackles. CV: Heart was regular rate and rhythm. S1-S2. No murmurs, gallops, or rubs. Abd: Abdomen was soft. Nontender. Nondistended. Positive bowel sounds. No organomegaly or masses. Ext: No clubbing, cyanosis, or edema. 2+ DP pulses bilaterally. Neuro: Patient is alert. Cranial nerves 2-12 are intact. Speech is clear. DS: Data Data Completed and Pending Completed studies during hospitalization: abdomen/pelvis CTA Labs on day of discharge: Labs from last 24 hours 01/27/24 04:49 WBC 5.6 RBC 3.92 L Hgb 11.4 L Hct 35.0 L MCV 89.3 MCH 29.1 MCHC 32.6 RDW 13.9 Plt Count 142 L MPV 10.3 Immature Gran % (Auto) 0.2 Neut % (Auto) 57.0 Lymph % (Auto) 29.3 [place] % (Auto) 8.7 H Eos % (Auto) 4.1 Baso % (Auto) 0.7 Lymph # (Auto) 1.65 [place] # (Auto) 0.5 Eos # (Auto) 0.2 Baso # (Auto) 0.0 Abs Immat Gran (auto) 0.01 Absolute Neuts (auto) 3.2 Absolute Nucleated RBC 0.000 Nucleated RBC % 0.0 Sodium 141 Potassium 4.0 Chloride 112 H Carbon Dioxide 20 L Anion Gap 9 BUN 19 H Creatinine 1.20 H Estim Creat Clear Calc 45 Estimated GFR 43 L Glucose 96 Calcium 9.1 Total Bilirubin 0.4 AST 31 ALT 17 Alkaline Phosphatase 108 Total Protein 7.0 Albumin 3.7 Discharge Plan Discharge Attending physician on discharge: Norman Segura Consulting providers: Randy Chandler Discharging Clinician: Ann Guerra Anticipated Discharge Date/Time: 01/27/24 14:23 Patient Disposition: Home, Self-Care Activity: as tolerated Diet: as tolerated Discharge Instructions: Discharge disposition: Patient was admitted for low blood pressures likely due to dehydration and continued antihypertensive medications She was given IV fluids during her admission and her blood pressure medications were placed on hold Patient was evaluated by Cardiology who agrees with discontinuing Entresto Patients blood pressures have since been stable Monitor blood pressures Take caution while standing, rising, or moving Change positions slowly taking a break between each position change If you standing feel dizzy sat back down and take a break Call your primary care provider return to hospital if her blood pressure is elevated Follow up with your primary care provider in regards to resuming blood pressure medications Patient had a slight kidney injury during her admission likely due to low blood pressures and mild dehydration Eat well balanced meals and stay hydrated Keep active to remain strong Trend urine output Encouraged to continue with yearly vaccinations Return to the emergency department if he developed sudden shortness of breath, chest pain, nausea, vomiting, upset stomach or intractable diarrhea Return to the emergency department if you develop fever greater than 101.5 Follow-up with the primary care physician within 1 weeks Thank you for choosing [facility] for your healthcare needs Patient Instructions: Dehydration (DC), Acute Kidney Injury (DC), Chronic Hypertension (DC), Hypotension (DC) Patient Language: Ken[place] Stand Alone Forms: General Discharge Information Follow-up/Referrals: Randy Chandler MD [Physician] - Keep Reg. Scheduled Appt. Srinivas Chery APRN [Primary Care Provider] - 1 Week Discharge Medications: Continued acetaminophen [Tylenol Extra Strength] 500 mg tablet 500 mg PO Q6H PRN (Reason: Pain) albuterol sulfate 90 mcg/actuation HFA aerosol inhaler 2 inh INHALATION Q4H PRN (Reason: Shortness Of Breath) Qty: 8.5 5RF oxybutynin chloride 5 mg tablet 5 mg PO DAILY Qty: 90 1RF atorvastatin 40 mg tablet 40 mg PO HS Qty: 90 1RF aspirin 81 mg Tablet,Delayed Release (Dr/Ec) 81 mg PO QAM Qty: 30 0RF albuterol sulfate 2.5 mg /3 mL (0.083 %) solution for nebulization See Rx Instructions .ROUTE .COMPLEX Qty: 180 3RF Dose Instruction: USE PER NEBULIZER ONE VIAL EVERY 4 TO 6 HOURS Rx Instructions: USE PER NEBULIZER ONE VIAL EVERY 4 TO 6 HOURS alprazolam 0.5 mg tablet 0.5 mg PO TID PRN (Reason: Anxiety) Qty: 90 1RF Discontinued Entresto 24-26 mg tablet 0.5 tablet PO BID Date of admission: 01/25/24 13:58 Primary Care Provider: Srinivas Chery Admitting Provider: Norman Segura Attending physician on admission: Ann Guerra Condition: Stable Hospitalist MIPS Heart Failure (Exclusion) Patient has history of Heart Transplant or Left Ventricular Assistive Device?: No IF YES, STOP HERE Heart Failure (Qualifier) Patient has current or prior documentation of LVEF less than or equal to 40%, or mod/servere depressed LVSF?: No IF NO, STOP HERE
== END 2024-01-27 15:25 | disposition home or self-care (01) ==
LOC: ANHED 12:40 → ANH2MED 14:45
PROVIDERS: Admitting Provider Internal Medicine; Emergency Provider Emergency Medicine; PCP Nurse Practitioner; Visit Provider Student in an Organized Health Care Education/Training Program
DX: I95.9 Hypotension, unspecified (principal); E86.0 Dehydration; N17.9 Acute kidney failure, unspecified; R42 Dizziness and giddiness; I13.0 Hypertensive heart and chronic kidney disease with heart failure and stage 1 through stage 4 chronic kidney disease, or unspecified chronic kidney disease; I50.20 Unspecified systolic (congestive) heart failure; N18.30 Chronic kidney disease, stage 3 unspecified; I27.20 Pulmonary hypertension, unspecified; I71.21 Aneurysm of the ascending aorta, without rupture; J44.9 Chronic obstructive pulmonary disease, unspecified; I48.91 Unspecified atrial fibrillation; I42.0 Dilated cardiomyopathy; E78.2 Mixed hyperlipidemia; K21.9 Gastro-esophageal reflux disease without esophagitis; N32.81 Overactive bladder; Z66 Do not resuscitate; Z86.16 Personal history of COVID-19; Z79.51 Long term (current) use of inhaled steroids; Z79.82 Long term (current) use of aspirin; Z79.899 Other long term (current) drug therapy; Z95.810 Presence of automatic (implantable) cardiac defibrillator; Z87.891 Personal history of nicotine dependence; Z87.19 Personal history of other diseases of the digestive system; Z98.890 Other specified postprocedural states
CPT/HCPCS: 36415; 80053; 81003; 83605; 85025; 94640; 96360; 96361; 96372; 96374; 97161; 99285; A9270; C8929; G0378; J1650; J7030; Q9957

== ENCOUNTER 2024-02-15 14:05 | Outpatient (CLI) | payer MEDICARE, SELFPAY ==
[2024-02-15 16:01] LABS: Add Urine Microscopic? YES; Appearance Urine Cloudy (Clear); Bacteria Urine 4+ /hpf; Bilirubin Urine Negative (Negative); Blood Urine Negative (Negative); Color Urine Dark Yellow (Yellow); Glucose Urine UA Negative (Negative); Hyaline Casts Urine Present /lpf; Ketones Urine Trace mg/dL (Negative); Leukocyte Esterase Ur 2+ LEU/UL (Negative); Need Manual Microscopic Reviewed; Nitrate Urine Positive (Negative); Non Pathogenic Casts >20; Protein Urine Trace mg/dL (Negative); Specific Grav Ur 1.017 (1.001-1.035); Squamous Epithelial Cell Urine Occasional /hpf (Few); WBC Urine 51-100 /hpf (0-3); pH Urine 5.5 (5.0-9.0)
== END 2024-02-15 14:06 | disposition home or self-care (01) ==
LOC: ANHLAB 14:06
PROVIDERS: PCP Nurse Practitioner; Visit Provider Nurse Practitioner Adult Health
DX: R10.9 Unspecified abdominal pain (principal)
CPT/HCPCS: 81001; 87077; 87086; 87186

== ENCOUNTER 2024-02-26 12:21 | Outpatient (CLI) | payer MEDICARE, SELFPAY ==
[2024-02-26 13:10] LABS: Cholesterol 107 mg/dL (0-200); HDL Direct 39 mg/dL; Triglycerides 85 mg/dL (<150)
[2024-02-26 13:21] LABS: LDL Cholesterol Direct 45 mg/dL
== END 2024-02-26 12:22 | disposition home or self-care (01) ==
PROVIDERS: PCP Nurse Practitioner; Visit Provider Nurse Practitioner
DX: E78.5 Hyperlipidemia, unspecified (principal)
CPT/HCPCS: 36415; 80061

== ENCOUNTER 2024-05-27 09:49 | Outpatient (CLI) | payer MEDICARE, SELFPAY ==
--- NOTE | ~2024-05-27 | US_ITS ---
Procedure: Duplex Doppler examination of the bilateral carotids. Indication: TIA Technique: Real time, color-flow and pulse wave Doppler examination of the bilateral carotids was performed. Findings: Soto scale ultrasonography of the right neck demonstrated no significant plaque. There was demonstrat ion of normal color-flow and Doppler waveforms within the right common, internal and external carotid arteries. The peak systolic velocities in the right common, internal and external carotid arteries w ere demonstrated to be 57 cm/sec, 49 cm/sec and 74 cm/sec respectively. The right ICA/CCA ratio was 1 .1.The proximal right internal carotid artery demonstrates 0% stenosis relative to the normal distal artery lumen diameter. Soto scale sonography of the left neck demonstrated small plaques at the left carotid bifurcation. Th ere was demonstration of normal color-flow and wave forms within the left common, internal and dryer and washer mechanic al carotid arteries. The peak systolic velocities in the left common, internal and external carotid a rteries were demonstrated to be 67cm/sec, 52 cm/sec and 60 cm/sec respectively. The left ICA/CCA rati o was 1.1. The proximal left internal carotid artery demonstrates 0% stenosis relative to the normal distal artery lumen diameter. There was antegrade flow demonstrated in the bilateral vertebral arteries. Impression: No hemodynamically significant stenosis of the bilateral internal carotid arteries. Antegrade flow in the bilateral vertebral arteries. Note: The methodology used is an indirect measurement validated against a direct method (such as the NASCET criteria) that compares diameters at the stenosis to the distal ICA. Reviewed, dictated and finalized at location . Impression: No hemodynamically significant stenosis of the bilateral internal carotid arter ies. Antegrade flow in the bilateral vertebral arteries. Note: The methodology used is an indirect measurement validated against a direct meth od (such as the NASCET criteria) that compares diameters at the stenosis to the distal ICA.
--- OUTSIDE RECORDS SUMMARY | 2024-05-27 09:45 | XMS_ITS | Clinical Summary ---
Author Organization [email or web address] Address [address] [place] [address] Care Team Providers Care Car Cooper Name Role Phone Srinivas Chery OTILIO-HAND CANDY MOLDER Primary Care Provider Source Comments [email or web address],non-owned Affiliates and Associated Physician Practices is amultiple site organization consisting of ambulatory clinics and hospital sitesin [place], [place], [place] and [place]. This disclosure is being madepursuant to the Care Everywhere program and may not contain all information available regarding this patient. Last updated 17.[email or web address] Medications * Be aware that medications may not be up to date on this document. Alwaysverify current medications with the patient. Medication Sig Dispensed Refills Start Date End Date Status albuterol (Proventil;Ventolin) (2.5 MG/3ML) 0.083% nebulizer solution Inhale 2.5 (two and one-half) mg by mouth 4 times daily as needed for Shortness of Breath or Wheezing Active aspirin (Aspirin) 81 MG chew tablet Take 1 (one) tablet by mouth once daily Active atorvastatin (Lipitor) 40 MG tablet Take 1 (one) tablet by mouth once daily Active carvedilol (Coreg) 3.125 MG tablet Take 1 (one) tablet by mouth 2 times daily with morning and evening meal Active vitamin D3 (Cholecalciferol) 25 MCG (1000 UNITS) tablet Take 2 (two) tablets by mouth once daily Active furosemide (Lasix) 20 MG tablet Take 1 (one) tablet by mouth once daily 10/13/2023 10/12/2024 Active oxyBUTYnin (Ditropan) 5 MG tablet Take 1 (one) tablet by mouth 2 times daily Active sacubitril-valsartan (Entresto) 24-26 MG tablet Take 0.5 (one-half) tablet by mouth 2 times daily Active Active Problems Problem Noted Date Diagnosed Date Paresthesias 04/09/2024 Facial twitching 04/09/2024 Muscle twitching 04/09/2024 Anemia 04/09/2024 Dysarthria 04/09/2024 Weakness 04/09/2024 Left-sided weakness 04/09/2024 Orthostatic hypotension 08/06/2021 Ileus 11/14/2020 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 01/28/2017 History of meningioma 01/28/2017 Dilated cardiomyopathy 09/23/2016 Overview (04/09/2024): Last Assessment & Plan: Class 3 CHF with severely depressed dilated nonischemic cardiomyopathy EF 25%, despite optimization of medical therapy. In view of left bundle-branch block, heart failure and LV dysfunction, upgrade to a BAND HEAD SAW OPERATOR ICD is recommended. I discussed the risks and benefits of the procedure including, but not limited to, infection, lead dislodgement, bleeding, thrombosis, extracardiac stimulation, and perforation. All questions answered. Patient understands and wishes to proceed. Plan Upgrade to BAND HEAD SAW OPERATOR ICD Hypertensive heart disease 11/21/2015 Left bundle branch block (LBBB) 11/21/2015 Overview (04/09/2024): Last Assessment & Plan: QRS duration equals 200 milliseconds. BAND HEAD SAW OPERATOR is recommended Tachycardia-bradycardia 11/19/2015 Encounters Date Type Department Care Team Description 04/13/2024 Orders Only [facility] IVR [address] [place] [address] Pippa Heath MD 04/09/2024 11:28 AM MERCHANDISE PRESENTATION ASSOCIATE - 04/10/2024 5:32 PM MERCHANDISE PRESENTATION ASSOCIATE Emergency [facility] EMERGENCY DEPARTMENT [address] [place] [address] Cipriano Najera MD Kitchener, Jacob M, MD Paresthesias (Primary Dx); Weakness; Left-sided weakness; Dysarthria Discharge Disposition: Home or Self Care from Last 3 Months Social History Tobacco Use Types Packs/Day Years Used Date Smoking Tobacco: Never Assessed Sex and Gender Information Value Date Recorded Sex Assigned at Not on file Gender Identity Not on file Sexual Orientation Not on file Last Filed Vital Signs Vital Sign Reading Time Taken Comments Blood Pressure 159/79 04/10/2024 8:52 AM [facility]ISE PRESENTATION ASSOCIATE Pulse 70 04/10/2024 8:52 AM MERCHANDISE PRESENTATION ASSOCIATE Temperature 36.7 C (98 F) 04/09/2024 11:28 AM MERCHANDISE PRESENTATION ASSOCIATE Respiratory Rate 20 04/10/2024 6:36 AM MERCHANDISE PRESENTATION ASSOCIATE Oxygen Saturation 97% 04/10/2024 6:36 AM MERCHANDISE PRESENTATION ASSOCIATE Inhaled Oxygen Concentration - - Weight 109 kg (240 lb 6.4 oz) 04/09/2024 11:28 A M MERCHANDISE PRESENTATION ASSOCIATE Height 167.6 cm (5' 6 ) 04/09/2024 11:28 AM MERCHANDISE PRESENTATION ASSOCIATE Body Mass Index 38.8 04/09/2024 11:28 AM MERCHANDISE PRESENTATION ASSOCIATE Plan of Treatment Health Maintenance Due Date Last Done Comments BONE DENSITY TESTING 1944 DTAP/TDAP/TD VACCINES (1 - Tdap) 1963 PNEUMOCOCCAL VACCINE 50+ (1 of 1 - PCV) 1994 ZOSTER VACCINE (1 of 2) 1994 Respiratory Syncytial Virus (RSV) Vaccine Pt: or over 60 yrs (1 - 1-dose 75+ series) 2019 COVID-19 VACCINE ( - 2023-2 5 season) 2023 01/28/2022, 11/29/2020, 10/11/2020 INFLUENZA VACCINE (#1) 2023 2, 02/18/2012 DEPRESSION SCREENING 03/15/2024 MEDICARE AWV CALENDAR YEAR 2024 HEPATITIS B VACCINE Aged Out No longe r eligible based on patient's age to complete this topic HIB VACCINE Aged Out No longer eligi ble based on patient's age to complete this topic HPV VACCINE Aged Out No longer eligi ble based on patient's age to complete this topic MENINGOCOCCAL (Group B) VACCINE SHARED DECISION-MAKING Aged Out No longer eligible based on patient's age to complete this topic MENINGOCOCCAL GROUPS A/C/Y/W VACCINE Aged Out No longer eligible b ased on patient's age to complete this topic Medical Devices Implanted Type Area Yoker Machine Operator Device Identifier Shelf Expiration Date Model / Serial / Lot No Mri... Medtronic Viva Quad Xt Junior Systems Engineer-D-10/19/2016 Implanted:09/2016 (Quantity not on file) Defibrillator [employer] Description:Medtronic IPAD s ays cannot scan due to two devices. No Mri... Pacemaker-Unkn own Medtronic-10/12 Implanted:09/14 (Quantity not on file) Pacemaker [employer] Description:Medtronic IPAD s ays cannot scan due to two devices. Procedures Procedure Name Priority Date/Time Associated Diagnosis Comments PREPARE RBC LEUKOREDUCED UNIT STAT 04/11/2024 1:17 AM MERCHANDISE PRESENTATION ASSOCIATE CARDIAC EKG ORDER 04/10/2024 11: 51 AM MERCHANDISE PRESENTATION ASSOCIATE LIPID PROFILE STAT 04/10/2024 5:02 AM MERCHANDISE PRESENTATION ASSOCIATE CBC W/O DIFFERENTIAL STAT 04/10/2024 5:02 AM MERCHANDISE PRESENTATION ASSOCIATE BASIC METABOLIC PANEL (CALCIUM TOTAL) STAT 04/10/2024 5:02 AM MERCHANDISE PRESENTATION ASSOCIATE TROPONIN-I HIGH SENSITIVE REFLEX 1HOUR Timed 04/09/2024 1:41 PM MERCHANDISE PRESENTATION ASSOCIATE BLOOD TYPE VERIFICATION STAT 04/09/19 12:45 PM MERCHANDISE PRESENTATION ASSOCIATE TROPONIN-I HIGH SENSITIVE BASELINE + 1HR STAT 04/09/2024 12:42 PM MERCHANDISE PRESENTATION ASSOCIATE CHE DIRECT Routine 04/09/2024 12:00 PM MERCHANDISE PRESENTATION ASSOCIATE ANTIBODY IDENTIFICATION Routine 04/09/19 12:00 PM MERCHANDISE PRESENTATION ASSOCIATE TYPE + SCREEN PANEL STAT 04/09/2024 1 2:00 PM MERCHANDISE PRESENTATION ASSOCIATE PT-INR [facility] STAT 04/09/2024 12:00 PM MERCHANDISE PRESENTATION ASSOCIATE COMPREHENSIVE METABOLIC PANEL STAT 04/09/2024 12:00 PM MERCHANDISE PRESENTATION ASSOCIATE CBC W AUTO DIFFERENTIAL STAT 04/09/19 12:00 PM MERCHANDISE PRESENTATION ASSOCIATE EKG 12-LEAD STAT 04/09/2024 11:58 AM MERCHANDISE PRESENTATION ASSOCIATE Weakness CT ANGIO BRAIN NECK STROKE STAT 04/09/2024 11:58 AM MERCHANDISE PRESENTATION ASSOCIATE Weakness PT EVAL AND TREAT Routine 04/09/2024 11: 55 AM MERCHANDISE PRESENTATION ASSOCIATE OT EVAL AND TREAT Routine 04/09/2024 11: [address] MERCHANDISE PRESENTATION [employer]OCIATE CT BRAIN STROKE STAT 04/09/2024 11:46 AM MERCHANDISE PRESENTATION ASSOCIATE Weakness CREATININE - POCT INTERFACED Routine 04/09/2024 11:41 AM MERCHANDISE PRESENTATION ASSOCIATE INR WHOLE BLOOD - POINT OF CARE (IP) STROKE Routine 04/09/2024 11:41 AM MERCHANDISE PRESENTATION ASSOCIATE from Last 3 Months Results * PREPARE (CROSSMATCH) RBC UNIT(S), 2 Units (04/11/2024 1:17 AM MERCHANDISE PRESENTATION ASSOCIATE) Unit Description AS1 LR PRBC [facility] BLOOD [facility]ANK LAB Unit ABO O [facility] B[facility]OD [facility] Unit Rh NEG [facility] BLOOD [facility] Product Number R43 [facility] B LOOD [facility]ANK LAB Unit Donor # [id number] [facility] BLOOD [facility] Unit Status released [facility] BLOO D BANK LAB Product Code [id number] [facility] BLO OD BANK LAB Blood Type Barcode 9500 [facility] B[facility]OD [facility] LAB Expiration Date [id number] S BLOOD BANK LAB Unit Description AS1 LR PRBC [facility] BLOOD [facility]ANK LAB Unit ABO O [facility] BLOOD [facility] LAB Unit Rh NEG [facility] BLOOD BANK LAB Product Number R02 [facility] B LOOD BANK LAB Unit Donor # [id number] [facility] BLOOD BANK LAB Unit Status released [facility] BLOO D BANK LAB Product Code [id number] [facility] OD BANK LAB Blood Type Barcode 9500 [facility] BLOOD BANK LAB Expiration Date [id number] S BLOOD BANK LAB Blood Bank BLOOD SPECIMEN / Unknown 04/09/2024 12:40 PM MERCHANDISE PRESENTATION ASSOCIATE Gordon Reilly PETROLEUM REFINING FIRER-INTERFACE ENGINEER LAB - BL OOD BANK ORDERABLES [facility] BLOOD BANK LAB [address] [place] [address], [facility] [phone] * CARDIAC EKG ORDER (04/10/2024 11:51 AM MERCHANDISE PRESENTATION ASSOCIATE) Narrative 04/10/2024 11:51 AM MERCHANDISE PRESENTATION ASSOCIATE Ordered by an unspecified provider. Scanned Document CARDIAC SERVICES ORD ERABLES * (ABNORMAL) CBC W/O DIFFERENTIAL (04/10/2024 5:02 AM MERCHANDISE PRESENTATION ASSOCIATE) WBC 6.1 4.0 - 10.7 x10E9/L 04/10/2024 5:15 AM [facility] RBC Count 4.20 3.90 - 5.20 x10E12/L 04/10/2024 5:15 AM [facility] Hemoglobin 11.6(L) 11.9 - 15.8 g/dL 04/10/2024 5:15 AM [facility] Hematocrit 36.2 34.8 - 46.1 % 04/10/2024 5:15 AM [facility] MCV 86.2 80.0 - 98.0 fL 04/10/2024 5:15 AM [facility] MCH 27.6 26.7 - 33.6 pg 04/10/2024 5:15 AM [facility] MCHC 32.0 31.7 - 36.3 g/dL 04/10/2024 5:15 AM [facility] RDW-CV 13.4 11.3 - 14.8 % 04/10/2024 5:15 AM [facility] Platelet Count 164 150 - 420 x10E9/L 04/10/2024 5:15 AM [facility] MPV 9.9 7.8 - 11.4 fL 04/10/2024 5:15 AM [facility] Blood BLOOD SPECIMEN / Unknown Venipuncture / Unknown 04/10/2024 5:02 AM MERCHANDISE PRESENTATION ASSOCIATE 04/10/2024 5:09 AM [facility] Cipriano Najera MD LAB - HEMATOLO GY ORDERABLES [facility] [address] [place] [address], [facility] [phone] * (ABNORMAL) BASIC METABOLIC PANEL (CALCIUM TOTAL) (04/10/2024 5:02 AM [facility]) Pathologist [facility] BUN 23 7 - 26 mg/dL 04/10/2024 5:39 AM [facility] Creatinine 1.20(H) 0.56 - 0.96 mg/dL 04/10/2024 5:39 AM [facility] Sodium 140 136 - 145 mmol/L 04/10/2024 5:39 AM [facility] Potassium 4.5 3.5 - 4.5 mmol/L 04/10/2024 5:39 AM [facility] Chloride 108(H) 98 - 107 mmol/L 04/10/2024 5:39 AM [facility] CO2 22 22 - 29 mmol/L 04/10/2024 5:39 AM [facility] Glucose 91 70 - 99 mg/dL 04/10/2024 5:39 AM [facility] Calcium 9.4 8.4 - 10.2 mg/dL 04/10/2024 5:39 AM [facility] Anion Gap 10 6 - 16 04/10/2024 5:39 AM [facility] BUN/Creatinine Ratio 19 7 - 23 04/10/2024 5:39 AM [facility] Osmolality Calculated 293 275 - 295 mOsm/kg 04/10/2024 5:39 AM [facility] eGFR by CKD-EPI 46(L) >=90 mL/min/1.7 3 m2 04/10/2024 5:39 AM [facility] Blood BLOOD SPECIMEN / Unknown Venipuncture / Unknown 04/10/2024 5:02 AM MERCHANDISE PRESENTATION ASSOCIATE 04/10/2024 5:09 AM [facility] Cipriano Najera MD LAB - CHEMISTR Y ORDERABLES [address] [address], [facility] [phone] * (ABNORMAL) LIPID PROFILE (04/10/2024 5:02 AM [facility]) [facility] Cholesterol Total 100 <200 mg/dL 04/10/2024 5:39 AM [facility] HDL 30(L) >40 mg/dL 04/10/2024 5:39 AM [facility] Comment: ATP III Classification of HDL Cholesterol: <40 mg/dL: Considered a major risk factor. >60 mg/dL: Considered a negative risk factor. LDL Calculated 55 <100 mg/dL 04/10/2024 5:39 AM [facility] Comment: ATP III Classification of LDL Cholesterol: <100 mg/dL: Optimal 100 - 129 mg/dL: Near Optimal/Above Optimal 130 - 159 mg/dL: Borderline High 160 - 189 mg/dL: High >190 mg/dL: Very High Triglycerides 75 <150 mg/dL 04/10/2024 5:39 AM [facility] Comment: ATP III Classification of Triglycerides: <150 mg/dL: Normal 150 - 199 mg/dL: Borderline High 200 - 400 mg/dL: High >500 mg/dL: Very High Blood BLOOD SPECIMEN / Unknown Venipuncture / Unknown 04/10/2024 5:02 AM MERCHANDISE PRESENTATION ASSOCIATE 04/10/2024 5:09 AM MERCHANDISE PRESENTATION ASSOCIATE Cipriano Najera MD LAB - CHEMISTR Y ORDERABLES [address] [address], [email or web address] [phone] * TROPONIN-I HIGH SENSITIVE REFLEX 1HOUR (04/09/2024 1:41 PM MERCHANDISE PRESENTATION ASSOCIATE) Troponin I High Sensitive 6 <=14 ng/L 04/09/2024 2:29 PM [facility] Delta Troponin I HS 1 <6 ng/L 04/09/2024 2:29 PM [facility] Blood BLOOD SPECIMEN / Unknown Venipuncture / Unknown 04/09/2024 1:41 PM MERCHANDISE PRESENTATION ASSOCIATE 04/09/2024 1:49 PM MERCHANDISE PRESENTATION ASSOCIATE Cipriano Najera MD LAB - CHEMISTR Y ORDERABLES [address] [address], [email or web address] [phone] * BLOOD TYPE VERIFICATION (04/09/2024 12:45 PM MERCHANDISE PRESENTATION ASSOCIATE) ABO Rh A POS 04/09/2024 1:2 7 PM MERCHANDISE PRESENTATION ASSOCIATE [facility] BLOOD BANK LAB Blood Bank BLOOD SPECIMEN / Unknown Venipuncture / Unknown 04/09/2024 12:45 PM MERCHANDISE PRESENTATION ASSOCIATE 04/09/2024 12:50 PM MERCHANDISE PRESENTATION ASSOCIATE Jeff Lennon MD LAB - BLOOD BANK ORD ERABLES Performing Organization Address City/[facility]/ZIP Co de Phone Number [facility] BLOOD [facility]ANK LAB [address] [place] [address], [facility] [phone] * TROPONIN-I HIGH SENSITIVE BASELINE + 1HR (04/09/2024 12:42 PM MERCHANDISE PRESENTATION ASSOCIATE) Pathologist [facility] Troponin I High Sensitive 5 <=14 ng/L 04/09/2024 1:29 PM MERCHANDISE PRESENTATION ASSOCIATE [facility] Blood BLOOD SPECIMEN / Unknown Venipuncture / Unknown 04/09/2024 12:42 PM MERCHANDISE PRESENTATION ASSOCIATE 04/09/2024 12:57 PM MERCHANDISE PRESENTATION ASSOCIATE Cipriano Najera MD LAB - CHEMISTR Y ORDERABLES Performing Organization Address [facility]/ZIP Co de Phone Number [address] [address], [facility] [phone] * PT-INR [facility] (04/09/2024 12:00 PM MERCHANDISE PRESENTATION ASSOCIATE) Pathologist [facility] PT 14.1 12.1 - 14.8 Seconds 04/09/2024 12:35 PM [facility] INR 1.1 See Comment 04/09/2024 12:35 PM [facility] Comment:The suggested therap eutic range for standard coumadin (warfarin) therapy is an INR of 2.0-3.0. For high-risk patients (Mechanical Mitral Valve Prosthesis, etc.), the suggested prophylactic therapeutic range is an INR of 2.5-3.5. Blood BLOOD SPECIMEN / Unknown Venipuncture / Unknown 04/09/2024 12:00 PM MERCHANDISE PRESENTATION ASSOCIATE 04/09/2024 12:11 PM MERCHANDISE PRESENTATION ASSOCIATE Jeff Lennon MD LAB - COAGULATION OR DERABLES Performing Organization Address City/[facility]/ZIP Co de Phone Number [facility] LABORATORY [address] [address], [facility] [phone] * TYPE + SCREEN PANEL (04/09/2024 12:00 PM MERCHANDISE PRESENTATION ASSOCIATE) Antibody Screen POS 1:27 PM MERCHANDISE PRESENTATION ASSOCIATE [facility] BLOOD BANK LAB ABO Rh A POS 04/09/2024 1:27 PM MERCHANDISE PRESENTATION ASSOCIATE [facility] BLOOD BANK LAB Blood Bank BLOOD SPECIMEN / Unknown Venipuncture / Unknown 04/09/2024 12:00 PM MERCHANDISE PRESENTATION ASSOCIATE 04/09/2024 12:40 PM MERCHANDISE PRESENTATION ASSOCIATE Jeff Lennon MD LAB - BLOOD BANK ORD ERABLES Performing Organization Address [facility] Co de Phone Number [facility] BLOOD [facility] LAB [address] [place] [address], [facility] [phone] * CHE DIRECT (04/09/2024 12:00 PM MERCHANDISE PRESENTATION ASSOCIATE) Direct Che (BALTAZAR) NEG 04/09/2024 3:59 PM MERCHANDISE PRESENTATION ASSOCIATE [facility] BLOOD BANK LAB Blood Bank BLOOD SPECIMEN / Unknown Venipuncture / Unknown 04/09/2024 12:00 PM MERCHANDISE PRESENTATION ASSOCIATE 04/09/2024 12:40 PM MERCHANDISE PRESENTATION ASSOCIATE Jeff Lennon MD LAB - BLOOD BANK ORD ERABLES Performing Organization Address City/[facility]/ZIP Co de Phone Number [facility] BLOOD [facility] LAB [address] [place] [address], [facility] [phone] * ANTIBODY IDENTIFICATION (04/09/2024 12:00 PM MERCHANDISE PRESENTATION ASSOCIATE) Antibody 1 POS, Anti-FyA 04/09/2024 4:06 PM MERCHANDISE PRESENTATION ASSOCIATE [facility] BLOOD BANK LAB Blood Bank BLOOD SPECIMEN / Unknown Venipuncture / Unknown 04/09/2024 12:00 PM MERCHANDISE PRESENTATION ASSOCIATE 04/09/2024 12:40 PM MERCHANDISE PRESENTATION ASSOCIATE Jeff Lennon MD LAB - BLOOD BANK ORD ERABLES [facility] B[facility]OD [facility] LAB [address] [place] [address], [facility] [phone] * (ABNORMAL) CBC W AUTO DIFFERENTIAL (04/09/2024 12:00 PM [facility]) WBC 4.9 4.0 - 10.7 x10E9/L 04/09/2024 12:23 PM [facility] RBC Count 4.16 3.90 - 5.20 x10E12/L 04/09/2024 12:23 PM [facility] Hemoglobin 11.5(L) 11.9 - 15.8 g/dL 04/09/2024 12:23 PM [facility] Hematocrit 35.9 34.8 - 46.1 % 04/09/2024 12:23 PM [facility] MCV 86.3 80.0 - 98.0 fL 04/09/2024 12:23 PM [facility] MCH 27.6 26.7 - 33.6 pg 04/09/2024 12:23 PM [facility] MCHC 32.0 31.7 - 36.3 g/dL 04/09/2024 12:23 PM [facility] RDW-CV 13.1 11.3 - 14.8 % 04/09/2024 12:23 PM [facility] Platelet Count 173 150 - 420 x10E9/L 04/09/2024 12:23 PM [facility] MPV 9.6 7.8 - 11.4 fL 04/09/2024 12:23 PM [facility] Neutrophil % 64.6 41.0 - 74.0 % 04/09/2024 12:23 PM [facility] Lymphocyte % 22.2 17.0 - 47.0 % 04/09/2024 12:23 PM [facility] Monocyte % 9.8 3.0 - 11.0 % 04/09/2024 12:23 PM [facility] Eosinophil % 2.4 0.0 - 7.0 % 04/09/2024 12:23 PM [facility] Basophil % 0.6 0.0 - 1.6 % 04/09/2024 12:23 PM [facility] Immature Granulocytes % 0.4 0.0 - 1.0 % 04/09/2024 12:23 PM [facility] Neutrophil Absolute 3.16 1.60 - 7.50 x10E9/L 04/09/2024 12:23 PM [facility] Lymphocyte Absolute 1.09 1.00 - 4.40 x10E9/L 04/09/2024 12:23 PM [facility] Monocyte Absolute 0.48 0.15 - 1.00 x10E9/L 04/09/2024 12:23 PM [facility] Eosinophil Absolute 0.12 0.00 - 0.60 x10E9/L 04/09/2024 12:23 PM [facility] Basophil Absolute 0.03 0.00 - 0.13 x10E9/L 04/09/2024 12:23 PM [facility] Blood BLOOD SPECIMEN / Unknown Venipuncture / Unknown 04/09/2024 12:00 PM MERCHANDISE PRESENTATION ASSOCIATE 04/09/2024 12:12 PM [facility] Jeff Lennon MD LAB - HEMATOLOGY ORD ERABLES [facility] [address] [place] [phone] [phone] * (ABNORMAL) COMPREHENSIVE METABOLIC PANEL (04/09/2024 12:00 PM MERCHANDISE PRESENTATION ASSOCIATE) BUN 24 7 - 26 mg/dL 04/09/2024 1:13 PM [facility] Creatinine 1.26(H) 0.56 - 0.96 mg/dL 04/09/2024 1:13 PM [facility] Sodium 138 136 - 145 mmol/L 04/09/2024 1:13 PM [facility] Potassium 4.3 3.5 - 4.5 mmol/L 04/09/2024 1:13 PM [facility] Chloride 108(H) 98 - 107 mmol/L 04/09/2024 1:13 PM [facility] CO2 24 22 - 29 mmol/L 04/09/2024 1:13 PM [facility] Glucose 112(H) 70 - 99 mg/dL 04/09/2024 1:13 PM [facility] Calcium 8.9 8.4 - 10.2 mg/dL 04/09/2024 1:13 PM [facility] Protein Total 6.6 6.0 - 8.3 g/dL 04/09/2024 1:13 PM [facility] Albumin 3.6 3.4 - 5.0 g/dL 04/09/2024 1:13 PM [facility] Bilirubin Total 0.5 0.2 - 1.2 mg/dL 04/09/2024 1:13 PM [facility] Alkaline Phosphatase 127 40 - 150 U/L 04/09/2024 1:13 PM [facility] ALT 18 5 - 55 U/L 04/09/2024 1:13 PM [facility] AST 29 5 - 34 U/L 04/09/2024 1:13 PM [facility] Anion Gap 6 6 - 16 04/09/2024 1:13 PM [facility] BUN/Creatinine Ratio 19 7 - 23 04/09/2024 1:13 PM [facility] Osmolality Calculated 291 275 - 295 mOsm/kg 04/09/2024 1:13 PM [facility] Albumin/Globulin Ratio 1.2 1.1 - 2.3 04/09/2024 1:13 PM [facility] eGFR by CKD-EPI 43(L) >=90 mL/min/1.7 3 m2 04/09/2024 1:13 PM [facility] Blood BLOOD SPECIMEN / Unknown Venipuncture / Unknown 04/09/2024 12:00 PM [facility] 04/09/2024 12:11 PM [facility] Jeff Lennon MD LAB - CHEMISTRY RAUL NIXON [facility] Organization Address City/State/ZIP Co de Phone Number [facility] [address] [place] [address], [facility] [phone] * EKG 12-LEAD (04/09/2024 11:58 AM [facility]) Ventricular Rate 60 BPM [facility] MUSE Atrial Rate 60 BPM [facility] QRS Duration ms 158 ms [facility] Q-T Interval ms 512 ms [facility] QTC Calculation (Bezet) 512 ms [facility] Calculated P [place] 41 degrees [facility] Calculated R [place] 162 degrees [facility] Calculated T [place] 39 degrees [facility] Interpretation EKG AV dual-paced rhythm ABNORMAL ECG NO PREVIOUS ECGS AVAILABLE Confirmed by YANA DAMON MD ([id number]) on 04/10/2024 8:10:22 AM [facility] 04/09/2024 11:5 8 AM [facility] 04/10/2024 8:10 AM [facility] Jeff Lennon MD ECG ORDERABLES [facility] MUSE * CT ANGIO BRAIN NECK STROKE (04/09/2024 11:58 AM [facility] [employer]) Anatomical Region Laterality Modality Head Computed Tomogra phy 04/09/2024 11:5 4 AM [facility] [employer] [facility] Impressions 04/09/2024 12:18 PM [facility] [employer] [facility] IMPRESSION: 1. No acute intracranial hemorrhage. 2. No large arterial occlusions or significant stenoses identified in the head or neck. 3. Postoperative changes of left retromastoid craniotomy and encephalomalacia in the left cerebellar hemisphere. A lawrence hole in the right frontal bone and a catheter tract in the right frontal lobe. These findings were discussed in detail with the patient's care provider, Dr. Recio by Dr. Valdivia via telephone at 12:16 PM on 04/09/2024 with readback comprehension and verification. > Interpreting Provider: Gavin Valdivia MD on 04/09/2024 12:18 PM Narrative 04/09/2024 12:18 PM [facility] PRES[employer]OCI[facility] PROCEDURE: CT BRAIN STROKE, CT ANGIO BRAIN NECK STROKE, DATE/TIME OF EXAM: 04/09/2024 11:54 AM, LOCATION [facility] INDICATION: Code Stroke ADDITIONAL CLINICAL INFORMATION: Ordering Provider Reason For Exam: Technologist Note: Additional: EXAMINATION: 1. Computed tomographic (CT) angiography of the head without and with contrast 2. CT angiography of the neck with contrast TECHNIQUE: CT of the head was performed without contrast according to standard protocol. Then CT angiography of the head and neck was obtained after the uneventful administration of intravenous contrast. Three dimensional postprocessing was performed by the technologist and sent to the workstation for review. This study was analyzed using artificial intelligence software for Large Vessel Occlusion detection. CONTRAST: 70 mL Isovue-370 intravenous contrast. COMPARISON: No prior study is available for comparison at the time of this dictation. FINDINGS: Non-angiographic findings: Postoperative changes of left retromastoid craniotomy and encephalomalacia in the left cerebellar hemisphere. A lawrence hole in the right frontal bone and a catheter tract in the right frontal lobe. No acute intracranial hemorrhage or intra- or extra-axial fluid collections are identified. The ventricles are of normal size, shape, and morphology. The basal cisterns are patent. No mass effect or midline shift is seen. The wolff-white matter differentiation is normal. Periventricular white matter hypoattenuation is a nonspecific finding that may be indicative of chronic small vessel ischemic disease. There is atherosclerotic calcification of the carotid siphons. Other than bilateral cataract extractions, the visualized portions of the orbits, paranasal sinuses, and mastoids appear normal. No acute calvarial fracture is identified. No soft tissue abnormalities are identified in the neck. Angiographic findings: Neck: There is atherosclerotic disease of the aortic arch. The left vertebral artery arises directly from the aortic arch. The innominate artery and both subclavian arteries appear normal. There is atherosclerotic disease in the right carotid bifurcation and origin of the right internal carotid artery with less than 50 percent focal stenosis. The right common and internal carotid arteries otherwise appear patent. There is atherosclerotic disease in the left carotid bifurcation and origin of the left internal carotid artery with less than 50 percent focal stenosis. The left common and internal carotid arteries otherwise appear patent. Other than mild focal stenosis at their origins due to atherosclerotic disease, the cervical vertebral arteries are patent. Head: There is atherosclerotic disease involving the distal internal carotid arteries without significant focal stenosis. Other than the absence or a hypoplastic left A1 segment, the anterior cerebral arteries are patent. The middle cerebral arteries are patent. The posterior cerebral arteries are patent with origin of the right posterior cerebral artery. The distal vertebral arteries are patent. The basilar artery is patent patent. No aneurysms, spot sign, or signs of a high flow vascular malformation are identified. Procedure Note Gavin Valdivia MD - 04/09/2024 PROCEDURE: CT BRAIN STROKE, CT ANGIO BRAIN NECK STROKE, DATE/TIME OFEXAM: 04/09/2024 11:54 AM, LOCATION [facility] INDICATION: Code Stroke ADDITIONAL CLINICAL INFORMATION: Ordering Provider Reason For Exam: Technologist Note: Additional: EXAMINATION: 1. Computed tomographic (CT) angiography of the head without and with contrast 2. CT angiography of the neck with contrast TECHNIQUE: CT of the head was performed without contrast according to standard protocol. Then CT angiography of the head and neck was obtained after the uneventful administration of intravenous contrast. Three dimensional postprocessing was performed by the technologist and sent to the workstation for review. This study was analyzed using artificial intelligence software for Large Vessel Occlusion detection. CONTRAST: 70 mL Isovue-370 intravenous contrast. COMPARISON: No prior study is available for comparison at the time ofthis dictation. FINDINGS: Non-angiographic findings: Postoperative changes of left retromastoid craniotomy andencephalomalacia in the left cerebellar hemisphere. A lawrence hole in the right frontal bone and a catheter tract in the right frontal lobe. No acute intracranial hemorrhage or intra- or extra-axial fluidcollections are identified. The ventricles are of normal size, shape, andmorphology. The basal cisterns are patent. No mass effect or midline shift is seen.The wolff-white matter differentiation is normal. Periventricular whitematter hypoattenuation is a nonspecific finding that may be indicative ofchronic small vessel ischemic disease. There is atherosclerotic calcification of the carotid siphons. Other than bilateral cataract extractions, the visualized portions ofthe orbits, paranasal sinuses, and mastoids appear normal. No acute calvarial fracture is identified. No soft tissue abnormalities are identified in the neck. Angiographic findings: Neck: There is atherosclerotic disease of the aortic arch. The left vertebral artery arises directly from the aortic arch. The innominate artery andboth subclavian arteries appear normal. There is atherosclerotic disease inthe right carotid bifurcation and origin of the right internal carotidartery with less than 50 percent focal stenosis. The right common and internal carotid arteries otherwise appear patent. There is atheroscleroticdisease in the left carotid bifurcation and origin of the left internal carotid artery with less than 50 percent focal stenosis. The left common and internal carotid arteries otherwise appear patent. Other than mild focal stenosis at their origins due to atherosclerotic disease, the cervical vertebral arteries are patent. Head: There is atherosclerotic disease involving the distal internal carotid arteries without significant focal stenosis. Other than the absence or a hypoplastic left A1 segment, the anterior cerebral arteries are patent.The middle cerebral arteries are patent. The posterior cerebral arteriesare patent with origin of the right posterior cerebral artery. Thedistal vertebral arteries are patent. The basilar artery is patent patent. No aneurysms, spot sign, or signs of a high flow vascular malformation are identified. IMPRESSION: 1. No acute intracranial hemorrhage. 2. No large arterial occlusions or significant stenoses identified inthe head or neck. 3. Postoperative changes of left retromastoid craniotomy and encephalomalacia in the left cerebellar hemisphere. A lawrence hole in the right frontal bone and a catheter tract in the right frontal lobe. These findings were discussed in detail with the patient's careprovider, Dr. Recio by Dr. Valdivia via telephone at 12:16 PM on 04/09/2024 withreadback comprehension and verification. > Interpreting Provider: Gavin Valdivia MD on 04/09/2024 12:18 PM Jeff Lennon MD CT ORDERABLES * CT BRAIN - Stroke (04/09/2024 11:46 AM [facility] PRESENTATION [employer]OCIATE) Anatomical Region Laterality Modality Head Computed Tomogra phy 04/09/2024 11:5 4 AM [facility] [employer]ATION [employer]IATE Impressions 04/09/2024 12:18 PM [facility] PRES[employer]ATION ASSOCIATE IMPRESSION: 1. No acute intracranial hemorrhage. 2. No large arterial occlusions or significant stenoses identified in the head or neck. 3. Postoperative changes of left retromastoid craniotomy and encephalomalacia in the left cerebellar hemisphere. A lawrence hole in the right frontal bone and a catheter tract in the right frontal lobe. These findings were discussed in detail with the patient's care provider, Dr. Recio by Dr. Valdivia via telephone at 12:16 PM on 04/09/2024 with readback comprehension and verification. > Interpreting Provider: Gavin Valdivia MD on 04/09/2024 12:18 PM Narrative 04/09/2024 12:18 PM [facility] PRESENTATION ASSOCIATE PROCEDURE: CT BRAIN STROKE, CT ANGIO BRAIN NECK STROKE, DATE/TIME OF EXAM: 04/09/2024 11:54 AM, LOCATION [facility] INDICATION: Code Stroke ADDITIONAL CLINICAL INFORMATION: Ordering Provider Reason For Exam: Technologist Note: Additional: EXAMINATION: 1. Computed tomographic (CT) angiography of the head without and with contrast 2. CT angiography of the neck with contrast TECHNIQUE: CT of the head was performed without contrast according to standard protocol. Then CT angiography of the head and neck was obtained after the uneventful administration of intravenous contrast. Three dimensional postprocessing was performed by the technologist and sent to the workstation for review. This study was analyzed using artificial intelligence software for Large Vessel Occlusion detection. CONTRAST: 70 mL Isovue-370 intravenous contrast. COMPARISON: No prior study is available for comparison at the time of this dictation. FINDINGS: Non-angiographic findings: Postoperative changes of left retromastoid craniotomy and encephalomalacia in the left cerebellar hemisphere. A lawrence hole in the right frontal bone and a catheter tract in the right frontal lobe. No acute intracranial hemorrhage or intra- or extra-axial fluid collections are identified. The ventricles are of normal size, shape, and morphology. The basal cisterns are patent. No mass effect or midline shift is seen. The wolff-white matter differentiation is normal. Periventricular white matter hypoattenuation is a nonspecific finding that may be indicative of chronic small vessel ischemic disease. There is atherosclerotic calcification of the carotid siphons. Other than bilateral cataract extractions, the visualized portions of the orbits, paranasal sinuses, and mastoids appear normal. No acute calvarial fracture is identified. No soft tissue abnormalities are identified in the neck. Angiographic findings: Neck: There is atherosclerotic disease of the aortic arch. The left vertebral artery arises directly from the aortic arch. The innominate artery and both subclavian arteries appear normal. There is atherosclerotic disease in the right carotid bifurcation and origin of the right internal carotid artery with less than 50 percent focal stenosis. The right common and internal carotid arteries otherwise appear patent. There is atherosclerotic disease in the left carotid bifurcation and origin of the left internal carotid artery with less than 50 percent focal stenosis. The left common and internal carotid arteries otherwise appear patent. Other than mild focal stenosis at their origins due to atherosclerotic disease, the cervical vertebral arteries are patent. Head: There is atherosclerotic disease involving the distal internal carotid arteries without significant focal stenosis. Other than the absence or a hypoplastic left A1 segment, the anterior cerebral arteries are patent. The middle cerebral arteries are patent. The posterior cerebral arteries are patent with origin of the right posterior cerebral artery. The distal vertebral arteries are patent. The basilar artery is patent patent. No aneurysms, spot sign, or signs of a high flow vascular malformation are identified. Procedure Note Gavin Valdivia MD - 04/09/2024 PROCEDURE: CT BRAIN STROKE, CT ANGIO BRAIN NECK STROKE, DATE/TIME OFEXAM: 04/09/2024 11:54 AM, LOCATION [facility] INDICATION: Code Stroke ADDITIONAL CLINICAL INFORMATION: Ordering Provider Reason For Exam: Technologist Note: Additional: EXAMINATION: 1. Computed tomographic (CT) angiography of the head without and with contrast 2. CT angiography of the neck with contrast TECHNIQUE: CT of the head was performed without contrast according to standard protocol. Then CT angiography of the head and neck was obtained after the uneventful administration of intravenous contrast. Three dimensional postprocessing was performed by the technologist and sent to the workstation for review. This study was analyzed using artificial intelligence software for Large Vessel Occlusion detection. CONTRAST: 70 mL Isovue-370 intravenous contrast. COMPARISON: No prior study is available for comparison at the time ofthis dictation. FINDINGS: Non-angiographic findings: Postoperative changes of left retromastoid craniotomy andencephalomalacia in the left cerebellar hemisphere. A lawrence hole in the right frontal bone and a catheter tract in the right frontal lobe. No acute intracranial hemorrhage or intra- or extra-axial fluidcollections are identified. The ventricles are of normal size, shape, andmorphology. The basal cisterns are patent. No mass effect or midline shift is seen.The wolff-white matter differentiation is normal. Periventricular whitematter hypoattenuation is a nonspecific finding that may be indicative ofchronic small vessel ischemic disease. There is atherosclerotic calcification of the carotid siphons. Other than bilateral cataract extractions, the visualized portions ofthe orbits, paranasal sinuses, and mastoids appear normal. No acute calvarial fracture is identified. No soft tissue abnormalities are identified in the neck. Angiographic findings: Neck: There is atherosclerotic disease of the aortic arch. The left vertebral artery arises directly from the aortic arch. The innominate artery andboth subclavian arteries appear normal. There is atherosclerotic disease inthe right carotid bifurcation and origin of the right internal carotidartery with less than 50 percent focal stenosis. The right common and internal carotid arteries otherwise appear patent. There is atheroscleroticdisease in the left carotid bifurcation and origin of the left internal carotid artery with less than 50 percent focal stenosis. The left common and internal carotid arteries otherwise appear patent. Other than mild focal stenosis at their origins due to atherosclerotic disease, the cervical vertebral arteries are patent. Head: There is atherosclerotic disease involving the distal internal carotid arteries without significant focal stenosis. Other than the absence or a hypoplastic left A1 segment, the anterior cerebral arteries are patent.The middle cerebral arteries are patent. The posterior cerebral arteriesare patent with origin of the right posterior cerebral artery. Thedistal vertebral arteries are patent. The basilar artery is patent patent. No aneurysms, spot sign, or signs of a high flow vascular malformation are identified. IMPRESSION: 1. No acute intracranial hemorrhage. 2. No large arterial occlusions or significant stenoses identified inthe head or neck. 3. Postoperative changes of left retromastoid craniotomy and encephalomalacia in the left cerebellar hemisphere. A lawrence hole in the right frontal bone and a catheter tract in the right frontal lobe. These findings were discussed in detail with the patient's careprovider, Dr. Recio by Dr. Valdivia via telephone at 12:16 PM on 04/09/2024 withreadback comprehension and verification. > Interpreting Provider: Gavin Valdivia MD on 04/09/2024 12:18 PM Jeff Lennon MD CT ORDERABLES * INR WHOLE BLOOD - POINT OF CARE (IP) STROKE (04/09/2024 11:41 AM [facility] PRESENTATION ASSOCIATE) INR 1.1 0.9 - 1.2 04/09/2024 11:43 AM [facility] PRESENTATION ASSOCIATE [facility] Device [id number] 04/09/2024 11:43 AM [facility] PRESENTATION ASSOCIATE [facility] Harvest Worker [employer] ID [id number] 04/09/2024 11:43 AM [facility] Blood BLOOD SPECIMEN / Unknown 04/09/2024 11:41 AM [facility] PRESENTATION ASSOCIATE 04/09/2024 11:43 AM [facility] PRESENTATION ASSOCIATE Cipriano Najera MD LAB - POINT OF CARE ORDERABLES [facility] [address] [place] [address], [facility] [phone] * (ABNORMAL) CREATININE - POCT INTERFACED (04/09/2024 11:41 AM [facility] PRESENTATION ASSOCIATE) Creatinine POCT 1.09 0.30 - 1.30 mg/dL 04/09/2024 11:43 AM [facility] PRESENTATION ASSOCIATE [facility]ORY [facility] eGFR 51(L) >=90 mL/min/1.7 3 m2 04/09/2024 11:43 AM [facility] Blood BLOOD SPECIMEN / Unknown 04/09/2024 11:41 AM [facility] PRESENTATION ASSOCIATE 04/09/2024 11:43 AM [facility] PRESENTATION ASSOCIATE Cipriano Najera MD LAB - POINT OF CARE ORDERABLES [facility] [address] [place] [address], [facility] [phone] from Last 3 Months Advance Directives * LIMITED RESUSCITATION-PRIOR AND AFTER ARREST (Latest Code Status on File) Date Activated Date Inactivated Comments 04/09/2024 6:26 PM 04/10/2024 6:32 PM Question Answer Comments Limited Resuscitation: No Chest Compress ionNo Intubation, No Invasive VentilationNo Cardioversion, No Defibrilation, No External or Internal Pacemaker * Full Code Date Activated Date Inactivated Comments 04/09/2024 11:55 AM 04/09/2024 6:26 PM Care Teams Car Cooper Relationship Specialty Start Date End Date Srinivas Chery, [employer] [address] [place], [place] [id number] PCP - General Nurse Practitioner 04/09/24
--- OUTSIDE RECORDS SUMMARY | 2024-05-27 09:46 | XMS_ITS | Encounter Summary ---
Author Organization [facility] Address [address] [place] [address] Phone Care Team Providers Care Access Tech Name Role Phone Nguyễn Green MD Primary Care Provider [phone] Nguyễn Green MD Primary Care Provider [phone] Sherif Mcmahon DO Primary Care Provider [phone] Haim Servin MD Primary Care Provider [phone] Sherif Mcmahon DO Primary Care Provider [phone] Encounter Details Date Type Department Care Team (Late st Contact Info) Description 11/21/2015 Orders Only [facility] Provider, MD Cori [address] [place] [id number] Social History Tobacco Use Types Packs/Day Years Used Date Smoking Tobacco: Former Cigarettes Q uit: 03/15/2010 Alcohol Use Standard Drinks/Week Comments No 0 (1 standard drink = 0.6 oz pur e alcohol) Comments Unknown Sex and Gender Information Value Date Recorded Sex Assigned at Not on file Legal Sex Female 2:18 AM EXTRA HAND Gender Identity Not on file Sexual Orientation Not on file documented as of this encounter Plan of Treatment Not on file documented as of this encounter Procedures Procedure Name Priority Date/Time Associated Diagnosis Comments CARDIOLOGY REPORT 11/21/2015 documented in this encounter Results * CARDIOLOGY REPORT (11/21/2015) Anatomical Region Laterality Modality Other Narrative 11/21/2015 Ordered by an unspecified provider. us Historical Provider [facility] Final Result documented in this encounter Visit Diagnoses Not on filedocumented in this encounter Care Teams Access Tech Relationship Specialty Start Date End Date Nguyễn Green MD [address] [place] [address] PCP - General 06/12/16 11/14/18 Nguyễn Green MD [address] [place] [address] PCP - General 07/05/12 06/11/16 Sherif Mcmahon DO [address] [place] [address] PCP - General Internal Medicine 11/15/18 09/29/22 Haim Servin MD [address] [place] [address] PCP - General Family Practice 09/30/22 02/14/24 Sherif Mcmahon DO [address] [place] [address] PCP - General Internal Medicine 02/15/24 documented as of this encounter
--- OUTSIDE RECORDS SUMMARY | 2024-05-27 09:46 | XMS_ITS | Clinical Summary ---
Author Organization [facility] Address [address] [place] [address] Care Team Providers Care Infrastructure Manager Name Role Phone None, Provider MD Primary Care Provider Unavaila ble Allergies No known active allergies Medications oxybutynin 5 MG tablet Take 5 mg by mouth daily. 1 Active ALPRAZolam 0.5 MG tablet Take 0.5 mg by mouth 3 (three) times daily as needed. FOR ANXIETY 1 Active albuterol sulfate HFA 108 (90 Base) MCG/ACT inhaler 2 (two) times daily as needed. 1 Active albuterol (2.5 MG/3ML) 0.083% nebulizer solution 4 (four) times daily as needed for Shortness of breath. Active sacubitril-vals geno 24-26 MG tablet Take 0.5 tablets by mouth 2 (two) times daily. 1 Active aspirin 81 MG chewable tablet Chew 81 mg by mouth daily. Active vitamin D3, cholecalciferol , 1000 UNIT Tab tablet Take 2,000 Units by mouth daily. 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 In view of left bundle-branch block, heart failure and LV dysfunction, upgrade to a RETAIL PHARMACIST ICD is recommended. I discussed the risks and benefits of the procedure including, but not limited to, infection, lead dislodgement, bleeding, thrombosis, extracardiac stimulation, and perforation. All questions answered. Patient understands and wishes to proceed. Plan Upgrade to RETAIL PHARMACIST ICD Hypertensive heart disease 11/21/2015 Left bundle branch block (LBBB) 11/21/2015 Overview (11/14/2020): Last Assessment & Plan: QRS duration equals 200 milliseconds. RETAIL PHARMACIST is recommended Presence of cardiac pacemaker 11/19/2015 Overview (11/14/2020): Medtronic Viva Quad XT RETAIL PHARMACIST-D, as well as a MDT 3414M RV lead and a MDT 5206 LV lead implanted on 10-19-16 for NICM/CHF/LBBB. Chronic MDT 5072 RA lead is from 10-12-14. Ceci Senior HCG Card. 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[facility]) 2015 Family History Medical History Relation Comments Cancer Neg Hx Social History Tobacco Use Types Packs/Day Years Used Date Smoking Tobacco: Smoker, Current Status Unknown Smokeless Tobacco: Never Alcohol Use Standard Drinks/Week Comments Not Currently 0 (1 standard drink = 0.6 oz pur e alcohol) Comments Unknown Sex and Gender Information Value Date Recorded Sex Assigned at Not on file Legal Sex Female 8:24 PM CDT Gender Identity Not on file Sexual Orientation Not on file Last Filed Vital Signs Vital Sign Reading Time Taken Comments Blood Pressure 161/76 11/16/2020 11:12 AM CDT Pulse 60 11/16/2020 11:12 AM CDT Temperature 36.5 C (97.7 F) 11/16/2020 11:12 AM CDT Respiratory Rate 20 11/16/2020 11:1 2 AM CDT Oxygen Saturation 92% 11/16/2020 11: 12 AM CDT Inhaled Oxygen Concentration - - Weight 121.3 kg (267 lb 6.7 oz) 11/16/2020 4:00 AM CDT Height 177.8 cm (5' 10 ) 11/13/2020 9:30 PM CDT Body Mass Index 38.37 11/13/2020 9:30 PM CDT Plan of Treatment Health Maintenance Due Date Last Done Comments Pneumococcal Vaccine: 65+ Ye ars (1 of 2 - PCV) 1950 DTaP, Tdap and Td Vaccines ( 1 - Tdap) 1963 Zoster Vaccines (1 of 2) 1994 Annual Medicare Wellness Visit 2009 Dexa Scan (General) 2009 RSV Immunization or 60+ Years (1 - 1-dose 75+ series) 2019 COVID-19 Vaccine (2 - 2023-2 5 season) 2023 10/11/2020 Influenza Adult (#1) 2023 Meningococcal B Vaccine Aged Out No l onger eligible based on patient's age to complete this topic Meningococcal Vaccine Aged Out No justyn isa eligible based on patient's age to complete this topic RSV Immunizations Under 20 Months Aged Out No longer eligible based on patient's age to complete this topic Goals Goal Patient Goal Type Associated Problems Recent Progress Patient-Stated? Author Health - patient able to perform ADLs independently General No Shira Zuniga, RN Insurance [employer] Advance Directives * DNR (Latest Code Status on File) Date Activated Date Inactivated Comments 11/14/2020 9:01 AM 11/16/2020 4:21 PM Care Teams Infrastructure Manager Relationship Specialty Start Date End Date None, Provider, PCP - General 11/13/20
--- OUTSIDE RECORDS SUMMARY | 2024-05-27 09:46 | XMS_ITS | Clinical Summary ---
Author Organization [facility] Address [address] [place] [address] Care Team Providers Care Research Technician Name Role Phone Sherif Mcmahon DO Primary Care Provider Allergies Active Allergy Reactions Criticality Noted Date Comments Adhesive Blisters High Codeine Rash High Sulfa (Sulfonamide Antibiotics) Rash Medium Medications albuterol HFA (PROAIR HFA) 90 mcg/actuation inhaler inhale 2 puff by inhalation route every 4 - 6 hours as needed 0 12/09/19 12 Active atorvastatin (LIPITOR) 40 mg tablet take 1 tablet by oral route every day 0 0 05/14/19 17 Active aspirin 81 mg chewable tablet chew 1 tablet by oral route every day 0 0 07/07/19 17 Active oxybutynin (DITROPAN) 5 mg tablet take 1 tablet by oral route every day 0 0 07/07/19 17 Active ALPRAZolam (XANAX) 0.5 mg tablet Take 1 tablet (0.5 mg total) by mouth 3 (three) times a day as needed for anxiety Active famotidine (PEPCID) 20 mg tablet Take 1 tablet (20 mg total) by mouth as needed 5 08/23/19 19 Active empagliflozin (JARDIANCE) 10 mg tablet Take 1 tablet (10 mg total) by mouth daily 30 tablet 11 08/27/19 23 Active Additional Information Patient not taking.Reported on 02/15/2024 carvediloL (COREG) 3.125 mg tablet Take 1 tablet (3.125 mg total) by mouth 2 (two) times a day with meals 60 tablet 08/27/19 23 Active Additional Information Patient not taking.Reported on 02/15/2024 ondansetron ODT (ZOFRAN-ODT) 4 mg disintegrating tablet DISSOLVE 1 TABLET ON THE TONGUE EVERY 8 HOURS FOR 5 DAYS NEEDED FOR NAUSEA OR VOMITING 09/12/19 23 Active albuterol 2.5 mg /3 mL (0.083 %) nebulizer solution USE 1 VIAL VIA NEBULIZER EVERY 4 TO 6 HOURS 09/12/19 23 Active furosemide (LASIX) 20 mg tablet Take 1 tablet (20 mg total) by mouth daily 30 tablet 10/13/19 24 025 Active Active Problems Problem Noted Date Diagnosed Date Orthostatic hypotension 08/06/2021 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 01/28/2017 History of meningioma 01/28/2017 Pacemaker 09/23/2016 Overview (09/30/2022): Medtronic Viva Quad XT CAD DRAFTSMAN-D, as well as a MDT 7404M RV lead and a MDT 1279 LV lead implanted on 10-19-16 for NICM/CHF/LBBB. Chronic MDT 5004 RA lead is from 10-12-14. Ceci Baig-Tessy HCG Rubén. Brii-LAURI. 09/29/2022-Tachy detections & therapies turned off per patient. 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 In view of left bundle-branch block, heart failure and LV dysfunction, upgrade to a CAD DRAFTSMAN ICD is recommended. I discussed the risks and benefits of the procedure including, but not limited to, infection, lead dislodgement, bleeding, thrombosis, extracardiac stimulation, and perforation. All questions answered. Patient understands and wishes to proceed. Plan Upgrade to CAD DRAFTSMAN ICD LBBB (left bundle branch block) 09/23/2016 Assessment & Plan (09/23/2016 3:45 PM CDT): QRS duration equals 200 milliseconds. CAD DRAFTSMAN is recommended Left bundle branch block (LBBB) 11/21/2015 Hypertensive heart disease 11/21/2015 Tachycardia-bradycardia 11/19/2015 Presence of cardiac pacemaker 11/19/2015 Encounters Date Type Department Care Team Description 04/05/2024 8:15 AM EQUIPMENT MAINTENANCE TECH Ancillary Procedure [facility] [address] [place] [id number] Biventricular automatic implantable cardioverter defibrillator in situ (Primary Dx); LBBB (left bundle branch block); SSS (sick sinus syndrome) (HCC); NICM (nonischemic cardiomyopathy) (HCC); Congestive heart failure, unspecified HF chronicity, unspecified heart failure type (HCC) 04/05/2024 Orders Only [facility] [address] [place] [phone] Abdon Still MD NICM (nonischemic cardiomyopathy) (HCC) (Primary Dx); ICD (implantable cardioverter-defibrill ator) in place; Ventricular fibrillation (HCC); NSVT (nonsustained ventricular tachycardia) ([facility]) from Last 3 Months Surgical History Surgery Date Site/Laterality Comments JUDE FUNDOPLICATION Jude fundoplication CHOLECYSTECTOMY 1981 Cholecystectomy HYSTERECTOMY 1981 Hysterectomy TONSILLECTOMY 1952 Tonsillectomy Medical History Medical History Date Comments Hypertension Hypertension Chronic obstructive pulmonar y disease (HCC) COPD Pancreatitis Pancreatitis Hx Other Medical h/o of anxiety and claustrophobia Hx Other Medical bradyarrhythmia status post Medtronic pacemaker on Chronic coronary artery disease Coronary artery disease Hx Other Medical ascending aorti c aneurysm Hx Other Medical meningioma surg fela as per patient Pacemaker 09/23/2016 Medtronic Advisa DDD pacemaker implanted 10/12/2014 for SSS Family History Medical History Relation Name Comments Other Father 2 Unknown; Cause of : Unknown Anemia Mother 2 Blood disease; Relation Name Status Comments Father 1 (Age 88) Father 2 Mother 1 (Age 88) Mother 2 Social History Tobacco Use Types Packs/Day Years Used Date Smoking Tobacco: Former Cigarettes Q uit: 01/28/2015 Smokeless Tobacco: Never Tobacco Cessation:Counseling Given: Not Answered Alcohol Use Standard Drinks/Week Comments No 0 (1 standard drink = 0.6 oz pur e alcohol) PHQ-2 Answer Date Recorded PHQ-2 Total Score (If total score is 3 or more points, staff should administer the PHQ-9) 0 06/27/2019 Comments Unknown Sex and Gender Information Value Date Recorded Sex Assigned at Not on file Legal Sex Female 2:18 AM EQUIPMENT MAINTENANCE TECH Gender Identity Not on file Sexual Orientation Not on file Obstetrics History Last Filed Vital Signs Vital Sign Reading Time Taken Comments Blood Pressure 96/60 02/15/2024 1:27 PM EQUIPMENT MAINTENANCE TECH Pulse 74 02/15/2024 1:27 PM EQUIPMENT MAINTENANCE TECH Temperature - - Respiratory Rate 15 09/29/2022 8:07 AM CDT Oxygen Saturation 98% 02/15/2024 1:27 PM EQUIPMENT MAINTENANCE TECH Inhaled Oxygen Concentration - - Weight 106.1 kg (234 lb) 02/15/2024 1:27 PM EQUIPMENT MAINTENANCE TECH Height 177.8 cm (5' 10 ) 02/15/2024 1:27 PM EQUIPMENT MAINTENANCE TECH Body Mass Index 33.58 02/15/2024 1:27 PM EQUIPMENT MAINTENANCE TECH Plan of Treatment Health Maintenance Due Date Last Done Comments Osteoporosis Screening-Bone Density Scan 1944 DTaP/Tdap/Td Vaccine (1 - Tdap) 1955 Hepatitis B Screening 1962 Pneumococcal vaccine 65+ (1 of 1 - PCV) 1994 Zoster Vaccine (1 of 2) 1994 Well Visit 65+ 2009 Depression Screening 06/27/2020 06/28/2019 Fall Risk Assessment 09/30/2023 09/29/2022, 06/28/19 20 Influenza Vaccine (#1) 2023 02/18/2012 Medical Devices Implanted Type Area Communications Controller Device Identifier Shelf Expiration Date Model / Serial / Lot Icd-10/19/2016 Implanted:09/2016 by Efren Ornelas MD (Quantity not on file) ICD Chest Wall Medtronic Cardiac Rhythm Mgmt NICM, CHF, LBBB / / CHRONIC ATRIAL LEAD 10/12/14 Description:Medtronic Viva Q uad XT CAD DRAFTSMAN-D, as well as a MDT 2704M RV lead and a MDT 8786 LV lead implanted on 10-19-16 for ICM/CHF/LBBB. Chronic MDT 2884 RA lead is from 10-12-14. Ceci Baig Pacemaker-7/3 03/2014 Implanted: (Quantity not on file) Explanted:09/2016 by Efren Ornelas MD (Quantity not on file) Pacemaker Chest Medtronic [employer] ADVISA / [id number] / Description:Medtronic Advisa DDD pacemaker implanted 10/12/2014 for SSS (implanted in [place]-patient had a brain tumor removed-nonmalignant), Procedures Procedure Name Priority Date/Time Associated Diagnosis Comments DEVICE CHECK - REMOTE Routine 04/05/2024 7:44 AM EQUIPMENT MAINTENANCE TECH LBBB (left bundle branch block) SSS (sick sinus syndrome) (HCC) NICM (nonischemic cardiomyopathy) (HCC) from Last 3 Months Results * DEVICE CHECK - REMOTE (04/05/2024 7:44 AM EQUIPMENT MAINTENANCE TECH) Anatomical Region Laterality Modality Other Narrative 05/02/2024 8:17 AM EQUIPMENT MAINTENANCE TECH Medtronic Viva Quad XT CAD DRAFTSMAN-D, as well as a MDT 1349M RV lead and a MDT 8134 LV lead implanted on 10-19-16 for NICM/CHF/LBBB. Chronic MDT 5076 RA lead is from 10-12-14. Ceci - Safia-Tessy HCG Card. Kahanda-EP. 09/29/2022-Tachy detections & therapies turned off per patient. JR Routine DDDR ICD Remote. Transmission attached. Battery status 2.82 V, 9 months remaining battery life to MYRA. Stable Charge time and Shock impedance. Stable lead impedances, pacing, and sensing threshold. Presenting rhythm: AP/BV AP-80.9 %, DOCUMENTATION COORDINATOR-98.8 % (0) AT/AF episodes noted. (0) Ventricular tachy arrhythmias detected. Medication: ASA 81 mg, carvedilol 3.125 mg Follow up: Office Pacemaker/ICD scheduled 06/14/24 [employer] remote 6 months Alfie Kearns, H[place] Abdon Still MD [facility] PROCEDURES F inal Result from Last 3 Months Insurance [employer] CHOICE MEDICARE PPO [employer] CHOICE MEDICARE PPO Advance Directives For more information, please contact: [phone] Documents on File Type Date Recorded Patient Director On Air Expl anation ADVANCE DIRECTIVE 09/30/2022 7:53 AM Care Teams Research Technician Relationship Specialty Start Date End Date Sherif Mcmahon DO [address] [facility] [place] [address] [place] [address] PCP - General Internal Medicine 02/15/24
--- OUTSIDE RECORDS SUMMARY | 2024-05-27 09:46 | XMS_ITS | Patient Health Summary ---
Author Organization [facility] [employer] Address [address] [place] [address] Care Team Providers Care Communication Technician Name Role Phone Srinivas Chery OTILIO-QUALITY ENGINEERING MANAGER Primary Care Provider Note from [facility] [employer] [facility],non-owned Affiliates and Associated Physician Practices is amultiple site organization consisting of ambulatory clinics and hospital sitesin [place], [place], [place] and [place]. This disclosure is being madepursuant to the Care Everywhere program and may not contain all information available regarding this patient. Last updated 17.[facility] [employer] Medications * Be aware that medications may not be up to date on this document. Alwaysverify current medications with the patient. * albuterol (Proventil;Ventolin) (2.5 MG/3ML) 0.083% nebulizer solution Inhale 2.5 (two and one-half) mg by mouth 4 times daily as needed for Shortness of Breath or Wheezing * aspirin (Aspirin) 81 MG chew tablet Take 1 (one) tablet by mouth once daily * atorvastatin (Lipitor) 40 MG tablet Take 1 (one) tablet by mouth once daily * carvedilol (Coreg) 3.125 MG tablet Take 1 (one) tablet by mouth 2 times daily with morning and evening meal * vitamin D3 (Cholecalciferol) 25 MCG (1000 UNITS) tablet Take 2 (two) tablets by mouth once daily * furosemide (Lasix) 20 MG tablet(Started 10/13/2023) Take 1 (one) tablet by mouth once daily * oxyBUTYnin (Ditropan) 5 MG tablet Take 1 (one) tablet by mouth 2 times daily * sacubitril-valsartan (Entresto) 24-26 MG tablet Take 0.5 (one-half) tablet by mouth 2 times daily Active Problems Problem Noted Date Diagnosed Date Paresthesias 04/09/2024 Facial twitching 04/09/2024 Muscle twitching 04/09/2024 Anemia 04/09/2024 Dysarthria 04/09/2024 Weakness 04/09/2024 Left-sided weakness 04/09/2024 Orthostatic hypotension 08/06/2021 Ileus 11/14/2020 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 01/28/2017 History of meningioma 01/28/2017 Dilated cardiomyopathy 09/23/2016 Hypertensive heart disease 11/21/2015 Left bundle branch block (LBBB) 11/21/2015 Tachycardia-bradycardia 11/19/2015 Social History Tobacco Use Types Packs/Day Years Used Date Smoking Tobacco: Never Assessed Sex and Gender Information Value Date Recorded Sex Assigned at Not on file Gender Identity Not on file Sexual Orientation Not on file Last Filed Vital Signs Vital Sign Reading Time Taken Comments Blood Pressure 159/79 04/10/2024 8:52 AM [employer] [facility] Pulse 70 04/10/2024 8:52 AM [employer] Temperature 36.7 C (98 F) 04/09/2024 11:28 AM [employer] [facility] Respiratory Rate 20 04/10/2024 6:36 AM [employer] [facility] Oxygen Saturation 97% 04/10/2024 6:36 AM [employer] [facility] Inhaled Oxygen Concentration - - Weight 109 kg (240 lb 6.4 oz) 04/09/2024 11:28 A M [employer] [facility] Height 167.6 cm (5' 6 ) 04/09/2024 11:28 AM [employer] [facility] Body Mass Index 38.8 04/09/2024 11:28 AM [facility] [facility] Medical Devices Implanted Type Area De Ionizer Operator Device Identifier Shelf Expiration Date Model / Serial / Lot No Mri... Medtronic Viva Quad Xt Diesel Pile Driver Operator-D-10/19/2016 Implanted:09/2016 (Quantity not on file) Defibrillator [employer] Description:Medtronic IPAD s ays cannot scan due to two devices. No Mri... Pacemaker-Unkn own Medtronic-10/12 Implanted:09/14 (Quantity not on file) Pacemaker [employer] Description:Medtronic IPAD s ays cannot scan due to two devices. Procedures * PREPARE RBC LEUKOREDUCED UNIT(Performed 04/11/2024) * CARDIAC EKG ORDER(Performed 04/10/2024) * LIPID PROFILE(Performed 04/10/2024) * CBC W/O DIFFERENTIAL(Performed 04/10/2024) * BASIC METABOLIC PANEL (CALCIUM TOTAL)(Performed 04/10/2024) * TROPONIN-I HIGH SENSITIVE REFLEX 1HOUR(Performed 04/09/2024) * BLOOD TYPE VERIFICATION(Performed 04/09/2024) * TROPONIN-I HIGH SENSITIVE BASELINE + 1HR(Performed 04/09/2024) * CHE DIRECT(Performed 04/09/2024) * ANTIBODY IDENTIFICATION(Performed 04/09/2024) * TYPE + SCREEN PANEL(Performed 04/09/2024) * PT-INR [facility](Performed 04/09/2024) * COMPREHENSIVE METABOLIC PANEL(Performed 04/09/2024) * CBC W AUTO DIFFERENTIAL(Performed 04/09/2024) * EKG 12-LEAD(Performed 04/09/2024) Performed for Weakness * CT ANGIO BRAIN NECK STROKE(Performed 04/09/2024) Performed for Weakness * PT EVAL AND TREAT(Performed 04/09/2024) * OT EVAL AND TREAT(Performed 04/09/2024) * CT BRAIN STROKE(Performed 04/09/2024) Performed for Weakness * CREATININE - POCT INTERFACED(Performed 04/09/2024) * INR WHOLE BLOOD - POINT OF CARE (IP) STROKE(Performed 04/09/2024) Results * PREPARE (CROSSMATCH) RBC UNIT(S), 2 Units (04/11/2024 1:17 AM [employer] [facility]) Unit Description AS1 LR PRBC [facility] Unit ABO O [facility] Unit Rh NEG [facility] Product Number R43 [facility] Unit Donor # [id number] [facility] Unit Status released [facility] Product Code [id number] [facility] Blood Type Barcode 9500 [facility] Expiration Date [id number] [facility] Unit Description AS1 LR PRBC [facility] Unit ABO O [facility] Unit Rh NEG [facility] Product Number R02 [facility] Unit Donor # [id number] [facility] Unit Status released [facility] Product Code [id number] [facility] Blood Type Barcode 9500 [facility] Expiration Date [id number] S [facility] Blood Bank BLOOD SPECIMEN / Unknown 04/09/2024 12:40 PM [employer] [facility] Gordon Reilly QUALITY ASSURANCE SUPERVISOR TRIM-CYTOLOGY TECHNOLOGIST LAB - BL OOD BANK ORDERABLES [facility] [address] [place] [address] [phone] * CARDIAC EKG ORDER (04/10/2024 11:51 AM [employer]) Narrative 04/10/2024 11:51 AM [employer] [facility] Ordered by an unspecified provider. Scanned Document CARDIAC SERVICES ORD ERABLES * (ABNORMAL) CBC W/O DIFFERENTIAL (04/10/2024 5:02 AM [employer]) WBC 6.1 4.0 - 10.7 x10E9/L 04/10/2024 5:15 AM [facility] RBC Count 4.20 3.90 - 5.20 x10E12/L 04/10/2024 5:15 AM [facility] Hemoglobin 11.6(L) 11.9 - 15.8 g/dL 04/10/2024 5:15 AM [facility] Hematocrit 36.2 34.8 - 46.1 % 04/10/2024 5:15 AM [facility] MCV 86.2 80.0 - 98.0 fL 04/10/2024 5:15 AM [facility] MCH 27.6 26.7 - 33.6 pg 04/10/2024 5:15 AM [facility] MCHC 32.0 31.7 - 36.3 g/dL 04/10/2024 5:15 AM [facility] RDW-CV 13.4 11.3 - 14.8 % 04/10/2024 5:15 AM [facility] Platelet Count 164 150 - 420 x10E9/L 04/10/2024 5:15 AM [facility] MPV 9.9 7.8 - 11.4 fL 04/10/2024 5:15 AM [facility] Blood BLOOD SPECIMEN / Unknown Venipuncture / Unknown 04/10/2024 5:02 AM [employer] [employer] [facility] 04/10/2024 5:09 AM [employer] [facility] Cipriano Najera MD LAB - HEMATOLO GY ORDERABLES [facility] [address] [place] [address], [facility] [phone] * (ABNORMAL) BASIC METABOLIC PANEL (CALCIUM TOTAL) (04/10/2024 5:02 AM [employer]) BUN 23 7 - 26 mg/dL 04/10/2024 5:39 AM [facility] Creatinine 1.20(H) 0.56 - 0.96 mg/dL 04/10/2024 5:39 AM [facility] Sodium 140 136 - 145 mmol/L 04/10/2024 5:39 AM [facility] Potassium 4.5 3.5 - 4.5 mmol/L 04/10/2024 5:39 AM [facility] Chloride 108(H) 98 - 107 mmol/L 04/10/2024 5:39 AM [facility] CO2 22 22 - 29 mmol/L 04/10/2024 5:39 AM [facility] Glucose 91 70 - 99 mg/dL 04/10/2024 5:39 AM [facility] Calcium 9.4 8.4 - 10.2 mg/dL 04/10/2024 5:39 AM [facility] Anion Gap 10 6 - 16 04/10/2024 5:39 AM [facility] BUN/Creatinine Ratio 19 7 - 23 04/10/2024 5:39 AM [facility] Osmolality Calculated 293 275 - 295 mOsm/kg 04/10/2024 5:39 AM [facility] eGFR by CKD-EPI 46(L) >=90 mL/min/1.7 3 m2 04/10/2024 5:39 AM [facility] Blood BLOOD SPECIMEN / Unknown Venipuncture / Unknown 04/10/2024 5:02 AM [employer] [facility] 04/10/2024 5:09 AM [employer] [facility] Cipriano Najera MD LAB - CHEMISTR Y ORDERABLES [address] [address], [facility] [phone] * (ABNORMAL) LIPID PROFILE (04/10/2024 5:02 AM [employer]) Cholesterol Total 100 <200 mg/dL 04/10/2024 5:39 AM [facility] HDL 30(L) >40 mg/dL 04/10/2024 5:39 AM [facility] Comment: ATP III Classification of HDL Cholesterol: <40 mg/dL: Considered a major risk factor. >60 mg/dL: Considered a negative risk factor. LDL Calculated 55 <100 mg/dL 04/10/2024 5:39 AM [facility] Comment: ATP III Classification of LDL Cholesterol: <100 mg/dL: Optimal 100 - 129 mg/dL: Near Optimal/Above Optimal 130 - 159 mg/dL: Borderline High 160 - 189 mg/dL: High >190 mg/dL: Very High Triglycerides 75 <150 mg/dL 04/10/2024 5:39 AM [facility] Comment: ATP III Classification of Triglycerides: <150 mg/dL: Normal 150 - 199 mg/dL: Borderline High 200 - 400 mg/dL: High >500 mg/dL: Very High Blood BLOOD SPECIMEN / Unknown Venipuncture / Unknown 04/10/2024 5:02 AM [employer] 04/10/2024 5:09 AM [employer] Cipriano Najera MD LAB - CHEMISTR Y ORDERABLES [facility] [address] [place] [address], [place] [phone] * TROPONIN-I HIGH SENSITIVE REFLEX 1HOUR (04/09/2024 1:41 PM [employer]) Troponin I High Sensitive 6 <=14 ng/L 04/09/2024 2:29 PM [facility] Delta Troponin I HS 1 <6 ng/L 04/09/2024 2:29 PM [employer] [facility] Blood BLOOD SPECIMEN / Unknown Venipuncture / Unknown 04/09/2024 1:41 PM [employer] 04/09/2024 1:49 PM [employer] Cipriano Najera MD LAB - CHEMISTR Y ORDERABLES Performing Organization Address City/[facility]/ZIP Co de Phone Number [address] [address], [facility] [phone] * BLOOD TYPE VERIFICATION (04/09/2024 12:45 PM [employer]) ABO Rh A POS 04/09/2024 1:2 7 PM [employer] [facility] Blood Bank BLOOD SPECIMEN / Unknown Venipuncture / Unknown 04/09/2024 12:45 PM [employer] 04/09/2024 12:50 PM [employer] Jeff Lennon MD LAB - BLOOD BANK ORD ERABLES Performing Organization Address [facility]/ZIP Co de Phone Number [facility] [address] [place] [phone], [place] [phone] * TROPONIN-I HIGH SENSITIVE BASELINE + 1HR (04/09/2024 12:42 PM [employer]) Troponin I High Sensitive 5 <=14 ng/L 04/09/2024 1:29 PM [employer] [facility] Blood BLOOD SPECIMEN / Unknown Venipuncture / Unknown 04/09/2024 12:42 PM [employer] 04/09/2024 12:57 PM [employer] [employer] Cipriano Najera MD LAB - CHEMISTR Y ORDERABLES Performing Organization Address [facility]/ZIP Co de Phone Number [address] [address], [place] [phone] * PT-INR [facility] (04/09/2024 12:00 PM [employer]) PT 14.1 12.1 - 14.8 Seconds 04/09/2024 12:35 PM [employer] [facility] INR 1.1 See Comment 04/09/2024 12:35 PM [employer] [facility] Comment:The suggested therap eutic range for standard coumadin (warfarin) therapy is an INR of 2.0-3.0. For high-risk patients (Mechanical Mitral Valve Prosthesis, etc.), the suggested prophylactic therapeutic range is an INR of 2.5-3.5. Blood BLOOD SPECIMEN / Unknown Venipuncture / Unknown 04/09/2024 12:00 PM [employer] 04/09/2024 12:11 PM [employer] Jeff Lennon MD LAB - COAGULATION OR DERABLES Performing Organization Address City/[facility]/ZIP Co de Phone Number [address] [address], [facility] [phone] * TYPE + SCREEN PANEL (04/09/2024 12:00 PM [employer]) Antibody Screen POS 1:27 PM [employer] [facility] ABO Rh A POS 04/09/2024 1:27 PM [employer] [facility] Blood Bank BLOOD SPECIMEN / Unknown Venipuncture / Unknown 04/09/2024 12:00 PM [employer] 04/09/2024 12:40 PM [employer] Jeff Lennon MD LAB - BLOOD BANK ORD ERABLES Performing Organization Address [facility]/ZIP Co de Phone Number [facility] [address] [place] [phone], [facility] [phone] * CHE DIRECT (04/09/2024 12:00 PM [employer]) Direct Che (BALTAZAR) NEG 04/09/2024 3:59 PM [employer] [facility] Blood Bank BLOOD SPECIMEN / Unknown Venipuncture / Unknown 04/09/2024 12:00 PM [employer] 04/09/2024 12:40 PM [employer] Jeff Lennon MD LAB - BLOOD BANK ORD ERABLES Performing Organization Address City/[facility]/ZIP Co de Phone Number [facility] [address] [place] [phone], [facility] [phone] * ANTIBODY IDENTIFICATION (04/09/2024 12:00 PM [employer]) Pathologist [facility] Antibody 1 POS, Anti-FyA 04/09/2024 4:06 PM [facility] Blood Bank BLOOD SPECIMEN / Unknown Venipuncture / Unknown 04/09/2024 12:00 PM [employer] 04/09/2024 12:40 PM [employer] Jeff Lennon MD LAB - BLOOD BANK ORD ERABLES [facility] [address] [place] [address], [facility] [phone] * (ABNORMAL) CBC W AUTO DIFFERENTIAL (04/09/2024 12:00 PM [employer]) Pathologist [facility] WBC 4.9 4.0 - 10.7 x10E9/L 04/09/2024 12:23 PM [facility] RBC Count 4.16 3.90 - 5.20 x10E12/L 04/09/2024 12:23 PM [facility] Hemoglobin 11.5(L) 11.9 - 15.8 g/dL 04/09/2024 12:23 PM [facility] Hematocrit 35.9 34.8 - 46.1 % 04/09/2024 12:23 PM [facility] MCV 86.3 80.0 - 98.0 fL 04/09/2024 12:23 PM [facility] MCH 27.6 26.7 - 33.6 pg 04/09/2024 12:23 PM [facility] MCHC 32.0 31.7 - 36.3 g/dL 04/09/2024 12:23 PM [facility] RDW-CV 13.1 11.3 - 14.8 % 04/09/2024 12:23 PM [facility] Platelet Count 173 150 - 420 x10E9/L 04/09/2024 12:23 PM [facility] MPV 9.6 7.8 - 11.4 fL 04/09/2024 12:23 PM [facility] Neutrophil % 64.6 41.0 - 74.0 % 04/09/2024 12:23 PM [facility] Lymphocyte % 22.2 17.0 - 47.0 % 04/09/2024 12:23 PM [facility] Monocyte % 9.8 3.0 - 11.0 % 04/09/2024 12:23 PM [facility] Eosinophil % 2.4 0.0 - 7.0 % 04/09/2024 12:23 PM [facility] Basophil % 0.6 0.0 - 1.6 % 04/09/2024 12:23 PM [facility] Immature Granulocytes % 0.4 0.0 - 1.0 % 04/09/2024 12:23 PM [facility] Neutrophil Absolute 3.16 1.60 - 7.50 x10E9/L 04/09/2024 12:23 PM [facility] Lymphocyte Absolute 1.09 1.00 - 4.40 x10E9/L 04/09/2024 12:23 PM [facility] Monocyte Absolute 0.48 0.15 - 1.00 x10E9/L 04/09/2024 12:23 PM [facility] Eosinophil Absolute 0.12 0.00 - 0.60 x10E9/L 04/09/2024 12:23 PM [facility] Basophil Absolute 0.03 0.00 - 0.13 x10E9/L 04/09/2024 12:23 PM [facility] Blood BLOOD SPECIMEN / Unknown Venipuncture / Unknown 04/09/2024 12:00 PM [employer] [facility] 04/09/2024 12:12 PM [facility] Jeff Lennon MD LAB - HEMATOLOGY ORD ERABLES [facility] [address] [place] [address], [facility] [phone] * (ABNORMAL) COMPREHENSIVE METABOLIC PANEL (04/09/2024 12:00 PM [facility]) BUN 24 7 - 26 mg/dL 04/09/2024 1:13 PM [facility] Creatinine 1.26(H) 0.56 - 0.96 mg/dL 04/09/2024 1:13 PM [facility] Sodium 138 136 - 145 mmol/L 04/09/2024 1:13 PM [facility] Potassium 4.3 3.5 - 4.5 mmol/L 04/09/2024 1:13 PM [facility] Chloride 108(H) 98 - 107 mmol/L 04/09/2024 1:13 PM [facility] CO2 24 22 - 29 mmol/L 04/09/2024 1:13 PM [facility] Glucose 112(H) 70 - 99 mg/dL 04/09/2024 1:13 PM [facility] Calcium 8.9 8.4 - 10.2 mg/dL 04/09/2024 1:13 PM [facility] Protein Total 6.6 6.0 - 8.3 g/dL 04/09/2024 1:13 PM [facility] Albumin 3.6 3.4 - 5.0 g/dL 04/09/2024 1:13 PM [facility] Bilirubin Total 0.5 0.2 - 1.2 mg/dL 04/09/2024 1:13 PM [facility] Alkaline Phosphatase 127 40 - 150 U/L 04/09/2024 1:13 PM [facility] ALT 18 5 - 55 U/L 04/09/2024 1:13 PM [facility] AST 29 5 - 34 U/L 04/09/2024 1:13 PM [facility] Anion Gap 6 6 - 16 04/09/2024 1:13 PM [facility] BUN/Creatinine Ratio 19 7 - 23 04/09/2024 1:13 PM [facility] Osmolality Calculated 291 275 - 295 mOsm/kg 04/09/2024 1:13 PM [facility] Albumin/Globulin Ratio 1.2 1.1 - 2.3 04/09/2024 1:13 PM [facility] eGFR by CKD-EPI 43(L) >=90 mL/min/1.7 3 m2 04/09/2024 1:13 PM [facility] Blood BLOOD SPECIMEN / Unknown Venipuncture / Unknown 04/09/2024 12:00 PM [employer] 04/09/2024 12:11 PM [facility] Jeff Lennon MD LAB - CHEMISTRY RAUL NIXON Performing Organization Address [facility] Co de Phone Number [place] [address] [place] [address], [facility] [phone] * EKG 12-LEAD (04/09/2024 11:58 AM [employer]) Ventricular Rate 60 BPM [facility] Atrial Rate 60 BPM [facility] QRS Duration ms 158 ms [facility] Q-T Interval ms 512 ms [facility] QTC Calculation (Bezet) 512 ms [facility] Calculated P [place] 41 degrees [facility] Calculated R [place] 162 degrees [facility] Calculated T [place] 39 degrees [facility] Interpretation EKG AV dual-paced rhythm ABNORMAL ECG NO PREVIOUS ECGS AVAILABLE Confirmed by YANA DAMON MD ([id number]) on 04/10/2024 8:10:22 AM [facility] 04/09/2024 11:5 8 AM [facility] 04/10/2024 8:10 AM [facility] Jeff Lennon MD ECG ORDERABLES Performing Organization Address [facility] Co de Phone Number [facility] * CT ANGIO BRAIN NECK STROKE (04/09/2024 11:58 AM [facility]) Anatomical Region Laterality Modality Head Computed Tomogra phy 04/09/2024 11:5 4 AM [facility] Impressions 04/09/2024 12:18 PM [facility] [employer] [facility] IMPRESSION: 1. No acute intracranial hemorrhage. 2. [...] 04/09/2024 12:18 PM Narrative 04/09/2024 12:18 PM [facility] [facility] PROCEDURE: CT BRAIN STROKE, CT ANGIO BRAIN NECK STROKE, DATE/TIME OF EXAM: 04/09/2024 11:54 AM, LOCATION [facility] INDICATION: Code Stroke ADDITIONAL CLINICAL INFORMATION: Ordering [...] STROKE, DATE/TIME OFEXAM: 04/09/2024 11:54 AM, LOCATION [facility] INDICATION: Code Stroke ADDITIONAL CLINICAL INFORMATION: Ordering [...] CT BRAIN - Stroke (04/09/2024 11:46 AM [employer] [employer]) Anatomical Region Laterality Modality Head Computed Tomogra phy 04/09/2024 11:5 4 AM [facility] Impressions 04/09/2024 12:18 PM [employer] [facility] IMPRESSION: 1. No acute intracranial hemorrhage. 2. [...] 04/09/2024 12:18 PM Narrative 04/09/2024 12:18 PM [facility] [employer] [facility] PROCEDURE: CT BRAIN STROKE, CT ANGIO BRAIN NECK STROKE, DATE/TIME OF EXAM: 04/09/2024 11:54 AM, LOCATION [facility] INDICATION: Code Stroke ADDITIONAL CLINICAL INFORMATION: Ordering [...] STROKE, DATE/TIME OFEXAM: 04/09/2024 11:54 AM, LOCATION [facility] INDICATION: Code Stroke ADDITIONAL CLINICAL INFORMATION: Ordering [...] OF CARE (IP) STROKE (04/09/2024 11:41 AM [facility]) INR 1.1 0.9 - 1.2 04/09/2024 11:43 AM [employer] [employer] [facility] Device [id number] 04/09/2024 11:43 AM [facility] Cement Storage Worker ID [id number] 04/09/2024 11:43 AM [facility] Blood BLOOD SPECIMEN / Unknown 04/09/2024 11:41 AM [facility] 04/09/2024 11:43 AM [facility] Cipriano Najera MD LAB - POINT OF CARE ORDERABLES Performing Organization Address City/[facility]/ZIP Co de Phone Number [facility] [address] [place] [phone], [place] [phone] * (ABNORMAL) CREATININE - POCT INTERFACED (04/09/2024 11:41 AM [facility]) Creatinine POCT 1.09 0.30 - 1.30 mg/dL 04/09/2024 11:43 AM [facility] eGFR 51(L) >=90 mL/min/1.7 3 m2 04/09/2024 11:43 AM [facility] Blood BLOOD SPECIMEN / Unknown 04/09/2024 11:41 AM [facility] 04/09/2024 11:43 AM [facility] Cipriano Najera MD LAB - POINT OF CARE ORDERABLES Performing Organization Address City/[facility]/ZIP Co de Phone Number [address] [address], [place] [phone] Care Teams Communication Technician Relationship Specialty Start Date End Date Srinivas Chery, QUALITY ASSURANCE SUPERVISOR TRIM-QUALITY ENGINEERING MANAGER [address] [place] [address] PCP - General Nurse Practitioner 04/09/24
--- OUTSIDE RECORDS SUMMARY | 2024-05-27 09:46 | XMS_ITS | Encounter Summary ---
Author Organization [facility] Address [address] [facility] [address] [place] [address] Care Team Providers Care Development Geologist Name Role Phone Nguyễn Green MD Primary Care Provider [phone] Nguyễn Green MD Primary Care Provider [phone] Sherif Mcmahon DO Primary Care Provider [phone] Haim Servin MD Primary Care Provider [phone] Sherif Mcmahon DO Primary Care Provider [phone] Encounter Details Date Type Department Care Team (Late st Contact Info) Description 05/13/2016 Orders Only [facility] ProviderCori MD [address] [place] [address] Social History Tobacco Use Types Packs/Day Years Used Date Smoking Tobacco: Former Cigarettes Q uit: 03/15/2010 Alcohol Use Standard Drinks/Week Comments No 0 (1 standard drink = 0.6 oz pur e alcohol) Comments Unknown Sex and Gender Information Value Date Recorded Sex Assigned at Not on file 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 us Historical Provider [facility] CARDIAC SERVICES PROCE DURES Final Result * CARDIOLOGY REPORT (05/13/2016) Anatomical Region Laterality Modality Other Narrative 05/13/2016 Ordered by an unspecified provider. us Historical Provider CV CARDIAC SERVICES PROCE DURES Final Result documented in this encounter Visit Diagnoses Not on filedocumented in this encounter Care Teams Development Geologist Relationship Specialty Start Date End Date Nguyễn Green MD [address] [place] [address] PCP - General 06/12/16 11/14/18 Nguyễn Green MD [address] [place] [address] PCP - General 07/05/12 06/11/16 Sherif Mcmahon DO [address] [place] [address] PCP - General Internal Medicine 11/15/18 09/29/22 Haim Servin MD [address] [place] [address] PCP - General Family Practice 09/30/22 02/14/24 Sherif Mcmahon DO [address] [place] [address] PCP - General Internal Medicine 02/15/24 documented as of this encounter
--- OUTSIDE RECORDS SUMMARY | 2024-05-27 09:46 | XMS_ITS | Data Portability ---
Author Organization [facility] [place] Address [address] [place] [address] Care Team Providers Care Hydrogen Treater Name Role Phone SANTIAGO MAYER Primary Care Provider Assessment No assessment recorded. Plan of Treatment Reminders Order Date Submit Date Provider Last Modified By Organization Details Last Modified Time Details Appointments None recorded. Lab None recorded. Referral None recorded. Procedures None recorded. Surgeries None recorded. Imaging US, breast, bilateral, w/ axilla 2023 024 MARISSA Not available 4 05:01:45 MAMMO, diagnostic , digital, bilateral 2023 024 [facility], [address], [place], [address], 4 05:01:17 Medication Orders None recorded. Patient TargetsNo targets recorded. Patient InstructionsNo instructions recorded. Reason for Referral None Reported. Results Created Date Observation Date Name Description Value Unit Range Abnormal Flag Note LastModifiedBy Organization Detail LastModifiedTime 06/03/19 24 06/03/2023 MAMMO , diagn ostic , digit al, bilat eral No observ ation record ed. [email or web address] [facility] [address], [place], [address], 06/07/2023 18:14:03 Result Notes None recorded. Procedures Surgical History Date Name Laterality Status Provider Name and Address Organization Details Recorded Time repair of brain completed Medina Brenner [facility] 04/30/2023 12:20:32 Hysteroscopy completed [facility] 04/30/2023 12:20:41 Cholecystectomy completed [facility] 04/30/2023 12:21:02 Tonsillectomy completed [facility] 04/30/2023 12:21:13 Imaging Results Imaging Date Name Status LastModified by Organiz ation Details LastModified Time 06/03/2023 MAMMO, diagnostic, digital, bilateral completed [email or web address] [facility] [address] [place] [address], [place], [address], 06/07/2023 18:14:03 Procedure Notes None recorded. Medical Equipment None Reported. Allergies Allergen ID Allergen Name Allergen Category Reaction Reaction Severity Criticality Documentation Date Start Date Code Code System Note Provider Name and Address Organization Details Recorded Time 32560 codeine medicatio n rash Not available low 04/30/2023 2670 RxNorm [facility] 4 12:14:21 99203 Substance with sulfonami de structure and antibacte rial mechanism of action (substanc e) medicatio n rash Not available low 04/30/2023 21779 8003 SNOMED [facility] 4 12:14:41 64998 adhesive tape environme nt,medica tion rash Not available low 04/30/2023 60913 UNK [facility] 4 12:15:05 Medications Name Sig Start Date Stop Date Status Note LastModified by Organization Details LastModified Time atorvastati n 40 mg tablet active Not Available Not Available Not Available albuterol sulfate 2.5 mg/3 mL (0.083 %) solution for nebulizatio n USE 1 VIAL VIA NEBULIZER EVERY 4 TO 6 HOURS active Not Available Not Available No t Available azithromyci n 250 mg tablet TK 2 TS PO ON DAY 1, THEN TK 1 T PO D FOR 4 DAYS 04/30 completed Not Available Not Available Not Available carvedilol 3.125 mg tablet active Not Available Not Available Not Available alprazolam 0.5 mg tablet TAKE 1 TABLET BY MOUTH THREE TIMES DAILY NEEDED FOR ANXIETY active Not Available Not Available No t Available cephalexin 500 mg capsule TAKE 1 CAPSULE BY MOUTH EVERY 6 HOURS FOR 7 DAYS 04/30 completed Not Available Not Available Not Available albuterol sulfate HFA 90 mcg/actuati on aerosol inhaler INHALE 2 PUFFS BY MOUTH EVERY 4 HOURS NEEDED FOR SHORTNESS OF BREATH OR WHEEZING active Not Available Not Available No t Available oxybutynin chloride 5 mg tablet active Not Available Not Available No t Available ondansetron 4 mg disintegrat ing tablet DISSOLVE 1 TABLET ON THE TONGUE EVERY 8 HOURS FOR 5 DAYS NEEDED FOR NAUSEA OR VOMITING 04/30 completed Not Available Not Available Not Available amoxicillin 875 mg-potassiu m clavulanate 125 mg tablet TAKE 1 TABLET BY MOUTH EVERY 8 HOURS FOR 5 DAYS 04/30 completed Not Available Not Available Not Available lactulose 10 gram/15 mL oral solution TAKE 30ML BY MOUTH TWICE DAILY active Not Available Not Available No t Available sodium,pota ssium,mag sulfates 17.5 gram-3.13 gram-1.6 gram oral soln MIX AND DRINK DIRECTED 04/30 completed Not Available Not Available Not Available Jardiance 10 mg tablet 04/30 completed Not Available Not Available Not Available Entresto 24 mg-26 mg tablet TAKE 1/2 TABLET BY MOUTH TWICE DAILY active Not Available Not Available No t Available Vitals Date Recorded Body height Body mass index (BMI) Body weight Systolic blood pressure Diastolic blood pressure Systolic blood pressure Diastolic blood pressure Provider Name and Address Organization Details Last Updated DateTime 4 177.8 cm 35.4 kg/m2 502578. 32 g 72 mm[Hg] 45 mm[Hg] 112 mm[Hg] 64 mm[Hg] Medina Brenner [facility] 4 12:42:33 Social History Question Answer Notes LastModified by Organizat ion Details LastModified Time Tobacco Smoking Status Former Smoker Medina Brenner [facility] 04/30/2023 12:18:34 What Is Your Level Of Alcohol Consumption? None Information not available 04/30/2023 Are You Blind Or Do You Have Difficulty Seeing? No Information not available 04/30/2023 What Is Your Level Of Caffeine Consumption? Occasional Information not available 04/30/2023 In The 14 Days Before Symptom Onset, Have You Had Close Contact With A Laboratory-confir med COVID-19 While That Case Was Ill? No Information not available 04/30/2023 In The 14 Days Before Symptom Onset, Have You Had Close Contact With A Person Who Is Under Investigation For COVID-19 While That Person Was Ill? No Information not available 04/30/2023 Have You Been To An Area Known To Be High Risk For COVID-19? No Information not available 04/30/2023 Are You Deaf Or Do You Have Serious Difficulty Hearing? No Information not available 04/30/2023 When Did You Quit Smoking? 6-10yearssince lastcigarette Information not available 04/30/2023 Do You Use Your Seat Belt Or Car Seat Routinely? Yes Information not available 04/30/2023 Are You Sexually Active? No Information not available 04/30/2023 Do You Have Smoke And Carbon Monoxide Detectors In Your Home? Yes Information not available 04/30/2023 Do You Feel Stressed (tense, Restless, Nervous, Or Anxious, Or Unable To Sleep At Night)? AB1944-9 Information not available 04/30/2023 Do You Use Any Illicit Or Recreational Drugs? No Information not available 04/30/2023 Sex: Unknown Functional Status Question Answer Note LastModified by Organizat ion Details LastModified Time Do you have difficulty walking or climbing stairs? No Information not available 04/30/2023 Are you able to walk? YESWOREST Information not available 04/30/2023 Are you able to care for yourself? Yes Information not available 04/30/2023 Do you have difficulty dressing or bathing? No Information not available 04/30/2023 Mental Status None recorded. Family History Relationship Description Onset Age of this Age Resolved Age Notes LastModified by Organization Details LastModified Time Mother Anemia Not available 0 04/30/2023 12:31:53 Father Diabetes mellitus Not available 2023 12:32:04 Paternal Grandfather Tuberculosis Not available 04/30/2023 12:32:22 Sister Malignant tumor of breast Not available 2023 12:32:49 Sister Diabetes mellitus Not available 2023 12:33:10 Brother Hypertensive disorder Not available 2023 12:33:26 Brother Malignant tumor of colon Not available 2023 12:33:43 Medical History Condition Response Heart Problems Y Other Y Hypertension Y Lung Disease Y High Cholesterol Y Gynecological History Statement/Question Response STIs/STDs N Menses Monthly N Abnormal Pap Y If Post Menopausal, Age at Menopause 49 Date of Last Pap Smear Current Control Method Hysterectom y LMP Unknown Sexually Active? N Obstetrics History GPAL:G 5 P 5 0 0 5 Type Value Full Term 5 Living 5 Total 5 Past Encounters Encounter ID Performer Location Encounter Start Date Encounter Closed Date Diagnosis/Indication Diagnosis SNOMED-CT Code Diagnosis ICD10 Code Diagnosis Note [id number] GAGANDEEP Pabon [place] [address] [address] 04/30/2023 11:40:33 05/04/2023 06:34:45 Pain of breast 82235668 N64.4 detailed health hx obtained and reviewed todaydiagn ostic mammogram with breast u/s order given to ptwill reach out to pt with results when available Time spent in visit is a total of 30 mins with at least 50% of visit consisting of counseling and review of plan of care. Health Concerns Section Related Observation LastModified by Organization Detai ls LastModified Time None Recorded Concern Status LastModified by Organization Details LastModified Time None Recorded Advance Directives Directive None Recorded Payers Encounter Date Sequence Insurance Name Policy Number Policy Ashraf Covered Member ID Ashraf Member ID Guarantor Name 04/30/2023 1 [employer] (MEDICARE REPLACEMENT/A DVANTAGE - PPO) Shahida Mitchell [id number] Shahida Le Stephen Notes Date Note Type Note Provider Name and Address Organization Details Recorded Time 04/30/2023 text/html 78yopresents for evaluation of left breast painsymptoms started a few months ago after she fell at home and hit her breast on the corner of her dresser. Was very sore at first, now just tender at random times. Did have bruise that has now went away.no nipple discharge, no lumps that she has noticedlast mammogram was in her 50'sh/o TLH, BSO for non-cancerous indications per pt medical hx: pacemakers, COPD, HTN, high cholesterol, heart disease Naomi Bryant, [facility] [address], [place], [address], [facility] 05/03/2023 09:02:04 OBGyn Episode Ob Episode Information Episode Created Date Number of Fetuses Patient Bloodtype Patient rh Status Prepregnancy Weight lbs Domestic Partner Domestic Partner Phone Father Name Project Management Instructor Status 04/30/19 24 1 CLOSED Fetus Data First Name Last Name Admitted to NICU Weight (g) Sex Living Outcome Pediatric Complications Fetus ID Race Codes Race Delivery Type 3628.73 6 M Full Term [id number] Jose Calculation Initial Jose Date Initial Exam Date Initial Exam Provider Initial Ultrasound Date Last Menstrual Period Date Ultra Sound Weeks Gestation 0 Eighteen To Twenty Week Jose Update Ultra Sound Date Fundal Height At Umbil Quickening Date Ultra Sound Latest Weeks Gestation Final Jose Confirmed By Final Jose Confirmed Date Final Jose Date Ultra Sound Latest Days Gestation 0 0 Menstrual History Last Menstrual Date Menses Monthly On Bcp Conception Prior Menses Frequency Hcg Plus Date Menarche Onset Age Delivery Information Delivery Date Delivery Type Labor Anesthesia Weeks Gestation Incision Type Labor Labor Length Hrs Delivered By Post Complications Tubal Sterilization Discharge Date Comments 4 Discharge Information Feeding Method Contraceptive Method Maternal HG B and HCT Levels Ob Episode Information Episode Created Date Number of Fetuses Patient Bloodtype Patient rh Status Prepregnancy Weight lbs Domestic Partner Domestic Partner Phone Father Name Project Management Instructor Status 04/30/19 24 1 CLOSED Fetus Data First Name Last Name Admitted to NICU Weight (g) Sex Living Outcome Pediatric Complications Fetus ID Race Codes Race Delivery Type 3628.73 6 M Full Term [id number] Jose Calculation Initial Jose Date Initial Exam Date Initial Exam Provider Initial Ultrasound Date Last Menstrual Period Date Ultra Sound Weeks Gestation 0 Eighteen To Twenty Week Jose Update Ultra Sound Date Fundal Height At Umbil Quickening Date Ultra Sound Latest Weeks Gestation Final Jose Confirmed By Final Jose Confirmed Date Final Jose Date Ultra Sound Latest Days Gestation 0 0 Menstrual History Last Menstrual Date Menses Monthly On Bcp Conception Prior Menses Frequency Hcg Plus Date Menarche Onset Age Delivery Information Delivery Date Delivery Type Labor Anesthesia Weeks Gestation Incision Type Labor Labor Length Hrs Delivered By Post Complications Tubal Sterilization Discharge Date Comments 5 Discharge Information Feeding Method Contraceptive Method Maternal HG B and HCT Levels Ob Episode Information Episode Created Date Number of Fetuses Patient Bloodtype Patient rh Status Prepregnancy Weight lbs Domestic Partner Domestic Partner Phone Father Name Project Management Instructor Status 04/30/19 24 1 CLOSED Fetus Data First Name Last Name Admitted to NICU Weight (g) Sex Living Outcome Pediatric Complications Fetus ID Race Codes Race Delivery Type 3175.14 4 M Full Term [id number] Jose Calculation Initial Jose Date Initial Exam Date Initial Exam Provider Initial Ultrasound Date Last Menstrual Period Date Ultra Sound Weeks Gestation 0 Eighteen To Twenty Week Jose Update Ultra Sound Date Fundal Height At Umbil Quickening Date Ultra Sound Latest Weeks Gestation Final Jose Confirmed By Final Jose Confirmed Date Final Jose Date Ultra Sound Latest Days Gestation 0 0 Menstrual History Last Menstrual Date Menses Monthly On Bcp Conception Prior Menses Frequency Hcg Plus Date Menarche Onset Age Delivery Information Delivery Date Delivery Type Labor Anesthesia Weeks Gestation Incision Type Labor Labor Length Hrs Delivered By Post Complications Tubal Sterilization Discharge Date Comments 3 Discharge Information Feeding Method Contraceptive Method Maternal HG B and HCT Levels Ob Episode Information Episode Created Date Number of Fetuses Patient Bloodtype Patient rh Status Prepregnancy Weight lbs Domestic Partner Domestic Partner Phone Father Name Project Management Instructor Status 04/30/19 24 1 CLOSED Fetus Data First Name Last Name Admitted to NICU Weight (g) Sex Living Outcome Pediatric Complications Fetus ID Race Codes Race Delivery Type 4082.32 8 M Full Term [id number] Jose Calculation Initial Jose Date Initial Exam Date Initial Exam Provider Initial Ultrasound Date Last Menstrual Period Date Ultra Sound Weeks Gestation 0 Eighteen To Twenty Week Jose Update Ultra Sound Date Fundal Height At Umbil Quickening Date Ultra Sound Latest Weeks Gestation Final Jose Confirmed By Final Jose Confirmed Date Final Jose Date Ultra Sound Latest Days Gestation 0 0 Menstrual History Last Menstrual Date Menses Monthly On Bcp Conception Prior Menses Frequency Hcg Plus Date Menarche Onset Age Delivery Information Delivery Date Delivery Type Labor Anesthesia Weeks Gestation Incision Type Labor Labor Length Hrs Delivered By Post Complications Tubal Sterilization Discharge Date Comments 8 Discharge Information Feeding Method Contraceptive Method Maternal HG B and HCT Levels Ob Episode Information Episode Created Date Number of Fetuses Patient Bloodtype Patient rh Status Prepregnancy Weight lbs Domestic Partner Domestic Partner Phone Father Name Project Management Instructor Status 04/30/19 1 CLOSED Fetus Data First Name Last Name Admitted to NICU Weight (g) Sex Living Outcome Pediatric Complications Fetus ID Race Codes Race Delivery Type 3628.73 6 M Full Term [id number] Jose Calculation Initial Jose Date Initial Exam Date Initial Exam Provider Initial Ultrasound Date Last Menstrual Period Date Ultra Sound Weeks Gestation 0 Eighteen To Twenty Week Jose Update Ultra Sound Date Fundal Height At Umbil Quickening Date Ultra Sound Latest Weeks Gestation Final Jose Confirmed By Final Jose Confirmed Date Final Jose Date Ultra Sound Latest Days Gestation 0 0 Menstrual History Last Menstrual Date Menses Monthly On Bcp Conception Prior Menses Frequency Hcg Plus Date Menarche Onset Age Delivery Information Delivery Date Delivery Type Labor Anesthesia Weeks Gestation Incision Type Labor Labor Length Hrs Delivered By Post Complications Tubal Sterilization Discharge Date Comments 3 Discharge Information Feeding Method Contraceptive Method Maternal HG B and HCT Levels
--- OUTSIDE RECORDS SUMMARY | 2024-05-27 09:46 | XMS_ITS | Referral Summary ---
Author Organization [facility] Address [address] [place] [address] Care Team Providers Care Finisher Merchant Products Name Role Phone Sherif Mcmahon DO Primary Care Provider [phone] Encounters Date Type Department Care Team Description 04/05/2024 Orders Only [facility] Cardiology [address] [place] [phone] Abdon Still MD NICM (nonischemic cardiomyopathy) (HCC) (Primary Dx); ICD (implantable cardioverter-defibrill ator) in place; Ventricular fibrillation (HCC); NSVT (nonsustained ventricular tachycardia) (HCC) 04/05/2024 8:15 AM HAND INSERTER OPERATOR Ancillary Procedure [facility] Cardiology [address] [place] [phone] Biventricular automatic implantable cardioverter defibrillator in situ (Primary Dx); LBBB (left bundle branch block); SSS (sick sinus syndrome) (HCC); NICM (nonischemic cardiomyopathy) ([facility]); Congestive heart failure, unspecified HF chronicity, unspecified heart failure type (HCC) from Last 3 Months Allergies Active Allergy Reactions Criticality Noted Date [...] mg total) by mouth daily 30 tablet 08/27/19 23 Active Additional Information Patient [...] 09/23/2016 Overview (09/30/2022): Medtronic Viva Quad XT JAVA SQL DEVELOPER-D, as well as a MDT 8313M RV lead and a MDT 7223 LV lead implanted on 10-19-16 for NICM/CHF/LBBB. Chronic MDT 7671 RA lead is from 10-12-14. Ceci Senior HCG Card. Ciara. 09/29/2022-Tachy detections & therapies turned off per patient. 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 In view of left bundle-branch block, heart failure and LV dysfunction, upgrade to a JAVA SQL DEVELOPER ICD is recommended. I discussed the risks and benefits of the procedure including, but not limited to, infection, lead dislodgement, bleeding, thrombosis, extracardiac stimulation, and perforation. All questions answered. Patient understands and wishes to proceed. Plan Upgrade to JAVA SQL DEVELOPER ICD LBBB (left bundle branch block) 09/23/2016 Assessment & Plan (09/23/2016 3:45 PM CDT): QRS duration equals 200 milliseconds. JAVA SQL DEVELOPER is recommended Left bundle branch block (LBBB) 11/21/2015 Hypertensive heart disease 11/21/2015 Tachycardia-bradycardia 11/19/2015 Presence of cardiac pacemaker 11/19/2015 Social History Tobacco Use Types Packs/Day [...] on file Legal Sex Female 2:18 AM HAND INSERTER OPERATOR Gender Identity Not on file Sexual Orientation Not on file Last Filed Vital Signs Vital Sign Reading Time Taken Comments Blood Pressure 96/60 02/15/2024 1:27 PM HAND INSERTER OPERATOR Pulse 74 02/15/2024 1:27 PM HAND INSERTER OPERATOR Temperature - - Respiratory Rate 15 09/29/2022 8:07 AM CDT Oxygen Saturation 98% 02/15/2024 1:27 PM HAND INSERTER OPERATOR Inhaled Oxygen Concentration - - Weight 106.1 kg (234 lb) 02/15/2024 1:27 PM HAND INSERTER OPERATOR Height 177.8 cm (5' 10 ) 02/15/2024 1:27 PM HAND INSERTER OPERATOR Body Mass Index 33.58 02/15/2024 1:27 PM HAND INSERTER OPERATOR Plan of Treatment Not on file Medical Devices Implanted Type Area Assembly Operator Device Identifier Shelf Expiration Date Model / Serial / Lot Icd-10/19/2016 Implanted:09/2016 by Efren Ornelas MD (Quantity not on file) ICD Chest Wall Medtronic Cardiac Rhythm Mgmt NICM, CHF, LBBB / / CHRONIC ATRIAL LEAD 10/12/14 Description:Medtronic Viva Q uad XT JAVA SQL DEVELOPER-D, as well as a ANDREA 6947M RV lead and a ANDREA 4598 LV lead implanted on 10-19-16 for ICM/CHF/LBBB. Chronic T 5076 RA lead is from 10-12-14. Ceci Baig Pacemaker-09/14 Implanted: (Quantity not on file) Explanted:09/2016 by Efren Ornelas MD (Quantity not on file) Pacemaker Chest Med[employer] ADVISA / [id number] / Description:Medtronic Advisa DDD pacemaker implanted 10/12/2014 for SSS (implanted in [place]-patient had a brain tumor removed-nonmalignant), Procedures Procedure Name Priority Date/Time Associated Diagnosis Comments DEVICE CHECK - REMOTE Routine 04/05/2024 7:44 AM HAND INSERTER OPERATOR LBBB (left bundle branch block) SSS (sick sinus syndrome) (HCC) NICM (nonischemic cardiomyopathy) (HCC) from Last 3 Months Results * DEVICE CHECK - REMOTE (04/05/2024 7:44 AM HAND INSERTER OPERATOR) Anatomical Region Laterality Modality Other Narrative 05/02/2024 8:17 AM HAND INSERTER OPERATOR Medtronic Viva Quad XT JAVA SQL DEVELOPER-D, as well as a ANDREA 6947M RV lead and a ANDREA 4598 LV lead implanted on 10-19-16 for NICM/CHF/LBBB. Chronic MDT 5076 RA lead is from 10-12-14. Ceci Baig-Flacoul HCG Card. Brii-LAURI. 09/29/2022-Tachy detections & therapies turned off per patient. JR Routine DDDR ICD Remote. Transmission attached. Battery status 2.82 V, 9 months remaining battery life to MYRA. Stable Charge time and Shock impedance. Stable lead impedances, pacing, and sensing threshold. Presenting rhythm: AP/BV AP-80.9 %, LIFESTYLE DIRECTOR-98.8 % (0) AT/AF episodes noted. (0) Ventricular tachy arrhythmias detected. Medication: ASA 81 mg, carvedilol 3.125 mg Follow up: Office Pacemaker/ICD scheduled 06/14/24 [facility] remote 6 months Alfie Kearns RN us Abdon Still MD [facility] CARDIAC SERVICES PROCEDURES F inal Result from Last 3 Months Insurance [employer] MEDICARE PPO [employer] MED[employer] PPO Advance Directives For more information, please contact: [phone] Documents on File Type Date Recorded Patient Desktop Support Manager Expl anation ADVANCE DIRECTIVE 09/30/2022 7:53 AM Care Teams Finisher Merchant Products Relationship Specialty Start Date End Date Sherif Mcmahon DO [address] [facility] [address] [place] [address] PCP - General Internal Medicine 02/15/24
--- OUTSIDE RECORDS SUMMARY | 2024-05-27 09:46 | XMS_ITS | Referral Summary ---
Author Organization [facility] Address [address] [place] [address] Care Team Providers Care House Steward/Stewardess Name Role Phone Srinivas Chery OTILIO-BREAD WRAPPER Primary Care Provider Source Comments [facility],non-owned Affiliates and Associated Physician Practices is amultiple site organization consisting of ambulatory clinics and hospital sitesin [place], [place], [place] and [place]. This disclosure is being madepursuant to the Care Everywhere program and may not contain all information available regarding this patient. Last updated 17.[facility] [employer] Encounters Date Type Department Care Team Description 04/13/2024 Orders Only [facility] IVR [address] [place] [address] Pippa Heath MD 04/09/2024 11:28 AM GOLD LETTERER - 04/10/2024 5:32 PM [facility] Emergency [facility] EMERGENCY DEPARTMENT [address] [place] [address] Cipriano Najera MD Kitchener, Jacob M, MD Paresthesias (Primary Dx); Weakness; Left-sided weakness; Dysarthria Discharge Disposition: Home or Self Care from Last 3 Months Medications * Be aware that medications may [...] failure and LV dysfunction, upgrade to a LARD MIXER ICD is recommended. I discussed the risks and benefits of the procedure including, but not limited to, infection, lead dislodgement, bleeding, thrombosis, extracardiac stimulation, and perforation. All questions answered. Patient understands and wishes to proceed. Plan Upgrade to LARD MIXER ICD Hypertensive heart disease 11/21/2015 Left bundle branch block (LBBB) 11/21/2015 Overview (04/09/2024): Last Assessment & Plan: QRS duration equals 200 milliseconds. LARD MIXER is recommended Tachycardia-bradycardia 11/19/2015 Social History Tobacco Use Types Packs/Day Years Used Date Smoking Tobacco: Never Assessed Sex and Gender Information Value Date Recorded Sex Assigned at Not on file Gender Identity Not on file Sexual Orientation Not on file Last Filed Vital Signs Vital Sign Reading Time Taken Comments Blood Pressure 159/79 04/10/2024 8:52 AM GOLD LETTERER Pulse 70 04/10/2024 8:52 AM GOLD LETTERER Temperature 36.7 C (98 F) 04/09/2024 11:28 AM GOLD LETTERER Respiratory Rate 20 04/10/2024 6:36 AM GOLD LETTERER Oxygen Saturation 97% 04/10/2024 6:36 AM GOLD LETTERER Inhaled Oxygen Concentration - - Weight 109 kg (240 lb 6.4 oz) 04/09/2024 11:28 A M GOLD LETTERER Height 167.6 cm (5' 6 ) 04/09/2024 11:28 AM GOLD LETTERER Body Mass Index 38.8 04/09/2024 11:28 AM GOLD LETTERER Plan of Treatment Not on file Medical Devices Implanted Type Area Alternative Financing Specialist Device Identifier Shelf Expiration Date Model / Serial / Lot No Mri... Medtronic Viva Quad Xt Protective Services Social Worker-D-10/19/2016 Implanted:09/2016 (Quantity not on file) Defibrillator [employer] Description:Medtronic IPAD s ays cannot scan due to two devices. No Mri... Pacemaker-Unkn own Medtronic-10/12 Implanted:09/14 (Quantity not on file) Pacemaker [employer] Description:Medtronic IPAD s ays cannot scan due to two devices. Procedures Procedure Name Priority Date/Time Associated Diagnosis Comments PREPARE RBC LEUKOREDUCED UNIT STAT 04/11/2024 1:17 AM GOLD LETTERER CARDIAC EKG ORDER 04/10/2024 11: 51 AM GOLD LETTERER LIPID PROFILE STAT 04/10/2024 5:02 AM GOLD LETTERER CBC W/O DIFFERENTIAL STAT 04/10/2024 5:02 AM GOLD LETTERER BASIC METABOLIC PANEL (CALCIUM TOTAL) STAT 04/10/2024 5:02 AM GOLD LETTERER TROPONIN-I HIGH SENSITIVE REFLEX 1HOUR Timed 04/09/2024 1:41 PM GOLD LETTERER BLOOD TYPE VERIFICATION STAT 04/09/19 12:45 PM GOLD LETTERER TROPONIN-I HIGH SENSITIVE BASELINE + 1HR STAT 04/09/2024 12:42 PM GOLD LETTERER CHE DIRECT Routine 04/09/2024 12:00 PM GOLD LETTERER ANTIBODY IDENTIFICATION Routine 04/09/19 12:00 PM GOLD LETTERER TYPE + SCREEN PANEL STAT 04/09/2024 1 2:00 PM GOLD LETTERER PT-INR [facility] STAT 04/09/2024 12:00 PM GOLD LETTERER COMPREHENSIVE METABOLIC PANEL STAT 04/09/2024 12:00 PM GOLD LETTERER CBC W AUTO DIFFERENTIAL STAT 04/09/19 12:00 PM GOLD LETTERER EKG 12-LEAD STAT 04/09/2024 11:58 AM GOLD LETTERER Weakness CT ANGIO BRAIN NECK STROKE STAT 04/09/2024 11:58 AM GOLD LETTERER Weakness PT EVAL AND TREAT Routine 04/09/2024 11: 55 AM GOLD LETTERER OT EVAL AND TREAT Routine 04/09/2024 11: [address] BRAIN STROKE STAT 04/09/2024 11:46 AM GOLD LETTERER Weakness CREATININE - POCT INTERFACED Routine 04/09/2024 11:41 AM GOLD LETTERER INR WHOLE BLOOD - POINT OF CARE (IP) STROKE Routine 04/09/2024 11:41 AM GOLD LETTERER from Last 3 Months Results * PREPARE (CROSSMATCH) RBC UNIT(S), 2 Units (04/11/2024 1:17 AM GOLD LETTERER) Unit Description AS1 LR PRBC [facility] Unit ABO O [facility] Unit Rh NEG [facility] Product Number R43 [facility] B LOOD BANK LAB Unit Donor # [id number] [facility] Unit Status released [facility] BLOO D BANK LAB Product Code [id number] [facility] B[facility] OD [facility] Blood Type Barcode 9500 [facility] Expiration Date [id number] S BLOOD BANK LAB Unit Description AS1 LR PRBC [facility] Unit ABO O [facility] Unit Rh NEG [facility] Product Number R02 [facility] B LOOD BANK LAB Unit Donor # [id number] [facility] Unit Status released [facility] BLOO D [facility]ANK LAB Product Code [id number] [facility] BLO OD [facility]ANK LAB Blood Type Barcode 9500 [facility] Expiration Date [id number] S BLOOD BANK LAB Blood Bank BLOOD SPECIMEN / Unknown 04/09/2024 12:40 PM GOLD LETTERER Gordon Reilly DIE CASTER-ENGINEER [employer]PL[employer]MENT LAB - BL OOD BANK ORDERABLES [facility]LOOD [facility] LAB [address] [place] [address], [facility] [phone] * CARDIAC EKG ORDER (04/10/2024 11:51 AM GOLD LETTERER) Narrative 04/10/2024 11:51 AM GOLD LETTERER Ordered by an unspecified provider. Scanned Document CARDIAC SERVICES ORD ERABLES * (ABNORMAL) CBC W/O DIFFERENTIAL (04/10/2024 5:02 AM GOLD LETTERER) WBC 6.1 4.0 - 10.7 x10E9/L 04/10/2024 5:15 AM [facility] RBC Count 4.20 3.90 - 5.20 x10E12/L 04/10/2024 5:15 AM [facility] Hemoglobin 11.6(L) 11.9 - 15.8 g/dL 04/10/2024 5:15 AM [facility] Hematocrit 36.2 34.8 - 46.1 % 04/10/2024 5:15 AM [facility] MCV 86.2 80.0 - 98.0 fL 04/10/2024 5:15 AM [facility] MCH 27.6 26.7 - 33.6 pg 04/10/2024 5:15 AM [facility] MCHC 32.0 31.7 - 36.3 g/dL 04/10/2024 5:15 AM [facility] RDW-CV 13.4 11.3 - 14.8 % 04/10/2024 5:15 AM [facility] Platelet Count 164 150 - 420 x10E9/L 04/10/2024 5:15 AM [facility] MPV 9.9 7.8 - 11.4 fL 04/10/2024 5:15 AM [facility] Blood BLOOD SPECIMEN / Unknown Venipuncture / Unknown 04/10/2024 5:02 AM GOLD LETTERER 04/10/2024 5:09 AM [facility] Cipriano Najera MD LAB - HEMATOLO GY ORDERABLES [facility] [address] [place] [address], [facility] [phone] * (ABNORMAL) BASIC METABOLIC PANEL (CALCIUM TOTAL) (04/10/2024 5:02 AM [facility]) BUN 23 7 - 26 mg/dL 04/10/2024 5:39 AM [facility] Creatinine 1.20(H) 0.56 - 0.96 mg/dL 04/10/2024 5:39 AM [facility] Sodium 140 136 - 145 mmol/L 04/10/2024 5:39 AM [facility] Potassium 4.5 3.5 - 4.5 mmol/L 04/10/2024 5:39 AM [facility] Chloride 108(H) 98 - 107 mmol/L 04/10/2024 5:39 AM [facility] CO2 22 22 - 29 mmol/L 04/10/2024 5:39 AM [facility] Glucose 91 70 - 99 mg/dL 04/10/2024 5:39 AM [facility] Calcium 9.4 8.4 - 10.2 mg/dL 04/10/2024 5:39 AM [facility] Anion Gap 10 6 - 16 04/10/2024 5:39 AM [facility] BUN/Creatinine Ratio 19 7 - 23 04/10/2024 5:39 AM [facility] Osmolality Calculated 293 275 - 295 mOsm/kg 04/10/2024 5:39 AM [facility] eGFR by CKD-EPI 46(L) >=90 mL/min/1.7 3 m2 04/10/2024 5:39 AM [facility] Blood BLOOD SPECIMEN / Unknown Venipuncture / Unknown 04/10/2024 5:02 AM GOLD LETTERER 04/10/2024 5:09 AM GOLD LETTERER Cipriano Najera MD LAB - CHEMISTR Y ORDERABLES [facility] [address] [place] [address], [facility] [phone] * (ABNORMAL) LIPID PROFILE (04/10/2024 5:02 AM GOLD LETTERER) Cholesterol Total 100 <200 mg/dL 04/10/2024 5:39 AM [facility] HDL 30(L) >40 mg/dL 04/10/2024 5:39 AM [facility] Comment: ATP III Classification of HDL Cholesterol: <40 mg/dL: Considered a major risk factor. >60 mg/dL: Considered a negative risk factor. LDL Calculated 55 <100 mg/dL 04/10/2024 5:39 AM [facility] Comment: ATP III Classification of LDL Cholesterol: <100 mg/dL: Optimal 100 - 129 mg/dL: Near Optimal/Above Optimal 130 - 159 mg/dL: Borderline High 160 - 189 mg/dL: High >190 mg/dL: Very High Triglycerides 75 <150 mg/dL 04/10/2024 5:39 AM [facility] Comment: ATP III Classification of Triglycerides: <150 mg/dL: Normal 150 - 199 mg/dL: Borderline High 200 - 400 mg/dL: High >500 mg/dL: Very High Blood BLOOD SPECIMEN / Unknown Venipuncture / Unknown 04/10/2024 5:02 AM GOLD LETTERER 04/10/2024 5:09 AM GOLD LETTERER Cipriano Najera MD LAB - CHEMISTR Y ORDERABLES [facility] [address] [place] [address], [place] [phone] * TROPONIN-I HIGH SENSITIVE REFLEX 1HOUR (04/09/2024 1:41 PM GOLD LETTERER) Troponin I High Sensitive 6 <=14 ng/L 04/09/2024 2:29 PM GOLD LETTERER [facility] Delta Troponin I HS 1 <6 ng/L 04/09/2024 2:29 PM GOLD LETTERER [facility] Blood BLOOD SPECIMEN / Unknown Venipuncture / Unknown 04/09/2024 1:41 PM GOLD LETTERER 04/09/2024 1:49 PM GOLD LETTERER Cipriano Najera MD LAB - CHEMISTR Y ORDERABLES Performing Organization Address City/[facility]/ZIP Co de Phone Number [address] [address], [place] [phone] * BLOOD TYPE VERIFICATION (04/09/2024 12:45 PM GOLD LETTERER) ABO Rh A POS 04/09/2024 1:2 7 PM GOLD LETTERER [facility] B[facility] Blood Bank BLOOD SPECIMEN / Unknown Venipuncture / Unknown 04/09/2024 12:45 PM GOLD LETTERER 04/09/2024 12:50 PM GOLD LETTERER Jeff Lennon MD LAB - BLOOD BANK ORD ERABLES Performing Organization Address City/[facility]/ZIP Co de Phone Number [facility] [address] [place] [address], [place] [phone] * TROPONIN-I HIGH SENSITIVE BASELINE + 1HR (04/09/2024 12:42 PM GOLD LETTERER) Troponin I High Sensitive 5 <=14 ng/L 04/09/2024 1:29 PM GOLD LETTERER [facility] Blood BLOOD SPECIMEN / Unknown Venipuncture / Unknown 04/09/2024 12:42 PM GOLD LETTERER 04/09/2024 12:57 PM GOLD LETTERER Cipriano Najera MD LAB - CHEMISTR Y ORDERABLES [facility] [address] [place] [address], [facility] [phone] * PT-INR [facility] (04/09/2024 12:00 PM GOLD LETTERER) [facility] PT 14.1 12.1 - 14.8 Seconds 04/09/2024 12:35 PM GOLD LETTERER [facility] INR 1.1 See Comment 04/09/2024 12:35 PM [facility] Comment:The suggested therap eutic range for standard coumadin (warfarin) therapy is an INR of 2.0-3.0. For high-risk patients (Mechanical Mitral Valve Prosthesis, etc.), the suggested prophylactic therapeutic range is an INR of 2.5-3.5. Blood BLOOD SPECIMEN / Unknown Venipuncture / Unknown 04/09/2024 12:00 PM GOLD LETTERER 04/09/2024 12:11 PM GOLD LETTERER Jeff Lennon MD LAB - COAGULATION OR DERABLES Performing Organization Address [facility]/ZIP Co de Phone Number [address] [address], [facility] [phone] * TYPE + SCREEN PANEL (04/09/2024 12:00 PM GOLD LETTERER) [facility] Antibody Screen POS 1:27 PM GOLD LETTERER [facility] ABO Rh A POS 04/09/2024 1:27 PM GOLD LETTERER [facility] Blood Bank BLOOD SPECIMEN / Unknown Venipuncture / Unknown 04/09/2024 12:00 PM GOLD LETTERER 04/09/2024 12:40 PM GOLD LETTERER Jeff Lennon MD LAB - BLOOD BANK ORD ERABLES Performing Organization Address [facility]/ZIP Co de Phone Number [facility] [address] [place] [address], [facility] [phone] * CHE DIRECT (04/09/2024 12:00 PM GOLD LETTERER) [facility] Direct Che (BALTAZAR) NEG 04/09/2024 3:59 PM GOLD LETTERER [facility] Blood Bank BLOOD SPECIMEN / Unknown Venipuncture / Unknown 04/09/2024 12:00 PM GOLD LETTERER 04/09/2024 12:40 PM GOLD LETTERER Jeff Lennon MD LAB - BLOOD BANK ORD ERABLES [facility] [address] [place] [address], [facility] [phone] * ANTIBODY IDENTIFICATION (04/09/2024 12:00 PM GOLD LETTERER) Antibody 1 POS, Anti-FyA 04/09/2024 4:06 PM [facility] BLOOD [facility] LAB Blood Bank BLOOD SPECIMEN / Unknown Venipuncture / Unknown 04/09/2024 12:00 PM GOLD LETTERER 04/09/2024 12:40 PM GOLD LETTERER Jeff Lennon MD LAB - BLOOD BANK ORD ERABLES [facility] [address] [place] [address], [facility] [phone] * (ABNORMAL) CBC W AUTO DIFFERENTIAL (04/09/2024 12:00 PM GOLD LETTERER) WBC 4.9 4.0 - 10.7 x10E9/L 04/09/2024 12:23 PM [facility] RBC Count 4.16 3.90 - 5.20 x10E12/L 04/09/2024 12:23 PM [facility] Hemoglobin 11.5(L) 11.9 - 15.8 g/dL 04/09/2024 12:23 PM [facility] Hematocrit 35.9 34.8 - 46.1 % 04/09/2024 12:23 PM [facility] MCV 86.3 80.0 - 98.0 fL 04/09/2024 12:23 PM [facility] MCH 27.6 26.7 - 33.6 pg 04/09/2024 12:23 PM [facility] MCHC 32.0 31.7 - 36.3 g/dL 04/09/2024 12:23 PM [facility] RDW-CV 13.1 11.3 - 14.8 % 04/09/2024 12:23 PM [facility] Platelet Count 173 150 - 420 x10E9/L 04/09/2024 12:23 PM [facility] MPV 9.6 7.8 - 11.4 fL 04/09/2024 12:23 PM [facility] Neutrophil % 64.6 41.0 - 74.0 % 04/09/2024 12:23 PM [facility] Lymphocyte % 22.2 17.0 - 47.0 % 04/09/2024 12:23 PM [facility] Monocyte % 9.8 3.0 - 11.0 % 04/09/2024 12:23 PM [facility] Eosinophil % 2.4 0.0 - 7.0 % 04/09/2024 12:23 PM [facility] Basophil % 0.6 0.0 - 1.6 % 04/09/2024 12:23 PM [facility] Immature Granulocytes % 0.4 0.0 - 1.0 % 04/09/2024 12:23 PM [facility] Neutrophil Absolute 3.16 1.60 - 7.50 x10E9/L 04/09/2024 12:23 PM [facility] Lymphocyte Absolute 1.09 1.00 - 4.40 x10E9/L 04/09/2024 12:23 PM [facility] Monocyte Absolute 0.48 0.15 - 1.00 x10E9/L 04/09/2024 12:23 PM [facility] Eosinophil Absolute 0.12 0.00 - 0.60 x10E9/L 04/09/2024 12:23 PM [facility] Basophil Absolute 0.03 0.00 - 0.13 x10E9/L 04/09/2024 12:23 PM [facility] Blood BLOOD SPECIMEN / Unknown Venipuncture / Unknown 04/09/2024 12:00 PM GOLD LETTERER 04/09/2024 12:12 PM [facility] Jeff Lennon MD LAB - HEMATOLOGY ORD ERABLES [facility] [address] [place] [address], [facility] [phone] * (ABNORMAL) COMPREHENSIVE METABOLIC PANEL (04/09/2024 12:00 PM [facility]) BUN 24 7 - 26 mg/dL 04/09/2024 1:13 PM [facility] Creatinine 1.26(H) 0.56 - 0.96 mg/dL 04/09/2024 1:13 PM [facility] Sodium 138 136 - 145 mmol/L 04/09/2024 1:13 PM [facility] Potassium 4.3 3.5 - 4.5 mmol/L 04/09/2024 1:13 PM [facility] Chloride 108(H) 98 - 107 mmol/L 04/09/2024 1:13 PM [facility] CO2 24 22 - 29 mmol/L 04/09/2024 1:13 PM [facility] Glucose 112(H) 70 - 99 mg/dL 04/09/2024 1:13 PM [facility] Calcium 8.9 8.4 - 10.2 mg/dL 04/09/2024 1:13 PM [facility] Protein Total 6.6 6.0 - 8.3 g/dL 04/09/2024 1:13 PM [facility] Albumin 3.6 3.4 - 5.0 g/dL 04/09/2024 1:13 PM [facility] Bilirubin Total 0.5 0.2 - 1.2 mg/dL 04/09/2024 1:13 PM [facility] Alkaline Phosphatase 127 40 - 150 U/L 04/09/2024 1:13 PM [facility] ALT 18 5 - 55 U/L 04/09/2024 1:13 PM [facility] AST 29 5 - 34 U/L 04/09/2024 1:13 PM [facility] Anion Gap 6 6 - 16 04/09/2024 1:13 PM [facility] BUN/Creatinine Ratio 19 7 - 23 04/09/2024 1:13 PM [facility] Osmolality Calculated 291 275 - 295 mOsm/kg 04/09/2024 1:13 PM [facility] Albumin/Globulin Ratio 1.2 1.1 - 2.3 04/09/2024 1:13 PM [facility] eGFR by CKD-EPI 43(L) >=90 mL/min/1.7 3 m2 04/09/2024 1:13 PM [facility] Blood BLOOD SPECIMEN / Unknown Venipuncture / Unknown 04/09/2024 12:00 PM GOLD LETTERER 04/09/2024 12:11 PM GOLD LETTERER Jeff Lennon MD LAB - CHEMISTRY ORDE HUSSAIN Performing Organization Address [facility]/ZIP Co de Phone Number [facility] [address] [place] [address], [facility] [phone] * EKG 12-LEAD (04/09/2024 11:58 AM GOLD LETTERER) Ventricular Rate 60 BPM SL MUSE Atrial Rate 60 BPM [facility] MUSE QRS Duration ms 158 ms [facility] MUSE Q-T Interval ms 512 ms [facility] MUSE QTC Calculation (Bezet) 512 ms [facility] MUSE Calculated P [place] 41 degrees [facility] MUSE Calculated R [place] 162 degrees [facility] MUSE Calculated T [place] 39 degrees [facility] MUSE Interpretation EKG AV dual-paced rhythm ABNORMAL ECG NO PREVIOUS ECGS AVAILABLE Confirmed by YANA DAMON MD ([id number]) on 04/10/2024 8:10:22 AM [facility] MUSE 04/09/2024 11:5 8 AM GOLD LETTERER 04/10/2024 8:10 AM GOLD LETTERER Jeff Lennon MD ECG ORDERABLES Performing Organization Address [facility] Co de Phone Number [facility] MUSE * CT ANGIO BRAIN NECK STROKE (04/09/2024 11:58 AM GOLD LETTERER) Anatomical Region Laterality Modality Head Computed Tomogra phy 04/09/2024 11:5 4 AM GOLD LETTERER Impressions 04/09/2024 12:18 PM GOLD LETTERER IMPRESSION: 1. No acute intracranial hemorrhage. 2. [...] 04/09/2024 12:18 PM Narrative 04/09/2024 12:18 PM GOLD LETTERER PROCEDURE: CT BRAIN STROKE, CT ANGIO BRAIN NECK STROKE, DATE/TIME OF EXAM: 04/09/2024 11:54 AM, LOCATION [facility] INDICATION: Code Stroke ADDITIONAL CLINICAL INFORMATION: [...] STROKE, DATE/TIME OFEXAM: 04/09/2024 11:54 AM, LOCATION [facility] INDICATION: Code Stroke ADDITIONAL CLINICAL INFORMATION: [...] CT BRAIN - Stroke (04/09/2024 11:46 AM GOLD LETTERER) Anatomical Region Laterality Modality Head Computed Tomogra phy 04/09/2024 11:5 4 AM GOLD LETTERER Impressions 04/09/2024 12:18 PM GOLD LETTERER IMPRESSION: 1. No acute intracranial hemorrhage. 2. [...] 04/09/2024 12:18 PM Narrative 04/09/2024 12:18 PM GOLD LETTERER PROCEDURE: CT BRAIN STROKE, CT ANGIO BRAIN NECK STROKE, DATE/TIME OF EXAM: 04/09/2024 11:54 AM, LOCATION [facility] INDICATION: Code Stroke ADDITIONAL CLINICAL INFORMATION: [...] STROKE, DATE/TIME OFEXAM: 04/09/2024 11:54 AM, LOCATION [facility] INDICATION: Code Stroke ADDITIONAL CLINICAL INFORMATION: [...] OF CARE (IP) STROKE (04/09/2024 11:41 AM GOLD LETTERER) INR 1.1 0.9 - 1.2 04/09/2024 11:43 AM [facility] Device [id number] 04/09/2024 11:43 AM [facility] Document Preparation Specialist ID [id number] 04/09/2024 11:43 AM [facility] Blood BLOOD SPECIMEN / Unknown 04/09/2024 11:41 AM GOLD LETTERER 04/09/2024 11:43 AM GOLD LETTERER Cipriano Najera MD LAB - POINT OF CARE ORDERABLES [facility] [address] [place] [address], [place] [phone] * (ABNORMAL) CREATININE - POCT INTERFACED (04/09/2024 11:41 AM GOLD LETTERER) Creatinine POCT 1.09 0.30 - 1.30 mg/dL 04/09/2024 11:43 AM [facility] eGFR 51(L) >=90 mL/min/1.7 3 m2 04/09/2024 11:43 AM [facility] Blood BLOOD SPECIMEN / Unknown 04/09/2024 11:41 AM GOLD LETTERER 04/09/2024 11:43 AM GOLD LETTERER Cipriano Najera MD LAB - POINT OF CARE ORDERABLES [facility] [address] [place] [address], [place] [phone] from Last 3 Months Insurance Payer Benefit Plan / Group Subscriber ID Effective Dates Phone Address Type [employer] MEDICARE HU[employer]NA MEDICARE ADV HMO & PPO [id number] 2022-Pres ent [address] [place] [phone] Medicare-Man aged Care MEDICARE WPS MEDICARE PART B [id number] 2009-Pre sent [address] [address] [place] [address] Medicare Advance Directives * LIMITED RESUSCITATION-PRIOR AND AFTER ARREST (Latest Code Status on File) Date Activated Date Inactivated Comments 04/09/2024 6:26 PM 04/10/2024 6:32 PM Question Answer Comments Limited Resuscitation: No Chest Compress ionNo Intubation, No Invasive VentilationNo Cardioversion, No Defibrilation, No External or Internal Pacemaker * Full Code Date Activated Date Inactivated Comments 04/09/2024 11:55 AM 04/09/2024 6:26 PM Care Teams House Steward/Stewardess Relationship Specialty Start Date End Date Srinivas Chery, DIE CASTER-BREAD WRAPPER [address] [place] [address] PCP - General Nurse Practitioner 04/09/24
[2024-05-27 11:18] LABS: Add Urine Microscopic? YES; Appearance Urine Clear (Clear); Bacteria Urine None Seen /hpf; Bilirubin Urine Negative (Negative); Blood Urine Negative (Negative); Color Urine Yellow (Yellow); Glucose Urine UA Negative (Negative); Ketones Urine Negative (Negative); Leukocyte Esterase Ur Trace LEU/UL (Negative); Need Manual Microscopic Reviewed; Nitrate Urine Negative (Negative); Protein Urine Negative (Negative); RBC Urine 0-2 /hpf (0-2); Specific Grav Ur 1.008 (1.001-1.035); Squamous Epithelial Cell Urine None Seen /hpf (Few); Urobilinogen Urine 0.2 mg/dL (<2.0); WBC Urine 0-5 /hpf (0-3); pH Urine 5.5 (5.0-9.0)
== END 2024-05-27 09:50 | disposition home or self-care (01) ==
PROVIDERS: PCP Nurse Practitioner; Visit Provider Nurse Practitioner
DX: R39.9 Unspecified symptoms and signs involving the genitourinary system (principal); Z86.73 Personal history of transient ischemic attack (TIA), and cerebral infarction without residual deficits
CPT/HCPCS: 81001; 93880